=== PATIENT | female | born 1935 | race Caucasian/White ===

== ENCOUNTER 2018-03-22 17:20 | Inpatient (IN) | payer MEDICARE, MEDICAID ==
--- NOTE | 2018-03-22 18:02 | ED PDOC ---
Syncope/Near Syncope/Dizziness Time Seen by Provider: 03/22/18 17:30 Chief Complaint (Nursing): Weakness/Neurological Deficit Chief Complaint (Provider): Weakness/Neurological Deficit History Per: Patient History/Exam Limitations: clinical condition Additional Complaint(s): 84 y/o female who lives by herself was found by her neighbors on the ground in her apartment prompting ED visit. It is unclear how long patient was on the ground. Patient was found to be incontinent of urine. Patient denies falling or weakness but reports she remembers being unable to get up. She offers no other medical complaints. PMD: Jennyfer Past Medical History Reviewed: Historical Data, Nursing Documentation, Vital Signs Vital Signs: Last Vital Signs Temp 98.5 F 03/22/18 17:24 Pulse 94 H 03/22/18 17:24 Resp 20 03/22/18 17:24 BP 134/66 03/22/18 17:24 Pulse Ox 99 03/22/18 17:24 - Medical History PMH: Anxiety, Arthritis, HTN, Hypercholesterolemia, Hypothyroidism Denies: Chronic Kidney Disease - Family History Family History: States: Unknown Family Hx - Social History Current smoker - smoking cessation education provided: No Alcohol: None Drugs: Denies - Home Medications Home Medications: Ambulatory Orders Medication Instructions Recorded Alprazolam [Xanax] 0.5 mg PO DAILY 03/22/18 RX: Meclizine [Meclizine*] 25 mg PO BID PRN 03/22/18 RX: traMADol [Ultram] 50 mg PO BID PRN 03/22/18 - Allergies Allergies/Adverse Reactions: Allergies Allergy/AdvReac Type Severity Reaction Status Date / Time No Known Allergies Allergy Verified 03/18/15 19:39 Review of Systems ROS Statement: Except As Marked, All Systems Reviewed And Found Negative (as per HPI otherwise negative) Genitourinary Female: Positive for: Incontinence Physical Exam - Reviewed Nursing Documentation Reviewed: Yes Vital Signs Reviewed: Yes - Physical Exam Appears: Positive for: No Acute Distress Head Exam: Positive for: ATRAUMATIC, NORMOCEPHALIC Skin: Positive for: Warm, Dry Eye Exam: Positive for: EOMI, PERRL ENT: Positive for: Other (dry mucous membranes) Neck: Positive for: Painless ROM, Supple Cardiovascular/Chest: Positive for: Regular Rate, Rhythm Respiratory: Positive for: Normal Breath Sounds. Negative for: Wheezing, Respiratory Distress Gastrointestinal/Abdominal: Positive for: Soft. Negative for: Tenderness Extremity: Positive for: Pedal Edema (trace bilateral lower leg edema), Other (4/5 strength bilaterally in legs) Lymphatic: Negative for: Adenopathy Neurologic/Psych: Positive for: Alert, Oriented (x2; at times somewhat pleasantly confused) - Laboratory Results Result Diagrams: 03/24/18 11:10 03/24/18 11:10 - ECG O2 Sat by Pulse Oximetry: 99 (RA) Pulse Ox Interpretation: Normal Medical Decision Making Medical Decision Making: Reviewed patient's previous chart from 2015 patient does have history of dementia Time: Initial Impression: bilateral leg weakness with possible fall. Differential included but not limited to dehydration, electrolyte abnormality, head injury, sepsis, syncope Initial Plan: * Type and Screen * CT CSpine * CT Head * EKG * BNP * CMP * Creatinine * Lactic Acid * Magnesium * Phosphorous * TSH * Troponin * CBC w/ diff * PTT * Prothrombin time * CXR * Blood culture * Urine culture * UA Time: 18:54 CT Head COMPARISON: None provided. FINDINGS: BRAIN Chronic periventricular and subcortical microvascular disease is seen. VENTRICLES: There is generalized parenchymal atrophy noted as demonstrated by symmetrical dilatation of ventricles and sulci. ORBITS: The orbits are unremarkable. SINUSES AND MASTOIDS: The paranasal sinuses and mastoid air cells are clear. BONES: No fracture. MISCELLANEOUS: No acute intracranial pathology. IMPRESSION: 1. There is generalized parenchymal atrophy noted as demonstrated by symmetrical dilatation of ventricles and sulci. 2. Chronic periventricular and subcortical microvascular disease is seen. 3. No acute intracranial pathology. Time: 19:17 CT Cervical Spine COMMENTS: There is no fracture or spondylolisthesis visualized. The paraspinal soft tissues are unremarkable. There are no lytic or blastic lesions. Straightening of cervical lordosis is seen, suggesting muscular spasm. There is evidence of multilevel disk disease, demonstrated by large anterior bridging osteophytosis and endplate sclerosis. IMPRESSION: 1. No fracture or spondylolisthesis. 2. Straightening of cervical lordosis is seen, suggesting muscular spasm. 3. Multilevel spondylosis. Time: 19:30 Labs demonstrate elevated CPK and elevated BUN levels, consistent with early rhabdomyolysis. Small bolus fluid ordered, IV fluids given with caution sec ondary to elevated pro BNP. No acute findings on x-ray. Time: 20:15 Discussed findings with DOROTA Flores, who reports patient is normally self- sufficient, she just has mild dementia. Patient is able to ambulate without difficulty and occasionally uses cane. patient is to be admitted under his ser vice for further management. 2200 Pt became confused while in ER. Redirectable, but pt may be sundowning or dementia may be excerbated by current medical condition. Needs 1:1 for safety. Medicated for agitation. Scribe Attestation: Documented by Rock Majano acting as a scribe for Yasmin Tabares MD. Provider Scribe Attestation: All medical record entries made by the Scribe were at my direction and personally dictated by me. I have reviewed the chart and agree that the record accurately reflects my personal performance of the history, physical exam, medical decision making, and the department course for this patient. I have also personally directed, reviewed, and agree with the discharge instructions and disposition. Disposition - Clinical Impression Clinical Impression: Muscle weakness, Rhabdomyolysis, Acute renal insufficiency - Disposition Disposition Time: 20:15 Condition: FAIR - Pt Status Changed To: Hospital Disposition Of: Inpatient - Admit Certification Admit to Inpatient:: After my assessment, the patient will require ho spitalization for at least two midnights. This is because of the severity of symptoms shown, intensity of services needed, and/or the medical risk in this patient being treated as an outpatient. - POA Present On Arrival: Falls Or Trauma
[2018-03-22 19:14] LABS: BASO # 0.1 K/uL (0.0-0.2); BASO % 0.6 % (0.0-2.0); EOS # 0.1 K/uL (0.0-0.7); EOS % 0.7 % (0.0-4.0); LYMPH # 0.6 K/uL (1.0-4.3); LYMPH % 4.6 % (20.0-40.0); MEAN CELL VOLUME 92.6 fl (81.0-99.0); MEAN CORPUSCULAR HEMOGLOBIN 30.8 pg (27.0-31.0); MEAN CORPUSCULAR HGB CONC 33.2 g/dL (33.0-37.0); MEAN PLATELET VOLUME 9.1 fl (7.2-11.7); MONO # 0.7 K/uL (0.0-0.8); MONO % 5.2 % (0.0-10.0); NEUT # 12.5 K/uL (1.8-7.0); NEUT % 88.9 % (50.0-75.0); NRBC % 0.2 % (0.0-0.0); PLATELET COUNT 252 K/uL (130-400); RBC 4.89 Mil/uL (3.80-5.20); WHITE BLOOD COUNT 14.1 K/uL (4.8-10.8)
[2018-03-22 19:18] LABS: PROTHROMBIN TIME 11.9 Seconds (9.8-13.1)
[2018-03-22 19:20] LABS: ALB/GLOB RATIO 1.1 (1.0-2.1); ALBUMIN 4.2 g/dL (3.5-5.0); ALT/SGPT 73 U/L (9-52); AST/SGOT 156 U/L (14-36); BLOOD UREA NITROGEN 42 mg/dl (7-17); CALCIUM 8.9 mg/dL (8.4-10.2); GFR NON-AFRICAN AMERICAN > 60; PARTIAL THROMBOPLASTIN TIME 29.3 Seconds (25.6-37.1)
[2018-03-22] MEDS ORDERED: Sodium Chloride 0.9% 1,000 ML IV STA (19:35)
[2018-03-22 19:37] LABS: B-TYPE NATRIURETIC PEPTIDE 1570 pg/ml (0-900)
[2018-03-22 19:41] LABS: LYMPHOCYTE 3 % (20-50); MONOCYTE 4 % (0-10); NEUTROPHIL 93 % (42-75); PLATELET ESTIMATE NORMAL (NORMAL); TOTAL CELLS COUNTED 100
[2018-03-22 19:42] LABS: ANISOCYTOSIS SLIGHT; OVALOCYTES SLIGHT; POIKILOCYTOSIS SLIGHT; TEARDROP CELLS SLIGHT
[2018-03-22] MEDS ORDERED: Sodium Chloride 0.9% 500 ML IV STA (19:45)
[2018-03-22 22:04] LABS: URINE BILIRUBIN NEGATIVE (NEGATIVE); URINE CLARITY CLOUDY (Clear); URINE COLOR YELLOW (YELLOW); URINE GLUCOSE (UA) NEG (Normal); URINE LEUKOCYTE ESTERASE NEG Leu/uL (Negative); URINE PROTEIN >=500 mg/dL (NEGATIVE); URINE UROBILINOGEN 0.2-1.0 mg/dL (0.2-1.0)
[2018-03-22 22:06] LABS: URINE BLOOD NEGATIVE (NEGATIVE)
[2018-03-23] MEDS: Sodium Chloride 0.9% 1,000 ML IV SCH ×3 (01:17→15:37)
[2018-03-23 05:14] LABS: HEMOGLOBIN 14.1 g/dL (12.0-16.0); MEAN CORPUSCULAR HEMOGLOBIN 30.8 pg (27.0-31.0); MEAN CORPUSCULAR HGB CONC 33.5 g/dL (33.0-37.0); RBC 4.58 Mil/uL (3.80-5.20); WHITE BLOOD COUNT 11.5 K/uL (4.8-10.8)
[2018-03-23 05:54] LABS: ALB/GLOB RATIO 1.1 (1.0-2.1); ALBUMIN 3.6 g/dL (3.5-5.0); ALT/SGPT 67 U/L (9-52); AST/SGOT 138 U/L (14-36); BLOOD UREA NITROGEN 41 mg/dl (7-17); CALCIUM 8.5 mg/dL (8.4-10.2); GFR NON-AFRICAN AMERICAN > 60
--- NOTE | 2018-03-23 10:03 | CARD ---
APPROVED REPORT Date of service: 03/22/2018 EKG Measurement Heart [id number] <Conclusion> Normal sinus rhythm T wave abnormality, consider anterior ischemia Abnormal ECG
--- NOTE | 2018-03-23 10:17 | RAD ---
Date of service: 03/22/2018 HISTORY: Status post fall COMPARISON: No prior. FINDINGS: LUNGS: The interstitial markings a creased and coarsened; rule out sequela of reactive/inflammatory airway disease or viral illness. Possibility of an underlying chronic interstitial disease process not excluded. PLEURA: No significant pleural effusion identified, no pneumothorax apparent. CARDIOVASCULAR: No aortic atherosclerotic calcification present. Normal cardiac size. No pulmonary vascular congestion. OSSEOUS STRUCTURES: No significant abnormalities. VISUALIZED UPPER ABDOMEN: Normal. OTHER FINDINGS: None. IMPRESSION: The interstitial markings a creased and coarsened; rule out sequela of reactive/inflammatory airway disease or viral illness. Possibility of an underlying chronic interstitial disease process not excluded.
--- NOTE | 2018-03-23 10:59 | CT ---
Date of service: 03/22/2018 PROCEDURE: CT HEAD WITHOUT CONTRAST. HISTORY: fall on plavix, leg weakness COMPARISON: None available. TECHNIQUE: Axial computed tomography images were obtained through the head/brain without intravenous contrast. Radiation dose: Total exam DLP = 1117.47 mGy-cm. This CT exam was performed using one or more of the following dose reduction techniques: Automated exposure control, adjustment of the mA and/or kV according to patient size, and/or use of iterative reconstruction technique. FINDINGS: HEMORRHAGE: No acute parenchymal, subarachnoid or extra-axial hemorrhage. BRAIN: Mild moderate diffuse/confluent chronic periventricular white matter ischemic changes seen extending peripherally into the deep and subcortical white matter both cerebral hemispheres. There may also be some extension of these changes into the white matter tracts of both basal nuclei.. Note that the possibility of a small hyperacute infarct cannot be completely excluded. Moderate generalized volume loss. VENTRICLES: Unremarkable. No hydrocephalus. CALVARIUM: No acute calvarial fractures. PARANASAL SINUSES: Unremarkable as visualized. No significant inflammatory changes. MASTOID AIR CELLS: Unremarkable as visualized. No inflammatory changes. OTHER FINDINGS: Changes of bilateral cataract surgery present.. IMPRESSION: Mild moderate diffuse/confluent chronic periventricular white matter ischemic changes seen extending peripherally into the deep and subcortical white matter both cerebral hemispheres. There may also be some extension of these changes into the white matter tracts of both basal nuclei.. Note that the possibility of a small hyperacute infarct cannot be completely excluded. Moderate generalized volume loss .
--- NOTE | 2018-03-23 11:37 | CT ---
Date of service: 03/22/2018 PROCEDURE: CT Cervical Spine without contrast HISTORY: Status post fall with leg weakness COMPARISON: None available. TECHNIQUE: Axial computed tomography images were obtained of the cervical spine without the use of intravenous contrast. Coronal and sagittal reformatted images were created and reviewed. Radiation dose: Total exam DLP = 399.81 mGy-cm. This CT exam was performed using one or more of the following dose reduction techniques: Automated exposure control, adjustment of the mA and/or kV according to patient size, and/or use of iterative reconstruction technique. FINDINGS: VERTEBRAE: No acute compression fractures no retropulsed fragments. Vertebral bodies exhibit normal stature. Vertebral bodies and facets normally aligned. Apparent partial fusion changes posterior margins of the C2 and C3 vertebral body segments. In addition, there are also intradiscal calcifications seen along the right lateral disc margin. DISCS/SPINAL CANAL/NEURAL FORAMINA: Mild multilevel degenerative spondylosis. The C2-C3 level in addition to the aforementioned partial posterior fusion change intradiscal calcification concomitant the facets are slightly hypertrophic.. The overall central bony canal appears adequate. Left exit foramen is adequate. Right exit foramen is marginal to minimally narrowed. At the C3-C4 level, there is adequate disc height. Small central and bilateral disc bulge minimally indents the ventral surface of the thecal sac though does not cause any significant canal compromise nor cord compression. Mild degenerative squaring of the uncovertebral joints left more so on the left side. The facets also hypertrophic. Left exit foramen is stenotic. Right exit foramen is marginal to minimally narrowed. The At the C4-C5 level, there is adequate disc height. Small central and bilateral disc bulge ridge complex minimally indents the ventral surface of the thecal sac and appears to reach the ventral surface of the cord. Central canal appears marginal to adequate. Minimal degenerative squaring of the uncovertebral joints. Facets also [id number] hypertrophic right greater than left. Right exit foramen is marginal to slightly narrowed. Left exit foramen is marginal to adequate. At the C5 C6 level, there is adequate disc height. Small central disc bulge ridge complex also indents the ventral surface of the thecal sac and probably minimally indents the ventral surface of cord. Central canal appears adequate. The facets are hypertrophic. The uncovertebral joints also slightly overgrown. Exit foramina appear narrowed bilaterally. The at the C6-C7 level, small central osteophytic ridge minimally indents the ventral surface of the thecal sac. Central canal and exit foramina appear adequate. PARASPINAL SOFT TISSUES: Paraspinal soft tissues are unremarkable. OTHER FINDINGS: Lung apices are clear though note made of an azygos fissure. Minimal left apical pleural thickening IMPRESSION: No acute fractures. Minor multilevel degenerative spondylosis as described... Partial early fusion changes C2-C3 segments likely degenerative in origin.
--- NOTE | 2018-03-23 16:59 | CP.PCM.HP ---
History of Present Illness - History of Present Illness History of Present Illness: CC: AMS. 83 y/o F, Lives alone, with multiple chronic medical conditions, Mild cognitive impairment, HTN, Hypothyroidism, Dyslipidemia, Anxiety, Depression, brought to ER [facility] on 03/23/18 due to increased mental status on DOA, apparently, Pt fell at home and was found by neighbor on floor, unknown how long was on floor, episode associated to incontinent of stool and urine, EMS was call and Pt was brought to hospital with no improvement. Worsening symptoms: Unable to get up while at home, legs weakness. Also as per nurse, aggressive and combative at times placed on 1:1 for safety. Aggravated factor: Poor historian. Denied: Fever, chills, n/v/d, abdominal pain, urinary symptoms, CP, SOB, cough, sick contact. Head CT: Diffused chronic jovan-ventricular white matter ischemic changes, there may also be some extension into the white tracts of both basal nuclei. Small infarct cannot be complete excluded. CXR: Possibility of underlining interstitial disease. Cervical spine CT: No acute Fx. Multilevel degenerative spondylosis. Present on Admission - Present on Admission Any Indicators Present on Admission: No Review of Systems - Review of Systems Systems not reviewed;Unavailable: Acuity of Condition, Altered Mental Status Past Patient History - Past Medical History & Family History Past Medical History?: Yes - Past Social History Smoking Status: Never Smoked Alcohol: None Drugs: Denies Home Situation {Lives}: Alone - CARDIAC Hx Cardiac Disorders: Yes Hx Hypercholesterolemia: Yes Hx Hypertension: Yes - PULMONARY Hx Respiratory Disorders: No - NEUROLOGICAL Hx Neurological Disorder: Yes Hx Dementia: Yes Hx Vertigo: Yes - HEENT Hx HEENT Problems: No - RENAL Hx Chronic Kidney Disease: No - ENDOCRINE/METABOLIC Hx Endocrine Disorders: Yes Hx Hypothyroidism: Yes - HEMATOLOGICAL/ONCOLOGICAL Hx Blood Disorders: No - INTEGUMENTARY Hx Dermatological Problems: No - MUSCULOSKELETAL/RHEUMATOLOGICAL Hx Musculoskeletal Disorders: Yes Hx Arthritis: Yes Hx Falls: Yes - GASTROINTESTINAL Hx Gastrointestinal Disorders: No - GENITOURINARY/GYNECOLOGICAL Hx Genitourinary Disorders: No - PSYCHIATRIC Hx Psychophysiologic Disorder: Yes Hx Anxiety: Yes - SURGICAL HISTORY Hx Surgeries: No - ANESTHESIA Hx Anesthesia: No Hx Anesthesia Reactions: No Hx Malignant Hyperthermia: No Meds Allergies/Adverse Reactions: Allergies Allergy/AdvReac Type Severity Reaction Status Date / Time No Known Allergies Allergy Verified 03/18/15 19:39 Physical Exam - Constitutional Appears: No Acute Distress - Eye Exam Eye Exam: PERRL - ENT Exam ENT Exam: Normal Exam - Neck Exam Neck exam: Positive for: Normal Inspection - Respiratory Exam Respiratory Exam: Clear to Auscultation Bilateral - Cardiovascular Exam Cardiovascular Exam: REGULAR RHYTHM - GI/Abdominal Exam GI & Abdominal Exam: Normal Bowel Sounds, Soft - Back Exam Back exam: NORMAL INSPECTION - Neurological Exam Additional comments: awake, calm, oriented x one, no focal motor/sensory deficit - Psychiatric Exam Psychiatric exam: Anxious - Skin Skin Exam: Warm Results - Vital Signs Recent Vital Signs: Last Vital Signs Temp 97.6 F 03/23/18 16:42 Pulse 84 03/23/18 16:42 Resp 18 03/23/18 16:42 BP 123/72 03/23/18 16:42 Pulse Ox 95 03/23/18 16:42 - Labs Result Diagrams: 03/24/18 11:10 03/24/18 11:10 Labs: Laboratory Results - last 24 hr 03/22/18 03/22/18 03/22/18 19:00 19:00 19:00 WBC 14.1 H RBC 4.89 Hgb 15.0 Hct 45.3 MCV 92.6 MCH 30.8 MCHC 33.2 RDW 14.0 Plt Count 252 MPV 9.1 Neut % (Auto) 88.9 H Lymph % (Auto) 4.6 L Sharp % (Auto) 5.2 Eos % (Auto) 0.7 Baso % (Auto) 0.6 Neut # (Auto) 12.5 H Lymph # (Auto) 0.6 L Sharp # (Auto) 0.7 Eos # (Auto) 0.1 Baso # (Auto) 0.1 Neutrophils % (Manual) 93 H Lymphocytes % (Manual) 3 L Monocytes % (Manual) 4 Platelet Estimate Normal Poikilocytosis (manual Slight Anisocytosis (manual) Slight Tear Drop Cells Slight Ovalocytes Slight PT INR APTT Sodium 141 Potassium 3.6 Chloride 101 Carbon Dioxide 26 Anion Gap 18 BUN 42 H Creatinine 0.8 Est GFR ( Amer) > 60 Est GFR (Non-Af Amer) > 60 POC Glucose (mg/dL) Random Glucose 138 H Lactic Acid 1.2 Calcium 8.9 Phosphorus 3.2 Magnesium 2.3 Total Bilirubin 1.2 AST 156 H ALT 73 H Alkaline Phosphatase 97 Total Creatine Kinase 2676 H Troponin I 0.0330 NT-Pro-B Natriuret Pep 1570 H Total Protein 7.9 Albumin 4.2 Globulin 3.7 Albumin/Globulin Ratio 1.1 Vitamin B12 Thyroxine (T4) TSH 3rd Generation 2.11 Urine Color Urine Clarity Urine pH Ur Specific [place] Urine Protein Urine Glucose (UA) Urine Ketones Urine Blood Urine Nitrate Urine Bilirubin Urine Urobilinogen Ur Leukocyte Esterase Blood Type Antibody Screen BBK History Checked 03/22/18 03/22/18 03/22/18 19:00 19:08 19:16 WBC RBC Hgb Hct MCV MCH MCHC RDW Plt Count MPV Neut % (Auto) Lymph % (Auto) Sharp % (Auto) Eos % (Auto) Baso % (Auto) Neut # (Auto) Lymph # (Auto) Sharp # (Auto) Eos # (Auto) Baso # (Auto) Neutrophils % (Manual) Lymphocytes % (Manual) Monocytes % (Manual) Platelet Estimate Poikilocytosis (manual Anisocytosis (manual) Tear Drop Cells Ovalocytes PT 11.9 INR 1.0 APTT 29.3 Sodium Potassium Chloride Carbon Dioxide Anion Gap BUN Creatinine Est GFR ( Amer) Est GFR (Non-Af Amer) POC Glucose (mg/dL) 117 H Random Glucose Lactic Acid Calcium Phosphorus Magnesium Total Bilirubin AST ALT Alkaline Phosphatase Total Creatine Kinase Troponin I NT-Pro-B Natriuret Pep Total Protein Albumin Globulin Albumin/Globulin Ratio Vitamin B12 Thyroxine (T4) TSH 3rd Generation Urine Color Urine Clarity Urine pH Ur Specific [place] Urine Protein Urine Glucose (UA) Urine Ketones Urine Blood Urine Nitrate Urine Bilirubin Urine Urobilinogen Ur Leukocyte Esterase Blood Type O NEGATIVE Antibody Screen Negative BBK History Checked No verified bt 03/22/18 03/23/18 03/23/18 21:48 04:35 04:35 WBC 11.5 H RBC 4.58 Hgb 14.1 Hct 42.2 MCV 92.0 MCH 30.8 MCHC 33.5 RDW 14.0 Plt Count 240 MPV Neut % (Auto) Lymph % (Auto) Sharp % (Auto) Eos % (Auto) Baso % (Auto) Neut # (Auto) Lymph # (Auto) Sharp # (Auto) Eos # (Auto) Baso # (Auto) Neutrophils % (Manual) Lymphocytes % (Manual) Monocytes % (Manual) Platelet Estimate Poikilocytosis (manual Anisocytosis (manual) Tear Drop Cells Ovalocytes PT INR APTT Sodium 142 Potassium 3.5 L Chloride 105 Carbon Dioxide 25 Anion Gap 16 BUN 41 H Creatinine 0.8 Est GFR ( Amer) > 60 Est GFR (Non-Af Amer) > 60 POC Glucose (mg/dL) Random Glucose 137 H Lactic Acid Calcium 8.5 Phosphorus Magnesium Total Bilirubin 1.1 AST 138 H ALT 67 H Alkaline Phosphatase 84 Total Creatine Kinase Troponin I NT-Pro-B Natriuret Pep Total Protein 7.0 Albumin 3.6 Globulin 3.4 Albumin/Globulin Ratio 1.1 Vitamin B12 381 Thyroxine (T4) 7.53 TSH 3rd Generation 3.58 Urine Color Yellow Urine Clarity Cloudy Urine pH 6.0 Ur Specific [place] 1.033 H Urine Protein >=500 Urine Glucose (UA) Neg Urine Ketones 20 Urine Blood Negative Urine Nitrate Negative Urine Bilirubin Negative Urine Urobilinogen 0.2-1.0 Ur Leukocyte Esterase Neg Blood Type Antibody Screen BBK History Checked Assessment & Plan (1) Rhabdomyolysis Status: Acute Priority: High (2) Status post fall Status: Acute Priority: High (3) Change in mental status Status: Chronic Priority: High (4) Dementia Status: Chronic Priority: Medium (5) HTN (hypertension) Status: Chronic Priority: Medium - Assessment and Plan (Free Text) Plan: F/U Blood& urine C-S, Brain MRI, Renal U-S, Carotid U-S, continue Fluid IV, Haloperidol and rest of Tx. Psychiatry and Urology consult, PT ekaterina. - Date & Time Date: 03/23/18 Time: 13:10
--- NOTE | 2018-03-23 17:39 | US ---
Date of service: 03/23/2018 PROCEDURE: Ultrasound of the Kidneys HISTORY: elevated COMPARISON: None available. TECHNIQUE: Sonogram of the kidneys. FINDINGS: RIGHT KIDNEY: Measures: 12.6 x 4.9 x 4.9 cm. Normal in size, contour and echogenicity. No stone or solid mass lesion. There appears to be mild hydronephrosis LEFT KIDNEY: Measures: 11.9 x 6.2 x 5.3 cm. Normal in size, contour and echogenicity. No stone or solid mass lesion. Questionable minor hydronephrosis. OTHER FINDINGS: Prevoid bladder volume calculated at approximately 1045 cc. Patient was unable to void. IMPRESSION: There appears to be minor right and questionable mid minor left-sided hydronephrosis.. Large urinary bladder volume with patient unable to void as described.
--- NOTE | 2018-03-24 10:05 | CP.PCM.CON ---
History of Present Illness - History of Present Illness History of Present Illness: Psychiatry consult note CC: AMS HPI: 83 yo Michael female, found by her neighbors on the ground in her apartment, presents w/ altered mental status, rhabdomyolysis, renal insufficiency. Patient currently disoriented; only oriented to self and birthdate. She does not know where she is, the date, or why she is in the hospital. She denies acute depression/anxiety/AH/VH/SI/HI. She does not believe she has memory deficits. As per records, patient has a history of dementia w/ treatment w/ Aricept, but patient is not able to confirm if she is taking this medication. Patient unable to provide any other relevant history. PMHx: Arthritis, HTN, HLD, Hypothyroidism PPHx: H/o Dementia ALL: NKDA SHx: Lives alone, denies having children; no known drug/etoh/cig use Impression: 83 yo female presents acutely delirious, likely also with worsening chronic neurocognitive impairment. She is not currently behaviorally disturbed. -Recommend to restart Aricept 5 mg PO HS -Can consider discontinuing 1:1 as she does not have acute behavioral disturbances; patient would benefit from being monitored for fall risk -Avoid benzodiazepines as they are likely to worsen confusion -If patient develops behavioral disturbances, can start treatment with Depakote 125 mg PO BID Past Patient History - Past Medical History & Family History Past Medical History?: Yes - Past Social History Smoking Status: Never Smoked - CARDIAC Hx Cardiac Disorders: Yes Hx Hypercholesterolemia: Yes Hx Hypertension: Yes - PULMONARY Hx Respiratory Disorders: No - NEUROLOGICAL Hx Neurological Disorder: Yes Hx Dementia: Yes - HEENT Hx HEENT Problems: No - RENAL Hx Chronic Kidney Disease: No - ENDOCRINE/METABOLIC Hx Endocrine Disorders: Yes Hx Hypothyroidism: Yes - HEMATOLOGICAL/ONCOLOGICAL Hx Blood Disorders: No - INTEGUMENTARY Hx Dermatological Problems: No - MUSCULOSKELETAL/RHEUMATOLOGICAL Hx Musculoskeletal Disorders: Yes Hx Arthritis: Yes Hx Falls: Yes - GASTROINTESTINAL Hx Gastrointestinal Disorders: No - GENITOURINARY/GYNECOLOGICAL Hx Genitourinary Disorders: No - PSYCHIATRIC Hx Psychophysiologic Disorder: Yes Hx Anxiety: Yes - SURGICAL HISTORY Hx Surgeries: No - ANESTHESIA Hx Anesthesia: No Hx Anesthesia Reactions: No Hx Malignant Hyperthermia: No Meds Allergies/Adverse Reactions: Allergies Allergy/AdvReac Type Severity Reaction Status Date / Time No Known Allergies Allergy Verified 03/18/15 19:39 - Medications Medications: Current Medications Haloperidol Lactate (Haldol) 0.5 mg IM Q6 PRN PRN Reason: Agitation Last Admin: 03/23/18 21:04 Dose: 0.5 mg Results - Vital Signs Recent Vital Signs: Last Vital Signs Temp 99.2 F 03/24/18 08:50 Pulse 80 03/24/18 08:50 Resp 20 03/24/18 08:50 BP 166/83 H 03/24/18 08:50 Pulse Ox 96 03/24/18 08:50 - Labs Result Diagrams: 03/24/18 11:10 03/23/18 04:35 Labs: Laboratory Results - last 24 hr 03/23/18 06:23 RPR Nonreactive
[2018-03-24 11:17] LABS: HEMOGLOBIN 12.5 g/dL (12.0-16.0); MEAN CELL VOLUME 95.2 fl (81.0-99.0); MEAN CORPUSCULAR HEMOGLOBIN 30.9 pg (27.0-31.0); MEAN CORPUSCULAR HGB CONC 32.5 g/dL (33.0-37.0); RBC 4.03 Mil/uL (3.80-5.20); RED CELL DISTRIBUTION WIDTH 14.3 % (11.5-14.5); WHITE BLOOD COUNT 9.1 K/uL (4.8-10.8)
[2018-03-24] MEDS ORDERED: Sodium Chloride 0.9% 1,000 ML IV SCH (11:45)
[2018-03-24 11:55] LABS: ALBUMIN 3.1 g/dL (3.5-5.0); ALT/SGPT 60 U/L (9-52); AST/SGOT 70 U/L (14-36); BLOOD UREA NITROGEN 27 mg/dl (7-17); CALCIUM 7.7 mg/dL (8.4-10.2); GFR NON-AFRICAN AMERICAN > 60
--- NOTE | 2018-03-24 13:59 | US ---
Date of service: 03/24/2018 PROCEDURE: Duplex ultrasound of the carotid and vertebral arteries. HISTORY: ams COMPARISON: None available. TECHNIQUE: Grayscale and duplex Doppler evaluation of the cervical carotid and vertebral arteries were performed. The common carotid, carotid bifurcations and cervical ICA and proximal ECA were evaluated. The vertebral arteries were evaluated for gross patency and direction. FINDINGS: RIGHT CAROTID ARTERIES: Common Carotid Artery: Maximal flow velocity of 76.2 cm/s. Carotid Bifurcation: Intimal thickening is present Internal Carotid Artery:Heterogeneous plaque formation. Maximal flow velocity of 96.3 cm/s. External Carotid Artery (proximal branches): Maximal flow velocity of 57.8 cm/s. ICA/CCA Ratio: 1.2 LEFT CAROTID ARTERIES: Common Carotid Artery: Maximal flow velocity of 105.9 cm/s. Carotid Bifurcation: Intimal thickening is present Internal Carotid Artery:Heterogeneous plaque formation. Maximal flow velocity of 60.2 cm/s. External Carotid Artery (proximal branches): Maximal flow velocity of 127.0 cm/s. ICA/CCA Ratio: 0.5 VERTEBRAL ARTERIES: Right Vertebral Artery: Patent. Antegrade flow. Left Vertebral Artery: Patent. Antegrade flow. OTHER FINDINGS: Atherosclerotic calcification present. IMPRESSION: Right ICA degree of stenosis: Less than 50% Left ICA degree of stenosis: Less than 50% Reference Internal Carotid Artery (ICA) Peak Systolic Velocity (PSV) for above: 1. Less than 50% stenosis less than 125 cm/s peak systolic velocity 2. 50-69% stenosis 125-230cm/s peak systolic velocity 3. Greater than 70% but less than near occlusion greater than 230 cm/s peak systolic velocity
[2018-03-24] MEDS ORDERED: Potassium Chloride 20 mEq ER Tab PO ONE ×2 (14:14→20:30)
[2018-03-24] MEDS: Sodium Chloride 0.9% 1,000 ML IV SCH (14:15)
--- NOTE | 2018-03-24 17:08 | MRI ---
Date of service: 03/24/2018 PROCEDURE: MRI BRAIN WITHOUT CONTRAST HISTORY: ams COMPARISON: Unenhanced head CT 03/22/2018. TECHNIQUE: Multiplanar, multisequence MR images of the brain were obtained without intravenous contrast enhancement. FINDINGS: HEMORRHAGE: None DWI: No evidence of an acute or early subacute infarction. BRAIN PARENCHYMA: Diffuse cerebral atrophy chronic microangiopathy are better defined as compared to prior CT of the head noted above. No interval mass effect. Posterior fossa contents are unremarkable including the brainstem. No suspicious extra-axial collection identified. VENTRICLES: Unremarkable. No hydrocephalus. CRANIUM: Unremarkable. ORBITS: Grossly unremarkable. PARANASAL SINUSES/MASTOIDS: Clear VASCULAR SYSTEM: Skull base flow voids intact. OTHER FINDINGS: None. IMPRESSION: No definite acute or subacute brain infarction identified. Age related neuro degenerative changes are reiterated.
[2018-03-24 18:05] LABS: FOLATE 10.9 ng/mL
--- NOTE | 2018-03-24 19:58 | CP.PCM.PN ---
Subjective - Date & Time of Evaluation Date of Evaluation: 03/24/18 Time of Evaluation: 19:00 - Subjective Subjective: agitated, confused, pulled IV out Objective - Vital Signs/Intake and Output Vital Signs (last 24 hours): Temp Pulse Resp BP Pulse Ox 98.1 F 94 H 20 171/77 H 95 03/24/18 15:53 03/24/18 15:53 03/24/18 15:53 03/24/18 15:53 03/24/18 15:53 - Medications Medications: Current Medications Amlodipine Besylate (Norvasc) 2.5 mg PO DAILY [facility] Cyanocobalamin (Vitamin B12 1000 Mcg Tab) 1,000 mcg PO DAILY [facility] Last Admin: 03/24/18 16:29 Dose: 1,000 mcg Haloperidol Lactate (Haldol) 0.5 mg IM Q6 PRN PRN Reason: Agitation Last Admin: 03/24/18 16:26 Dose: 0.5 mg Sodium Chloride (Sodium Chloride 0.9%) 1,000 mls @ 100 mls/hr IV .Q10H [facility] Stop: 03/25/18 11:31 Last Admin: 03/24/18 14:15 Dose: 100 mls/hr Levothyroxine Sodium (Synthroid) 75 mcg PO DAILY@0630 [facility] - Labs Labs: 03/24/18 11:10 03/24/18 11:10 PT 11.9 Seconds (9.8-13.1) 03/22/18 19:00 INR 1.0 03/22/18 19:00 APTT 29.3 Seconds (25.6-37.1) 03/22/18 19:00 - Constitutional Appears: No Acute Distress - Head Exam Head Exam: NORMAL INSPECTION - Eye Exam Eye Exam: PERRL - ENT Exam ENT Exam: Normal Exam - Neck Exam Neck Exam: Normal Inspection - Respiratory Exam Respiratory Exam: Rhonchi (scattered) - Cardiovascular Exam Cardiovascular Exam: REGULAR RHYTHM - GI/Abdominal Exam GI & Abdominal Exam: Soft, Normal Bowel Sounds - Extremities Exam Extremities Exam: Normal Inspection - Back Exam Back Exam: NORMAL INSPECTION - Neurological Exam Neurological Exam: Awake Additional comments: confused, agitated earlier, no focal motor/sensory deficit - Psychiatric Exam Psychiatric exam: Agitated - Skin Skin Exam: Warm Assessment and Plan (1) Rhabdomyolysis Status: Acute (2) Status post fall Status: Acute (3) Change in mental status Status: Chronic (4) Dementia Status: Chronic (5) HTN (hypertension) Status: Chronic (6) Urinary retention Status: Acute - Assessment and Plan (Free Text) Plan: MRI Brain no Acute or Subacute Infarct, Carotid US no significant stenosis, Renal US mild hydronephrosis, increase Haldol to one mg im q 6hs, urinary retention , insert Casillas Cath, U/A , Urine C-S, f/u up Urology consult
[2018-03-25 05:52] LABS: B-TYPE NATRIURETIC PEPTIDE 1630 pg/ml (0-900)
[2018-03-25 05:54] LABS: LDL CHOLESTEROL 136 mg/dL (0-129)
[2018-03-25 05:57] LABS: BASO # 0.1 K/uL (0.0-0.2); BASO % 0.9 % (0.0-2.0); EOS # 0.3 K/uL (0.0-0.7); HEMOGLOBIN 12.7 g/dL (12.0-16.0); LYMPH # 1.1 K/uL (1.0-4.3); LYMPH % 13.8 % (20.0-40.0); MEAN CELL VOLUME 93.1 fl (81.0-99.0); MEAN CORPUSCULAR HEMOGLOBIN 30.5 pg (27.0-31.0); MEAN CORPUSCULAR HGB CONC 32.8 g/dL (33.0-37.0); MEAN PLATELET VOLUME 8.6 fl (7.2-11.7); MONO # 0.6 K/uL (0.0-0.8); MONO % 7.2 % (0.0-10.0); NEUT % 74.1 % (50.0-75.0); NRBC % 0.1 % (0.0-0.0); RBC 4.15 Mil/uL (3.80-5.20); RED CELL DISTRIBUTION WIDTH 14.2 % (11.5-14.5); WHITE BLOOD COUNT 8.1 K/uL (4.8-10.8)
[2018-03-25 06:03] LABS: ALBUMIN 3.1 g/dL (3.5-5.0); ALT/SGPT 59 U/L (9-52); AST/SGOT 55 U/L (14-36); BLOOD UREA NITROGEN 18 mg/dl (7-17); GFR NON-AFRICAN AMERICAN > 60; HDL CHOLESTEROL 44 MG/DL (30-70)
[2018-03-25] MEDS: Levothyroxine 75 MCG TAB PO SCH (06:08)
[2018-03-25] MEDS: Sodium Chloride 0.9% 1,000 ML IV SCH ×2 (10:00→23:48)
--- NOTE | 2018-03-25 13:57 | CP.PCM.PN ---
Subjective - Date & Time of Evaluation Date of Evaluation: 03/25/18 Time of Evaluation: 11:30 - Subjective Subjective: F/u AMS alert, calm, answer questions Objective - Vital Signs/Intake and Output Vital Signs (last 24 hours): Temp Pulse Resp BP Pulse Ox 99.2 F 85 20 132/74 95 03/25/18 12:00 03/25/18 12:00 03/25/18 12:00 03/25/18 12:00 03/25/18 12:00 - Medications Medications: Current Medications Amlodipine Besylate (Norvasc) 2.5 mg PO DAILY [facility] Last Admin: 03/25/18 09:59 Dose: 2.5 mg Cyanocobalamin (Vitamin B12 1000 Mcg Tab) 1,000 mcg PO DAILY [facility] Last Admin: 03/25/18 12:26 Dose: 1,000 mcg Divalproex Sodium (Depakote Sprinkles) 125 mg PO BID [facility] Donepezil HCl (Aricept) 5 mg PO HS [facility] Levothyroxine Sodium (Synthroid) 75 mcg PO DAILY@0630 [facility] Last Admin: 03/25/18 06:08 Dose: 75 mcg - Labs Labs: 03/25/18 04:45 03/25/18 04:45 PT 11.9 Seconds (9.8-13.1) 03/22/18 19:00 INR 1.0 03/22/18 19:00 APTT 29.3 Seconds (25.6-37.1) 03/22/18 19:00 - Constitutional Appears: No Acute Distress - Head Exam Head Exam: NORMAL INSPECTION - Eye Exam Eye Exam: PERRL - ENT Exam ENT Exam: Normal Exam - Neck Exam Neck Exam: Normal Inspection - Respiratory Exam Respiratory Exam: Rhonchi (few at bases) - Cardiovascular Exam Cardiovascular Exam: REGULAR RHYTHM - GI/Abdominal Exam GI & Abdominal Exam: Soft, Normal Bowel Sounds - Extremities Exam Extremities Exam: Normal Inspection - Back Exam Back Exam: NORMAL INSPECTION - Neurological Exam Neurological Exam: Awake Additional comments: alert , calm, answer questions, oriented for 2 and half, no focal motor/sensory deficit. - Skin Skin Exam: Warm Assessment and Plan (1) Rhabdomyolysis Status: Resolved (2) Status post fall Status: Acute (3) Change in mental status Status: Acute (4) Dementia Status: Chronic (5) HTN (hypertension) Status: Chronic - Assessment and Plan (Free Text) Plan: mental status improved, on Aricept, Depakote, PT ANTON
[2018-03-25] MEDS: Divalproex 125 mg Sprinkle Capsule PO SCH ×2 (14:38→18:03)
[2018-03-25] MEDS ORDERED: Divalproex 125 mg Sprinkle Capsule PO SCH (17:00)
[2018-03-26] MEDS: Levothyroxine 75 MCG TAB PO SCH (06:54)
[2018-03-26] MEDS: Divalproex 125 mg Sprinkle Capsule PO SCH ×2 (09:08→16:57)
--- NOTE | 2018-03-26 12:42 | CP.PCM.PN ---
Subjective - Date & Time of Evaluation Date of Evaluation: 03/26/18 Time of Evaluation: 11:40 - Subjective Subjective: F/U AMS Calm, able to talk, confused at times Objective - Vital Signs/Intake and Output Vital Signs (last 24 hours): Temp Pulse Resp BP Pulse Ox 97.8 F 83 20 131/71 94 L 03/26/18 12:30 03/26/18 12:30 03/26/18 12:30 03/26/18 12:30 03/26/18 12:30 - Medications Medications: Current Medications Amlodipine Besylate (Norvasc) 2.5 mg PO DAILY [facility] Last Admin: 03/26/18 09:08 Dose: 2.5 mg Cyanocobalamin (Vitamin B12 1000 Mcg Tab) 1,000 mcg PO DAILY [facility] Last Admin: 03/26/18 09:09 Dose: 1,000 mcg Dimethicone (Proshield Plus Skin Protectant) 1 applic TOP Q8 [facility] Divalproex Sodium (Depakote Sprinkles) 125 mg PO BID [facility] Last Admin: 03/26/18 09:08 Dose: 125 mg Donepezil HCl (Aricept) 5 mg PO HS [facility] Last Admin: 03/25/18 21:16 Dose: 5 mg Enalapril Maleate (Vasotec) 2.5 mg PO DAILY [facility] Enoxaparin Sodium (Lovenox) 40 mg SC DAILY [facility]; Protocol Ciprofloxacin (Cipro 400mg/200ml Dsw) 400 mg in 200 mls @ 200 mls/hr IVPB Q12 [facility]; Protocol Levothyroxine Sodium (Synthroid) 75 mcg PO DAILY@0630 [facility] Last Admin: 03/26/18 06:54 Dose: 75 mcg - Labs Labs: 03/25/18 04:45 03/25/18 04:45 PT 11.9 Seconds (9.8-13.1) 03/22/18 19:00 INR 1.0 03/22/18 19:00 APTT 29.3 Seconds (25.6-37.1) 03/22/18 19:00 - Constitutional Appears: No Acute Distress - Head Exam Head Exam: NORMAL INSPECTION - Eye Exam Eye Exam: PERRL - ENT Exam ENT Exam: Normal Exam - Neck Exam Neck Exam: Normal Inspection - Respiratory Exam Respiratory Exam: Rhonchi (scattered) - Cardiovascular Exam Cardiovascular Exam: REGULAR RHYTHM - GI/Abdominal Exam GI & Abdominal Exam: Soft, Normal Bowel Sounds - Exam Additional comments: Casillas Cath - Extremities Exam Extremities Exam: Normal Inspection - Back Exam Additional comments: DTI R inner gluteal - Neurological Exam Neurological Exam: Awake Additional comments: Calm, confused,follows commands, no focal motor/sensory deicit. - Psychiatric Exam Psychiatric exam: Anxious - Skin Skin Exam: Warm Assessment and Plan (1) Rhabdomyolysis Assessment & Plan: improved Status: Resolved (2) Status post fall Status: Acute (3) Change in mental status Assessment & Plan: 2nd to Rhabdomyolysis, UTI and Dementia Status: Acute (4) Dementia Assessment & Plan: Depakote , Aricept Status: Chronic (5) HTN (hypertension) Status: Chronic (6) Urinary retention Assessment & Plan: Casillas Cath Status: Acute (7) UTI (urinary tract infection) Assessment & Plan: E Fecalis, E Coli Status: Acute (8) Hypothyroidism Status: Chronic (9) Deep tissue injury Assessment & Plan: R gluteal, Tx Proshield Status: Acute - Assessment and Plan (Free Text) Plan: continue Cipro, Depakote, Aricept and rest of treatment, ANTON
[2018-03-26] MEDS: Ciprofloxacin 400mg/200ml D5W 400 MG/200 ML BAG IVPB SCH ×2 (13:10→21:58)
[2018-03-26] MEDS: Enoxaparin 40 mg Syringe SC SCH (13:10)
[2018-03-26] MEDS: Proshield Plus GEL TOP SCH (16:58)
[2018-03-27] MEDS: Proshield Plus GEL TOP SCH ×3 (01:00→16:20)
[2018-03-27] MEDS: Levothyroxine 75 MCG TAB PO SCH (06:31)
[2018-03-27] MEDS: Ciprofloxacin 400mg/200ml D5W 400 MG/200 ML BAG IVPB SCH ×2 (09:48→22:08)
[2018-03-27] MEDS: Divalproex 125 mg Sprinkle Capsule PO SCH ×2 (09:49→16:18)
[2018-03-27] MEDS: Enoxaparin 40 mg Syringe SC SCH ×2 (09:50→11:19)
[2018-03-27 09:54] LABS: B-TYPE NATRIURETIC PEPTIDE 835 pg/ml (0-900)
[2018-03-27 09:55] LABS: ALT/SGPT 38 U/L (9-52); AST/SGOT 37 U/L (14-36); BLOOD UREA NITROGEN 17 mg/dl (7-17); CALCIUM 8.1 mg/dL (8.4-10.2); GFR NON-AFRICAN AMERICAN > 60
--- NOTE | 2018-03-27 12:22 | CT ---
Date of service: 03/27/2018 PROCEDURE: CT Chest without contrast HISTORY: increased insterstitial markings COMPARISON: None available. TECHNIQUE: Contiguous axial images were obtained through the chest without intravenous contrast enhancement. Sagittal and coronal reconstructions were performed. Radiation dose: Total exam DLP = 502.71 mGy-cm. This CT exam was performed using one or more of the following dose reduction techniques: Automated exposure control, adjustment of the mA and/or kV according to patient size, and/or use of iterative reconstruction technique. FINDINGS: LUNGS: Prominent lung markings noted at the mid and lower portion of the lungs. There is linear shaped opacity at the right lung upper lobe may represent scar tissue or less likely atelectasis. Small bibasilar atelectasis are also noted more prominent on the left. MEDIASTINUM: Unremarkable thoracic aorta. No aneurysm. Normal sized heart. Main pulmonary artery is mildly enlarged. No lymphadenopathy. No aortic atherosclerotic calcification. PLEURA: There is small left pleural effusion noted. BONES: Mild diffuse osteopenia noted. There is mild compression deformity at the superior endplate of L1 UPPER ABDOMEN: No evidence of acute pathology OTHER FINDINGS: None. IMPRESSION: Mild pulmonary vascular congestion and prominent lung markings noted more prominent in the mid and lower lungs.. Soft tissue nodule at the medial aspect of the right lung middle lobe measures 1.5 x 0.8 centimeter. Three months follow-up reassessment is suggested. Linear opacities in the lungs likely represent scar tissue or atelectasis. Small left pleural effusion. Mild compression deformity at the superior endplate of L1.
--- NOTE | 2018-03-27 13:45 | CP.PCM.CON ---
History of Present Illness - History of Present Illness History of Present Illness: Psychiatry consult note; follow-up called to evaluate capacity to make medical decisions CC: Inability to care for self HPI: 83 yo Michael female, found by her neighbors on the ground in her apartment, presented w/ altered mental status, rhabdomyolysis, renal insufficiency. Patient continues to disoriented. She does not know where she is. She was able to read the date off the board. When asked why she is in the hospital, she sta ynes that she does not know, but that her mind is not working. Patient continues to be unable to provide any other relevant history. She can not understand her current treatment or treatment choices. She can not manipulate new information. PMHx: Arthritis, HTN, HLD, Hypothyroidism PPHx: H/o Dementia ALL: NKDA SHx: Lives alone, denies having children; no known drug/etoh/cig use Impression: 83 yo female w/ dementia w/ behavioral disturbances. Patient does not have capacity to make medical decisions at this time. -Continue Aricept -Continue Depakote; can titrate dose if patient has behavioral disturbances; check VPA level in 5 days -Avoid benzodiazepines as they are likely to worsen confusion Past Patient History - Past Medical History & Family History Past Medical History?: Yes - Past Social History Smoking Status: Never Smoked Alcohol: None Drugs: Denies Home Situation {Lives}: Alone - CARDIAC Hx Cardiac Disorders: Yes Hx Hypercholesterolemia: Yes Hx Hypertension: Yes - PULMONARY Hx Respiratory Disorders: No - NEUROLOGICAL Hx Neurological Disorder: Yes Hx Dementia: Yes Hx Vertigo: Yes - HEENT Hx HEENT Problems: No - RENAL Hx Chronic Kidney Disease: No - ENDOCRINE/METABOLIC Hx Endocrine Disorders: Yes Hx Hypothyroidism: Yes - HEMATOLOGICAL/ONCOLOGICAL Hx Blood Disorders: No - INTEGUMENTARY Hx Dermatological Problems: No - MUSCULOSKELETAL/RHEUMATOLOGICAL Hx Musculoskeletal Disorders: Yes Hx Arthritis: Yes Hx Falls: Yes - GASTROINTESTINAL Hx Gastrointestinal Disorders: No - GENITOURINARY/GYNECOLOGICAL Hx Genitourinary Disorders: No - PSYCHIATRIC Hx Psychophysiologic Disorder: Yes Hx Anxiety: Yes - SURGICAL HISTORY Hx Surgeries: No - ANESTHESIA Hx Anesthesia: No Hx Anesthesia Reactions: No Hx Malignant Hyperthermia: No Meds Allergies/Adverse Reactions: Allergies Allergy/AdvReac Type Severity Reaction Status Date / Time No Known Allergies Allergy Verified 03/18/15 19:39 - Medications Medications: Current Medications Amlodipine Besylate (Norvasc) 2.5 mg PO DAILY [facility] Last Admin: 03/27/18 09:51 Dose: 2.5 mg Cyanocobalamin (Vitamin B12 1000 Mcg Tab) 1,000 mcg PO DAILY [facility] Last Admin: 03/27/18 09:52 Dose: 1,000 mcg Dimethicone (Proshield Plus Skin Protectant) 1 applic TOP Q8 [facility] Last Admin: 03/27/18 01:00 Dose: 1 applic Divalproex Sodium (Depakote Sprinkles) 125 mg PO BID [facility] Last Admin: 03/27/18 09:49 Dose: 125 mg Donepezil HCl (Aricept) 5 mg PO HS [facility] Last Admin: 03/26/18 21:58 Dose: 5 mg Enalapril Maleate (Vasotec) 2.5 mg PO DAILY [facility] Last Admin: 03/27/18 09:51 Dose: 2.5 mg Enoxaparin Sodium (Lovenox) 40 mg SC DAILY [facility]; Protocol Last Admin: 03/27/18 11:19 Dose: Not Given Ciprofloxacin (Cipro 400mg/200ml Dsw) 400 mg in 200 mls @ 200 mls/hr IVPB Q12 [facility]; Protocol Last Admin: 03/27/18 09:48 Dose: 200 mls/hr Levothyroxine Sodium (Synthroid) 75 mcg PO DAILY@0630 [facility] Last Admin: 03/27/18 06:31 Dose: 75 mcg Results - Vital Signs Recent Vital Signs: Last Vital Signs Temp 98.6 F 03/27/18 12:18 Pulse 79 03/27/18 12:18 Resp 20 03/27/18 12:18 BP 147/78 03/27/18 12:18 Pulse Ox 93 L 03/27/18 12:18 - Labs Result Diagrams: 03/25/18 04:45 03/27/18 09:29 Labs: Laboratory Results - last 24 hr 03/27/18 09:29 Sodium 137 Potassium 3.5 L Chloride 105 Carbon Dioxide 29 Anion Gap 7 L BUN 17 Creatinine 0.6 L Est GFR ( Amer) > 60 Est GFR (Non-Af Amer) > 60 Random Glucose 128 H Calcium 8.1 L Phosphorus 3.9 Magnesium 1.8 Total Bilirubin 0.8 AST 37 H D ALT 38 Alkaline Phosphatase 73 Total Creatine Kinase 133 NT-Pro-B Natriuret Pep 835 Total Protein 6.1 L Albumin 3.0 L Globulin 3.1 Albumin/Globulin Ratio 1.0
--- NOTE | 2018-03-27 14:26 | CARD ---
APPROVED REPORT Date of service: 03/27/2018 EXAM: Two-dimensional and M-mode echocardiogram with Doppler and color Doppler. Other Information Quality : GoodRhythm : NSR INDICATION Elevated Pro BNP 2D DIMENSIONS IVSd0.88 (0.7-1.1cm)LVDd4.60 (3.9-5.9cm) LVOT Diameter1.89 (1.8-2.4cm)PWd0.92 (0.7-1.1cm) IVSs1.61 (0.8-1.2cm)LVDs2.98 (2.5-4.0cm) FS (%) 35.2 %PWs1.15 (0.8-1.2cm) M-Mode DIMENSIONS Left Atrium (MM)3.53 (2.5-4.0cm)IVSd0.79 (0.7-1.1cm) Aortic Root2.91 (2.2-3.7cm)LVDd5.00 (4.0-5.6cm) Aortic Cusp Exc.1.79 (1.5-2.0cm)PWd0.97 (0.7-1.1cm) IVSs1.65 cmFS (%) 46 % LVDs2.71 (2.0-3.8cm)PWs1.53 cm Aortic Valve AoV Peak Kgppkakg117.8cm/sAoV VTI27.4cmAO Peak GR.11mmHg LVOT Peak Txefzjoa73.8cm/sLVOT VTI19.35cmAO Mean GR.7mmHg ZANDRA (VMAX)0.46pl4HOK (VTI)1.04cm2 Mitral Valve MV E Muaiunho32.3cm/sMV DECEL [id number] A Sqfdmwmw75.6cm/s MV JQW53oaL/A ratio0.8MVA (PHT)2.38cm2 TDI Lateral E' Peak V9.70cm/sMedial E' Peak V7.09cm/sE/Lateral E'7.8 E/Medial E'10.6 Tricuspid Valve TR Peak Wafauefk343cv/sRAP [id number] Peak Gr.31mmHg [id number] LEFT VENTRICLE The left ventricle is normal size. There is normal left ventricular wall thickness. The left ventricular systolic function is normal. The estimated ejection fraction is 55-60% No regional wall motion abnormalities noted.. Transmitral Doppler flow pattern is Grade I-abnormal relaxation pattern. No left ventricle thrombus noted on this study. There is no ventricular septal defect visualized. There is no left ventricular aneurysm. There is no mass noted in the left ventricle. RIGHT VENTRICLE The right ventricle is normal size. There is normal right ventricular wall thickness. The right ventricular systolic function is normal. ATRIA The left atrium size is normal. The right atrium size is normal. The interatrial septum is intact with no evidence for an atrial septal defect. AORTIC VALVE The aortic valve is normal in structure. No aortic regurgitation is present. There is no aortic valvular stenosis. There is no aortic valvular vegetation. MITRAL VALVE The mitral valve is normal in structure. There is no evidence of mitral valve prolapse. There is no mitral valve stenosis. There is mild to moderate mitral valve regurgitation noted. TRICUSPID VALVE The tricuspid valve is normal in structure. There is mild tricuspid valve regurgitation noted. RVSP is calculated at 39 mm Hg. There is no tricuspid valve prolapse or vegetation. There is no tricuspid valve stenosis. PULMONIC VALVE The pulmonary valve is normal in structure. There is no pulmonic valvular regurgitation. There is no pulmonic valvular stenosis. GREAT VESSELS The aortic root is normal in size. The ascending aorta is normal in size. The pulmonary artery is normal. The IVC is normal in size and collapses >50% with inspiration. PERICARDIAL EFFUSION There is no pericardial effusion. There is no pleural effusion. <Conclusion> The estimated ejection fraction is 55-60% Transmitral Doppler flow pattern is Grade I-abnormal relaxation pattern. The left atrium size is normal. There is mild to moderate mitral valve regurgitation noted. There is mild tricuspid valve regurgitation noted. RVSP is calculated at 39 mm Hg. The IVC is normal in size and collapses >50% with inspiration.
--- NOTE | 2018-03-27 19:30 | CP.PCM.PN ---
Subjective - Date & Time of Evaluation Date of Evaluation: 03/27/18 Time of Evaluation: 09:30 - Subjective Subjective: F/U AMS no AD, confused Objective - Vital Signs/Intake and Output Vital Signs (last 24 hours): Temp Pulse Resp BP Pulse Ox 98.7 F 87 18 118/55 L 96 03/27/18 15:47 03/27/18 15:47 03/27/18 15:47 03/27/18 15:47 03/27/18 15:47 Intake and Output: 03/27/18 03/28/18 18:59 06:59 Intake Total 680 Output Total 750 Balance -70 - Medications Medications: Current Medications Amlodipine Besylate (Norvasc) 2.5 mg PO DAILY [facility] Last Admin: 03/27/18 09:51 Dose: 2.5 mg Cyanocobalamin (Vitamin B12 1000 Mcg Tab) 1,000 mcg PO DAILY [facility] Last Admin: 03/27/18 09:52 Dose: 1,000 mcg Dimethicone (Proshield Plus Skin Protectant) 1 applic TOP Q8 [facility] Last Admin: 03/27/18 16:20 Dose: 1 applic Divalproex Sodium (Depakote Sprinkles) 125 mg PO BID [facility] Last Admin: 03/27/18 16:18 Dose: 125 mg Donepezil HCl (Aricept) 5 mg PO HS [facility] Last Admin: 03/26/18 21:58 Dose: 5 mg Enalapril Maleate (Vasotec) 2.5 mg PO DAILY [facility] Last Admin: 03/27/18 09:51 Dose: 2.5 mg Enoxaparin Sodium (Lovenox) 40 mg SC DAILY [facility]; Protocol Last Admin: 03/27/18 11:19 Dose: Not Given Ciprofloxacin (Cipro 400mg/200ml Dsw) 400 mg in 200 mls @ 200 mls/hr IVPB Q12 [facility]; Protocol Last Admin: 03/27/18 09:48 Dose: 200 mls/hr Levothyroxine Sodium (Synthroid) 75 mcg PO DAILY@0630 [facility] Last Admin: 03/27/18 06:31 Dose: 75 mcg - Labs Labs: 03/25/18 04:45 03/27/18 09:29 PT 11.9 Seconds (9.8-13.1) 03/22/18 19:00 INR 1.0 03/22/18 19:00 APTT 29.3 Seconds (25.6-37.1) 03/22/18 19:00 - Constitutional Appears: No Acute Distress - Head Exam Head Exam: NORMAL INSPECTION - Eye Exam Eye Exam: PERRL - ENT Exam ENT Exam: Normal Exam - Neck Exam Neck Exam: Normal Inspection - Respiratory Exam Respiratory Exam: Decreased Breath Sounds (at bases) - Cardiovascular Exam Cardiovascular Exam: REGULAR RHYTHM - GI/Abdominal Exam GI & Abdominal Exam: Soft, Normal Bowel Sounds - Exam Additional comments: Casillas Cath - Extremities Exam Extremities Exam: Normal Inspection - Back Exam Back Exam: NORMAL INSPECTION - Neurological Exam Neurological Exam: Awake Additional comments: Confused, no focal motor/sensory deficit. - Psychiatric Exam Additional comments: confused, agitated at times - Skin Skin Exam: Warm Assessment and Plan (1) Rhabdomyolysis Status: Resolved (2) Status post fall Status: Acute (3) Change in mental status Status: Acute (4) Dementia Assessment & Plan: with behavioral disturbance Status: Chronic (5) HTN (hypertension) Status: Chronic (6) Urinary retention Status: Acute (7) UTI (urinary tract infection) Assessment & Plan: Enterococus , E Coli Tx Cipro IV Status: Acute (8) Hypothyroidism Status: Chronic (9) Deep tissue injury Status: Acute (10) CHF (congestive heart failure) Assessment & Plan: acute diastolic, LVEF 55-60& Status: Resolved (11) Pulmonary nodule Status: Chronic - Assessment and Plan (Free Text) Plan: Psychiatric consult appreciated, Patient does not have capacity to take medical decitions, CT Chest pulmonary congestion, pulmonary nodule, Echo LVEF 55-60 %, Lasix, continue Cipro, Aricept, Depakote
[2018-03-28] MEDS: Proshield Plus GEL TOP SCH ×3 (01:49→17:08)
--- NOTE | 2018-03-28 02:12 | CP.PCM.PCO ---
Assessment/Plan - Assessment and Plan (Free Text) Assessment: Pt admitted after a fall. MD called for tachycardia to 140s Pt seen and evaluated by bedside. Tele monitor sig for sinus tachycardia ranging from 120-140'a, pt asymptomatic. Denies chest pain, palpitations, or shortness of breath. -Stat EKG ordered -Lopressor 5mg IVP x dose stat
[2018-03-28] MEDS ORDERED: Metoprolol 1 mg/ml Inj IVP STA (02:21)
[2018-03-28] MEDS: Levothyroxine 75 MCG TAB PO SCH (05:36)
[2018-03-28] MEDS ORDERED: Metoprolol 1 mg/ml Inj IVP ONE (06:31)
[2018-03-28] MEDS: Ciprofloxacin 400mg/200ml D5W 400 MG/200 ML BAG IVPB SCH ×2 (09:46→21:01)
[2018-03-28] MEDS: Enoxaparin 40 mg Syringe SC SCH (09:47)
[2018-03-28] MEDS: Divalproex 125 mg Sprinkle Capsule PO SCH ×2 (09:48→17:09)
--- NOTE | 2018-03-28 11:55 | CP.PCM.CON ---
History of Present Illness - History of Present Illness History of Present Illness: PT is an 83 year old female admitted to [facility] and referred to the senior writer for evaluation. On the DRS, pt scored an overall score of 90>. Pt scored in tjhe deficient range on all tasks. Pt's Attention, Construction skills, memory skills, initiation skills and conceptualization skills all fell in the Deficient Range. Pt was not oriented to year, not month, not day, not date. She spoke of living alone, was unable to provide her medical history. Overall 90> Attention 30 Deficient Memory 10 Deficient Construction 3 Deficient Initation 21 Deficient Conceptualization 18 Deficient Significant current cognitive deficits evident on evaluation. Thank you for this referral, Dr. Richmond Past Patient History - Past Medical History & Family History Past Medical History?: Yes - Past Social History Smoking Status: Never Smoked Alcohol: None Drugs: Denies Home Situation {Lives}: Alone - CARDIAC Hx Cardiac Disorders: Yes Hx Hypercholesterolemia: Yes Hx Hypertension: Yes - PULMONARY Hx Respiratory Disorders: No - NEUROLOGICAL Hx Neurological Disorder: Yes Hx Dementia: Yes Hx Vertigo: Yes - HEENT Hx HEENT Problems: No - RENAL Hx Chronic Kidney Disease: No - ENDOCRINE/METABOLIC Hx Endocrine Disorders: Yes Hx Hypothyroidism: Yes - HEMATOLOGICAL/ONCOLOGICAL Hx Blood Disorders: No - INTEGUMENTARY Hx Dermatological Problems: No - MUSCULOSKELETAL/RHEUMATOLOGICAL Hx Musculoskeletal Disorders: Yes Hx Arthritis: Yes Hx Falls: Yes - GASTROINTESTINAL Hx Gastrointestinal Disorders: No - GENITOURINARY/GYNECOLOGICAL Hx Genitourinary Disorders: No - PSYCHIATRIC Hx Psychophysiologic Disorder: Yes Hx Anxiety: Yes - SURGICAL HISTORY Hx Surgeries: No - ANESTHESIA Hx Anesthesia: No Hx Anesthesia Reactions: No Hx Malignant Hyperthermia: No Meds Allergies/Adverse Reactions: Allergies Allergy/AdvReac Type Severity Reaction Status Date / Time No Known Allergies Allergy Verified 03/18/15 19:39 - Medications Medications: Current Medications Amlodipine Besylate (Norvasc) 2.5 mg PO DAILY [facility] Last Admin: 03/28/18 09:47 Dose: 2.5 mg Cyanocobalamin (Vitamin B12 1000 Mcg Tab) 1,000 mcg PO DAILY [facility] Last Admin: 03/28/18 09:47 Dose: 1,000 mcg Dimethicone (Proshield Plus Skin Protectant) 1 applic TOP Q8 [facility] Last Admin: 03/28/18 09:47 Dose: 1 applic Divalproex Sodium (Depakote Sprinkles) 125 mg PO BID [facility] Last Admin: 03/28/18 09:48 Dose: 125 mg Donepezil HCl (Aricept) 5 mg PO HS [facility] Last Admin: 03/27/18 22:07 Dose: 5 mg Enalapril Maleate (Vasotec) 2.5 mg PO DAILY [facility] Last Admin: 03/28/18 09:48 Dose: 2.5 mg Enoxaparin Sodium (Lovenox) 40 mg SC DAILY [facility]; Protocol Last Admin: 03/28/18 09:47 Dose: 40 mg Ciprofloxacin (Cipro 400mg/200ml Dsw) 400 mg in 200 mls @ 200 mls/hr IVPB Q12 [facility]; Protocol Last Admin: 03/28/18 09:46 Dose: 200 mls/hr Levothyroxine Sodium (Synthroid) 75 mcg PO DAILY@0630 [facility] Last Admin: 03/28/18 05:36 Dose: 75 mcg Metoprolol Tartrate (Lopressor) 25 mg PO BID [facility] Results - Vital Signs Recent Vital Signs: Last Vital Signs Temp 98.7 F 03/28/18 07:41 Pulse 97 H 03/28/18 09:47 Resp 20 03/28/18 07:41 BP 131/77 03/28/18 09:47 Pulse Ox 93 L 03/28/18 07:41 - Labs Result Diagrams: 03/25/18 04:45 03/27/18 09:29
--- NOTE | 2018-03-28 14:25 | RAD ---
Date of service: 03/28/2018 HISTORY: CHF. COMPARISON: 03/22/2018. FINDINGS: LUNGS: No active pulmonary disease. PLEURA: No significant pleural effusion identified, no pneumothorax apparent. CARDIOVASCULAR: No atherosclerotic calcification present Normal. OSSEOUS STRUCTURES: No significant abnormalities. VISUALIZED UPPER ABDOMEN: Normal. OTHER FINDINGS: None. IMPRESSION: No active disease. No significant interval change compared to the prior examination(s).
--- NOTE | 2018-03-28 16:01 | CP.PCM.PN ---
Subjective - Date & Time of Evaluation Date of Evaluation: 03/28/18 Time of Evaluation: 12:10 - Subjective Subjective: F/U AMS awake, confused, calm Objective - Vital Signs/Intake and Output Vital Signs (last 24 hours): Temp Pulse Resp BP Pulse Ox 98 F 100 H 20 125/84 93 L 03/28/18 11:51 03/28/18 11:51 03/28/18 11:51 03/28/18 11:51 03/28/18 11:51 - Medications Medications: Current Medications Amlodipine Besylate (Norvasc) 2.5 mg PO DAILY [facility] Last Admin: 03/28/18 09:47 Dose: 2.5 mg Cyanocobalamin (Vitamin B12 1000 Mcg Tab) 1,000 mcg PO DAILY [facility] Last Admin: 03/28/18 09:47 Dose: 1,000 mcg Dimethicone (Proshield Plus Skin Protectant) 1 applic TOP Q8 [facility] Last Admin: 03/28/18 09:47 Dose: 1 applic Divalproex Sodium (Depakote Sprinkles) 125 mg PO BID [facility] Last Admin: 03/28/18 09:48 Dose: 125 mg Donepezil HCl (Aricept) 5 mg PO HS [facility] Last Admin: 03/27/18 22:07 Dose: 5 mg Enalapril Maleate (Vasotec) 2.5 mg PO DAILY [facility] Last Admin: 03/28/18 09:48 Dose: 2.5 mg Enoxaparin Sodium (Lovenox) 40 mg SC DAILY [facility]; Protocol Last Admin: 03/28/18 09:47 Dose: 40 mg Ciprofloxacin (Cipro 400mg/200ml Dsw) 400 mg in 200 mls @ 200 mls/hr IVPB Q12 [facility]; Protocol Last Admin: 03/28/18 09:46 Dose: 200 mls/hr Levothyroxine Sodium (Synthroid) 75 mcg PO DAILY@0630 [facility] Last Admin: 03/28/18 05:36 Dose: 75 mcg Metoprolol Tartrate (Lopressor) 25 mg PO BID [facility] - Labs Labs: 03/25/18 04:45 03/27/18 09:29 PT 11.9 Seconds (9.8-13.1) 03/22/18 19:00 INR 1.0 03/22/18 19:00 APTT 29.3 Seconds (25.6-37.1) 03/22/18 19:00 - Constitutional Appears: No Acute Distress - Head Exam Head Exam: NORMAL INSPECTION - Eye Exam Eye Exam: PERRL - ENT Exam ENT Exam: Normal Exam - Neck Exam Neck Exam: Normal Inspection - Respiratory Exam Respiratory Exam: Decreased Breath Sounds (at bases) - Cardiovascular Exam Cardiovascular Exam: REGULAR RHYTHM - GI/Abdominal Exam GI & Abdominal Exam: Soft, Normal Bowel Sounds - Extremities Exam Extremities Exam: Normal Inspection - Back Exam Back Exam: NORMAL INSPECTION - Neurological Exam Neurological Exam: Alert Additional comments: Confused, no focal motor/sensory deficit, gait not tested - Skin Skin Exam: Warm Assessment and Plan (1) Rhabdomyolysis Status: Resolved (2) Status post fall Status: Acute (3) Change in mental status Status: Acute (4) Dementia Status: Chronic (5) HTN (hypertension) Status: Chronic (6) Urinary retention Status: Acute (7) UTI (urinary tract infection) Status: Acute (8) Hypothyroidism Status: Chronic (9) Deep tissue injury Status: Acute (10) CHF (congestive heart failure) Assessment & Plan: pro BNP normal, CXR , CXR no active disease Status: Resolved (11) Pulmonary nodule Status: Chronic (12) New onset atrial fibrillation Assessment & Plan: responded to Labetalol IV, Patient On RSR Status: Resolved - Assessment and Plan (Free Text) Plan: on Avasys, continue Depakote , Cipro, and rest of Tx, f/u Cardiology, for ANTON
--- NOTE | 2018-03-28 19:43 | CARD ---
APPROVED REPORT Date of service: 03/28/2018 EKG Measurement Heart [id number] <Conclusion> Atrial fibrillation with rapid ventricular response Nonspecific ST and T wave abnormality Abnormal ECG
[2018-03-29] MEDS: Proshield Plus GEL TOP SCH ×3 (00:43→16:13)
[2018-03-29] MEDS: Levothyroxine 75 MCG TAB PO SCH ×2 (06:17→06:19)
[2018-03-29 07:44] LABS: BLOOD UREA NITROGEN 28 mg/dl (7-17); CALCIUM 8.4 mg/dL (8.4-10.2); GFR NON-AFRICAN AMERICAN > 60
[2018-03-29 08:12] LABS: HEMOGLOBIN 13.6 g/dL (12.0-16.0); MEAN CELL VOLUME 93.2 fl (81.0-99.0); MEAN CORPUSCULAR HEMOGLOBIN 30.6 pg (27.0-31.0); MEAN CORPUSCULAR HGB CONC 32.8 g/dL (33.0-37.0); RBC 4.44 Mil/uL (3.80-5.20); RED CELL DISTRIBUTION WIDTH 13.7 % (11.5-14.5); WHITE BLOOD COUNT 8.3 K/uL (4.8-10.8)
[2018-03-29] MEDS: Ciprofloxacin 400mg/200ml D5W 400 MG/200 ML BAG IVPB SCH (08:30)
[2018-03-29] MEDS ORDERED: Magnesium Sulfate 2 gm/50 ml 2 GM/50 ML BAG IVPB ONE (08:30)
[2018-03-29] MEDS: Divalproex 125 mg Sprinkle Capsule PO SCH ×2 (08:31→16:12)
[2018-03-29] MEDS: Enoxaparin 40 mg Syringe SC SCH (08:33)
--- NOTE | 2018-03-29 12:36 | CP.PCM.PN ---
Subjective - Date & Time of Evaluation Date of Evaluation: 03/29/18 Time of Evaluation: 11:40 - Subjective Subjective: F/U AMS No A/D, calm, confused, dysphagia with medications and food reported by nurses Objective - Vital Signs/Intake and Output Vital Signs (last 24 hours): Temp Pulse Resp BP Pulse Ox 98.7 F 76 20 125/68 95 03/29/18 08:03 03/29/18 08:33 03/29/18 08:03 03/29/18 08:33 03/29/18 08:03 - Medications Medications: Current Medications Amlodipine Besylate (Norvasc) 2.5 mg PO DAILY [facility] Last Admin: 03/29/18 08:33 Dose: 2.5 mg Cyanocobalamin (Vitamin B12 1000 Mcg Tab) 1,000 mcg PO DAILY [facility] Last Admin: 03/29/18 08:34 Dose: 1,000 mcg Dimethicone (Proshield Plus Skin Protectant) 1 applic TOP Q8 [facility] Last Admin: 03/29/18 08:33 Dose: 1 applic Divalproex Sodium (Depakote Sprinkles) 125 mg PO BID [facility] Last Admin: 03/29/18 08:31 Dose: 125 mg Donepezil HCl (Aricept) 5 mg PO HS [facility] Last Admin: 03/28/18 21:01 Dose: 5 mg Enalapril Maleate (Vasotec) 2.5 mg PO DAILY [facility] Last Admin: 03/29/18 08:34 Dose: 2.5 mg Levothyroxine Sodium (Synthroid) 75 mcg PO DAILY@0630 [facility] Last Admin: 03/29/18 06:19 Dose: Not Given Metoprolol Tartrate (Lopressor) 25 mg PO BID [facility] Last Admin: 03/29/18 08:32 Dose: 25 mg - Labs Labs: 03/29/18 06:00 03/29/18 06:00 PT 11.9 Seconds (9.8-13.1) 03/22/18 19:00 INR 1.0 03/22/18 19:00 APTT 29.3 Seconds (25.6-37.1) 03/22/18 19:00 - Constitutional Appears: No Acute Distress - Head Exam Head Exam: NORMAL INSPECTION - Eye Exam Eye Exam: PERRL - ENT Exam ENT Exam: Normal Exam - Neck Exam Neck Exam: Normal Inspection - Respiratory Exam Respiratory Exam: Rhonchi (scattered) - Cardiovascular Exam Cardiovascular Exam: REGULAR RHYTHM - GI/Abdominal Exam GI & Abdominal Exam: Soft, Normal Bowel Sounds - Extremities Exam Extremities Exam: Normal Inspection - Back Exam Back Exam: NORMAL INSPECTION - Neurological Exam Neurological Exam: Awake Additional comments: Confused, no focal motor/sensory deficit. - Skin Skin Exam: Warm Assessment and Plan (1) Rhabdomyolysis Status: Resolved (2) Status post fall Status: Acute (3) Change in mental status Status: Acute (4) Dementia Status: Chronic (5) HTN (hypertension) Status: Chronic (6) Urinary retention Status: Acute (7) UTI (urinary tract infection) Status: Acute (8) Hypothyroidism Status: Chronic (9) Deep tissue injury Status: Acute (10) CHF (congestive heart failure) Status: Resolved (11) Pulmonary nodule Status: Chronic (12) New onset atrial fibrillation Status: Resolved - Assessment and Plan (Free Text) Plan: Previously had strip with multiple PVC's , had Mg Sulfate, no PVC's in the strip there after, dysphagia , NPO meds-meals , Catapress Path and Depakote IV, thicken fluids , swallowing eval Saturday
[2018-03-30] MEDS: Proshield Plus GEL TOP SCH ×3 (01:00→17:24)
[2018-03-30] MEDS: Levothyroxine 75 MCG TAB PO SCH (06:35)
[2018-03-30] MEDS: Divalproex 125 mg Sprinkle Capsule PO SCH ×2 (09:28→17:23)
--- NOTE | 2018-03-30 14:51 | CP.PCM.PN ---
Subjective - Date & Time of Evaluation Date of Evaluation: 03/30/18 Time of Evaluation: 13:50 - Subjective Subjective: F/U AMS awake, confused, calm now Objective - Vital Signs/Intake and Output Vital Signs (last 24 hours): Temp Pulse Resp BP Pulse Ox 98.1 F 70 20 105/64 96 03/30/18 12:27 03/30/18 12:27 03/30/18 12:27 03/30/18 12:27 03/30/18 12:27 Intake and Output: 03/30/18 03/30/18 06:59 18:59 Output Total 250 Balance -250 - Medications Medications: Current Medications Amlodipine Besylate (Norvasc) 2.5 mg PO DAILY [facility] Last Admin: 03/30/18 09:31 Dose: 2.5 mg Cyanocobalamin (Vitamin B12 1000 Mcg Tab) 1,000 mcg PO DAILY [facility] Last Admin: 03/30/18 09:29 Dose: 1,000 mcg Dimethicone (Proshield Plus Skin Protectant) 1 applic TOP Q8 [facility] Last Admin: 03/30/18 09:29 Dose: 1 applic Divalproex Sodium (Depakote Sprinkles) 125 mg PO BID [facility] Last Admin: 03/30/18 09:28 Dose: 125 mg Donepezil HCl (Aricept) 5 mg PO HS [facility] Last Admin: 03/29/18 22:16 Dose: 5 mg Enalapril Maleate (Vasotec) 2.5 mg PO DAILY [facility] Last Admin: 03/30/18 09:31 Dose: 2.5 mg Levothyroxine Sodium (Synthroid) 75 mcg PO DAILY@0630 [facility] Last Admin: 03/30/18 06:35 Dose: 75 mcg Metoprolol Tartrate (Lopressor) 25 mg PO BID [facility] Last Admin: 03/30/18 09:31 Dose: 25 mg - Labs Labs: 03/29/18 06:00 03/29/18 06:00 PT 11.9 Seconds (9.8-13.1) 03/22/18 19:00 INR 1.0 03/22/18 19:00 APTT 29.3 Seconds (25.6-37.1) 03/22/18 19:00 - Constitutional Appears: No Acute Distress - Head Exam Head Exam: NORMAL INSPECTION - Eye Exam Eye Exam: PERRL - ENT Exam ENT Exam: Normal Exam - Neck Exam Neck Exam: Normal Inspection - Respiratory Exam Respiratory Exam: Rhonchi (scattered) - Cardiovascular Exam Cardiovascular Exam: REGULAR RHYTHM - GI/Abdominal Exam GI & Abdominal Exam: Soft, Normal Bowel Sounds - Extremities Exam Extremities Exam: Normal Inspection - Back Exam Back Exam: NORMAL INSPECTION - Neurological Exam Neurological Exam: Awake Additional comments: Confused, agitated earlier, no focal motor/sensory deficit. - Psychiatric Exam Additional comments: Calm - Skin Skin Exam: Warm Assessment and Plan (1) Rhabdomyolysis Status: Resolved (2) Status post fall Status: Acute (3) Change in mental status Status: Acute (4) Dementia Status: Chronic (5) HTN (hypertension) Status: Chronic (6) Urinary retention Status: Acute (7) UTI (urinary tract infection) Status: Acute (8) Hypothyroidism Status: Chronic (9) Deep tissue injury Status: Acute (10) CHF (congestive heart failure) Status: Resolved (11) Pulmonary nodule Status: Chronic (12) New onset atrial fibrillation Status: Resolved - Assessment and Plan (Free Text) Plan: continue Depakote, Lopressor and rest of treatmen
[2018-03-31] MEDS: Proshield Plus GEL TOP SCH ×3 (00:12→16:23)
[2018-03-31 05:30] LABS: HEMOGLOBIN 13.2 g/dL (12.0-16.0); MEAN CELL VOLUME 93.2 fl (81.0-99.0); MEAN CORPUSCULAR HEMOGLOBIN 30.8 pg (27.0-31.0); MEAN CORPUSCULAR HGB CONC 33.1 g/dL (33.0-37.0); RBC 4.28 Mil/uL (3.80-5.20); RED CELL DISTRIBUTION WIDTH 14.2 % (11.5-14.5); WHITE BLOOD COUNT 7.9 K/uL (4.8-10.8)
[2018-03-31] MEDS: Levothyroxine 75 MCG TAB PO SCH (05:55)
[2018-03-31 06:02] LABS: ALB/GLOB RATIO 0.9 (1.0-2.1); ALT/SGPT 47 U/L (9-52); AST/SGOT 40 U/L (14-36); BLOOD UREA NITROGEN 30 mg/dl (7-17); CALCIUM 8.3 mg/dL (8.4-10.2); GFR NON-AFRICAN AMERICAN > 60
[2018-03-31] MEDS: Divalproex 125 mg Sprinkle Capsule PO SCH ×2 (09:11→16:23)
--- NOTE | 2018-03-31 10:22 | CP.PCM.CON ---
History of Present Illness - History of Present Illness History of Present Illness: Consultation for evaluation of atrial fibrillation HPI: Kylee is an 83 year old female with PMH of dementia, HTN, Hypothyroidism, HLD, anxiety, and depression who presented to [facility] ED after she was found by her neighbors on the ground for an unknown period of time. She was subsequently admitted for management of worsening AMS and rhabdo. Syncopal work-up was completed including Echo, carotid duplex, and EKG. EKG performed while in hospital found patient was in AFib with RVR. Echo showed EF 55-60%, mild pulmonary HTN and AR. Carotid doppler showed < 50% stenosis of ICA b/l. Brain MRI did not show any areas of infarction. Cardiology consultation is requested for new onset AFib with RVR. On examination today, patient is undergoing neuropsych evaluation and is currently in AFib with RVR. ? fall vs syncope Review of Systems - Review of Systems Systems not reviewed;Unavailable: Acuity of Condition - Constitutional Constitutional: As Per HPI - EENT Eyes: As Per HPI Ears: As Per HPI - Breasts Breasts: As Per HPI - Cardiovascular Cardiovascular: As Per HPI - Respiratory Respiratory: As Per HPI - Gastrointestinal Gastrointestinal: As Per HPI - Genitourinary Genitourinary: As Per HPI - Reproductive: Female Reproductive:Female: As Per HPI - Menstruation Menstruation: As Per HPI - Musculoskeletal Musculoskeletal: As Per HPI - Integumentary Integumentary: As Per HPI - Neurological Neurological: As Per HPI - Psychiatric Psychiatric: As Per HPI - Endocrine Endocrine: As Per HPI - Hematologic/Lymphatic Hematologic: As Per HPI Past Patient History - Past Medical History & Family History Past Medical History?: Yes - Past Social History Smoking Status: Never Smoked Alcohol: None Drugs: Denies Home Situation {Lives}: Alone - CARDIAC Hx Cardiac Disorders: Yes Hx Hypercholesterolemia: Yes Hx Hypertension: Yes - PULMONARY Hx Respiratory Disorders: No - NEUROLOGICAL Hx Neurological Disorder: Yes Hx Dementia: Yes Hx Vertigo: Yes - HEENT Hx HEENT Problems: No - RENAL Hx Chronic Kidney Disease: No - ENDOCRINE/METABOLIC Hx Endocrine Disorders: Yes Hx Hypothyroidism: Yes - HEMATOLOGICAL/ONCOLOGICAL Hx Blood Disorders: No - INTEGUMENTARY Hx Dermatological Problems: No - MUSCULOSKELETAL/RHEUMATOLOGICAL Hx Musculoskeletal Disorders: Yes Hx Arthritis: Yes Hx Falls: Yes - GASTROINTESTINAL Hx Gastrointestinal Disorders: No - GENITOURINARY/GYNECOLOGICAL Hx Genitourinary Disorders: No - PSYCHIATRIC Hx Psychophysiologic Disorder: Yes Hx Anxiety: Yes - SURGICAL HISTORY Hx Surgeries: No - ANESTHESIA Hx Anesthesia: No Hx Anesthesia Reactions: No Hx Malignant Hyperthermia: No Meds Allergies/Adverse Reactions: Allergies Allergy/AdvReac Type Severity Reaction Status Date / Time No Known Allergies Allergy Verified 03/18/15 19:39 - Medications Medications: Current Medications Amlodipine Besylate (Norvasc) 2.5 mg PO DAILY [facility] Last Admin: 03/31/18 09:11 Dose: 2.5 mg Cyanocobalamin (Vitamin B12 1000 Mcg Tab) 1,000 mcg PO DAILY [facility] Last Admin: 03/31/18 09:11 Dose: 1,000 mcg Dimethicone (Proshield Plus Skin Protectant) 1 applic TOP Q8 [facility] Last Admin: 03/31/18 09:11 Dose: 1 applic Divalproex Sodium (Depakote Sprinkles) 125 mg PO BID [facility] Last Admin: 03/31/18 09:11 Dose: 125 mg Donepezil HCl (Aricept) 5 mg PO HS [facility] Last Admin: 03/30/18 21:09 Dose: 5 mg Enalapril Maleate (Vasotec) 2.5 mg PO DAILY [facility] Last Admin: 03/31/18 09:11 Dose: 2.5 mg Levothyroxine Sodium (Synthroid) 75 mcg PO DAILY@0630 [facility] Last Admin: 03/31/18 05:55 Dose: Not Given Metoprolol Tartrate (Lopressor) 25 mg PO BID [facility] Last Admin: 03/31/18 09:11 Dose: 25 mg Physical Exam - Constitutional Appears: Well - Head Exam Head Exam: ATRAUMATIC, NORMAL INSPECTION, NORMOCEPHALIC - Eye Exam Eye Exam: EOMI, Normal appearance, PERRL Pupil Exam: NORMAL ACCOMODATION, PERRL - ENT Exam ENT Exam: Mucous Membranes Moist, Normal Exam - Neck Exam Neck exam: Positive for: Normal Inspection - Respiratory Exam Respiratory Exam: Clear to Auscultation Bilateral, NORMAL BREATHING PATTERN - Cardiovascular Exam Cardiovascular Exam: Irregular Rhythm, Systolic Murmur - GI/Abdominal Exam GI & Abdominal Exam: Normal Bowel Sounds, Soft. absent: Tenderness - Extremities Exam Extremities exam: Positive for: normal inspection - Back Exam Back exam: NORMAL INSPECTION - Neurological Exam Neurological exam: Alert, CN II-XII Intact, Normal Gait, Oriented x3, Reflexes Normal - Psychiatric Exam Psychiatric exam: Normal Affect, Normal Mood - Skin Skin Exam: Dry, Intact, Normal Color, Warm Results - Vital Signs Recent Vital Signs: Last Vital Signs Temp 97.9 F 03/31/18 08:34 Pulse 77 03/31/18 09:11 Resp 20 03/31/18 08:34 BP 126/75 03/31/18 09:11 Pulse Ox 94 L 03/31/18 08:34 - Labs Result Diagrams: 03/31/18 04:25 03/31/18 04:25 Labs: Laboratory Results - last 24 hr 03/31/18 03/31/18 04:25 04:25 WBC 7.9 RBC 4.28 Hgb 13.2 Hct 39.9 MCV 93.2 MCH 30.8 MCHC 33.1 RDW 14.2 Plt Count 177 Sodium 140 Potassium 3.9 Chloride 102 Carbon Dioxide 29 Anion Gap 13 BUN 30 H Creatinine 0.7 Est GFR ( Amer) > 60 Est GFR (Non-Af Amer) > 60 Random Glucose 105 Calcium 8.3 L Total Bilirubin 0.8 AST 40 H ALT 47 Alkaline Phosphatase 99 Total Protein 6.5 Albumin 3.0 L Globulin 3.5 Albumin/Globulin Ratio 0.9 L Vitamin B12 571 Assessment & Plan (1) New onset atrial fibrillation Assessment and Plan: CHADs-VASC Score of 3 cont rate control with BB add OAC Status: Resolved (2) CHF (congestive heart failure) Assessment and Plan: Acute on chronic diastolic CHF cont bb, acei Status: Resolved (3) HTN (hypertension) Status: Chronic Priority: Medium (4) Syncope Assessment and Plan: etiology ? mechanical fall vs. syncope will need stress testing Status: Acute (5) Change in mental status Status: Acute Priority: High (6) Rhabdomyolysis Status: Resolved Priority: High (7) Mixed dyslipidemia Status: Acute
--- NOTE | 2018-03-31 10:35 | CP.PCM.PN ---
Subjective - Date & Time of Evaluation Date of Evaluation: 03/31/18 Time of Evaluation: 10:33 - Subjective Subjective: stable Objective - Vital Signs/Intake and Output Vital Signs (last 24 hours): Temp Pulse Resp BP Pulse Ox 97.9 F 77 20 126/75 94 L 03/31/18 08:34 03/31/18 09:11 03/31/18 08:34 03/31/18 09:11 03/31/18 08:34 - Medications Medications: Current Medications Amlodipine Besylate (Norvasc) 2.5 mg PO DAILY [facility] Last Admin: 03/31/18 09:11 Dose: 2.5 mg Cyanocobalamin (Vitamin B12 1000 Mcg Tab) 1,000 mcg PO DAILY [facility] Last Admin: 03/31/18 09:11 Dose: 1,000 mcg Dimethicone (Proshield Plus Skin Protectant) 1 applic TOP Q8 [facility] Last Admin: 03/31/18 09:11 Dose: 1 applic Divalproex Sodium (Depakote Sprinkles) 125 mg PO BID [facility] Last Admin: 03/31/18 09:11 Dose: 125 mg Donepezil HCl (Aricept) 5 mg PO HS [facility] Last Admin: 03/30/18 21:09 Dose: 5 mg Enalapril Maleate (Vasotec) 2.5 mg PO DAILY [facility] Last Admin: 03/31/18 09:11 Dose: 2.5 mg Levothyroxine Sodium (Synthroid) 75 mcg PO DAILY@0630 [facility] Last Admin: 03/31/18 05:55 Dose: Not Given Metoprolol Tartrate (Lopressor) 25 mg PO BID [facility] Last Admin: 03/31/18 09:11 Dose: 25 mg - Labs Labs: 03/31/18 04:25 03/31/18 04:25 PT 11.9 Seconds (9.8-13.1) 03/22/18 19:00 INR 1.0 03/22/18 19:00 APTT 29.3 Seconds (25.6-37.1) 03/22/18 19:00 - Constitutional Appears: Well - Head Exam Head Exam: ATRAUMATIC, NORMAL INSPECTION, NORMOCEPHALIC - Eye Exam Eye Exam: EOMI, Normal appearance, PERRL Pupil Exam: NORMAL ACCOMODATION, PERRL - ENT Exam ENT Exam: Mucous Membranes Moist, Normal Exam - Neck Exam Neck Exam: Full ROM, Normal Inspection. absent: Lymphadenopathy - Respiratory Exam Respiratory Exam: Clear to Ausculation Bilateral, NORMAL BREATHING PATTERN - Cardiovascular Exam Cardiovascular Exam: REGULAR RHYTHM, +S1, +S2. absent: Murmur - GI/Abdominal Exam GI & Abdominal Exam: Soft, Normal Bowel Sounds. absent: Tenderness - Extremities Exam Extremities Exam: Full ROM, Normal Capillary Refill, Normal Inspection. absent: Joint Swelling, Pedal Edema - Back Exam Back Exam: NORMAL INSPECTION - Neurological Exam Neurological Exam: Alert, Awake, CN II-XII Intact, Normal Gait, Oriented x3 - Psychiatric Exam Psychiatric exam: Normal Affect, Normal Mood - Skin Skin Exam: Dry, Intact, Normal Color, Warm Assessment and Plan (1) New onset atrial fibrillation Assessment & Plan: CHADS-Vasc 3 cont bb add OAC stress test in am npo p mn Status: Resolved (2) CHF (congestive heart failure) Assessment & Plan: diastolic BNP improving ASCVD risk is 32.8% ( high ) - will need inpt stress testing Status: Resolved (3) HTN (hypertension) Assessment & Plan: cont norvasc, acei and bb Status: Chronic (4) Syncope Status: Acute (5) Change in mental status Status: Acute (6) Rhabdomyolysis Status: Resolved (7) Mixed dyslipidemia Status: Acute
--- NOTE | 2018-03-31 13:07 | CP.PCM.PN ---
Subjective - Date & Time of Evaluation Date of Evaluation: 03/31/18 Time of Evaluation: 10:20 - Subjective Subjective: F/U AMS confused, calm now, on AVASYS Objective - Vital Signs/Intake and Output Vital Signs (last 24 hours): Temp Pulse Resp BP Pulse Ox 98.9 F 71 20 99/64 L 100 03/31/18 13:03 03/31/18 13:03 03/31/18 13:03 03/31/18 13:03 03/31/18 13:03 - Medications Medications: Current Medications Amlodipine Besylate (Norvasc) 2.5 mg PO DAILY [facility] Last Admin: 03/31/18 09:11 Dose: 2.5 mg Cyanocobalamin (Vitamin B12 1000 Mcg Tab) 1,000 mcg PO DAILY [facility] Last Admin: 03/31/18 09:11 Dose: 1,000 mcg Dimethicone (Proshield Plus Skin Protectant) 1 applic TOP Q8 [facility] Last Admin: 03/31/18 09:11 Dose: 1 applic Divalproex Sodium (Depakote Sprinkles) 125 mg PO BID [facility] Last Admin: 03/31/18 09:11 Dose: 125 mg Donepezil HCl (Aricept) 5 mg PO HS [facility] Last Admin: 03/30/18 21:09 Dose: 5 mg Enalapril Maleate (Vasotec) 2.5 mg PO DAILY [facility] Last Admin: 03/31/18 09:11 Dose: 2.5 mg Levothyroxine Sodium (Synthroid) 75 mcg PO DAILY@0630 [facility] Last Admin: 03/31/18 05:55 Dose: Not Given Metoprolol Tartrate (Lopressor) 25 mg PO BID [facility] Last Admin: 03/31/18 09:11 Dose: 25 mg - Labs Labs: 03/31/18 04:25 03/31/18 04:25 PT 11.9 Seconds (9.8-13.1) 03/22/18 19:00 INR 1.0 03/22/18 19:00 APTT 29.3 Seconds (25.6-37.1) 03/22/18 19:00 - Constitutional Appears: No Acute Distress - Head Exam Head Exam: NORMAL INSPECTION - Eye Exam Eye Exam: PERRL - ENT Exam ENT Exam: Normal Exam - Neck Exam Neck Exam: Normal Inspection - Respiratory Exam Respiratory Exam: Rhonchi (scattered) - Cardiovascular Exam Cardiovascular Exam: REGULAR RHYTHM - GI/Abdominal Exam GI & Abdominal Exam: Soft, Normal Bowel Sounds - Extremities Exam Extremities Exam: Normal Inspection - Back Exam Additional comments: Sacral pressure ulcer - Neurological Exam Neurological Exam: Awake Additional comments: Confused, no focal motor/sensory deficit. - Skin Skin Exam: Warm Assessment and Plan (1) Rhabdomyolysis Status: Resolved (2) Status post fall Status: Acute (3) Change in mental status Status: Acute (4) Dementia Status: Chronic (5) HTN (hypertension) Status: Chronic (6) Urinary retention Status: Acute (7) UTI (urinary tract infection) Status: Acute (8) Hypothyroidism Status: Chronic (9) Deep tissue injury Status: Acute (10) CHF (congestive heart failure) Status: Resolved (11) Pulmonary nodule Status: Chronic (12) New onset atrial fibrillation Status: Resolved - Assessment and Plan (Free Text) Plan: continue Cipro, Depakote, Lovenox,atempt of trial with Eliquis, continue rest of treatment, Patient unable to sign consent due to her mental status, f/u with Social Service
[2018-03-31] MEDS: Enoxaparin 80 mg Syringe SC SCH (21:21)
[2018-04-01] MEDS: Proshield Plus GEL TOP SCH ×3 (01:45→17:14)
[2018-04-01] MEDS: Levothyroxine 75 MCG TAB PO SCH (06:24)
[2018-04-01] MEDS: Enoxaparin 80 mg Syringe SC SCH (09:23)
[2018-04-01] MEDS: Divalproex 125 mg Sprinkle Capsule PO SCH ×2 (09:24→17:13)
[2018-04-01] MEDS: Enoxaparin 100 mg Syringe SC SCH ×2 (09:27→21:44)
[2018-04-01] MEDS ORDERED: Ciprofloxacin 400mg/200ml D5W 400 MG/200 ML BAG IVPB SCH (09:45)
[2018-04-01] MEDS: Ciprofloxacin 400mg/200ml D5W 400 MG/200 ML BAG IVPB SCH (17:02)
--- NOTE | 2018-04-01 18:33 | CP.PCM.PN ---
Subjective - Date & Time of Evaluation Date of Evaluation: 04/01/18 Time of Evaluation: 09:30 - Subjective Subjective: F/U AMS confused, calm now, incontinent of stool reported by nurses, on Avasys Objective - Vital Signs/Intake and Output Vital Signs (last 24 hours): Temp Pulse Resp BP Pulse Ox 98.6 F 78 18 119/59 L 97 04/01/18 16:22 04/01/18 17:16 04/01/18 16:22 04/01/18 17:16 04/01/18 16:22 Intake and Output: 04/01/18 04/01/18 06:59 18:59 Output Total 300 Balance -300 - Medications Medications: Current Medications Amlodipine Besylate (Norvasc) 2.5 mg PO DAILY [facility] Last Admin: 04/01/18 09:24 Dose: 2.5 mg Cyanocobalamin (Vitamin B12 1000 Mcg Tab) 1,000 mcg PO DAILY [facility] Last Admin: 04/01/18 09:25 Dose: 1,000 mcg Dimethicone (Proshield Plus Skin Protectant) 1 applic TOP Q8 [facility] Last Admin: 04/01/18 17:14 Dose: Not Given Divalproex Sodium (Depakote Sprinkles) 125 mg PO BID [facility] Last Admin: 04/01/18 17:13 Dose: 125 mg Donepezil HCl (Aricept) 5 mg PO HS [facility] Last Admin: 03/31/18 22:09 Dose: 5 mg Enalapril Maleate (Vasotec) 2.5 mg PO DAILY [facility] Last Admin: 04/01/18 09:24 Dose: 2.5 mg Enoxaparin Sodium (Lovenox) 90 mg SC Q12 [facility]; Protocol Last Admin: 04/01/18 09:27 Dose: 90 mg Ciprofloxacin (Cipro 400mg/200ml Dsw) 400 mg in 200 mls @ 200 mls/hr IVPB Q12@0500,1700 [facility]; Protocol Last Admin: 04/01/18 17:02 Dose: 200 mls/hr Levothyroxine Sodium (Synthroid) 75 mcg PO DAILY@0630 [facility] Last Admin: 04/01/18 06:24 Dose: 75 mcg Metoprolol Tartrate (Lopressor) 25 mg PO BID [facility] Last Admin: 04/01/18 17:16 Dose: 25 mg - Labs Labs: 03/31/18 04:25 03/31/18 04:25 PT 11.9 Seconds (9.8-13.1) 03/22/18 19:00 INR 1.0 03/22/18 19:00 APTT 29.3 Seconds (25.6-37.1) 03/22/18 19:00 - Constitutional Appears: No Acute Distress - Head Exam Head Exam: NORMAL INSPECTION - Eye Exam Eye Exam: PERRL - ENT Exam ENT Exam: Normal Exam - Neck Exam Neck Exam: Normal Inspection - Respiratory Exam Respiratory Exam: Rhonchi (scattered) - Cardiovascular Exam Cardiovascular Exam: REGULAR RHYTHM - GI/Abdominal Exam GI & Abdominal Exam: Soft, Normal Bowel Sounds - Exam Additional comments: Casillas Cath - Extremities Exam Extremities Exam: Normal Inspection - Back Exam Additional comments: Pressure ulcer sacral area - Neurological Exam Neurological Exam: Awake Additional comments: Confused, no focal motor/sensory deficit, generalized weakness - Skin Skin Exam: Warm Assessment and Plan (1) Rhabdomyolysis Status: Resolved (2) Status post fall Status: Acute (3) Change in mental status Status: Acute (4) Dementia Status: Chronic (5) HTN (hypertension) Status: Chronic (6) Urinary retention Status: Acute (7) UTI (urinary tract infection) Status: Acute (8) Hypothyroidism Status: Chronic (9) Deep tissue injury Status: Acute (10) CHF (congestive heart failure) Status: Resolved (11) Pulmonary nodule Status: Chronic (12) New onset atrial fibrillation Status: Resolved (13) Sacral pressure ulcer Status: Acute - Assessment and Plan (Free Text) Plan: continue Cipro, Depakote and rest of treatment, Patient with Dementia, no Family , unable to sign consent for ANTON , most likely Patient will need Senior Care placement
[2018-04-02] MEDS: Proshield Plus GEL TOP SCH ×2 (00:08→16:24)
[2018-04-02] MEDS: Ciprofloxacin 400mg/200ml D5W 400 MG/200 ML BAG IVPB SCH ×2 (04:30→16:22)
[2018-04-02] MEDS: Levothyroxine 75 MCG TAB PO SCH (05:53)
--- NOTE | 2018-04-02 08:01 | CP.PCM.CON ---
History of Present Illness - History of Present Illness History of Present Illness: urology pt seen for eval of uti/ urine retention. on admission she had a culture showing a sig e coli uti and urine rtention. at this time after iv antibiotics the urine is clear. i would advise to remove meza and give a voiding trial. abdomen at this time is soft and non tender Past Patient History - Past Medical History & Family History Past Medical History?: Yes - Past Social History Smoking Status: Never Smoked Alcohol: None Drugs: Denies Home Situation {Lives}: Alone - CARDIAC Hx Cardiac Disorders: Yes Hx Hypercholesterolemia: Yes Hx Hypertension: Yes - PULMONARY Hx Respiratory Disorders: No - NEUROLOGICAL Hx Neurological Disorder: Yes Hx Dementia: Yes Hx Vertigo: Yes - HEENT Hx HEENT Problems: No - RENAL Hx Chronic Kidney Disease: No - ENDOCRINE/METABOLIC Hx Endocrine Disorders: Yes Hx Hypothyroidism: Yes - HEMATOLOGICAL/ONCOLOGICAL Hx Blood Disorders: No - INTEGUMENTARY Hx Dermatological Problems: No - MUSCULOSKELETAL/RHEUMATOLOGICAL Hx Musculoskeletal Disorders: Yes Hx Arthritis: Yes Hx Falls: Yes - GASTROINTESTINAL Hx Gastrointestinal Disorders: No - GENITOURINARY/GYNECOLOGICAL Hx Genitourinary Disorders: No - PSYCHIATRIC Hx Psychophysiologic Disorder: Yes Hx Anxiety: Yes - SURGICAL HISTORY Hx Surgeries: No - ANESTHESIA Hx Anesthesia: No Hx Anesthesia Reactions: No Hx Malignant Hyperthermia: No Meds Allergies/Adverse Reactions: Allergies Allergy/AdvReac Type Severity Reaction Status Date / Time No Known Allergies Allergy Verified 03/18/15 19:39 - Medications Medications: Current Medications Amlodipine Besylate (Norvasc) 2.5 mg PO DAILY [facility] Last Admin: 04/01/18 09:24 Dose: 2.5 mg Cyanocobalamin (Vitamin B12 1000 Mcg Tab) 1,000 mcg PO DAILY [facility] Last Admin: 04/01/18 09:25 Dose: 1,000 mcg Dimethicone (Proshield Plus Skin Protectant) 1 applic TOP Q8 [facility] Last Admin: 04/02/18 00:08 Dose: 1 applic Divalproex Sodium (Depakote Sprinkles) 125 mg PO BID [facility] Last Admin: 04/01/18 17:13 Dose: 125 mg Donepezil HCl (Aricept) 5 mg PO HS [facility] Last Admin: 04/01/18 21:43 Dose: 5 mg Enalapril Maleate (Vasotec) 2.5 mg PO DAILY [facility] Last Admin: 04/01/18 09:24 Dose: 2.5 mg Enoxaparin Sodium (Lovenox) 90 mg SC Q12 [facility]; Protocol Last Admin: 04/01/18 21:44 Dose: Not Given Ciprofloxacin (Cipro 400mg/200ml Dsw) 400 mg in 200 mls @ 200 mls/hr IVPB Q12@0500,1700 [facility]; Protocol Last Admin: 04/02/18 04:30 Dose: 200 mls/hr Levothyroxine Sodium (Synthroid) 75 mcg PO DAILY@0630 [facility] Last Admin: 04/02/18 05:53 Dose: Not Given Metoprolol Tartrate (Lopressor) 25 mg PO BID [facility] Last Admin: 04/01/18 17:16 Dose: 25 mg Results - Vital Signs Recent Vital Signs: Last Vital Signs Temp 98.3 F 04/02/18 04:48 Pulse 81 04/02/18 04:48 Resp 20 04/02/18 04:48 BP 158/70 H 04/02/18 04:48 Pulse Ox 98 04/02/18 04:48 - Labs Result Diagrams: 03/31/18 04:25 03/31/18 04:25
[2018-04-02] MEDS: Enoxaparin 100 mg Syringe SC SCH (08:55)
[2018-04-02] MEDS: Divalproex 125 mg Sprinkle Capsule PO SCH ×2 (08:55→16:23)
--- NOTE | 2018-04-02 11:02 | CP.PCM.PN ---
Subjective - Date & Time of Evaluation Date of Evaluation: 04/02/18 Time of Evaluation: 12:16 - Subjective Subjective: still confused awating POA Objective - Vital Signs/Intake and Output Vital Signs (last 24 hours): Temp Pulse Resp BP Pulse Ox 98 F 81 20 160/79 H 95 04/02/18 08:15 04/02/18 09:00 04/02/18 08:15 04/02/18 08:56 04/02/18 08:15 Intake and Output: 04/02/18 04/02/18 06:59 18:59 Output Total 320 Balance -320 - Medications Medications: Current Medications Amlodipine Besylate (Norvasc) 2.5 mg PO DAILY [facility] Last Admin: 04/02/18 08:56 Dose: 2.5 mg Cyanocobalamin (Vitamin B12 1000 Mcg Tab) 1,000 mcg PO DAILY [facility] Last Admin: 04/02/18 08:55 Dose: 1,000 mcg Dimethicone (Proshield Plus Skin Protectant) 1 applic TOP Q8 [facility] Last Admin: 04/02/18 00:08 Dose: 1 applic Divalproex Sodium (Depakote Sprinkles) 125 mg PO BID [facility] Last Admin: 04/02/18 08:55 Dose: 125 mg Donepezil HCl (Aricept) 5 mg PO HS [facility] Last Admin: 04/01/18 21:43 Dose: 5 mg Enalapril Maleate (Vasotec) 2.5 mg PO DAILY [facility] Last Admin: 04/02/18 08:55 Dose: 2.5 mg Enoxaparin Sodium (Lovenox) 90 mg SC Q12 [facility]; Protocol Last Admin: 04/02/18 08:55 Dose: 90 mg Ciprofloxacin (Cipro 400mg/200ml Dsw) 400 mg in 200 mls @ 200 mls/hr IVPB Q12@0500,1700 [facility]; Protocol Last Admin: 04/02/18 04:30 Dose: 200 mls/hr Levothyroxine Sodium (Synthroid) 75 mcg PO DAILY@0630 [facility] Last Admin: 04/02/18 05:53 Dose: Not Given Metoprolol Tartrate (Lopressor) 25 mg PO BID [facility] Last Admin: 04/02/18 08:56 Dose: 25 mg - Labs Labs: 03/31/18 04:25 12/03/18 04:25 PT 11.9 Seconds (9.8-13.1) 03/22/18 19:00 INR 1.0 03/22/18 19:00 APTT 29.3 Seconds (25.6-37.1) 03/22/18 19:00 - Constitutional Appears: Well - Head Exam Head Exam: ATRAUMATIC, NORMAL INSPECTION, NORMOCEPHALIC - Eye Exam Eye Exam: EOMI, Normal appearance, PERRL Pupil Exam: NORMAL ACCOMODATION, PERRL - ENT Exam ENT Exam: Mucous Membranes Moist, Normal Exam - Neck Exam Neck Exam: Full ROM, Normal Inspection. absent: Lymphadenopathy - Respiratory Exam Respiratory Exam: Clear to Ausculation Bilateral, NORMAL BREATHING PATTERN - Cardiovascular Exam Cardiovascular Exam: REGULAR RHYTHM, +S1, +S2. absent: Murmur - GI/Abdominal Exam GI & Abdominal Exam: Soft, Normal Bowel Sounds. absent: Tenderness - Extremities Exam Extremities Exam: Full ROM, Normal Capillary Refill, Normal Inspection. absent: Joint Swelling, Pedal Edema - Back Exam Back Exam: NORMAL INSPECTION - Neurological Exam Neurological Exam: Alert, Awake, CN II-XII Intact, Normal Gait, Oriented x3 - Psychiatric Exam Psychiatric exam: Normal Affect, Normal Mood - Skin Skin Exam: Dry, Intact, Normal Color, Warm Assessment and Plan (1) New onset atrial fibrillation Assessment & Plan: hr stable in NSR on BB add OAC Status: Resolved (2) CHF (congestive heart failure) Status: Resolved (3) HTN (hypertension) Status: Chronic (4) Syncope Status: Acute (5) Change in mental status Status: Acute (6) Rhabdomyolysis Status: Resolved (7) Mixed dyslipidemia Status: Acute
--- NOTE | 2018-04-02 13:21 | CP.PCM.PN ---
Subjective - Date & Time of Evaluation Date of Evaluation: 04/02/18 Time of Evaluation: 11:40 - Subjective Subjective: F/U Dementia. awake, confuse, incontinent of stools, Casillas Cath Objective - Vital Signs/Intake and Output Vital Signs (last 24 hours): Temp Pulse Resp BP Pulse Ox 98.2 F 73 20 110/72 94 L 04/02/18 12:26 04/02/18 12:26 04/02/18 12:26 04/02/18 12:26 04/02/18 12:26 Intake and Output: 04/02/18 04/02/18 06:59 18:59 Output Total 320 Balance -320 - Medications Medications: Current Medications Cyanocobalamin (Vitamin B12 1000 Mcg Tab) 1,000 mcg PO DAILY [facility] Last Admin: 04/02/18 08:55 Dose: 1,000 mcg Dimethicone (Proshield Plus Skin Protectant) 1 applic TOP Q8 [facility] Last Admin: 04/02/18 00:08 Dose: 1 applic Divalproex Sodium (Depakote Sprinkles) 125 mg PO BID [facility] Last Admin: 04/02/18 08:55 Dose: 125 mg Donepezil HCl (Aricept) 5 mg PO HS [facility] Last Admin: 04/01/18 21:43 Dose: 5 mg Enalapril Maleate (Vasotec) 2.5 mg PO DAILY [facility] Last Admin: 04/02/18 08:55 Dose: 2.5 mg Enoxaparin Sodium (Lovenox) 90 mg SC Q12 [facility]; Protocol Last Admin: 04/02/18 08:55 Dose: 90 mg Ciprofloxacin (Cipro 400mg/200ml Dsw) 400 mg in 200 mls @ 200 mls/hr IVPB Q12@0 500,1700 [facility]; Protocol Last Admin: 04/02/18 04:30 Dose: 200 mls/hr Levothyroxine Sodium (Synthroid) 75 mcg PO DAILY@0630 [facility] Last Admin: 04/02/18 05:53 Dose: Not Given Metoprolol Tartrate (Lopressor) 50 mg PO Q12 [facility] - Labs Labs: 03/31/18 04:25 03/31/18 04:25 PT 11.9 Seconds (9.8-13.1) 03/22/18 19:00 INR 1.0 03/22/18 19:00 APTT 29.3 Seconds (25.6-37.1) 03/22/18 19:00 - Constitutional Appears: No Acute Distress - Head Exam Head Exam: NORMAL INSPECTION - Eye Exam Eye Exam: PERRL - ENT Exam ENT Exam: Normal Exam - Neck Exam Neck Exam: Normal Inspection - Respiratory Exam Respiratory Exam: Rhonchi (scattered) - Cardiovascular Exam Cardiovascular Exam: REGULAR RHYTHM - GI/Abdominal Exam GI & Abdominal Exam: Soft, Normal Bowel Sounds - Exam Additional comments: Casillas cath - Extremities Exam Extremities Exam: Normal Inspection - Back Exam Additional comments: Pressure ulcer sacral area - Neurological Exam Neurological Exam: Awake Additional comments: Confused, no focal motor/sensory deficit, generalized weakness - Skin Skin Exam: Warm Assessment and Plan (1) Rhabdomyolysis Status: Resolved (2) Status post fall Status: Acute (3) Change in mental status Status: Acute (4) Dementia Status: Chronic (5) HTN (hypertension) Status: Chronic (6) Urinary retention Status: Acute (7) UTI (urinary tract infection) Status: Acute (8) Hypothyroidism Status: Chronic (9) Deep tissue injury Status: Acute (10) CHF (congestive heart failure) Status: Resolved (11) Pulmonary nodule Status: Chronic (12) New onset atrial fibrillation Status: Resolved (13) Sacral pressure ulcer Status: Acute - Assessment and Plan (Free Text) Plan: continue Cipro, Depakote and rest of treatment, BRIGIDO Casillas, Patient is demented, unable to sign consent, Social Service working on Pt's legal status
[2018-04-03] MEDS: Proshield Plus GEL TOP SCH ×4 (00:37→17:54)
[2018-04-03] MEDS: Ciprofloxacin 400mg/200ml D5W 400 MG/200 ML BAG IVPB SCH ×2 (05:20→17:14)
[2018-04-03] MEDS: Levothyroxine 75 MCG TAB PO SCH (05:55)
[2018-04-03] MEDS: Divalproex 125 mg Sprinkle Capsule PO SCH ×2 (09:46→17:14)
[2018-04-03 10:49] LABS: BLOOD UREA NITROGEN 19 mg/dl (7-17); CALCIUM 8.3 mg/dL (8.4-10.2); GFR NON-AFRICAN AMERICAN > 60
--- NOTE | 2018-04-03 12:20 | CP.PCM.PN ---
Subjective - Date & Time of Evaluation Date of Evaluation: 04/03/18 Time of Evaluation: 12:19 - Subjective Subjective: stable HR NSR on xarelto Objective - Vital Signs/Intake and Output Vital Signs (last 24 hours): Temp Pulse Resp BP Pulse Ox 97.1 F L 69 20 143/65 98 04/03/18 08:45 04/03/18 09:45 04/03/18 08:45 04/03/18 09:45 04/03/18 08:45 Intake and Output: 04/03/18 04/03/18 06:59 18:59 Output Total 500 Balance -500 - Medications Medications: Current Medications Cyanocobalamin (Vitamin B12 1000 Mcg Tab) 1,000 mcg PO DAILY [facility] Last Admin: 04/03/18 09:46 Dose: 1,000 mcg Dimethicone (Proshield Plus Skin Protectant) 1 applic TOP Q8 [facility] Last Admin: 04/03/18 09:47 Dose: Not Given Divalproex Sodium (Depakote Sprinkles) 125 mg PO BID [facility] Last Admin: 04/03/18 09:46 Dose: 125 mg Donepezil HCl (Aricept) 5 mg PO HS [facility] Last Admin: 04/02/18 21:25 Dose: 5 mg Enalapril Maleate (Vasotec) 2.5 mg PO DAILY [facility] Last Admin: 04/03/18 09:46 Dose: 2.5 mg Ciprofloxacin (Cipro 400mg/200ml Dsw) 400 mg in 200 mls @ 200 mls/hr IVPB Q12@0500,1700 [facility]; Protocol Last Admin: 04/03/18 05:20 Dose: 200 mls/hr Levothyroxine Sodium (Synthroid) 75 mcg PO DAILY@0630 [facility] Last Admin: 04/03/18 05:55 Dose: Not Given Metoprolol Tartrate (Lopressor) 50 mg PO Q12 [facility] Last Admin: 04/03/18 09:45 Dose: 50 mg Rivaroxaban (Xarelto) 20 mg PO QD5 [facility]; Protocol Last Admin: 04/02/18 16:24 Dose: 20 mg - Labs Labs: 03/31/18 04:25 04/03/18 10:27 PT 11.9 Seconds (9.8-13.1) 03/22/18 19:00 INR 1.0 03/22/18 19:00 APTT 29.3 Seconds (25.6-37.1) 03/22/18 19:00 - Constitutional Appears: Well - Head Exam Head Exam: ATRAUMATIC, NORMAL INSPECTION, NORMOCEPHALIC - Eye Exam Eye Exam: EOMI, Normal appearance, PERRL Pupil Exam: NORMAL ACCOMODATION, PERRL - ENT Exam ENT Exam: Mucous Membranes Moist, Normal Exam - Neck Exam Neck Exam: Full ROM, Normal Inspection. absent: Lymphadenopathy - Respiratory Exam Respiratory Exam: Clear to Ausculation Bilateral, NORMAL BREATHING PATTERN - Cardiovascular Exam Cardiovascular Exam: REGULAR RHYTHM, +S1, +S2. absent: Murmur - GI/Abdominal Exam GI & Abdominal Exam: Soft, Normal Bowel Sounds. absent: Tenderness - Extremities Exam Extremities Exam: Full ROM, Normal Capillary Refill, Normal Inspection. absent: Joint Swelling, Pedal Edema - Back Exam Back Exam: NORMAL INSPECTION - Neurological Exam Neurological Exam: Alert, Awake, CN II-XII Intact, Normal Gait, Oriented x3 - Psychiatric Exam Psychiatric exam: Normal Affect, Normal Mood - Skin Skin Exam: Dry, Intact, Normal Color, Warm Assessment and Plan (1) New onset atrial fibrillation Assessment & Plan: HR in NSR on BB and xarelto change to 15mg po daily after 5 days Status: Resolved (2) CHF (congestive heart failure) Status: Resolved (3) HTN (hypertension) Status: Chronic (4) Syncope Status: Acute (5) Change in mental status Status: Acute (6) Rhabdomyolysis Status: Resolved (7) Mixed dyslipidemia Status: Acute
--- NOTE | 2018-04-03 15:38 | CP.PCM.PN ---
Subjective - Date & Time of Evaluation Date of Evaluation: 04/03/18 Time of Evaluation: 10:20 - Subjective Subjective: F/U AMS awake, confused, at times agitated, Casillas Cath re-inserted Objective - Vital Signs/Intake and Output Vital Signs (last 24 hours): Temp Pulse Resp BP Pulse Ox 98.0 F 82 20 123/78 95 04/03/18 12:45 04/03/18 12:45 04/03/18 12:45 04/03/18 12:45 04/03/18 12:45 Intake and Output: 04/03/18 04/03/18 06:59 18:59 Output Total 500 Balance -500 - Medications Medications: Current Medications Cyanocobalamin (Vitamin B12 1000 Mcg Tab) 1,000 mcg PO DAILY [facility] Last Admin: 04/03/18 09:46 Dose: 1,000 mcg Dimethicone (Proshield Plus Skin Protectant) 1 applic TOP Q8 [facility] Last Admin: 04/03/18 09:47 Dose: Not Given Divalproex Sodium (Depakote Sprinkles) 125 mg PO BID [facility] Last Admin: 04/03/18 09:46 Dose: 125 mg Donepezil HCl (Aricept) 5 mg PO HS [facility] Last Admin: 04/02/18 21:25 Dose: 5 mg Enalapril Maleate (Vasotec) 2.5 mg PO DAILY [facility] Last Admin: 04/03/18 09:46 Dose: 2.5 mg Ciprofloxacin (Cipro 400mg/200ml Dsw) 400 mg in 200 mls @ 200 mls/hr IVPB Q12@0500,1700 [facility]; Protocol Last Admin: 04/03/18 05:20 Dose: 200 mls/hr Levothyroxine Sodium (Synthroid) 75 mcg PO DAILY@0630 [facility] Last Admin: 04/03/18 05:55 Dose: Not Given Metoprolol Tartrate (Lopressor) 50 mg PO Q12 [facility] Last Admin: 04/03/18 09:45 Dose: 50 mg Rivaroxaban (Xarelto) 20 mg PO QD5 [facility]; Protocol Last Admin: 04/02/18 16:24 Dose: 20 mg - Labs Labs: 03/31/18 04:25 04/03/18 10:27 PT 11.9 Seconds (9.8-13.1) 03/22/18 19:00 INR 1.0 03/22/18 19:00 APTT 29.3 Seconds (25.6-37.1) 03/22/18 19:00 - Constitutional Appears: No Acute Distress - Head Exam Head Exam: NORMAL INSPECTION - Eye Exam Eye Exam: PERRL - ENT Exam ENT Exam: Normal Exam - Neck Exam Neck Exam: Normal Inspection - Respiratory Exam Respiratory Exam: Rhonchi (scattered) - Cardiovascular Exam Cardiovascular Exam: REGULAR RHYTHM - GI/Abdominal Exam GI & Abdominal Exam: Soft, Normal Bowel Sounds - Exam Additional comments: Casillas Cath - Extremities Exam Extremities Exam: Normal Inspection - Back Exam Additional comments: Sacral pressure ulcer - Neurological Exam Neurological Exam: Awake Additional comments: Confused, no focal motor/sensory deficit. Generalized weakness. - Skin Skin Exam: Warm Assessment and Plan (1) Rhabdomyolysis Status: Resolved (2) Status post fall Status: Acute (3) Change in mental status Status: Acute (4) Dementia Status: Chronic (5) HTN (hypertension) Status: Chronic (6) Urinary retention Status: Acute (7) UTI (urinary tract infection) Status: Acute (8) Hypothyroidism Status: Chronic (9) Deep tissue injury Status: Acute (10) CHF (congestive heart failure) Status: Resolved (11) Pulmonary nodule Status: Chronic (12) New onset atrial fibrillation Status: Resolved (13) Sacral pressure ulcer Status: Acute - Assessment and Plan (Free Text) Plan: Casillas Cath re-inserted, continue Cipro, Xarelto, Depakote, Haldol and rest of treatment, f/u Urology
[2018-04-04] MEDS: Proshield Plus GEL TOP SCH ×3 (01:00→18:02)
[2018-04-04] MEDS: Ciprofloxacin 400mg/200ml D5W 400 MG/200 ML BAG IVPB SCH ×2 (05:30→18:03)
[2018-04-04] MEDS: Levothyroxine 75 MCG TAB PO SCH (06:12)
[2018-04-04] MEDS: Divalproex 125 mg Sprinkle Capsule PO SCH ×2 (09:48→18:01)
--- NOTE | 2018-04-04 11:30 | CP.PCM.PN ---
Subjective - Date & Time of Evaluation Date of Evaluation: 04/04/18 Time of Evaluation: 11:30 - Subjective Subjective: status quo Objective - Vital Signs/Intake and Output Vital Signs (last 24 hours): Temp Pulse Resp BP Pulse Ox 98.6 F 70 18 106/64 96 04/04/18 08:00 04/04/18 09:49 04/04/18 08:00 04/04/18 09:49 04/04/18 08:00 - Medications Medications: Current Medications Cyanocobalamin (Vitamin B12 1000 Mcg Tab) 1,000 mcg PO DAILY [facility] Last Admin: 04/04/18 09:49 Dose: 1,000 mcg Dimethicone (Proshield Plus Skin Protectant) 1 applic TOP Q8 [facility] Last Admin: 04/04/18 09:54 Dose: Not Given Divalproex Sodium (Depakote Sprinkles) 125 mg PO BID [facility] Last Admin: 04/04/18 09:48 Dose: 125 mg Donepezil HCl (Aricept) 5 mg PO HS [facility] Last Admin: 04/03/18 21:15 Dose: 5 mg Enalapril Maleate (Vasotec) 2.5 mg PO DAILY [facility] Last Admin: 04/04/18 09:49 Dose: 2.5 mg Haloperidol Lactate (Haldol) 0.5 mg IVP Q6 PRN PRN Reason: Agitation Last Admin: 04/03/18 20:48 Dose: 0.5 mg Ciprofloxacin (Cipro 400mg/200ml Dsw) 400 mg in 200 mls @ 200 mls/hr IVPB Q12@0500,1700 [facility]; Protocol Last Admin: 04/04/18 05:30 Dose: 200 mls/hr Levothyroxine Sodium (Synthroid) 75 mcg PO DAILY@0630 [facility] Last Admin: 04/04/18 06:12 Dose: 75 mcg Metoprolol Tartrate (Lopressor) 50 mg PO Q12 [facility] Last Admin: 04/04/18 09:49 Dose: Not Given Rivaroxaban (Xarelto) 20 mg PO QD5 [facility]; Protocol Last Admin: 04/03/18 17:13 Dose: 20 mg - Labs Labs: 03/31/18 04:25 04/03/18 10:27 PT 11.9 Seconds (9.8-13.1) 03/22/18 19:00 INR 1.0 03/22/18 19:00 APTT 29.3 Seconds (25.6-37.1) 03/22/18 19:00 - Constitutional Appears: Well - Head Exam Head Exam: ATRAUMATIC, NORMAL INSPECTION, NORMOCEPHALIC - Eye Exam Eye Exam: EOMI, Normal appearance, PERRL Pupil Exam: NORMAL ACCOMODATION, PERRL - ENT Exam ENT Exam: Mucous Membranes Moist, Normal Exam - Neck Exam Neck Exam: Full ROM, Normal Inspection. absent: Lymphadenopathy - Respiratory Exam Respiratory Exam: Clear to Ausculation Bilateral, NORMAL BREATHING PATTERN - Cardiovascular Exam Cardiovascular Exam: Irregular Rhythm, +S1, +S2, Murmur - GI/Abdominal Exam GI & Abdominal Exam: Soft, Normal Bowel Sounds. absent: Tenderness - Extremities Exam Extremities Exam: Full ROM, Normal Capillary Refill, Normal Inspection. absent: Joint Swelling, Pedal Edema - Back Exam Back Exam: NORMAL INSPECTION - Neurological Exam Neurological Exam: Alert, Awake, CN II-XII Intact, Normal Gait, Oriented x3 - Psychiatric Exam Psychiatric exam: Normal Affect, Normal Mood - Skin Skin Exam: Dry, Intact, Normal Color, Warm Assessment and Plan (1) New onset atrial fibrillation Status: Resolved (2) CHF (congestive heart failure) Status: Resolved (3) HTN (hypertension) Status: Chronic (4) Syncope Status: Acute (5) Change in mental status Status: Acute (6) Rhabdomyolysis Status: Resolved (7) Mixed dyslipidemia Status: Acute
--- NOTE | 2018-04-04 15:52 | CP.PCM.PN ---
Subjective - Date & Time of Evaluation Date of Evaluation: 04/04/18 Time of Evaluation: 12:30 - Subjective Subjective: F/U AMS awake, no AD, confused, calm, on 1:1,Patient walks to bathroom with steady gait Objective - Vital Signs/Intake and Output Vital Signs (last 24 hours): Temp Pulse Resp BP Pulse Ox 99.5 F 79 18 109/67 96 04/04/18 12:07 04/04/18 12:07 04/04/18 12:07 04/04/18 12:07 04/04/18 12:07 - Medications Medications: Current Medications Cyanocobalamin (Vitamin B12 1000 Mcg Tab) 1,000 mcg PO DAILY [facility] Last Admin: 04/04/18 09:49 Dose: 1,000 mcg Dimethicone (Proshield Plus Skin Protectant) 1 applic TOP Q8 [facility] Last Admin: 04/04/18 09:54 Dose: Not Given Divalproex Sodium (Depakote Sprinkles) 125 mg PO BID [facility] Last Admin: 04/04/18 09:48 Dose: 125 mg Donepezil HCl (Aricept) 5 mg PO HS [facility] Last Admin: 04/03/18 21:15 Dose: 5 mg Enalapril Maleate (Vasotec) 2.5 mg PO DAILY [facility] Last Admin: 04/04/18 09:49 Dose: 2.5 mg Haloperidol Lactate (Haldol) 0.5 mg IVP Q6 PRN PRN Reason: Agitation Last Admin: 04/03/18 20:48 Dose: 0.5 mg Ciprofloxacin (Cipro 400mg/200ml Dsw) 400 mg in 200 mls @ 200 mls/hr IVPB Q12@0500,1700 [facility]; Protocol Last Admin: 04/04/18 05:30 Dose: 200 mls/hr Levothyroxine Sodium (Synthroid) 75 mcg PO DAILY@0630 [facility] Last Admin: 04/04/18 06:12 Dose: 75 mcg Metoprolol Tartrate (Lopressor) 50 mg PO Q12 [facility] Last Admin: 04/04/18 09:49 Dose: Not Given Nystatin (Nystop Topical Powder) 1 applic TOP TID [facility] Rivaroxaban (Xarelto) 20 mg PO QD5 [facility]; Protocol Last Admin: 04/03/18 17:13 Dose: 20 mg - Labs Labs: 03/31/18 04:25 04/03/18 10:27 PT 11.9 Seconds (9.8-13.1) 03/22/18 19:00 INR 1.0 03/22/18 19:00 APTT 29.3 Seconds (25.6-37.1) 03/22/18 19:00 - Constitutional Appears: Chronically Ill - Head Exam Head Exam: NORMAL INSPECTION - Eye Exam Eye Exam: PERRL - ENT Exam ENT Exam: Normal Exam - Neck Exam Neck Exam: Normal Inspection - Respiratory Exam Respiratory Exam: Clear to Ausculation Bilateral - Cardiovascular Exam Cardiovascular Exam: REGULAR RHYTHM - GI/Abdominal Exam GI & Abdominal Exam: Soft, Normal Bowel Sounds - Exam Additional comments: [place] - Extremities Exam Extremities Exam: Normal Inspection - Back Exam Additional comments: L-S pressure ulcer - Neurological Exam Additional comments: awake , calm, no AD, N/C, confused , on 1:1, Patient walks to bathroom with steady gait, no motor deficit - Psychiatric Exam Additional comments: calm - Skin Skin Exam: Rash (inguinal) Assessment and Plan (1) Rhabdomyolysis Status: Resolved (2) Status post fall Status: Acute (3) Change in mental status Status: Acute (4) Dementia Status: Chronic (5) HTN (hypertension) Status: Chronic (6) Urinary retention Status: Resolved (7) UTI (urinary tract infection) Status: Resolved (8) Hypothyroidism Status: Chronic (9) Deep tissue injury Status: Acute (10) CHF (congestive heart failure) Status: Resolved (11) Pulmonary nodule Status: Chronic (12) New onset atrial fibrillation Status: Resolved (13) Sacral pressure ulcer Status: Acute - Assessment and Plan (Free Text) Plan: Cipro, Xarelto, Depakote, Haldol, Proshield and rest of treatment, Folet Cath was DC,Patient is Demented, unable to sign consent for [facility] or Half[facility] placement
[2018-04-05] MEDS: Ciprofloxacin 400mg/200ml D5W 400 MG/200 ML BAG IVPB SCH ×2 (05:16→16:21)
[2018-04-05] MEDS: Levothyroxine 75 MCG TAB PO SCH ×2 (05:19→05:35)
[2018-04-05] MEDS: Divalproex 125 mg Sprinkle Capsule PO SCH ×2 (08:09→16:20)
--- NOTE | 2018-04-05 14:40 | CP.PCM.PN ---
Subjective - Date & Time of Evaluation Date of Evaluation: 04/05/18 Time of Evaluation: 14:30 - Subjective Subjective: F/U AMS confused, agitated, on 1:1 Objective - Vital Signs/Intake and Output Vital Signs (last 24 hours): Temp Pulse Resp BP Pulse Ox 98.4 F 102 H 20 100/64 94 L 04/05/18 12:38 04/05/18 12:38 04/05/18 12:38 04/05/18 12:38 04/05/18 12:38 - Medications Medications: Current Medications Cyanocobalamin (Vitamin B12 1000 Mcg Tab) 1,000 mcg PO DAILY [facility] Last Admin: 04/05/18 08:09 Dose: 1,000 mcg Divalproex Sodium (Depakote Sprinkles) 125 mg PO BID [facility] Last Admin: 04/05/18 08:09 Dose: 125 mg Donepezil HCl (Aricept) 5 mg PO HS [facility] Last Admin: 04/04/18 22:13 Dose: 5 mg Enalapril Maleate (Vasotec) 2.5 mg PO DAILY [facility] Last Admin: 04/05/18 08:09 Dose: 2.5 mg Haloperidol Lactate (Haldol) 0.5 mg IVP Q6 PRN PRN Reason: Agitation Last Admin: 04/05/18 01:50 Dose: 0.5 mg Ciprofloxacin (Cipro 400mg/200ml Dsw) 400 mg in 200 mls @ 200 mls/hr IVPB Q12@0500,1700 [facility]; Protocol Last Admin: 04/05/18 05:16 Dose: 200 mls/hr Levothyroxine Sodium (Synthroid) 75 mcg PO DAILY@0630 [facility] Last Admin: 04/05/18 05:35 Dose: 75 mcg Metoprolol Tartrate (Lopressor) 50 mg PO Q12 [facility] Last Admin: 04/05/18 08:12 Dose: 50 mg Nystatin (Nystop Topical Powder) 1 applic TOP TID [facility] Last Admin: 04/05/18 13:50 Dose: 1 applic Rivaroxaban (Xarelto) 20 mg PO QD5 [facility]; Protocol Last Admin: 04/04/18 18:03 Dose: 20 mg - Labs Labs: 03/31/18 04:25 04/03/18 10:27 PT 11.9 Seconds (9.8-13.1) 03/22/18 19:00 INR 1.0 03/22/18 19:00 APTT 29.3 Seconds (25.6-37.1) 03/22/18 19:00 - Constitutional Appears: Chronically Ill - Head Exam Head Exam: NORMAL INSPECTION - Eye Exam Eye Exam: PERRL - ENT Exam ENT Exam: Normal Exam - Neck Exam Neck Exam: Normal Inspection - Respiratory Exam Respiratory Exam: Clear to Ausculation Bilateral - Cardiovascular Exam Cardiovascular Exam: REGULAR RHYTHM - GI/Abdominal Exam GI & Abdominal Exam: Soft, Normal Bowel Sounds - Extremities Exam Extremities Exam: Normal Inspection - Back Exam Additional comments: L-S pressure ulcer - Neurological Exam Neurological Exam: Awake Additional comments: Confused, agitated, walks with steady gait, no motor deficit. - Psychiatric Exam Additional comments: Calm - Skin Skin Exam: Warm Assessment and Plan (1) Rhabdomyolysis Status: Resolved (2) Status post fall Status: Acute (3) Change in mental status Status: Acute (4) Dementia Status: Chronic (5) HTN (hypertension) Status: Chronic (6) Urinary retention Status: Acute (7) UTI (urinary tract infection) Status: Acute (8) Hypothyroidism Status: Chronic (9) Deep tissue injury Status: Acute (10) CHF (congestive heart failure) Status: Resolved (11) Pulmonary nodule Status: Chronic (12) New onset atrial fibrillation Status: Resolved (13) Sacral pressure ulcer Status: Acute - Assessment and Plan (Free Text) Plan: continue Cipro, Depakote, Haldol, Xarelto and rest of treatment, Patient is Demented unable to sign consent for Retirement placement if mental status does not improve
[2018-04-06] MEDS: Ciprofloxacin 400mg/200ml D5W 400 MG/200 ML BAG IVPB SCH ×2 (05:33→16:31)
[2018-04-06] MEDS: Levothyroxine 75 MCG TAB PO SCH (06:21)
[2018-04-06] MEDS: Divalproex 125 mg Sprinkle Capsule PO SCH ×2 (08:10→16:30)
--- NOTE | 2018-04-06 15:15 | CP.PCM.PN ---
Subjective - Date & Time of Evaluation Date of Evaluation: 04/06/18 Time of Evaluation: 13:50 - Subjective Subjective: F/U AMS. Pt awake, no pain, confused, disoriented, on 1:1 for safety. Objective - Vital Signs/Intake and Output Vital Signs (last 24 hours): Temp Pulse Resp BP Pulse Ox 99.3 F 71 20 97/57 L 96 04/06/18 12:16 04/06/18 12:16 04/06/18 12:16 04/06/18 12:16 04/06/18 12:16 Intake and Output: 04/06/18 04/06/18 06:59 18:59 Intake Total 400 Balance 400 - Medications Medications: Current Medications Cyanocobalamin (Vitamin B12 1000 Mcg Tab) 1,000 mcg PO DAILY [facility] Last Admin: 04/06/18 08:11 Dose: 1,000 mcg Divalproex Sodium (Depakote Sprinkles) 125 mg PO BID [facility] Last Admin: 04/06/18 08:10 Dose: 125 mg Donepezil HCl (Aricept) 5 mg PO HS [facility] Last Admin: 04/05/18 21:24 Dose: 5 mg Enalapril Maleate (Vasotec) 2.5 mg PO DAILY [facility] Last Admin: 04/06/18 08:11 Dose: 2.5 mg Haloperidol Lactate (Haldol) 0.5 mg IVP Q6 PRN PRN Reason: Agitation Last Admin: 04/05/18 01:50 Dose: 0.5 mg Ciprofloxacin (Cipro 400mg/200ml Dsw) 400 mg in 200 mls @ 200 mls/hr IVPB Q12@0500,1700 [facility]; Protocol Last Admin: 04/06/18 05:33 Dose: 200 mls/hr Levothyroxine Sodium (Synthroid) 75 mcg PO DAILY@0630 [facility] Last Admin: 04/06/18 06:21 Dose: 75 mcg Metoprolol Tartrate (Lopressor) 50 mg PO Q12 [facility] Last Admin: 04/06/18 08:15 Dose: 50 mg Nystatin (Nystop Topical Powder) 1 applic TOP TID [facility] Last Admin: 04/06/18 12:23 Dose: 1 applic Rivaroxaban (Xarelto) 20 mg PO QD5 [facility]; Protocol Last Admin: 04/05/18 16:20 Dose: 20 mg - Labs Labs: 03/31/18 04:25 04/03/18 10:27 PT 11.9 Seconds (9.8-13.1) 03/22/18 19:00 INR 1.0 03/22/18 19:00 APTT 29.3 Seconds (25.6-37.1) 03/22/18 19:00 - Constitutional Appears: Chronically Ill - Head Exam Head Exam: NORMAL INSPECTION - Eye Exam Eye Exam: PERRL - ENT Exam ENT Exam: Normal Exam - Neck Exam Neck Exam: Normal Inspection - Respiratory Exam Respiratory Exam: Clear to Ausculation Bilateral - Cardiovascular Exam Cardiovascular Exam: REGULAR RHYTHM - GI/Abdominal Exam GI & Abdominal Exam: Soft, Normal Bowel Sounds - Extremities Exam Extremities Exam: Normal Inspection - Back Exam Additional comments: Pressure ulcer L-S - Neurological Exam Neurological Exam: Awake Additional comments: Confused, steady gait, no duke deficit - Psychiatric Exam Additional comments: calm. - Skin Skin Exam: Warm Assessment and Plan (1) Rhabdomyolysis Status: Resolved (2) Status post fall Status: Acute (3) Change in mental status Status: Acute (4) Dementia Status: Chronic (5) HTN (hypertension) Status: Chronic (6) Urinary retention Status: Acute (7) UTI (urinary tract infection) Status: Acute (8) Hypothyroidism Status: Chronic (9) Deep tissue injury Status: Acute (10) CHF (congestive heart failure) Status: Resolved (11) Pulmonary nodule Status: Chronic (12) New onset atrial fibrillation Status: Resolved (13) Sacral pressure ulcer Status: Acute - Assessment and Plan (Free Text) Plan: Continu Xarelto, Cipro, Dekapote and rest of Tx. Pt unable to sign consent for [facility] or halfway.
[2018-04-07] MEDS: Ciprofloxacin 400mg/200ml D5W 400 MG/200 ML BAG IVPB SCH (05:25)
[2018-04-07] MEDS: Levothyroxine 75 MCG TAB PO SCH (06:58)
[2018-04-07] MEDS: Divalproex 125 mg Sprinkle Capsule PO SCH ×2 (09:38→18:08)
--- NOTE | 2018-04-07 13:52 | CP.PCM.CON ---
History of Present Illness - History of Present Illness History of Present Illness: Psychiatry consult note; follow-up called to evaluate capacity to make medical decisions CC: Inability to care for self HPI: 83 yo Michael female, found by her neighbors on the ground in her apartment, presented w/ altered mental status, rhabdomyolysis, renal insufficiency. Patient continues to be disoriented. She does not know where she is or the date. When asked why she is in the hospital, she stated that she does not know. Patient continues to be unable to provide any other relevant history. She can not understand her current treatment or treatment choices. She can not manipulate new information. PMHx: Arthritis, HTN, HLD, Hypothyroidism PPHx: H/o Dementia ALL: NKDA SHx: Lives alone, denies having children; no known drug/etoh/cig use Impression: 83 yo female w/ dementia w/ behavioral disturbances. Patient does not have capacity to make medical decisions at this time. -Continue Aricept -Continue Depakote; can titrate dose if patient has behavioral disturbances -Avoid benzodiazepines as they are likely to worsen confusion Past Patient History - Past Medical History & Family History Past Medical History?: Yes - Past Social History Smoking Status: Never Smoked Alcohol: None Drugs: Denies Home Situation {Lives}: Alone - CARDIAC Hx Cardiac Disorders: Yes Hx Hypercholesterolemia: Yes Hx Hypertension: Yes - PULMONARY Hx Respiratory Disorders: No - NEUROLOGICAL Hx Neurological Disorder: Yes Hx Dementia: Yes Hx Vertigo: Yes - HEENT Hx HEENT Problems: No - RENAL Hx Chronic Kidney Disease: No - ENDOCRINE/METABOLIC Hx Endocrine Disorders: Yes Hx Hypothyroidism: Yes - HEMATOLOGICAL/ONCOLOGICAL Hx Blood Disorders: No - INTEGUMENTARY Hx Dermatological Problems: No - MUSCULOSKELETAL/RHEUMATOLOGICAL Hx Musculoskeletal Disorders: Yes Hx Arthritis: Yes Hx Falls: Yes - GASTROINTESTINAL Hx Gastrointestinal Disorders: No - GENITOURINARY/GYNECOLOGICAL Hx Genitourinary Disorders: No - PSYCHIATRIC Hx Psychophysiologic Disorder: Yes Hx Anxiety: Yes - SURGICAL HISTORY Hx Surgeries: No - ANESTHESIA Hx Anesthesia: No Hx Anesthesia Reactions: No Hx Malignant Hyperthermia: No Meds Allergies/Adverse Reactions: Allergies Allergy/AdvReac Type Severity Reaction Status Date / Time No Known Allergies Allergy Verified 03/18/15 19:39 - Medications Medications: Current Medications Cyanocobalamin (Vitamin B12 1000 Mcg Tab) 1,000 mcg PO DAILY [facility] Last Admin: 04/07/18 09:38 Dose: 1,000 mcg Divalproex Sodium (Depakote Sprinkles) 125 mg PO BID [facility] Last Admin: 04/07/18 09:38 Dose: 125 mg Donepezil HCl (Aricept) 5 mg PO HS [facility] Last Admin: 04/06/18 21:18 Dose: 5 mg Enalapril Maleate (Vasotec) 2.5 mg PO DAILY [facility] Last Admin: 04/07/18 09:38 Dose: 2.5 mg Haloperidol Lactate (Haldol) 0.5 mg IVP Q6 PRN PRN Reason: Agitation Last Admin: 04/05/18 01:50 Dose: 0.5 mg Ceftriaxone Sodium 1 gm/ (Sodium Chloride) 100 mls @ 100 mls/hr IVPB DAILY [facility]; Protocol Levothyroxine Sodium (Synthroid) 75 mcg PO DAILY@0630 [facility] Last Admin: 04/07/18 06:58 Dose: 75 mcg Metoprolol Tartrate (Lopressor) 50 mg PO Q12 [facility] Last Admin: 04/07/18 09:50 Dose: 50 mg Nystatin (Nystop Topical Powder) 1 applic TOP TID [facility] Last Admin: 04/07/18 13:15 Dose: 1 applic Rivaroxaban (Xarelto) 20 mg PO QD5 [facility]; Protocol Last Admin: 04/06/18 16:30 Dose: 20 mg Results - Vital Signs Recent Vital Signs: Last Vital Signs Temp 99.0 F 04/07/18 12:43 Pulse 79 04/07/18 12:43 Resp 20 04/07/18 12:43 BP 119/70 04/07/18 12:43 Pulse Ox 96 04/07/18 12:43 - Labs Result Diagrams: 03/31/18 04:25 04/03/18 10:27
--- NOTE | 2018-04-07 14:11 | CP.PCM.PN ---
Subjective - Date & Time of Evaluation Date of Evaluation: 04/07/18 Time of Evaluation: 14:10 - Subjective Subjective: status quo Objective - Vital Signs/Intake and Output Vital Signs (last 24 hours): Temp Pulse Resp BP Pulse Ox 99.0 F 79 20 119/70 96 04/07/18 12:43 04/07/18 12:43 04/07/18 12:43 04/07/18 12:43 04/07/18 12:43 - Medications Medications: Current Medications Cyanocobalamin (Vitamin B12 1000 Mcg Tab) 1,000 mcg PO DAILY [facility] Last Admin: 04/07/18 09:38 Dose: 1,000 mcg Divalproex Sodium (Depakote Sprinkles) 125 mg PO BID [facility] Last Admin: 04/07/18 09:38 Dose: 125 mg Donepezil HCl (Aricept) 5 mg PO HS [facility] Last Admin: 04/06/18 21:18 Dose: 5 mg Enalapril Maleate (Vasotec) 2.5 mg PO DAILY [facility] Last Admin: 04/07/18 09:38 Dose: 2.5 mg Haloperidol Lactate (Haldol) 0.5 mg IVP Q6 PRN PRN Reason: Agitation Last Admin: 04/05/18 01:50 Dose: 0.5 mg Ceftriaxone Sodium 1 gm/ (Sodium Chloride) 100 mls @ 100 mls/hr IVPB DAILY [facility]; Protocol Levothyroxine Sodium (Synthroid) 75 mcg PO DAILY@0630 [facility] Last Admin: 04/07/18 06:58 Dose: 75 mcg Metoprolol Tartrate (Lopressor) 50 mg PO Q12 [facility] Last Admin: 04/07/18 09:50 Dose: 50 mg Nystatin (Nystop Topical Powder) 1 applic TOP TID [facility] Last Admin: 04/07/18 13:15 Dose: 1 applic Rivaroxaban (Xarelto) 20 mg PO QD5 [facility]; Protocol Last Admin: 04/06/18 16:30 Dose: 20 mg - Labs Labs: 03/31/18 04:25 04/03/18 10:27 PT 11.9 Seconds (9.8-13.1) 03/22/18 19:00 INR 1.0 03/22/18 19:00 APTT 29.3 Seconds (25.6-37.1) 03/22/18 19:00 - Constitutional Appears: Well - Head Exam Head Exam: ATRAUMATIC, NORMAL INSPECTION, NORMOCEPHALIC - Eye Exam Eye Exam: EOMI, Normal appearance, PERRL Pupil Exam: NORMAL ACCOMODATION, PERRL - ENT Exam ENT Exam: Mucous Membranes Moist, Normal Exam - Neck Exam Neck Exam: Full ROM, Normal Inspection. absent: Lymphadenopathy - Respiratory Exam Respiratory Exam: Clear to Ausculation Bilateral, NORMAL BREATHING PATTERN - Cardiovascular Exam Cardiovascular Exam: REGULAR RHYTHM, +S1, +S2. absent: Murmur - GI/Abdominal Exam GI & Abdominal Exam: Soft, Normal Bowel Sounds. absent: Tenderness - Extremities Exam Extremities Exam: Full ROM, Normal Capillary Refill, Normal Inspection. absent: Joint Swelling, Pedal Edema - Back Exam Back Exam: NORMAL INSPECTION - Neurological Exam Neurological Exam: Alert, Awake, CN II-XII Intact, Normal Gait, Oriented x3 - Psychiatric Exam Psychiatric exam: Normal Affect, Normal Mood - Skin Skin Exam: Dry, Intact, Normal Color, Warm Assessment and Plan (1) New onset atrial fibrillation Assessment & Plan: cont BB and ACEi cont xarelto Status: Resolved (2) CHF (congestive heart failure) Status: Resolved (3) HTN (hypertension) Status: Chronic (4) Syncope Status: Acute (5) Change in mental status Status: Acute (6) Rhabdomyolysis Status: Resolved (7) Mixed dyslipidemia Status: Acute
--- NOTE | 2018-04-07 16:38 | CP.PCM.PN ---
Subjective - Date & Time of Evaluation Date of Evaluation: 04/07/18 Time of Evaluation: 12:10 - Subjective Subjective: F/U AMS Awake, confused, calm now, on 1:1. Objective - Vital Signs/Intake and Output Vital Signs (last 24 hours): Temp Pulse Resp BP Pulse Ox 99 F 68 16 105/68 96 04/07/18 15:49 04/07/18 15:49 04/07/18 15:49 04/07/18 15:49 04/07/18 15:49 - Medications Medications: Current Medications Cyanocobalamin (Vitamin B12 1000 Mcg Tab) 1,000 mcg PO DAILY [facility] Last Admin: 04/07/18 09:38 Dose: 1,000 mcg Divalproex Sodium (Depakote Sprinkles) 125 mg PO BID [facility] Last Admin: 04/07/18 09:38 Dose: 125 mg Donepezil HCl (Aricept) 5 mg PO HS [facility] Last Admin: 04/06/18 21:18 Dose: 5 mg Enalapril Maleate (Vasotec) 2.5 mg PO DAILY [facility] Last Admin: 04/07/18 09:38 Dose: 2.5 mg Haloperidol Lactate (Haldol) 0.5 mg IVP Q6 PRN PRN Reason: Agitation Last Admin: 04/05/18 01:50 Dose: 0.5 mg Ceftriaxone Sodium 1 gm/ (Sodium Chloride) 100 mls @ 100 mls/hr IVPB DAILY [facility]; Protocol Levothyroxine Sodium (Synthroid) 75 mcg PO DAILY@0630 [facility] Last Admin: 04/07/18 06:58 Dose: 75 mcg Metoprolol Tartrate (Lopressor) 50 mg PO Q12 [facility] Last Admin: 04/07/18 09:50 Dose: 50 mg Nystatin (Nystop Topical Powder) 1 applic TOP TID [facility] Last Admin: 04/07/18 13:15 Dose: 1 applic Rivaroxaban (Xarelto) 20 mg PO QD5 [facility]; Protocol Last Admin: 04/06/18 16:30 Dose: 20 mg - Labs Labs: 03/31/18 04:25 04/03/18 10:27 PT 11.9 Seconds (9.8-13.1) 03/22/18 19:00 INR 1.0 03/22/18 19:00 APTT 29.3 Seconds (25.6-37.1) 03/22/18 19:00 - Constitutional Appears: Chronically Ill - Head Exam Head Exam: NORMAL INSPECTION - Eye Exam Eye Exam: PERRL - ENT Exam ENT Exam: Normal Exam - Neck Exam Neck Exam: Normal Inspection - Respiratory Exam Respiratory Exam: Clear to Ausculation Bilateral - Cardiovascular Exam Cardiovascular Exam: REGULAR RHYTHM - Extremities Exam Extremities Exam: Normal Inspection - Back Exam Additional comments: Pressure ulcer L-S. - Neurological Exam Neurological Exam: Awake Additional comments: Confused, steady gait,no motor deficit - Psychiatric Exam Additional comments: calm - Skin Skin Exam: Warm Assessment and Plan (1) Rhabdomyolysis Status: Resolved (2) Status post fall Status: Acute (3) UTI (urinary tract infection) Status: Acute (4) Change in mental status Status: Acute (5) HTN (hypertension) Status: Chronic (6) Dementia Status: Chronic (7) Urinary retention Status: Acute (8) Hypothyroidism Status: Chronic (9) Deep tissue injury Status: Acute (10) CHF (congestive heart failure) Status: Resolved (11) Pulmonary nodule Status: Chronic (12) New onset atrial fibrillation Status: Resolved (13) Sacral pressure ulcer Status: Acute - Assessment and Plan (Free Text) Plan: DC Cipro, add Rocephin and rest of Tx.
[2018-04-08] MEDS: Levothyroxine 75 MCG TAB PO SCH (06:28)
[2018-04-08] MEDS: Divalproex 125 mg Sprinkle Capsule PO SCH ×2 (08:21→16:27)
--- NOTE | 2018-04-08 14:09 | CP.PCM.PN ---
Subjective - Date & Time of Evaluation Date of Evaluation: 04/08/18 Time of Evaluation: 11:45 - Subjective Subjective: F/U AMS. awake , confused, calm , on 1:1 Objective - Vital Signs/Intake and Output Vital Signs (last 24 hours): Temp Pulse Resp BP Pulse Ox 98.1 F 68 20 104/77 95 04/08/18 13:25 04/08/18 13:25 04/08/18 13:25 04/08/18 13:25 04/08/18 13:25 - Medications Medications: Current Medications Cyanocobalamin (Vitamin B12 1000 Mcg Tab) 1,000 mcg PO DAILY [facility] Last Admin: 04/08/18 08:23 Dose: 1,000 mcg Divalproex Sodium (Depakote Sprinkles) 125 mg PO BID [facility] Last Admin: 04/08/18 08:21 Dose: 125 mg Donepezil HCl (Aricept) 5 mg PO HS [facility] Last Admin: 04/07/18 21:40 Dose: 5 mg Enalapril Maleate (Vasotec) 2.5 mg PO DAILY [facility] Last Admin: 04/08/18 08:23 Dose: 2.5 mg Haloperidol Lactate (Haldol) 0.5 mg IVP Q6 PRN PRN Reason: Agitation Last Admin: 04/05/18 01:50 Dose: 0.5 mg Ceftriaxone Sodium 1 gm/ (Sodium Chloride) 100 mls @ 100 mls/hr IVPB DAILY [facility]; Protocol Last Admin: 04/08/18 08:37 Dose: 100 mls/hr Levothyroxine Sodium (Synthroid) 75 mcg PO DAILY@0630 [facility] Last Admin: 04/08/18 06:28 Dose: 75 mcg Metoprolol Tartrate (Lopressor) 50 mg PO Q12 [facility] Last Admin: 04/08/18 08:22 Dose: 50 mg Nystatin (Nystop Topical Powder) 1 applic TOP TID [facility] Last Admin: 04/08/18 13:07 Dose: 1 applic Rivaroxaban (Xarelto) 20 mg PO QD5 [facility]; Protocol Last Admin: 04/07/18 18:08 Dose: 20 mg - Labs Labs: 03/31/18 04:25 04/03/18 10:27 PT 11.9 Seconds (9.8-13.1) 03/22/18 19:00 INR 1.0 03/22/18 19:00 APTT 29.3 Seconds (25.6-37.1) 03/22/18 19:00 - Constitutional Appears: No Acute Distress - Head Exam Head Exam: NORMAL INSPECTION - Eye Exam Eye Exam: PERRL - ENT Exam ENT Exam: Normal Exam - Neck Exam Neck Exam: Normal Inspection - Respiratory Exam Respiratory Exam: Clear to Ausculation Bilateral - Cardiovascular Exam Cardiovascular Exam: REGULAR RHYTHM - GI/Abdominal Exam GI & Abdominal Exam: Soft, Normal Bowel Sounds - Extremities Exam Extremities Exam: Normal Inspection - Back Exam Additional comments: L-S pressure ulcer - Neurological Exam Neurological Exam: Awake Additional comments: Confused, no motor deficit. - Psychiatric Exam Additional comments: Calm - Skin Skin Exam: Warm Assessment and Plan (1) Rhabdomyolysis Status: Resolved (2) Status post fall Status: Acute (3) UTI (urinary tract infection) Status: Acute (4) Change in mental status Status: Acute (5) HTN (hypertension) Status: Chronic (6) Dementia Status: Chronic (7) Urinary retention Status: Acute (8) Hypothyroidism Status: Chronic (9) Deep tissue injury Status: Acute (10) CHF (congestive heart failure) Status: Resolved (11) Pulmonary nodule Status: Chronic (12) New onset atrial fibrillation Status: Resolved (13) Sacral pressure ulcer Status: Acute - Assessment and Plan (Free Text) Plan: continue Depakote, Aricept, Xarelto and rest of treatment, Patient will need Legal Guardian, unable to sign consent for Care Home placement. Patient is confused and disoriented and is not able to make medical decisions at this time.
--- NOTE | 2018-04-08 15:34 | CP.PCM.PN ---
Subjective - Date & Time of Evaluation Date of Evaluation: 04/08/18 Time of Evaluation: 15:25 - Subjective Subjective: pt sitting in chair more awake and responsive today Objective - Vital Signs/Intake and Output Vital Signs (last 24 hours): Temp Pulse Resp BP Pulse Ox 98.1 F 68 20 104/77 95 04/08/18 13:25 04/08/18 13:25 04/08/18 13:25 04/08/18 13:25 04/08/18 13:25 - Medications Medications: Current Medications Cyanocobalamin (Vitamin B12 1000 Mcg Tab) 1,000 mcg PO DAILY [facility] Last Admin: 04/08/18 08:23 Dose: 1,000 mcg Divalproex Sodium (Depakote Sprinkles) 125 mg PO BID [facility] Last Admin: 04/08/18 08:21 Dose: 125 mg Donepezil HCl (Aricept) 5 mg PO HS [facility] Last Admin: 04/07/18 21:40 Dose: 5 mg Enalapril Maleate (Vasotec) 2.5 mg PO DAILY [facility] Last Admin: 04/08/18 08:23 Dose: 2.5 mg Haloperidol Lactate (Haldol) 0.5 mg IVP Q6 PRN PRN Reason: Agitation Last Admin: 04/05/18 01:50 Dose: 0.5 mg Ceftriaxone Sodium 1 gm/ (Sodium Chloride) 100 mls @ 100 mls/hr IVPB DAILY [facility]; Protocol Last Admin: 04/08/18 08:37 Dose: 100 mls/hr Levothyroxine Sodium (Synthroid) 75 mcg PO DAILY@0630 [facility] Last Admin: 04/08/18 06:28 Dose: 75 mcg Metoprolol Tartrate (Lopressor) 50 mg PO Q12 [facility] Last Admin: 04/08/18 08:22 Dose: 50 mg Nystatin (Nystop Topical Powder) 1 applic TOP TID [facility] Last Admin: 04/08/18 13:07 Dose: 1 applic Rivaroxaban (Xarelto) 20 mg PO QD5 [facility]; Protocol Last Admin: 04/07/18 18:08 Dose: 20 mg - Labs Labs: 03/31/18 04:25 04/03/18 10:27 PT 11.9 Seconds (9.8-13.1) 03/22/18 19:00 INR 1.0 03/22/18 19:00 APTT 29.3 Seconds (25.6-37.1) 03/22/18 19:00 - Constitutional Appears: Well - Head Exam Head Exam: ATRAUMATIC, NORMAL INSPECTION, NORMOCEPHALIC - Eye Exam Eye Exam: EOMI, Normal appearance, PERRL Pupil Exam: NORMAL ACCOMODATION, PERRL - ENT Exam ENT Exam: Mucous Membranes Moist, Normal Exam - Neck Exam Neck Exam: Full ROM, Normal Inspection. absent: Lymphadenopathy - Respiratory Exam Respiratory Exam: Clear to Ausculation Bilateral, NORMAL BREATHING PATTERN - Cardiovascular Exam Cardiovascular Exam: REGULAR RHYTHM, +S1, +S2. absent: Murmur - GI/Abdominal Exam GI & Abdominal Exam: Soft, Normal Bowel Sounds. absent: Tenderness - Extremities Exam Extremities Exam: Full ROM, Normal Capillary Refill, Normal Inspection. absent: Joint Swelling, Pedal Edema - Back Exam Back Exam: NORMAL INSPECTION - Neurological Exam Neurological Exam: Alert, Awake, CN II-XII Intact, Normal Gait, Oriented x3 - Psychiatric Exam Psychiatric exam: Normal Affect, Normal Mood - Skin Skin Exam: Dry, Intact, Normal Color, Warm Assessment and Plan (1) New onset atrial fibrillation Status: Resolved (2) CHF (congestive heart failure) Status: Resolved (3) HTN (hypertension) Status: Chronic (4) Syncope Status: Acute (5) Change in mental status Status: Acute (6) Rhabdomyolysis Status: Resolved (7) Mixed dyslipidemia Status: Acute
[2018-04-09] MEDS: Levothyroxine 75 MCG TAB PO SCH (06:16)
[2018-04-09] MEDS: Divalproex 125 mg Sprinkle Capsule PO SCH ×2 (08:41→17:08)
--- NOTE | 2018-04-09 16:17 | CP.PCM.PN ---
Subjective - Date & Time of Evaluation Date of Evaluation: 04/09/18 Time of Evaluation: 11:50 - Subjective Subjective: F/U AMS. calm, confused , no AD , on 1:1 Objective - Vital Signs/Intake and Output Vital Signs (last 24 hours): Temp Pulse Resp BP Pulse Ox 98.6 F 68 16 100/68 97 04/09/18 16:02 04/09/18 16:02 04/09/18 16:02 04/09/18 16:02 04/09/18 16:02 - Medications Medications: Current Medications Acetaminophen (Tylenol 325mg Tab) 650 mg PO Q6 PRN PRN Reason: Pain, Mild (1-3) Last Admin: 04/09/18 09:42 Dose: 650 mg Cyanocobalamin (Vitamin B12 1000 Mcg Tab) 1,000 mcg PO DAILY [facility] Last Admin: 04/09/18 08:42 Dose: 1,000 mcg Divalproex Sodium (Depakote Sprinkles) 125 mg PO BID [facility] Last Admin: 04/09/18 08:41 Dose: 125 mg Donepezil HCl (Aricept) 5 mg PO HS [facility] Last Admin: 04/08/18 21:18 Dose: 5 mg Enalapril Maleate (Vasotec) 2.5 mg PO DAILY [facility] Last Admin: 04/09/18 08:42 Dose: 2.5 mg Haloperidol Lactate (Haldol) 0.5 mg IVP Q6 PRN PRN Reason: Agitation Last Admin: 04/05/18 01:50 Dose: 0.5 mg Ceftriaxone Sodium 1 gm/ (Sodium Chloride) 100 mls @ 100 mls/hr IVPB DAILY [facility]; Protocol Last Admin: 04/09/18 08:42 Dose: 100 mls/hr Levothyroxine Sodium (Synthroid) 75 mcg PO DAILY@0630 [facility] Last Admin: 04/09/18 06:16 Dose: 75 mcg Metoprolol Tartrate (Lopressor) 50 mg PO Q12 [facility] Last Admin: 04/09/18 08:41 Dose: 50 mg Nystatin (Nystop Topical Powder) 1 applic TOP TID [facility] Last Admin: 04/09/18 08:42 Dose: 1 applic Rivaroxaban (Xarelto) 20 mg PO QD5 [facility]; Protocol Last Admin: 04/08/18 16:27 Dose: 20 mg - Labs Labs: 03/31/18 04:25 04/03/18 10:27 PT 11.9 Seconds (9.8-13.1) 03/22/18 19:00 INR 1.0 03/22/18 19:00 APTT 29.3 Seconds (25.6-37.1) 03/22/18 19:00 - Constitutional Appears: No Acute Distress - Head Exam Head Exam: NORMAL INSPECTION - Eye Exam Eye Exam: PERRL - ENT Exam ENT Exam: Normal Exam - Neck Exam Neck Exam: Normal Inspection - Respiratory Exam Respiratory Exam: Clear to Ausculation Bilateral - Cardiovascular Exam Cardiovascular Exam: REGULAR RHYTHM - GI/Abdominal Exam GI & Abdominal Exam: Soft, Normal Bowel Sounds - Extremities Exam Extremities Exam: Normal Inspection - Back Exam Additional comments: Pressure ulcer L-S - Neurological Exam Neurological Exam: Awake Additional comments: Awake, confused, steady gait, no motor deficit. - Psychiatric Exam Additional comments: Calm - Skin Skin Exam: Warm Assessment and Plan (1) Rhabdomyolysis Status: Resolved (2) Status post fall Status: Acute (3) UTI (urinary tract infection) Status: Acute (4) Change in mental status Status: Acute (5) HTN (hypertension) Status: Chronic (6) Dementia Status: Chronic (7) Urinary retention Status: Acute (8) Hypothyroidism Status: Chronic (9) Deep tissue injury Status: Acute (10) CHF (congestive heart failure) Status: Resolved (11) Pulmonary nodule Status: Chronic (12) New onset atrial fibrillation Status: Resolved (13) Sacral pressure ulcer Status: Acute - Assessment and Plan (Free Text) Plan: continue Depakote, Aricept, Rocephin and rest of treatment, Patient is demented, unable to live by herself ,Patient has no next of kind, Patient will require legal Guardianship for Long-Term placement.
[2018-04-10] MEDS: Levothyroxine 75 MCG TAB PO SCH (05:59)
[2018-04-10] MEDS: Divalproex 125 mg Sprinkle Capsule PO SCH ×2 (08:48→16:02)
--- NOTE | 2018-04-10 14:09 | CP.PCM.PN ---
Subjective - Date & Time of Evaluation Date of Evaluation: 04/10/18 Time of Evaluation: 11:30 - Subjective Subjective: F/U AMS. awake, confused , calm, no AD , on 1:1 Objective - Vital Signs/Intake and Output Vital Signs (last 24 hours): Temp Pulse Resp BP Pulse Ox 97.2 F L 74 18 120/71 97 04/10/18 08:23 04/10/18 08:23 04/10/18 08:23 04/10/18 08:23 04/10/18 08:23 - Medications Medications: Current Medications Acetaminophen (Tylenol 325mg Tab) 650 mg PO Q6 PRN PRN Reason: Pain, Mild (1-3) Last Admin: 04/09/18 09:42 Dose: 650 mg Cyanocobalamin (Vitamin B12 1000 Mcg Tab) 1,000 mcg PO DAILY [facility] Last Admin: 04/10/18 08:48 Dose: 1,000 mcg Divalproex Sodium (Depakote Sprinkles) 125 mg PO BID [facility] Last Admin: 04/10/18 08:48 Dose: 125 mg Donepezil HCl (Aricept) 5 mg PO HS [facility] Last Admin: 04/09/18 21:01 Dose: 5 mg Enalapril Maleate (Vasotec) 2.5 mg PO DAILY [facility] Last Admin: 04/10/18 08:48 Dose: 2.5 mg Haloperidol Lactate (Haldol) 0.5 mg IVP Q6 PRN PRN Reason: Agitation Last Admin: 04/05/18 01:50 Dose: 0.5 mg Ceftriaxone Sodium 1 gm/ (Sodium Chloride) 100 mls @ 100 mls/hr IVPB DAILY [facility]; Protocol Last Admin: 04/10/18 08:50 Dose: 100 mls/hr Levothyroxine Sodium (Synthroid) 75 mcg PO DAILY@0630 [facility] Last Admin: 04/10/18 05:59 Dose: 75 mcg Metoprolol Tartrate (Lopressor) 50 mg PO Q12 [facility] Last Admin: 04/10/18 08:49 Dose: 50 mg Nystatin (Nystop Topical Powder) 1 applic TOP TID [facility] Last Admin: 04/10/18 08:49 Dose: 1 applic Rivaroxaban (Xarelto) 20 mg PO QD5 [facility]; Protocol Last Admin: 04/09/18 17:08 Dose: 20 mg - Labs Labs: 03/31/18 04:25 04/03/18 10:27 PT 11.9 Seconds (9.8-13.1) 03/22/18 19:00 INR 1.0 03/22/18 19:00 APTT 29.3 Seconds (25.6-37.1) 03/22/18 19:00 - Constitutional Appears: No Acute Distress - Head Exam Head Exam: NORMAL INSPECTION - Eye Exam Eye Exam: PERRL - ENT Exam ENT Exam: Normal Exam - Neck Exam Neck Exam: Normal Inspection - Respiratory Exam Respiratory Exam: Clear to Ausculation Bilateral - Cardiovascular Exam Cardiovascular Exam: REGULAR RHYTHM - GI/Abdominal Exam GI & Abdominal Exam: Soft, Normal Bowel Sounds - Extremities Exam Extremities Exam: Normal Inspection - Back Exam Additional comments: Pressure ulcer buttocks - Neurological Exam Neurological Exam: Awake Additional comments: Forgetful, confused, no motor deficit. - Psychiatric Exam Additional comments: Calm - Skin Skin Exam: Warm Assessment and Plan (1) Rhabdomyolysis Status: Resolved (2) Status post fall Status: Acute (3) UTI (urinary tract infection) Status: Acute (4) Change in mental status Status: Acute (5) HTN (hypertension) Status: Chronic (6) Dementia Status: Chronic (7) Urinary retention Status: Acute (8) Hypothyroidism Status: Chronic (9) Deep tissue injury Status: Acute (10) CHF (congestive heart failure) Status: Resolved (11) Pulmonary nodule Status: Chronic (12) New onset atrial fibrillation Status: Resolved (13) Sacral pressure ulcer Status: Acute - Assessment and Plan (Free Text) Plan: continue Aricept, Depakote, Xarelto, 1:1 and rest of treatment, Legal Guardianship for Prison placement
[2018-04-11] MEDS: Levothyroxine 75 MCG TAB PO SCH (06:19)
--- NOTE | 2018-04-11 06:58 | CP.PCM.PN ---
Subjective - Date & Time of Evaluation Date of Evaluation: 04/09/18 Time of Evaluation: 09:00 - Subjective Subjective: intermittent confusion Objective - Vital Signs/Intake and Output Vital Signs (last 24 hours): Temp Pulse Resp BP Pulse Ox 98.1 F 63 19 126/78 96 04/11/18 05:11 04/11/18 05:11 04/11/18 05:11 04/11/18 05:11 04/11/18 05:11 - Medications Medications: Current Medications Acetaminophen (Tylenol 325mg Tab) 650 mg PO Q6 PRN PRN Reason: Pain, Mild (1-3) Last Admin: 04/09/18 09:42 Dose: 650 mg Cyanocobalamin (Vitamin B12 1000 Mcg Tab) 1,000 mcg PO DAILY [facility] Last Admin: 04/10/18 08:48 Dose: 1,000 mcg Divalproex Sodium (Depakote Sprinkles) 125 mg PO BID [facility] Last Admin: 04/10/18 16:02 Dose: 125 mg Donepezil HCl (Aricept) 5 mg PO HS [facility] Last Admin: 04/10/18 21:44 Dose: 5 mg Enalapril Maleate (Vasotec) 2.5 mg PO DAILY [facility] Last Admin: 04/10/18 08:48 Dose: 2.5 mg Haloperidol Lactate (Haldol) 0.5 mg IVP Q6 PRN PRN Reason: Agitation Last Admin: 04/05/18 01:50 Dose: 0.5 mg Ceftriaxone Sodium 1 gm/ (Sodium Chloride) 100 mls @ 100 mls/hr IVPB DAILY [facility]; Protocol Last Admin: 04/10/18 08:50 Dose: 100 mls/hr Levothyroxine Sodium (Synthroid) 75 mcg PO DAILY@0630 [facility] Last Admin: 04/11/18 06:19 Dose: Not Given Metoprolol Tartrate (Lopressor) 50 mg PO Q12 [facility] Last Admin: 04/10/18 21:44 Dose: 50 mg Nystatin (Nystop Topical Powder) 1 applic TOP TID [facility] Last Admin: 04/10/18 16:02 Dose: 1 applic Rivaroxaban (Xarelto) 20 mg PO QD5 [facility]; Protocol Last Admin: 04/10/18 16:02 Dose: 20 mg - Labs Labs: 03/31/18 04:25 04/03/18 10:27 PT 11.9 Seconds (9.8-13.1) 03/22/18 19:00 INR 1.0 03/22/18 19:00 APTT 29.3 Seconds (25.6-37.1) 03/22/18 19:00 - Constitutional Appears: Well, Confused - Head Exam Head Exam: ATRAUMATIC, NORMAL INSPECTION, NORMOCEPHALIC - Eye Exam Eye Exam: EOMI, Normal appearance, PERRL Pupil Exam: NORMAL ACCOMODATION, PERRL - ENT Exam ENT Exam: Mucous Membranes Moist, Normal Exam - Neck Exam Neck Exam: Full ROM, Normal Inspection. absent: Lymphadenopathy - Respiratory Exam Respiratory Exam: Clear to Ausculation Bilateral, NORMAL BREATHING PATTERN - Cardiovascular Exam Cardiovascular Exam: REGULAR RHYTHM, +S1, +S2. absent: Murmur - GI/Abdominal Exam GI & Abdominal Exam: Soft, Normal Bowel Sounds. absent: Tenderness - Extremities Exam Extremities Exam: Full ROM, Normal Capillary Refill, Normal Inspection. absent: Joint Swelling, Pedal Edema - Back Exam Back Exam: NORMAL INSPECTION - Neurological Exam Neurological Exam: Alert, Awake, CN II-XII Intact, Normal Gait, Oriented x3 - Psychiatric Exam Psychiatric exam: Normal Affect, Normal Mood - Skin Skin Exam: Dry, Intact, Normal Color, Warm Assessment and Plan (1) New onset atrial fibrillation Assessment & Plan: in NSR on BB and OAC Status: Resolved (2) CHF (congestive heart failure) Assessment & Plan: diastolic etiology ? ischemic Status: Resolved (3) HTN (hypertension) Status: Chronic (4) Syncope Status: Acute (5) Change in mental status Status: Acute (6) Rhabdomyolysis Status: Resolved (7) Mixed dyslipidemia Status: Acute
[2018-04-11] MEDS: Divalproex 125 mg Sprinkle Capsule PO SCH ×2 (08:33→16:21)
--- NOTE | 2018-04-11 14:14 | CP.PCM.PN ---
Subjective - Date & Time of Evaluation Date of Evaluation: 04/11/18 Time of Evaluation: 12:40 - Subjective Subjective: F/U AMS no AD,confused, ambulatory, on 1:1 Objective - Vital Signs/Intake and Output Vital Signs (last 24 hours): Temp Pulse Resp BP Pulse Ox 97.8 F 67 18 167/82 H 96 04/11/18 09:00 04/11/18 09:00 04/11/18 09:00 04/11/18 09:00 04/11/18 05:11 - Medications Medications: Current Medications Acetaminophen (Tylenol 325mg Tab) 650 mg PO Q6 PRN PRN Reason: Pain, Mild (1-3) Last Admin: 04/11/18 09:14 Dose: 650 mg Cyanocobalamin (Vitamin B12 1000 Mcg Tab) 1,000 mcg PO DAILY [facility] Last Admin: 04/11/18 08:35 Dose: 1,000 mcg Divalproex Sodium (Depakote Sprinkles) 125 mg PO BID [facility] Last Admin: 04/11/18 08:33 Dose: 125 mg Donepezil HCl (Aricept) 5 mg PO HS [facility] Last Admin: 04/10/18 21:44 Dose: 5 mg Enalapril Maleate (Vasotec) 2.5 mg PO DAILY [facility] Last Admin: 04/11/18 08:35 Dose: 2.5 mg Haloperidol Lactate (Haldol) 0.5 mg IVP Q6 PRN PRN Reason: Agitation Last Admin: 04/05/18 01:50 Dose: 0.5 mg Ceftriaxone Sodium 1 gm/ (Sodium Chloride) 100 mls @ 100 mls/hr IVPB DAILY [facility]; Protocol Last Admin: 04/11/18 08:34 Dose: 100 mls/hr Levothyroxine Sodium (Synthroid) 75 mcg PO DAILY@0630 [facility] Last Admin: 04/11/18 06:19 Dose: Not Given Metoprolol Tartrate (Lopressor) 50 mg PO Q12 [facility] Last Admin: 04/11/18 08:34 Dose: 50 mg Nystatin (Nystop Topical Powder) 1 applic TOP TID [facility] Last Admin: 04/11/18 08:34 Dose: 1 applic Rivaroxaban (Xarelto) 20 mg PO QD5 [facility]; Protocol Last Admin: 04/10/18 16:02 Dose: 20 mg - Labs Labs: 03/31/18 04:25 04/03/18 10:27 PT 11.9 Seconds (9.8-13.1) 03/22/18 19:00 INR 1.0 03/22/18 19:00 APTT 29.3 Seconds (25.6-37.1) 03/22/18 19:00 - Constitutional Appears: No Acute Distress - Head Exam Head Exam: NORMAL INSPECTION - Eye Exam Eye Exam: PERRL - ENT Exam ENT Exam: Normal Exam - Neck Exam Neck Exam: Normal Inspection - Respiratory Exam Respiratory Exam: Clear to Ausculation Bilateral - Cardiovascular Exam Cardiovascular Exam: REGULAR RHYTHM - GI/Abdominal Exam GI & Abdominal Exam: Soft, Normal Bowel Sounds - Extremities Exam Extremities Exam: Normal Inspection - Back Exam Additional comments: Pressure ulcer buttocks - Neurological Exam Neurological Exam: Awake Additional comments: Confused, ambulatory, no motor deficit. - Psychiatric Exam Additional comments: Calm - Skin Skin Exam: Warm Assessment and Plan (1) Rhabdomyolysis Status: Resolved (2) Status post fall Status: Acute (3) UTI (urinary tract infection) Status: Acute (4) Change in mental status Status: Acute (5) HTN (hypertension) Status: Chronic (6) Dementia Status: Chronic (7) Urinary retention Status: Acute (8) Hypothyroidism Status: Chronic (9) Deep tissue injury Status: Acute (10) CHF (congestive heart failure) Status: Resolved (11) Pulmonary nodule Status: Chronic (12) New onset atrial fibrillation Status: Resolved (13) Sacral pressure ulcer Status: Acute - Assessment and Plan (Free Text) Plan: continue Aricept, Depakote, Xarelto, Rocephin , and rest of treatment, for Legal guardianship
--- NOTE | 2018-04-11 15:03 | CP.PCM.PN ---
Subjective - Date & Time of Evaluation Date of Evaluation: 04/11/18 Time of Evaluation: 15:02 - Subjective Subjective: MS stable Objective - Vital Signs/Intake and Output Vital Signs (last 24 hours): Temp Pulse Resp BP Pulse Ox 97.8 F 67 18 167/82 H 96 04/11/18 09:00 04/11/18 09:00 04/11/18 09:00 04/11/18 09:00 04/11/18 05:11 - Medications Medications: Current Medications Acetaminophen (Tylenol 325mg Tab) 650 mg PO Q6 PRN PRN Reason: Pain, Mild (1-3) Last Admin: 04/11/18 09:14 Dose: 650 mg Cyanocobalamin (Vitamin B12 1000 Mcg Tab) 1,000 mcg PO DAILY [facility] Last Admin: 04/11/18 08:35 Dose: 1,000 mcg Divalproex Sodium (Depakote Sprinkles) 125 mg PO BID [facility] Last Admin: 04/11/18 08:33 Dose: 125 mg Donepezil HCl (Aricept) 5 mg PO HS [facility] Last Admin: 04/10/18 21:44 Dose: 5 mg Enalapril Maleate (Vasotec) 2.5 mg PO DAILY [facility] Last Admin: 04/11/18 08:35 Dose: 2.5 mg Haloperidol Lactate (Haldol) 0.5 mg IVP Q6 PRN PRN Reason: Agitation Last Admin: 04/05/18 01:50 Dose: 0.5 mg Ceftriaxone Sodium 1 gm/ (Sodium Chloride) 100 mls @ 100 mls/hr IVPB DAILY [facility]; Protocol Last Admin: 04/11/18 08:34 Dose: 100 mls/hr Levothyroxine Sodium (Synthroid) 75 mcg PO DAILY@0630 [facility] Last Admin: 04/11/18 06:19 Dose: Not Given Metoprolol Tartrate (Lopressor) 50 mg PO Q12 [facility] Last Admin: 04/11/18 08:34 Dose: 50 mg Nystatin (Nystop Topical Powder) 1 applic TOP TID [facility] Last Admin: 04/11/18 08:34 Dose: 1 applic Rivaroxaban (Xarelto) 20 mg PO QD5 [facility]; Protocol Last Admin: 04/10/18 16:02 Dose: 20 mg - Labs Labs: 03/31/18 04:25 04/03/18 10:27 PT 11.9 Seconds (9.8-13.1) 03/22/18 19:00 INR 1.0 03/22/18 19:00 APTT 29.3 Seconds (25.6-37.1) 03/22/18 19:00 - Constitutional Appears: Well - Head Exam Head Exam: ATRAUMATIC, NORMAL INSPECTION, NORMOCEPHALIC - Eye Exam Eye Exam: EOMI, Normal appearance, PERRL Pupil Exam: NORMAL ACCOMODATION, PERRL - ENT Exam ENT Exam: Mucous Membranes Moist, Normal Exam - Neck Exam Neck Exam: Full ROM, Normal Inspection. absent: Lymphadenopathy - Respiratory Exam Respiratory Exam: Clear to Ausculation Bilateral, NORMAL BREATHING PATTERN - Cardiovascular Exam Cardiovascular Exam: REGULAR RHYTHM, +S1, +S2. absent: Murmur - GI/Abdominal Exam GI & Abdominal Exam: Soft, Normal Bowel Sounds. absent: Tenderness - Extremities Exam Extremities Exam: Full ROM, Normal Capillary Refill, Normal Inspection. absent: Joint Swelling, Pedal Edema - Back Exam Back Exam: NORMAL INSPECTION - Neurological Exam Neurological Exam: Alert, Awake, CN II-XII Intact, Normal Gait, Oriented x3 - Psychiatric Exam Psychiatric exam: Normal Affect, Normal Mood - Skin Skin Exam: Dry, Intact, Normal Color, Warm Assessment and Plan (1) New onset atrial fibrillation Status: Resolved (2) CHF (congestive heart failure) Status: Resolved (3) HTN (hypertension) Status: Chronic (4) Syncope Status: Acute (5) Change in mental status Status: Acute (6) Rhabdomyolysis Status: Resolved (7) Mixed dyslipidemia Status: Acute
[2018-04-12 07:14] LABS: BASO % 0.9 % (0.0-2.0); EOS # 0.2 K/uL (0.0-0.7); EOS % 3.7 % (0.0-4.0); LYMPH # 1.4 K/uL (1.0-4.3); LYMPH % 23.7 % (20.0-40.0); MEAN CELL VOLUME 92.2 fl (81.0-99.0); MEAN CORPUSCULAR HEMOGLOBIN 30.7 pg (27.0-31.0); MEAN CORPUSCULAR HGB CONC 33.3 g/dL (33.0-37.0); MEAN PLATELET VOLUME 8.9 fl (7.2-11.7); MONO # 0.5 K/uL (0.0-0.8); NEUT # 3.6 K/uL (1.8-7.0); NEUT % 62.7 % (50.0-75.0); RBC 3.92 Mil/uL (3.80-5.20); RED CELL DISTRIBUTION WIDTH 13.9 % (11.5-14.5); WHITE BLOOD COUNT 5.8 K/uL (4.8-10.8)
[2018-04-12 07:38] LABS: ALB/GLOB RATIO 0.9 (1.0-2.1); ALT/SGPT 28 U/L (9-52); AST/SGOT 29 U/L (14-36); BLOOD UREA NITROGEN 11 mg/dl (7-17); CALCIUM 8.3 mg/dL (8.4-10.2); GFR NON-AFRICAN AMERICAN > 60
[2018-04-12] MEDS: Divalproex 125 mg Sprinkle Capsule PO SCH ×2 (09:59→17:35)
[2018-04-12] MEDS: Levothyroxine 75 MCG TAB PO SCH (10:02)
--- NOTE | 2018-04-12 14:55 | CP.PCM.PN ---
Subjective - Date & Time of Evaluation Date of Evaluation: 04/12/18 Time of Evaluation: 12:30 - Subjective Subjective: F/U AMS. Awake, confused, calm. Objective - Vital Signs/Intake and Output Vital Signs (last 24 hours): Temp Pulse Resp BP Pulse Ox 98 F 62 16 112/69 96 04/12/18 13:00 04/12/18 13:00 04/12/18 13:00 04/12/18 13:00 04/12/18 13:00 - Medications Medications: Current Medications Acetaminophen (Tylenol 325mg Tab) 650 mg PO Q6 PRN PRN Reason: Pain, Mild (1-3) Last Admin: 04/11/18 09:14 Dose: 650 mg Cyanocobalamin (Vitamin B12 1000 Mcg Tab) 1,000 mcg PO DAILY [facility] Last Admin: 04/12/18 10:03 Dose: 1,000 mcg Divalproex Sodium (Depakote Sprinkles) 125 mg PO BID [facility] Last Admin: 04/12/18 09:59 Dose: 125 mg Donepezil HCl (Aricept) 5 mg PO HS [facility] Last Admin: 04/11/18 21:48 Dose: 5 mg Enalapril Maleate (Vasotec) 2.5 mg PO DAILY [facility] Last Admin: 04/12/18 10:02 Dose: 2.5 mg Haloperidol Lactate (Haldol) 0.5 mg IVP Q6 PRN PRN Reason: Agitation Last Admin: 04/12/18 01:57 Dose: 0.5 mg Ceftriaxone Sodium 1 gm/ (Sodium Chloride) 100 mls @ 100 mls/hr IVPB DAILY [facility]; Protocol Last Admin: 04/12/18 10:04 Dose: 100 mls/hr Levothyroxine Sodium (Synthroid) 75 mcg PO DAILY@0630 [facility] Last Admin: 04/12/18 10:02 Dose: 75 mcg Metoprolol Tartrate (Lopressor) 50 mg PO Q12 [facility] Last Admin: 04/12/18 10:03 Dose: 50 mg Nystatin (Nystop Topical Powder) 1 applic TOP TID [facility] Last Admin: 04/12/18 13:53 Dose: 1 applic Rivaroxaban (Xarelto) 20 mg PO QD5 [facility]; Protocol Last Admin: 04/11/18 16:22 Dose: 20 mg - Labs Labs: 04/12/18 05:30 04/12/18 05:30 PT 11.9 Seconds (9.8-13.1) 03/22/18 19:00 INR 1.0 03/22/18 19:00 APTT 29.3 Seconds (25.6-37.1) 03/22/18 19:00 - Constitutional Appears: No Acute Distress - Head Exam Head Exam: NORMAL INSPECTION - Eye Exam Eye Exam: PERRL - ENT Exam ENT Exam: Normal Exam - Neck Exam Neck Exam: Normal Inspection - Respiratory Exam Respiratory Exam: Clear to Ausculation Bilateral - Cardiovascular Exam Cardiovascular Exam: REGULAR RHYTHM - GI/Abdominal Exam GI & Abdominal Exam: Soft, Normal Bowel Sounds - Extremities Exam Extremities Exam: Normal Inspection - Back Exam Additional comments: Pressure ulcer buttocks. - Neurological Exam Neurological Exam: Awake Additional comments: Confused, ambulatory, no motor deficit. - Psychiatric Exam Additional comments: Calm - Skin Skin Exam: Warm Assessment and Plan (1) Rhabdomyolysis Status: Resolved (2) Status post fall Status: Acute (3) UTI (urinary tract infection) Status: Resolved (4) Change in mental status Status: Acute (5) HTN (hypertension) Status: Chronic (6) Dementia Status: Chronic (7) Urinary retention Status: Resolved (8) Hypothyroidism Status: Chronic (9) Deep tissue injury Status: Acute (10) CHF (congestive heart failure) Status: Resolved (11) Pulmonary nodule Status: Chronic (12) New onset atrial fibrillation Status: Resolved (13) Sacral pressure ulcer Status: Acute - Assessment and Plan (Free Text) Plan: continue Aricept, Depakote, Xarelto, Rocephin , and rest of treatment, for Legal guardianship
[2018-04-13] MEDS: Levothyroxine 75 MCG TAB PO SCH (06:13)
[2018-04-13] MEDS: Divalproex 125 mg Sprinkle Capsule PO SCH ×2 (10:34→17:06)
--- NOTE | 2018-04-13 14:12 | CP.PCM.PN ---
Subjective - Date & Time of Evaluation Date of Evaluation: 04/13/18 Time of Evaluation: 11:50 - Subjective Subjective: F/U AMS Pt awake, calm, confused. Objective - Vital Signs/Intake and Output Vital Signs (last 24 hours): Temp Pulse Resp BP Pulse Ox 98.1 F 65 20 153/82 H 98 04/13/18 09:05 04/13/18 09:05 04/13/18 09:05 04/13/18 09:05 04/13/18 09:05 - Medications Medications: Current Medications Acetaminophen (Tylenol 325mg Tab) 650 mg PO Q6 PRN PRN Reason: Pain, Mild (1-3) Last Admin: 04/11/18 09:14 Dose: 650 mg Cyanocobalamin (Vitamin B12 1000 Mcg Tab) 1,000 mcg PO DAILY [facility] Last Admin: 04/13/18 10:34 Dose: 1,000 mcg Divalproex Sodium (Depakote Sprinkles) 125 mg PO BID [facility] Last Admin: 04/13/18 10:34 Dose: 125 mg Donepezil HCl (Aricept) 5 mg PO HS [facility] Last Admin: 04/12/18 21:16 Dose: 5 mg Enalapril Maleate (Vasotec) 2.5 mg PO DAILY [facility] Last Admin: 04/13/18 10:32 Dose: 2.5 mg Haloperidol Lactate (Haldol) 0.5 mg IVP Q6 PRN PRN Reason: Agitation Last Admin: 04/12/18 01:57 Dose: 0.5 mg Ceftriaxone Sodium 1 gm/ (Sodium Chloride) 100 mls @ 100 mls/hr IVPB DAILY [facility]; Protocol Levothyroxine Sodium (Synthroid) 75 mcg PO DAILY@0630 [facility] Last Admin: 04/13/18 06:13 Dose: 75 mcg Metoprolol Tartrate (Lopressor) 50 mg PO Q12 [facility] Last Admin: 04/13/18 10:34 Dose: 50 mg Nystatin (Nystop Topical Powder) 1 applic TOP TID [facility] Last Admin: 04/13/18 10:33 Dose: 1 applic Rivaroxaban (Xarelto) 20 mg PO QD5 [facility]; Protocol Last Admin: 04/12/18 17:36 Dose: 20 mg - Labs Labs: 04/12/18 05:30 04/12/18 05:30 PT 11.9 Seconds (9.8-13.1) 03/22/18 19:00 INR 1.0 03/22/18 19:00 APTT 29.3 Seconds (25.6-37.1) 03/22/18 19:00 - Constitutional Appears: No Acute Distress - Head Exam Head Exam: NORMAL INSPECTION - Eye Exam Eye Exam: PERRL - ENT Exam ENT Exam: Normal Exam - Neck Exam Neck Exam: Normal Inspection - Respiratory Exam Respiratory Exam: Clear to Ausculation Bilateral - Cardiovascular Exam Cardiovascular Exam: REGULAR RHYTHM - GI/Abdominal Exam GI & Abdominal Exam: Soft, Normal Bowel Sounds - Extremities Exam Extremities Exam: Normal Inspection - Back Exam Additional comments: Pressure ulcer buttocks - Neurological Exam Neurological Exam: Awake Additional comments: Confused, ambulatory, no motor deficit - Psychiatric Exam Additional comments: Calm - Skin Skin Exam: Warm Assessment and Plan (1) Rhabdomyolysis Status: Resolved (2) Status post fall Status: Acute (3) UTI (urinary tract infection) Status: Resolved (4) Change in mental status Status: Acute (5) HTN (hypertension) Status: Chronic (6) Dementia Status: Chronic (7) Urinary retention Status: Resolved (8) Hypothyroidism Status: Chronic (9) Deep tissue injury Status: Acute (10) CHF (congestive heart failure) Status: Resolved (11) Pulmonary nodule Status: Chronic (12) New onset atrial fibrillation Status: Resolved (13) Sacral pressure ulcer Status: Acute - Assessment and Plan (Free Text) Plan: Continue Rocephin and rest of Tx.
[2018-04-13] MEDS: Proshield Plus GEL TOP SCH (17:11)
[2018-04-13] MEDS: Cadexomer Iodine 0.9% 40 APPLIC/40 G TUBE TOP SCH (17:15)
[2018-04-14] MEDS: Proshield Plus GEL TOP SCH ×3 (02:16→16:33)
[2018-04-14] MEDS: Levothyroxine 75 MCG TAB PO SCH (06:01)
[2018-04-14] MEDS: Divalproex 125 mg Sprinkle Capsule PO SCH ×2 (08:57→16:34)
[2018-04-14] MEDS: Cadexomer Iodine 0.9% 40 APPLIC/40 G TUBE TOP SCH (08:57)
--- NOTE | 2018-04-14 09:21 | CP.PCM.PN ---
Subjective - Date & Time of Evaluation Date of Evaluation: 04/14/18 Time of Evaluation: 09:20 - Subjective Subjective: stable Objective - Vital Signs/Intake and Output Vital Signs (last 24 hours): Temp Pulse Resp BP Pulse Ox 97.8 F 69 20 122/62 93 L 04/14/18 08:24 04/14/18 09:09 04/14/18 08:24 04/14/18 09:09 04/14/18 08:24 - Medications Medications: Current Medications Acetaminophen (Tylenol 325mg Tab) 650 mg PO Q6 PRN PRN Reason: Pain, Mild (1-3) Last Admin: 04/13/18 23:35 Dose: 650 mg Cadexomer Iodine (Iodosorb) 1 applic TOP DAILY [facility] Last Admin: 04/14/18 08:57 Dose: 1 applic Cyanocobalamin (Vitamin B12 1000 Mcg Tab) 1,000 mcg PO DAILY [facility] Last Admin: 04/14/18 08:56 Dose: 1,000 mcg Dimethicone (Proshield Plus Skin Protectant) 1 applic TOP Q8 [facility] Last Admin: 04/14/18 08:58 Dose: 1 applic Divalproex Sodium (Depakote Sprinkles) 125 mg PO BID [facility] Last Admin: 04/14/18 08:57 Dose: 125 mg Donepezil HCl (Aricept) 5 mg PO HS [facility] Last Admin: 04/13/18 21:17 Dose: 5 mg Enalapril Maleate (Vasotec) 2.5 mg PO DAILY [facility] Last Admin: 04/14/18 08:56 Dose: 2.5 mg Haloperidol Lactate (Haldol) 0.5 mg IVP Q6 PRN PRN Reason: Agitation Last Admin: 04/12/18 01:57 Dose: 0.5 mg Ceftriaxone Sodium 1 gm/ (Sodium Chloride) 100 mls @ 100 mls/hr IVPB DAILY [facility]; Protocol Levothyroxine Sodium (Synthroid) 75 mcg PO DAILY@0630 [facility] Last Admin: 04/14/18 06:01 Dose: 75 mcg Metoprolol Tartrate (Lopressor) 50 mg PO Q12 [facility] Last Admin: 04/14/18 09:09 Dose: 50 mg Nystatin (Nystop Topical Powder) 1 applic TOP TID [facility] Last Admin: 04/14/18 08:58 Dose: 1 applic Rivaroxaban (Xarelto) 20 mg PO QD5 [facility]; Protocol Last Admin: 04/13/18 17:07 Dose: 20 mg - Labs Labs: 04/12/18 05:30 04/12/18 05:30 PT 11.9 Seconds (9.8-13.1) 03/22/18 19:00 INR 1.0 03/22/18 19:00 APTT 29.3 Seconds (25.6-37.1) 03/22/18 19:00 - Constitutional Appears: Well - Head Exam Head Exam: ATRAUMATIC, NORMAL INSPECTION, NORMOCEPHALIC - Eye Exam Eye Exam: EOMI, Normal appearance, PERRL Pupil Exam: NORMAL ACCOMODATION, PERRL - ENT Exam ENT Exam: Mucous Membranes Moist, Normal Exam - Neck Exam Neck Exam: Full ROM, Normal Inspection. absent: Lymphadenopathy - Respiratory Exam Respiratory Exam: Clear to Ausculation Bilateral, NORMAL BREATHING PATTERN - Cardiovascular Exam Cardiovascular Exam: REGULAR RHYTHM, +S1, +S2. absent: Murmur - GI/Abdominal Exam GI & Abdominal Exam: Soft, Normal Bowel Sounds. absent: Tenderness - Extremities Exam Extremities Exam: Full ROM, Normal Capillary Refill, Normal Inspection. absent: Joint Swelling, Pedal Edema - Back Exam Back Exam: NORMAL INSPECTION - Neurological Exam Neurological Exam: Alert, Awake, CN II-XII Intact, Normal Gait, Oriented x3 - Psychiatric Exam Psychiatric exam: Normal Affect, Normal Mood - Skin Skin Exam: Dry, Intact, Normal Color, Warm Assessment and Plan (1) New onset atrial fibrillation Status: Resolved (2) CHF (congestive heart failure) Status: Resolved (3) HTN (hypertension) Status: Chronic (4) Syncope Status: Acute (5) Change in mental status Status: Acute (6) Rhabdomyolysis Status: Resolved (7) Mixed dyslipidemia Status: Acute
--- NOTE | 2018-04-14 16:39 | CP.PCM.PN ---
Subjective - Date & Time of Evaluation Date of Evaluation: 04/14/18 Time of Evaluation: 13:00 - Subjective Subjective: F/U AMS. Pt awake, oriented to person, forgetful. Objective - Vital Signs/Intake and Output Vital Signs (last 24 hours): Temp Pulse Resp BP Pulse Ox 98.3 F 69 20 101/66 95 04/14/18 16:27 04/14/18 16:27 04/14/18 16:27 04/14/18 16:27 04/14/18 16:27 - Medications Medications: Current Medications Acetaminophen (Tylenol 325mg Tab) 650 mg PO Q6 PRN PRN Reason: Pain, Mild (1-3) Last Admin: 04/13/18 23:35 Dose: 650 mg Cadexomer Iodine (Iodosorb) 1 applic TOP DAILY [facility] Last Admin: 04/14/18 08:57 Dose: 1 applic Cyanocobalamin (Vitamin B12 1000 Mcg Tab) 1,000 mcg PO DAILY [facility] Last Admin: 04/14/18 08:56 Dose: 1,000 mcg Dimethicone (Proshield Plus Skin Protectant) 1 applic TOP Q8 [facility] Last Admin: 04/14/18 16:33 Dose: 1 applic Divalproex Sodium (Depakote Sprinkles) 125 mg PO BID [facility] Last Admin: 04/14/18 16:34 Dose: 125 mg Donepezil HCl (Aricept) 5 mg PO HS [facility] Last Admin: 04/13/18 21:17 Dose: 5 mg Enalapril Maleate (Vasotec) 2.5 mg PO DAILY [facility] Last Admin: 04/14/18 08:56 Dose: 2.5 mg Haloperidol Lactate (Haldol) 0.5 mg IVP Q6 PRN PRN Reason: Agitation Last Admin: 04/12/18 01:57 Dose: 0.5 mg Ceftriaxone Sodium 1 gm/ (Sodium Chloride) 100 mls @ 100 mls/hr IVPB DAILY [facility]; Protocol Last Admin: 04/14/18 12:18 Dose: 100 mls/hr Levothyroxine Sodium (Synthroid) 75 mcg PO DAILY@0630 [facility] Last Admin: 04/14/18 06:01 Dose: 75 mcg Metoprolol Tartrate (Lopressor) 50 mg PO Q12 [facility] Last Admin: 04/14/18 09:09 Dose: 50 mg Nystatin (Nystop Topical Powder) 1 applic TOP TID [facility] Last Admin: 04/14/18 16:33 Dose: 1 applic Rivaroxaban (Xarelto) 20 mg PO QD5 [facility]; Protocol Last Admin: 04/14/18 16:34 Dose: 20 mg - Labs Labs: 04/12/18 05:30 04/12/18 05:30 PT 11.9 Seconds (9.8-13.1) 03/22/18 19:00 INR 1.0 03/22/18 19:00 APTT 29.3 Seconds (25.6-37.1) 03/22/18 19:00 - Constitutional Appears: No Acute Distress - Head Exam Head Exam: NORMAL INSPECTION - Eye Exam Eye Exam: PERRL - ENT Exam ENT Exam: Normal Exam - Neck Exam Neck Exam: Normal Inspection - Respiratory Exam Respiratory Exam: Clear to Ausculation Bilateral - Cardiovascular Exam Cardiovascular Exam: REGULAR RHYTHM - GI/Abdominal Exam GI & Abdominal Exam: Soft, Normal Bowel Sounds - Extremities Exam Extremities Exam: Normal Inspection - Back Exam Additional comments: Pressure ulcer on buttocks - Neurological Exam Neurological Exam: Awake Additional comments: Confused, forgetful, no motor deficit. - Psychiatric Exam Additional comments: Calm - Skin Skin Exam: Warm Assessment and Plan (1) Rhabdomyolysis Status: Resolved (2) Status post fall Status: Acute (3) UTI (urinary tract infection) Status: Acute (4) Change in mental status Status: Acute (5) HTN (hypertension) Status: Chronic (6) Dementia Status: Chronic (7) Urinary retention Status: Acute (8) Hypothyroidism Status: Chronic (9) Deep tissue injury Status: Acute (10) CHF (congestive heart failure) Status: Resolved (11) Pulmonary nodule Status: Chronic (12) New onset atrial fibrillation Status: Resolved (13) Sacral pressure ulcer Status: Acute - Assessment and Plan (Free Text) Plan: Continue Ceftriaxone and rest of Tx.
[2018-04-15] MEDS: Proshield Plus GEL TOP SCH ×3 (00:12→16:15)
[2018-04-15] MEDS: Levothyroxine 75 MCG TAB PO SCH (06:04)
[2018-04-15] MEDS: Divalproex 125 mg Sprinkle Capsule PO SCH ×2 (08:43→16:15)
[2018-04-15] MEDS: Cadexomer Iodine 0.9% 40 APPLIC/40 G TUBE TOP SCH (08:44)
--- NOTE | 2018-04-15 14:46 | CP.PCM.PN ---
Subjective - Date & Time of Evaluation Date of Evaluation: 04/15/18 Time of Evaluation: 10:00 - Subjective Subjective: F/U AMS. Pt awake, confused, no A/D. Objective - Vital Signs/Intake and Output Vital Signs (last 24 hours): Temp Pulse Resp BP Pulse Ox 98 F 67 20 143/81 94 L 04/15/18 09:00 04/15/18 09:00 04/15/18 09:00 04/15/18 09:00 04/15/18 09:00 - Medications Medications: Current Medications Acetaminophen (Tylenol 325mg Tab) 650 mg PO Q6 PRN PRN Reason: Pain, Mild (1-3) Last Admin: 04/13/18 23:35 Dose: 650 mg Cadexomer Iodine (Iodosorb) 1 applic TOP DAILY [facility] Last Admin: 04/15/18 08:44 Dose: 1 applic Cyanocobalamin (Vitamin B12 1000 Mcg Tab) 1,000 mcg PO DAILY [facility] Last Admin: 04/15/18 08:46 Dose: 1,000 mcg Dimethicone (Proshield Plus Skin Protectant) 1 applic TOP Q8 [facility] Last Admin: 04/15/18 09:00 Dose: 1 applic Divalproex Sodium (Depakote Sprinkles) 125 mg PO BID [facility] Last Admin: 04/15/18 08:43 Dose: 125 mg Donepezil HCl (Aricept) 5 mg PO HS [facility] Last Admin: 04/14/18 21:19 Dose: 5 mg Enalapril Maleate (Vasotec) 2.5 mg PO DAILY [facility] Last Admin: 04/15/18 08:46 Dose: 2.5 mg Haloperidol Lactate (Haldol) 0.5 mg IVP Q6 PRN PRN Reason: Agitation Last Admin: 04/12/18 01:57 Dose: 0.5 mg Ceftriaxone Sodium 1 gm/ (Sodium Chloride) 100 mls @ 100 mls/hr IVPB DAILY [facility]; Protocol Last Admin: 04/15/18 08:44 Dose: 100 mls/hr Levothyroxine Sodium (Synthroid) 75 mcg PO DAILY@0630 [facility] Last Admin: 04/15/18 06:04 Dose: 75 mcg Metoprolol Tartrate (Lopressor) 50 mg PO Q12 [facility] Last Admin: 04/15/18 08:46 Dose: 50 mg Nystatin (Nystop Topical Powder) 1 applic TOP TID [facility] Last Admin: 04/15/18 12:46 Dose: 1 applic Rivaroxaban (Xarelto) 20 mg PO QD5 [facility]; Protocol Last Admin: 04/14/18 16:34 Dose: 20 mg - Labs Labs: 04/12/18 05:30 04/12/18 05:30 PT 11.9 Seconds (9.8-13.1) 03/22/18 19:00 INR 1.0 03/22/18 19:00 APTT 29.3 Seconds (25.6-37.1) 03/22/18 19:00 - Constitutional Appears: No Acute Distress - Head Exam Head Exam: NORMAL INSPECTION - Eye Exam Eye Exam: PERRL - ENT Exam ENT Exam: Normal Exam - Neck Exam Neck Exam: Normal Inspection - Respiratory Exam Respiratory Exam: Clear to Ausculation Bilateral - Cardiovascular Exam Cardiovascular Exam: REGULAR RHYTHM - GI/Abdominal Exam GI & Abdominal Exam: Soft, Normal Bowel Sounds - Extremities Exam Extremities Exam: Normal Inspection - Back Exam Back Exam: NORMAL INSPECTION - Neurological Exam Neurological Exam: Awake Additional comments: Confused, oriented to self, no motor deficit. - Skin Skin Exam: Warm Assessment and Plan (1) Rhabdomyolysis Status: Resolved (2) Status post fall Status: Acute (3) UTI (urinary tract infection) Status: Acute (4) Change in mental status Status: Acute (5) HTN (hypertension) Status: Chronic (6) Dementia Status: Chronic (7) Urinary retention Status: Acute (8) Hypothyroidism Status: Chronic (9) Deep tissue injury Status: Acute (10) CHF (congestive heart failure) Status: Resolved (11) Pulmonary nodule Status: Chronic (12) New onset atrial fibrillation Status: Resolved (13) Sacral pressure ulcer Status: Acute - Assessment and Plan (Free Text) Plan: Continue ceftriaxone, Xarelto and rest of tx, Awaiting legal guardian for long term placement.
--- NOTE | 2018-04-15 17:27 | CP.PCM.CON ---
History of Present Illness - History of Present Illness History of Present Illness: consult requested for capacity to make decision 83 yo [place] female, found by her neighbors on the ground in her apartment, presented w/ altered mental status, rhabdomyolysis, renal insufficiency. Patient continues to be disoriented. unable to verbalize the reason for hospitalization, unable to verbalize nature of treatment or risks and benefits, unable to retain informatiom Past Patient History - Past Medical History & Family History Past Medical History?: Yes - Past Social History Smoking Status: Never Smoked Alcohol: None Drugs: Denies Home Situation {Lives}: Alone - CARDIAC Hx Cardiac Disorders: Yes Hx Hypercholesterolemia: Yes Hx Hypertension: Yes - PULMONARY Hx Respiratory Disorders: No - NEUROLOGICAL Hx Neurological Disorder: Yes Hx Dementia: Yes Hx Vertigo: Yes - HEENT Hx HEENT Problems: No - RENAL Hx Chronic Kidney Disease: No - ENDOCRINE/METABOLIC Hx Endocrine Disorders: Yes Hx Hypothyroidism: Yes - HEMATOLOGICAL/ONCOLOGICAL Hx Blood Disorders: No - INTEGUMENTARY Hx Dermatological Problems: No - MUSCULOSKELETAL/RHEUMATOLOGICAL Hx Musculoskeletal Disorders: Yes Hx Arthritis: Yes Hx Falls: Yes - GASTROINTESTINAL Hx Gastrointestinal Disorders: No - GENITOURINARY/GYNECOLOGICAL Hx Genitourinary Disorders: No - PSYCHIATRIC Hx Psychophysiologic Disorder: Yes Hx Anxiety: Yes - SURGICAL HISTORY Hx Surgeries: No - ANESTHESIA Hx Anesthesia: No Hx Anesthesia Reactions: No Hx Malignant Hyperthermia: No Meds Allergies/Adverse Reactions: Allergies Allergy/AdvReac Type Severity Reaction Status Date / Time No Known Allergies Allergy Verified 03/18/15 19:39 - Medications Medications: Current Medications Acetaminophen (Tylenol 325mg Tab) 650 mg PO Q6 PRN PRN Reason: Pain, Mild (1-3) Last Admin: 04/13/18 23:35 Dose: 650 mg Cadexomer Iodine (Iodosorb) 1 applic TOP DAILY [facility] Last Admin: 04/15/18 08:44 Dose: 1 applic Cyanocobalamin (Vitamin B12 1000 Mcg Tab) 1,000 mcg PO DAILY [facility] Last Admin: 04/15/18 08:46 Dose: 1,000 mcg Dimethicone (Proshield Plus Skin Protectant) 1 applic TOP Q8 [facility] Last Admin: 04/15/18 16:15 Dose: 1 applic Divalproex Sodium (Depakote Sprinkles) 125 mg PO BID [facility] Last Admin: 04/15/18 16:15 Dose: 125 mg Donepezil HCl (Aricept) 5 mg PO HS [facility] Last Admin: 04/14/18 21:19 Dose: 5 mg Enalapril Maleate (Vasotec) 2.5 mg PO DAILY [facility] Last Admin: 04/15/18 08:46 Dose: 2.5 mg Haloperidol Lactate (Haldol) 0.5 mg IVP Q6 PRN PRN Reason: Agitation Last Admin: 04/12/18 01:57 Dose: 0.5 mg Ceftriaxone Sodium 1 gm/ (Sodium Chloride) 100 mls @ 100 mls/hr IVPB DAILY [facility]; Protocol Last Admin: 04/15/18 08:44 Dose: 100 mls/hr Levothyroxine Sodium (Synthroid) 75 mcg PO DAILY@0630 [facility] Last Admin: 04/15/18 06:04 Dose: 75 mcg Metoprolol Tartrate (Lopressor) 50 mg PO Q12 [facility] Last Admin: 04/15/18 08:46 Dose: 50 mg Nystatin (Nystop Topical Powder) 1 applic TOP TID [facility] Last Admin: 04/15/18 16:15 Dose: 1 applic Rivaroxaban (Xarelto) 20 mg PO QD5 [facility]; Protocol Last Admin: 04/15/18 16:15 Dose: 20 mg Results - Vital Signs Recent Vital Signs: Last Vital Signs Temp 98.4 F 04/15/18 16:00 Pulse 87 04/15/18 16:00 Resp 20 04/15/18 16:00 BP 100/65 04/15/18 16:00 Pulse Ox 93 L 04/15/18 16:00 - Labs Result Diagrams: 04/12/18 05:30 04/12/18 05:30 Assessment & Plan - Assessment and Plan (Free Text) Assessment: major neurocognitive disorder Plan: pt at current mental status does not have capacity to make decision in reference to her medical treatment
[2018-04-16] MEDS: Proshield Plus GEL TOP SCH ×3 (01:48→17:14)
[2018-04-16] MEDS: Levothyroxine 75 MCG TAB PO SCH (07:12)
[2018-04-16] MEDS: Cadexomer Iodine 0.9% 40 APPLIC/40 G TUBE TOP SCH (08:26)
[2018-04-16] MEDS: Divalproex 125 mg Sprinkle Capsule PO SCH ×2 (08:27→17:10)
--- NOTE | 2018-04-16 14:16 | CP.PCM.PN ---
Subjective - Date & Time of Evaluation Date of Evaluation: 04/16/18 Time of Evaluation: 11:10 - Subjective Subjective: F/U AMS. Pt awake, confused, no A/D. Objective - Vital Signs/Intake and Output Vital Signs (last 24 hours): Temp Pulse Resp BP Pulse Ox 98.2 F 64 18 134/82 97 04/16/18 08:31 04/16/18 08:31 04/16/18 08:31 04/16/18 08:31 04/16/18 08:31 - Medications Medications: Current Medications Acetaminophen (Tylenol 325mg Tab) 650 mg PO Q6 PRN PRN Reason: Pain, Mild (1-3) Last Admin: 04/15/18 23:34 Dose: 650 mg Cadexomer Iodine (Iodosorb) 1 applic TOP DAILY [facility] Last Admin: 04/16/18 08:26 Dose: 1 applic Cyanocobalamin (Vitamin B12 1000 Mcg Tab) 1,000 mcg PO DAILY [facility] Last Admin: 04/16/18 08:27 Dose: 1,000 mcg Dimethicone (Proshield Plus Skin Protectant) 1 applic TOP Q8 [facility] Last Admin: 04/16/18 08:27 Dose: 1 applic Divalproex Sodium (Depakote Sprinkles) 125 mg PO BID [facility] Last Admin: 04/16/18 08:27 Dose: 125 mg Donepezil HCl (Aricept) 5 mg PO HS [facility] Last Admin: 04/15/18 21:34 Dose: 5 mg Enalapril Maleate (Vasotec) 2.5 mg PO DAILY [facility] Last Admin: 04/16/18 08:27 Dose: 2.5 mg Haloperidol Lactate (Haldol) 0.5 mg IVP Q6 PRN PRN Reason: Agitation Last Admin: 04/12/18 01:57 Dose: 0.5 mg Ceftriaxone Sodium 1 gm/ (Sodium Chloride) 100 mls @ 100 mls/hr IVPB DAILY [facility]; Protocol Last Admin: 04/16/18 08:26 Dose: 100 mls/hr Levothyroxine Sodium (Synthroid) 75 mcg PO DAILY@0630 [facility] Last Admin: 04/16/18 07:12 Dose: 75 mcg Metoprolol Tartrate (Lopressor) 50 mg PO Q12 [facility] Last Admin: 04/16/18 08:29 Dose: 50 mg Nystatin (Nystop Topical Powder) 1 applic TOP TID [facility] Last Admin: 04/16/18 13:34 Dose: 1 applic Rivaroxaban (Xarelto) 20 mg PO QD5 [facility]; Protocol Last Admin: 04/15/18 16:15 Dose: 20 mg - Labs Labs: 04/12/18 05:30 04/12/18 05:30 PT 11.9 Seconds (9.8-13.1) 03/22/18 19:00 INR 1.0 03/22/18 19:00 APTT 29.3 Seconds (25.6-37.1) 03/22/18 19:00 - Constitutional Appears: No Acute Distress - Head Exam Head Exam: NORMAL INSPECTION - Eye Exam Eye Exam: PERRL - ENT Exam ENT Exam: Normal Exam - Neck Exam Neck Exam: Normal Inspection - Respiratory Exam Respiratory Exam: Clear to Ausculation Bilateral - Cardiovascular Exam Cardiovascular Exam: REGULAR RHYTHM - GI/Abdominal Exam GI & Abdominal Exam: Soft, Normal Bowel Sounds - Extremities Exam Extremities Exam: Normal Inspection - Back Exam Additional comments: Pressure ulcer buttocks - Neurological Exam Neurological Exam: Awake Additional comments: Confused, no motor deficit - Psychiatric Exam Additional comments: Calm - Skin Skin Exam: Warm Assessment and Plan (1) Rhabdomyolysis Status: Resolved (2) Status post fall Status: Acute (3) UTI (urinary tract infection) Status: Acute (4) Change in mental status Status: Acute (5) HTN (hypertension) Status: Chronic (6) Dementia Status: Chronic (7) Urinary retention Status: Acute (8) Hypothyroidism Status: Chronic (9) Deep tissue injury Status: Acute (10) CHF (congestive heart failure) Status: Resolved (11) Pulmonary nodule Status: Chronic (12) New onset atrial fibrillation Status: Resolved (13) Sacral pressure ulcer Status: Acute - Assessment and Plan (Free Text) Plan: Continue ceftriaxone, Depakote, Xarelto and rest of tx.
[2018-04-17] MEDS: Proshield Plus GEL TOP SCH ×3 (01:00→16:26)
[2018-04-17] MEDS: Levothyroxine 75 MCG TAB PO SCH (06:57)
[2018-04-17] MEDS: Divalproex 125 mg Sprinkle Capsule PO SCH ×2 (08:43→16:25)
[2018-04-17] MEDS: Cadexomer Iodine 0.9% 40 APPLIC/40 G TUBE TOP SCH (09:30)
--- NOTE | 2018-04-17 16:49 | CP.PCM.PN ---
Subjective - Date & Time of Evaluation Date of Evaluation: 04/17/18 Time of Evaluation: 12:30 - Subjective Subjective: F/U AMS Pt awake, no A/D. Objective - Vital Signs/Intake and Output Vital Signs (last 24 hours): Temp Pulse Resp BP Pulse Ox 98.4 F 65 18 127/70 98 04/17/18 16:18 18 16:18 04/17/18 16:18 04/17/18 16:18 04/17/18 16:18 - Medications Medications: Current Medications Acetaminophen (Tylenol 325mg Tab) 650 mg PO Q6 PRN PRN Reason: Pain, Mild (1-3) Last Admin: 04/15/18 23:34 Dose: 650 mg Cadexomer Iodine (Iodosorb) 1 applic TOP DAILY [facility] Last Admin: 04/17/18 09:30 Dose: 1 applic Cyanocobalamin (Vitamin B12 1000 Mcg Tab) 1,000 mcg PO DAILY [facility] Last Admin: 04/17/18 08:48 Dose: 1,000 mcg Dimethicone (Proshield Plus Skin Protectant) 1 applic TOP Q8 [facility] Last Admin: 04/17/18 16:26 Dose: 1 applic Divalproex Sodium (Depakote Sprinkles) 125 mg PO BID [facility] Last Admin: 04/17/18 16:25 Dose: 125 mg Donepezil HCl (Aricept) 5 mg PO HS [facility] Last Admin: 04/16/18 21:12 Dose: 5 mg Enalapril Maleate (Vasotec) 2.5 mg PO DAILY [facility] Last Admin: 04/17/18 08:43 Dose: 2.5 mg Haloperidol Lactate (Haldol) 0.5 mg IVP Q6 PRN PRN Reason: Agitation Last Admin: 04/16/18 20:17 Dose: 0.5 mg Ceftriaxone Sodium 1 gm/ (Sodium Chloride) 100 mls @ 100 mls/hr IVPB DAILY [facility]; Protocol Last Admin: 04/17/18 08:46 Dose: 100 mls/hr Levothyroxine Sodium (Synthroid) 75 mcg PO DAILY@0630 [facility] Last Admin: 04/17/18 06:57 Dose: 75 mcg Metoprolol Tartrate (Lopressor) 50 mg PO Q12 [facility] Last Admin: 04/17/18 08:45 Dose: 50 mg Nystatin (Nystop Topical Powder) 1 applic TOP TID [facility] Last Admin: 04/17/18 16:25 Dose: 1 applic Rivaroxaban (Xarelto) 20 mg PO QD5 [facility]; Protocol Last Admin: 04/17/18 16:25 Dose: 20 mg - Labs Labs: 04/12/18 05:30 04/12/18 05:30 PT 11.9 Seconds (9.8-13.1) 03/22/18 19:00 INR 1.0 03/22/18 19:00 APTT 29.3 Seconds (25.6-37.1) 03/22/18 19:00 - Constitutional Appears: No Acute Distress - Head Exam Head Exam: NORMAL INSPECTION - Eye Exam Eye Exam: PERRL - ENT Exam ENT Exam: Normal Exam - Neck Exam Neck Exam: Normal Inspection - Respiratory Exam Respiratory Exam: Clear to Ausculation Bilateral - Cardiovascular Exam Cardiovascular Exam: REGULAR RHYTHM - GI/Abdominal Exam GI & Abdominal Exam: Soft, Normal Bowel Sounds - Extremities Exam Extremities Exam: Normal Inspection - Back Exam Additional comments: Ulcer buttocks - Neurological Exam Neurological Exam: Awake Additional comments: Obeys commands, confused, disoriented at times. - Skin Skin Exam: Warm Assessment and Plan (1) Rhabdomyolysis Status: Resolved (2) Status post fall Status: Acute (3) UTI (urinary tract infection) Status: Acute (4) Change in mental status Status: Acute (5) HTN (hypertension) Status: Chronic (6) Dementia Status: Chronic (7) Urinary retention Status: Acute (8) Hypothyroidism Status: Chronic (9) Deep tissue injury Status: Acute (10) CHF (congestive heart failure) Status: Resolved (11) Pulmonary nodule Status: Chronic (12) New onset atrial fibrillation Status: Resolved (13) Sacral pressure ulcer Status: Acute - Assessment and Plan (Free Text) Plan: Continue Ceftriaxone and rest of tx. Legal guardianship for NH placement
[2018-04-18] MEDS: Proshield Plus GEL TOP SCH ×3 (01:15→17:03)
[2018-04-18] MEDS: Levothyroxine 75 MCG TAB PO SCH (06:11)
[2018-04-18] MEDS: Divalproex 125 mg Sprinkle Capsule PO SCH ×2 (09:24→17:03)
--- NOTE | 2018-04-18 14:33 | CP.PCM.PN ---
Subjective - Date & Time of Evaluation Date of Evaluation: 04/18/18 Time of Evaluation: 12:00 - Subjective Subjective: F/U AMS. Confused, calm. Objective - Vital Signs/Intake and Output Vital Signs (last 24 hours): Temp Pulse Resp BP Pulse Ox 97.6 F 71 18 154/84 H 95 04/18/18 08:37 04/18/18 09:27 04/18/18 08:37 04/18/18 09:27 04/18/18 08:37 - Medications Medications: Current Medications Acetaminophen (Tylenol 325mg Tab) 650 mg PO Q6 PRN PRN Reason: Pain, Mild (1-3) Last Admin: 04/15/18 23:34 Dose: 650 mg Cyanocobalamin (Vitamin B12 1000 Mcg Tab) 1,000 mcg PO DAILY [facility] Last Admin: 04/18/18 09:25 Dose: 1,000 mcg Dimethicone (Proshield Plus Skin Protectant) 1 applic TOP Q8 [facility] Last Admin: 04/18/18 13:18 Dose: 1 applic Divalproex Sodium (Depakote Sprinkles) 125 mg PO BID [facility] Last Admin: 04/18/18 09:24 Dose: 125 mg Donepezil HCl (Aricept) 5 mg PO HS [facility] Last Admin: 04/17/18 21:20 Dose: 5 mg Enalapril Maleate (Vasotec) 2.5 mg PO DAILY [facility] Last Admin: 04/18/18 09:25 Dose: 2.5 mg Haloperidol Lactate (Haldol) 0.5 mg IVP Q6 PRN PRN Reason: Agitation Last Admin: 04/17/18 21:20 Dose: 0.5 mg Ceftriaxone Sodium 1 gm/ (Sodium Chloride) 100 mls @ 100 mls/hr IVPB DAILY [facility]; Protocol Last Admin: 04/18/18 09:28 Dose: 100 mls/hr Levothyroxine Sodium (Synthroid) 75 mcg PO DAILY@0630 [facility] Last Admin: 04/18/18 06:11 Dose: 75 mcg Metoprolol Tartrate (Lopressor) 50 mg PO Q12 [facility] Last Admin: 04/18/18 09:27 Dose: 50 mg Nystatin (Nystop Topical Powder) 1 applic TOP TID [facility] Last Admin: 04/18/18 13:17 Dose: 1 applic Rivaroxaban (Xarelto) 20 mg PO QD5 [facility]; Protocol Last Admin: 04/17/18 16:25 Dose: 20 mg - Labs Labs: 04/12/18 05:30 04/12/18 05:30 PT 11.9 Seconds (9.8-13.1) 03/22/18 19:00 INR 1.0 03/22/18 19:00 APTT 29.3 Seconds (25.6-37.1) 03/22/18 19:00 - Constitutional Appears: No Acute Distress - Head Exam Head Exam: NORMAL INSPECTION - Eye Exam Eye Exam: PERRL - ENT Exam ENT Exam: Normal Exam - Neck Exam Neck Exam: Normal Inspection - Respiratory Exam Respiratory Exam: Clear to Ausculation Bilateral - Cardiovascular Exam Cardiovascular Exam: REGULAR RHYTHM - GI/Abdominal Exam GI & Abdominal Exam: Soft, Normal Bowel Sounds - Extremities Exam Extremities Exam: Normal Inspection - Back Exam Additional comments: Pressure ulcer buttocks. - Neurological Exam Neurological Exam: Awake Additional comments: Confused, no motor deficit. - Psychiatric Exam Additional comments: Calm - Skin Skin Exam: Warm Assessment and Plan (1) Rhabdomyolysis Status: Resolved (2) Status post fall Status: Acute (3) UTI (urinary tract infection) Status: Acute (4) Change in mental status Status: Acute (5) HTN (hypertension) Status: Chronic (6) Dementia Status: Chronic (7) Urinary retention Status: Acute (8) Hypothyroidism Status: Chronic (9) Deep tissue injury Status: Acute (10) CHF (congestive heart failure) Status: Resolved (11) Pulmonary nodule Status: Chronic (12) New onset atrial fibrillation Status: Resolved (13) Sacral pressure ulcer Status: Acute - Assessment and Plan (Free Text) Plan: Continue Aricept, Haldol, Depakote and rest of tx, Legal guardianship in precess for [facility] placement.
--- NOTE | 2018-04-18 17:05 | CP.PCM.PN ---
Subjective - Date & Time of Evaluation Date of Evaluation: 04/18/18 Time of Evaluation: 17:05 - Subjective Subjective: stable Objective - Vital Signs/Intake and Output Vital Signs (last 24 hours): Temp Pulse Resp BP Pulse Ox 97.6 F 71 18 154/84 H 95 04/18/18 08:37 04/18/18 09:27 04/18/18 08:37 04/18/18 09:27 04/18/18 08:37 - Medications Medications: Current Medications Acetaminophen (Tylenol 325mg Tab) 650 mg PO Q6 PRN PRN Reason: Pain, Mild (1-3) Last Admin: 04/15/18 23:34 Dose: 650 mg Cyanocobalamin (Vitamin B12 1000 Mcg Tab) 1,000 mcg PO DAILY [facility] Last Admin: 04/18/18 09:25 Dose: 1,000 mcg Dimethicone (Proshield Plus Skin Protectant) 1 applic TOP Q8 [facility] Last Admin: 04/18/18 17:03 Dose: 1 applic Divalproex Sodium (Depakote Sprinkles) 125 mg PO BID [facility] Last Admin: 04/18/18 17:03 Dose: 125 mg Donepezil HCl (Aricept) 5 mg PO HS [facility] Last Admin: 04/17/18 21:20 Dose: 5 mg Enalapril Maleate (Vasotec) 2.5 mg PO DAILY [facility] Last Admin: 04/18/18 09:25 Dose: 2.5 mg Haloperidol Lactate (Haldol) 0.5 mg IVP Q6 PRN PRN Reason: Agitation Last Admin: 04/17/18 21:20 Dose: 0.5 mg Levothyroxine Sodium (Synthroid) 75 mcg PO DAILY@0630 [facility] Last Admin: 04/18/18 06:11 Dose: 75 mcg Metoprolol Tartrate (Lopressor) 50 mg PO Q12 [facility] Last Admin: 04/18/18 09:27 Dose: 50 mg Nystatin (Nystop Topical Powder) 1 applic TOP TID [facility] Last Admin: 04/18/18 17:03 Dose: 1 applic Rivaroxaban (Xarelto) 20 mg PO QD5 [facility]; Protocol Last Admin: 04/18/18 17:02 Dose: 20 mg - Labs Labs: 04/12/18 05:30 04/12/18 05:30 PT 11.9 Seconds (9.8-13.1) 03/22/18 19:00 INR 1.0 03/22/18 19:00 APTT 29.3 Seconds (25.6-37.1) 03/22/18 19:00 - Constitutional Appears: Well - Head Exam Head Exam: ATRAUMATIC, NORMAL INSPECTION, NORMOCEPHALIC - Eye Exam Eye Exam: EOMI, Normal appearance, PERRL Pupil Exam: NORMAL ACCOMODATION, PERRL - ENT Exam ENT Exam: Mucous Membranes Moist, Normal Exam - Neck Exam Neck Exam: Full ROM, Normal Inspection. absent: Lymphadenopathy - Respiratory Exam Respiratory Exam: Clear to Ausculation Bilateral, NORMAL BREATHING PATTERN - Cardiovascular Exam Cardiovascular Exam: REGULAR RHYTHM, +S1, +S2. absent: Murmur - GI/Abdominal Exam GI & Abdominal Exam: Soft, Normal Bowel Sounds. absent: Tenderness - Extremities Exam Extremities Exam: Full ROM, Normal Capillary Refill, Normal Inspection. absent: Joint Swelling, Pedal Edema - Back Exam Back Exam: NORMAL INSPECTION - Neurological Exam Neurological Exam: Alert, Awake, CN II-XII Intact, Normal Gait, Oriented x3 - Psychiatric Exam Psychiatric exam: Normal Affect, Normal Mood - Skin Skin Exam: Dry, Intact, Normal Color, Warm Assessment and Plan (1) New onset atrial fibrillation Status: Resolved (2) CHF (congestive heart failure) Status: Resolved (3) HTN (hypertension) Status: Chronic (4) Syncope Status: Acute (5) Change in mental status Status: Acute (6) Rhabdomyolysis Status: Resolved (7) Mixed dyslipidemia Status: Acute
[2018-04-19] MEDS: Proshield Plus GEL TOP SCH ×3 (01:25→16:38)
[2018-04-19] MEDS: Levothyroxine 75 MCG TAB PO SCH (05:30)
[2018-04-19] MEDS: Divalproex 125 mg Sprinkle Capsule PO SCH ×2 (08:14→16:38)
--- NOTE | 2018-04-19 20:11 | CP.PCM.PN ---
Subjective - Date & Time of Evaluation Date of Evaluation: 04/19/18 Time of Evaluation: 11:00 - Subjective Subjective: Patient seen and examined. Denied any complaint Objective - Vital Signs/Intake and Output Vital Signs (last 24 hours): Temp Pulse Resp BP Pulse Ox 97.7 F 62 20 119/72 100 04/19/18 17:00 04/19/18 17:00 04/19/18 17:00 04/19/18 17:00 04/19/18 17:00 - Medications Medications: Current Medications Acetaminophen (Tylenol 325mg Tab) 650 mg PO Q6 PRN PRN Reason: Pain, Mild (1-3) Last Admin: 04/15/18 23:34 Dose: 650 mg Cyanocobalamin (Vitamin B12 1000 Mcg Tab) 1,000 mcg PO DAILY [facility] Last Admin: 04/19/18 08:14 Dose: 1,000 mcg Dimethicone (Proshield Plus Skin Protectant) 1 applic TOP Q8 [facility] Last Admin: 04/19/18 16:38 Dose: 1 applic Divalproex Sodium (Depakote Sprinkles) 125 mg PO BID [facility] Last Admin: 04/19/18 16:38 Dose: 125 mg Donepezil HCl (Aricept) 5 mg PO HS [facility] Last Admin: 04/18/18 21:25 Dose: 5 mg Enalapril Maleate (Vasotec) 2.5 mg PO DAILY [facility] Last Admin: 04/19/18 08:14 Dose: 2.5 mg Haloperidol Lactate (Haldol) 0.5 mg IVP Q6 PRN PRN Reason: Agitation Last Admin: 04/19/18 02:28 Dose: 0.5 mg Levothyroxine Sodium (Synthroid) 75 mcg PO DAILY@0630 [facility] Last Admin: 04/19/18 05:30 Dose: 75 mcg Metoprolol Tartrate (Lopressor) 50 mg PO Q12 [facility] Last Admin: 04/19/18 08:13 Dose: 50 mg Nystatin (Nystop Topical Powder) 1 applic TOP TID [facility] Last Admin: 04/19/18 16:37 Dose: 1 applic Rivaroxaban (Xarelto) 20 mg PO QD5 [facility]; Protocol Last Admin: 04/19/18 16:38 Dose: 20 mg - Labs Labs: 04/12/18 05:30 04/12/18 05:30 PT 11.9 Seconds (9.8-13.1) 03/22/18 19:00 INR 1.0 03/22/18 19:00 APTT 29.3 Seconds (25.6-37.1) 03/22/18 19:00 - Constitutional Appears: No Acute Distress - Head Exam Head Exam: ATRAUMATIC - Eye Exam Eye Exam: absent: Scleral icterus - ENT Exam ENT Exam: Mucous Membranes Moist - Neck Exam Neck Exam: absent: Meningismus - Respiratory Exam Respiratory Exam: absent: Rales, Rhonchi, Wheezes, Respiratory Distress - Cardiovascular Exam Cardiovascular Exam: REGULAR RHYTHM, +S1, +S2 - GI/Abdominal Exam GI & Abdominal Exam: Soft. absent: Tenderness - Rectal Exam Rectal Exam: Deferred - Neurological Exam Neurological Exam: Alert, Oriented x3 - Psychiatric Exam Psychiatric exam: Normal Affect - Skin Skin Exam: Dry, Intact Assessment and Plan - Assessment and Plan (Free Text) Assessment: 83 yo female with multiple chronic medical conditions, mild cognitive impairment, HTN, Hypothyroidism, HLD, Anxiety and Depression was admitted on 03/23/18 because of altered mental status. Patient apparently found on the floor by neighbor. 1. Altered Mental Status patient continued to have on and off disorientation and do not have capacity to make a decision for herself awaiting for placement 2. Dementia continue Aricept 3. AFib rate controlled continue Metoprolol continue Xarelto 4. Hypothyroid continue Levothyroxine 5. HTN BP stable continue Metoprolol and Enalapril
[2018-04-20] MEDS: Proshield Plus GEL TOP SCH ×2 (01:39→09:28)
[2018-04-20] MEDS: Levothyroxine 75 MCG TAB PO SCH (06:43)
[2018-04-20] MEDS: Divalproex 125 mg Sprinkle Capsule PO SCH ×2 (09:27→16:48)
--- NOTE | 2018-04-20 17:00 | CP.PCM.PN ---
Subjective - Date & Time of Evaluation Date of Evaluation: 04/20/18 Time of Evaluation: 13:40 - Subjective Subjective: Patient seen and examined. No complaint Objective - Vital Signs/Intake and Output Vital Signs (last 24 hours): Temp Pulse Resp BP Pulse Ox 97.8 F 98 H 20 143/80 96 04/20/18 07:59 04/20/18 09:30 04/20/18 07:59 04/20/18 09:30 04/20/18 07:59 - Medications Medications: Current Medications Acetaminophen (Tylenol 325mg Tab) 650 mg PO Q6 PRN PRN Reason: Pain, Mild (1-3) Last Admin: 04/15/18 23:34 Dose: 650 mg Cyanocobalamin (Vitamin B12 1000 Mcg Tab) 1,000 mcg PO DAILY [facility] Last Admin: 04/20/18 09:29 Dose: 1,000 mcg Dimethicone (Proshield Plus Skin Protectant) 1 applic TOP Q8 [facility] Last Admin: 04/20/18 09:28 Dose: 1 applic Divalproex Sodium (Depakote Sprinkles) 125 mg PO BID [facility] Last Admin: 04/20/18 16:48 Dose: 125 mg Donepezil HCl (Aricept) 5 mg PO HS [facility] Last Admin: 04/19/18 21:44 Dose: 5 mg Enalapril Maleate (Vasotec) 2.5 mg PO DAILY [facility] Last Admin: 04/20/18 09:28 Dose: 2.5 mg Haloperidol Lactate (Haldol) 0.5 mg IVP Q6 PRN PRN Reason: Agitation Last Admin: 04/19/18 02:28 Dose: 0.5 mg Levothyroxine Sodium (Synthroid) 75 mcg PO DAILY@0630 [facility] Last Admin: 04/20/18 06:43 Dose: 75 mcg Metoprolol Tartrate (Lopressor) 50 mg PO Q12 [facility] Last Admin: 04/20/18 09:30 Dose: 50 mg Nystatin (Nystop Topical Powder) 1 applic TOP TID [facility] Last Admin: 04/20/18 09:28 Dose: 1 applic Rivaroxaban (Xarelto) 20 mg PO QD5 [facility]; Protocol Last Admin: 04/20/18 16:48 Dose: 20 mg - Labs Labs: 04/12/18 05:30 04/12/18 05:30 PT 11.9 Seconds (9.8-13.1) 03/22/18 19:00 INR 1.0 03/22/18 19:00 APTT 29.3 Seconds (25.6-37.1) 03/22/18 19:00 - Constitutional Appears: No Acute Distress - Head Exam Head Exam: ATRAUMATIC - Eye Exam Eye Exam: absent: Scleral icterus - ENT Exam ENT Exam: Mucous Membranes Moist - Neck Exam Neck Exam: absent: Meningismus - Respiratory Exam Respiratory Exam: absent: Rales, Rhonchi, Wheezes, Respiratory Distress - Cardiovascular Exam Cardiovascular Exam: REGULAR RHYTHM, +S1, +S2 - GI/Abdominal Exam GI & Abdominal Exam: Soft. absent: Tenderness - Rectal Exam Rectal Exam: Deferred - Neurological Exam Neurological Exam: Alert, Oriented x3 - Psychiatric Exam Psychiatric exam: Normal Affect - Skin Skin Exam: Dry, Intact Assessment and Plan - Assessment and Plan (Free Text) Assessment: 83 yo female with multiple chronic medical conditions, mild cognitive impairment, HTN, Hypothyroidism, HLD, Anxiety and Depression was admitted on 03/23/18 because of altered mental status. Patient apparently found on the floor by neighbor. 1. Altered Mental Status patient continued to have on and off disorientation and do not have capacity to make a decision for herself awaiting for placement 2. Dementia continue Aricept 3. AFib rate controlled continue Metoprolol continue Xarelto 4. Hypothyroid continue Levothyroxine 5. HTN BP stable continue Metoprolol and Enalapril
[2018-04-21] MEDS: Proshield Plus GEL TOP SCH ×3 (01:15→16:45)
[2018-04-21] MEDS: Levothyroxine 75 MCG TAB PO SCH (06:51)
[2018-04-21] MEDS: Divalproex 125 mg Sprinkle Capsule PO SCH ×2 (09:12→16:44)
--- NOTE | 2018-04-21 14:25 | CP.PCM.PN ---
Subjective - Date & Time of Evaluation Date of Evaluation: 04/21/18 Time of Evaluation: 11:00 - Subjective Subjective: Patient seen and examined. Denied any complaint. Objective - Vital Signs/Intake and Output Vital Signs (last 24 hours): Temp Pulse Resp BP Pulse Ox 98.0 F 66 19 153/74 H 99 04/21/18 08:15 04/21/18 08:15 04/21/18 08:15 04/21/18 08:15 04/21/18 08:15 - Medications Medications: Current Medications Acetaminophen (Tylenol 325mg Tab) 650 mg PO Q6 PRN PRN Reason: Pain, Mild (1-3) Last Admin: 04/15/18 23:34 Dose: 650 mg Cyanocobalamin (Vitamin B12 1000 Mcg Tab) 1,000 mcg PO DAILY [facility] Last Admin: 04/21/18 09:15 Dose: 1,000 mcg Dimethicone (Proshield Plus Skin Protectant) 1 applic TOP Q8 [facility] Last Admin: 04/21/18 09:15 Dose: 1 applic Divalproex Sodium (Depakote Sprinkles) 125 mg PO BID [facility] Last Admin: 04/21/18 09:12 Dose: 125 mg Donepezil HCl (Aricept) 5 mg PO HS [facility] Last Admin: 04/20/18 22:06 Dose: 5 mg Enalapril Maleate (Vasotec) 2.5 mg PO DAILY [facility] Last Admin: 04/21/18 09:15 Dose: 2.5 mg Haloperidol Lactate (Haldol) 0.5 mg IVP Q6 PRN PRN Reason: Agitation Last Admin: 04/19/18 02:28 Dose: 0.5 mg Levothyroxine Sodium (Synthroid) 75 mcg PO DAILY@0630 [facility] Last Admin: 04/21/18 06:51 Dose: 75 mcg Metoprolol Tartrate (Lopressor) 50 mg PO Q12 [facility] Last Admin: 04/21/18 09:20 Dose: 50 mg Nystatin (Nystop Topical Powder) 1 applic TOP TID [facility] Last Admin: 04/21/18 12:08 Dose: 1 applic Rivaroxaban (Xarelto) 20 mg PO QD5 [facility]; Protocol Last Admin: 04/20/18 16:48 Dose: 20 mg - Labs Labs: 04/12/18 05:30 12/15/18 05:30 PT 11.9 Seconds (9.8-13.1) 03/22/18 19:00 INR 1.0 03/22/18 19:00 APTT 29.3 Seconds (25.6-37.1) 03/22/18 19:00 - Constitutional Appears: No Acute Distress - Head Exam Head Exam: ATRAUMATIC - Eye Exam Eye Exam: absent: Scleral icterus - ENT Exam ENT Exam: Mucous Membranes Moist - Neck Exam Neck Exam: absent: Meningismus - Respiratory Exam Respiratory Exam: absent: Rales, Rhonchi, Wheezes, Respiratory Distress - Cardiovascular Exam Cardiovascular Exam: REGULAR RHYTHM, +S1, +S2 - GI/Abdominal Exam GI & Abdominal Exam: Soft. absent: Tenderness - Rectal Exam Rectal Exam: Deferred - Extremities Exam Extremities Exam: Full ROM - Neurological Exam Neurological Exam: Alert - Psychiatric Exam Psychiatric exam: Flat Affect - Skin Skin Exam: Dry, Intact Assessment and Plan - Assessment and Plan (Free Text) Assessment: 82 yo female long term resident with history of Dementia and HTN was admitted on 03/29/18 after a fall sustaining head injury with right jovan-orbital contussion-hematoma. Patient has severe dementia and was unable to follow commands. Patient also unable to feed. PEG tube insertion pending until POA is found. 1. Fall on one to one observation 2. Dementia anorexic; for PEG tube insertion once consent is obtained Ativan 1mg PO BID continue Zyprexa and Depakote 3. HTN BP controlled continue Clonidine and Losartan
[2018-04-22] MEDS: Proshield Plus GEL TOP SCH ×3 (01:51→16:27)
[2018-04-22] MEDS: Levothyroxine 75 MCG TAB PO SCH (05:52)
[2018-04-22] MEDS: Divalproex 125 mg Sprinkle Capsule PO SCH ×2 (08:24→16:28)
--- NOTE | 2018-04-22 10:34 | CP.PCM.PN ---
Subjective - Date & Time of Evaluation Date of Evaluation: 04/22/18 Time of Evaluation: 09:45 - Subjective Subjective: Patient seen and examined. Denied any complaint Objective - Vital Signs/Intake and Output Vital Signs (last 24 hours): Temp Pulse Resp BP Pulse Ox 97.8 F 68 20 143/75 96 04/22/18 08:06 04/22/18 08:06 04/22/18 08:06 04/22/18 08:06 04/22/18 08:06 - Medications Medications: Current Medications Acetaminophen (Tylenol 325mg Tab) 650 mg PO Q6 PRN PRN Reason: Pain, Mild (1-3) Last Admin: 04/15/18 23:34 Dose: 650 mg Cyanocobalamin (Vitamin B12 1000 Mcg Tab) 1,000 mcg PO DAILY [facility] Last Admin: 04/22/18 08:25 Dose: 1,000 mcg Dimethicone (Proshield Plus Skin Protectant) 1 applic TOP Q8 [facility] Last Admin: 04/22/18 08:24 Dose: 1 applic Divalproex Sodium (Depakote Sprinkles) 125 mg PO BID [facility] Last Admin: 04/22/18 08:24 Dose: 125 mg Donepezil HCl (Aricept) 5 mg PO HS [facility] Last Admin: 04/21/18 21:28 Dose: 5 mg Enalapril Maleate (Vasotec) 2.5 mg PO DAILY [facility] Last Admin: 04/22/18 08:25 Dose: 2.5 mg Haloperidol Lactate (Haldol) 0.5 mg IVP Q6 PRN PRN Reason: Agitation Last Admin: 04/19/18 02:28 Dose: 0.5 mg Levothyroxine Sodium (Synthroid) 75 mcg PO DAILY@0630 [facility] Last Admin: 04/22/18 05:52 Dose: 75 mcg Metoprolol Tartrate (Lopressor) 50 mg PO Q12 [facility] Last Admin: 04/22/18 08:24 Dose: 50 mg Nystatin (Nystop Topical Powder) 1 applic TOP TID [facility] Last Admin: 04/22/18 08:23 Dose: 1 applic Rivaroxaban (Xarelto) 20 mg PO QD5 [facility]; Protocol Last Admin: 04/21/18 16:44 Dose: 20 mg - Labs Labs: 04/12/18 05:30 04/12/18 05:30 PT 11.9 Seconds (9.8-13.1) 03/22/18 19:00 INR 1.0 03/22/18 19:00 APTT 29.3 Seconds (25.6-37.1) 03/22/18 19:00 - Constitutional Appears: No Acute Distress - Head Exam Head Exam: ATRAUMATIC - Eye Exam Eye Exam: absent: Scleral icterus - ENT Exam ENT Exam: Mucous Membranes Moist - Neck Exam Neck Exam: absent: Meningismus - Respiratory Exam Respiratory Exam: absent: Rales, Rhonchi, Wheezes, Respiratory Distress - Cardiovascular Exam Cardiovascular Exam: REGULAR RHYTHM, +S1, +S2 - GI/Abdominal Exam GI & Abdominal Exam: Soft. absent: Tenderness - Rectal Exam Rectal Exam: Deferred - Neurological Exam Neurological Exam: Alert - Psychiatric Exam Psychiatric exam: Flat Affect - Skin Skin Exam: Dry, Intact Assessment and Plan - Assessment and Plan (Free Text) Assessment: 83 yo female with multiple chronic medical conditions, cognitive impairment, HTN, Hypothyroidism, HLD, Anxiety and Depression was admitted on 03/23/18 because of altered mental status. Patient apparently found on the floor by neighbor. 1. Altered Mental Status patient continued to have on and off disorientation and do not have capacity to make a decision for herself awaiting for placement 2. Dementia continue Aricept 3. AFib rate controlled continue Metoprolol continue Xarelto 4. Hypothyroid continue Levothyroxine 5. HTN BP controlled continue Metoprolol and Enalapril
[2018-04-23] MEDS: Proshield Plus GEL TOP SCH ×3 (01:29→17:07)
[2018-04-23] MEDS: Levothyroxine 75 MCG TAB PO SCH (05:59)
[2018-04-23] MEDS: Divalproex 125 mg Sprinkle Capsule PO SCH ×2 (08:25→17:06)
--- NOTE | 2018-04-23 10:07 | CP.PCM.PN ---
<Ian Smith - Last Filed: 04/23/18 10:07> Subjective - Date & Time of Evaluation Date of Evaluation: 04/23/18 Time of Evaluation: 09:35 - Subjective Subjective: Seen at bedside, sitting in chair during rounds. No acute distress. No acute events overnight. Afebrile. Denies acute changes in urination or stools. Denies pain. Objective - Vital Signs/Intake and Output Vital Signs (last 24 hours): Temp Pulse Resp BP Pulse Ox 98.3 F 71 20 154/72 H 97 04/23/18 08:06 04/23/18 09:29 04/23/18 08:06 04/23/18 09:29 04/23/18 08:06 - Medications Medications: Current Medications Acetaminophen (Tylenol 325mg Tab) 650 mg PO Q6 PRN PRN Reason: Pain, Mild (1-3) Last Admin: 04/15/18 23:34 Dose: 650 mg Cyanocobalamin (Vitamin B12 1000 Mcg Tab) 1,000 mcg PO DAILY [facility] Last Admin: 04/23/18 08:31 Dose: 1,000 mcg Dimethicone (Proshield Plus Skin Protectant) 1 applic TOP Q8 [facility] Last Admin: 04/23/18 08:30 Dose: 1 applic Divalproex Sodium (Depakote Sprinkles) 125 mg PO BID [facility] Last Admin: 04/23/18 08:25 Dose: 125 mg Donepezil HCl (Aricept) 5 mg PO HS [facility] Last Admin: 04/22/18 20:59 Dose: 5 mg Enalapril Maleate (Vasotec) 2.5 mg PO DAILY [facility] Last Admin: 04/23/18 08:31 Dose: 2.5 mg Haloperidol Lactate (Haldol) 0.5 mg IVP Q6 PRN PRN Reason: Agitation Last Admin: 04/19/18 02:28 Dose: 0.5 mg Levothyroxine Sodium (Synthroid) 75 mcg PO DAILY@0630 [facility] Last Admin: 04/23/18 05:59 Dose: 75 mcg Metoprolol Tartrate (Lopressor) 50 mg PO Q12 [facility] Last Admin: 04/23/18 09:29 Dose: 50 mg Nystatin (Nystop Topical Powder) 1 applic TOP TID [facility] Last Admin: 04/23/18 08:30 Dose: 1 applic Rivaroxaban (Xarelto) 20 mg PO QD5 [facility]; Protocol Last Admin: 04/22/18 16:27 Dose: 20 mg - Labs Labs: 04/12/18 05:30 04/12/18 05:30 PT 11.9 Seconds (9.8-13.1) 03/22/18 19:00 INR 1.0 03/22/18 19:00 APTT 29.3 Seconds (25.6-37.1) 03/22/18 19:00 - Constitutional Appears: Non-toxic - Eye Exam Eye Exam: EOMI, PERRL - ENT Exam ENT Exam: Mucous Membranes Moist - Respiratory Exam Respiratory Exam: Clear to Ausculation Bilateral, NORMAL BREATHING PATTERN - Cardiovascular Exam Cardiovascular Exam: Irregular Rhythm, +S1, +S2. absent: Gallop - GI/Abdominal Exam GI & Abdominal Exam: Soft. absent: Tenderness - Extremities Exam Extremities Exam: absent: Calf Tenderness, Pedal Edema - Neurological Exam Neurological Exam: Alert, Awake. absent: Motor Sensory Deficit, Oriented x3 - Psychiatric Exam Psychiatric exam: Normal Affect, Normal Mood - Skin Skin Exam: Normal Color, Warm Assessment and Plan - Assessment and Plan (Free Text) Assessment: 83 yo female with multiple chronic medical conditions, cognitive impairment, HTN, Hypothyroidism, HLD, Anxiety and Depression was admitted on 03/23/18 nai use of altered mental status. Patient apparently found on the floor by neighbor. Altered Mental Status Stable, possible due to Dementia Not significantly confused today As per records patient continued to have on and off disorientation and do not have capacity to make a decision for herself awaiting for long term placement Dementia continue Aricept AFib rate controlled continue Metoprolol continue Xarelto Hypothyroid continue Levothyroxine HTN BP stable continue Metoprolol and Enalapril DVT prophylaxis Patient on Xarelto <Joycelyn Stewart - Last Filed: 04/23/18 10:15> Objective - Vital Signs/Intake and Output Vital Signs (last 24 hours): Temp Pulse Resp BP Pulse Ox 98.3 F 71 20 154/72 H 97 04/23/18 08:06 04/23/18 09:29 04/23/18 08:06 04/23/18 09:29 04/23/18 08:06 - Medications Medications: Current Medications Acetaminophen (Tylenol 325mg Tab) 650 mg PO Q6 PRN PRN Reason: Pain, Mild (1-3) Last Admin: 04/15/18 23:34 Dose: 650 mg Cyanocobalamin (Vitamin B12 1000 Mcg Tab) 1,000 mcg PO DAILY [facility] Last Admin: 04/23/18 08:31 Dose: 1,000 mcg Dimethicone (Proshield Plus Skin Protectant) 1 applic TOP Q8 [facility] Last Admin: 04/23/18 08:30 Dose: 1 applic Divalproex Sodium (Depakote Sprinkles) 125 mg PO BID [facility] Last Admin: 04/23/18 08:25 Dose: 125 mg Donepezil HCl (Aricept) 5 mg PO HS [facility] Last Admin: 04/22/18 20:59 Dose: 5 mg Enalapril Maleate (Vasotec) 2.5 mg PO DAILY [facility] Last Admin: 04/23/18 08:31 Dose: 2.5 mg Haloperidol Lactate (Haldol) 0.5 mg IVP Q6 PRN PRN Reason: Agitation Last Admin: 04/19/18 02:28 Dose: 0.5 mg Levothyroxine Sodium (Synthroid) 75 mcg PO DAILY@0630 [facility] Last Admin: 04/23/18 05:59 Dose: 75 mcg Metoprolol Tartrate (Lopressor) 50 mg PO Q12 [facility] Last Admin: 04/23/18 09:29 Dose: 50 mg Nystatin (Nystop Topical Powder) 1 applic TOP TID [facility] Last Admin: 04/23/18 08:30 Dose: 1 applic Rivaroxaban (Xarelto) 20 mg PO QD5 [facility]; Protocol Last Admin: 04/22/18 16:27 Dose: 20 mg - Labs Labs: 04/12/18 05:30 04/12/18 05:30 PT 11.9 Seconds (9.8-13.1) 03/22/18 19:00 INR 1.0 03/22/18 19:00 APTT 29.3 Seconds (25.6-37.1) 03/22/18 19:00 Attending/Attestation - Attestation I have personally seen and examined this patient.: Yes I have fully participated in the care of the patient.: Yes I have reviewed all pertinent clinical information, including history, physical exam and plan: Yes Notes (Text): 04/23/18 10:15 agree with findings and plan as above.
[2018-04-24] MEDS: Proshield Plus GEL TOP SCH ×3 (01:55→17:04)
[2018-04-24] MEDS: Levothyroxine 75 MCG TAB PO SCH (06:42)
[2018-04-24] MEDS: Divalproex 125 mg Sprinkle Capsule PO SCH ×2 (08:35→16:55)
--- NOTE | 2018-04-24 08:49 | CP.PCM.PN ---
<Ian Smith - Last Filed: 04/24/18 09:35> Subjective - Date & Time of Evaluation Date of Evaluation: 04/24/18 Time of Evaluation: 08:30 - Subjective Subjective: Seen at bedside lying in bed, no acute events overnight. Denies pain. Denies any acute changes in urination or stools. Afebrile Objective - Vital Signs/Intake and Output Vital Signs (last 24 hours): Temp Pulse Resp BP Pulse Ox 98.3 F 58 L 20 158/79 H 98 04/24/18 08:32 04/24/18 08:32 04/24/18 08:32 04/24/18 08:38 04/24/18 08:32 - Medications Medications: Current Medications Acetaminophen (Tylenol 325mg Tab) 650 mg PO Q6 PRN PRN Reason: Pain, Mild (1-3) Last Admin: 04/15/18 23:34 Dose: 650 mg Cyanocobalamin (Vitamin B12 1000 Mcg Tab) 1,000 mcg PO DAILY [facility] Last Admin: 04/24/18 08:36 Dose: 1,000 mcg Dimethicone (Proshield Plus Skin Protectant) 1 applic TOP Q8 [facility] Last Admin: 04/24/18 08:36 Dose: 1 applic Divalproex Sodium (Depakote Sprinkles) 125 mg PO BID [facility] Last Admin: 04/24/18 08:35 Dose: 125 mg Donepezil HCl (Aricept) 5 mg PO HS [facility] Last Admin: 04/23/18 20:59 Dose: 5 mg Enalapril Maleate (Vasotec) 2.5 mg PO DAILY [facility] Last Admin: 04/24/18 08:36 Dose: 2.5 mg Haloperidol Lactate (Haldol) 0.5 mg IVP Q6 PRN PRN Reason: Agitation Last Admin: 04/19/18 02:28 Dose: 0.5 mg Levothyroxine Sodium (Synthroid) 75 mcg PO DAILY@0630 [facility] Last Admin: 04/24/18 06:42 Dose: 75 mcg Metoprolol Tartrate (Lopressor) 50 mg PO Q12 [facility] Last Admin: 04/24/18 08:38 Dose: 50 mg Nystatin (Nystop Topical Powder) 1 applic TOP TID [facility] Last Admin: 04/24/18 08:35 Dose: 1 applic Rivaroxaban (Xarelto) 20 mg PO QD5 [facility]; Protocol Last Admin: 04/23/18 17:07 Dose: 20 mg - Labs Labs: 04/12/18 05:30 04/12/18 05:30 PT 11.9 Seconds (9.8-13.1) 03/22/18 19:00 INR 1.0 03/22/18 19:00 APTT 29.3 Seconds (25.6-37.1) 03/22/18 19:00 - Constitutional Appears: Non-toxic, Chronically Ill - Eye Exam Eye Exam: PERRL - ENT Exam ENT Exam: Mucous Membranes Moist - Respiratory Exam Respiratory Exam: Clear to Ausculation Bilateral, NORMAL BREATHING PATTERN - Cardiovascular Exam Cardiovascular Exam: +S1, +S2. absent: Gallop - GI/Abdominal Exam GI & Abdominal Exam: Soft, Normal Bowel Sounds. absent: Tenderness - Neurological Exam Neurological Exam: Alert, Awake. absent: Oriented x3 - Psychiatric Exam Psychiatric exam: Normal Affect, Normal Mood - Skin Skin Exam: Warm Assessment and Plan - Assessment and Plan (Free Text) Assessment: 83 yo female with multiple chronic medical conditions, cognitive impairment, HTN, Hypothyroidism, HLD, Anxiety and Depression was admitted on 03/23/18 because of altered mental status. Patient apparently found on the floor by neighbor. Altered Mental Status Stable, possible due to Dementia Not significantly confused today As per records patient continued to have on and off disorientation and do not have capacity to make a decision for herself awaiting for skilled nursing placement Dementia continue Aricept AFib rate controlled continue Metoprolol continue Xarelto Hypothyroid continue Levothyroxine HTN BP stable continue Metoprolol and Enalapril DVT prophylaxis Patient on Xarelto <Joycelyn Stewart - Last Filed: 04/26/18 00:34> Objective - Vital Signs/Intake and Output Vital Signs (last 24 hours): Temp Pulse Resp BP Pulse Ox 98.8 F 65 18 123/79 97 04/25/18 16:18 04/25/18 21:00 04/25/18 16:18 04/25/18 21:00 04/25/18 16:18 - Medications Medications: Current Medications Acetaminophen (Tylenol 325mg Tab) 650 mg PO Q6 PRN PRN Reason: Pain, Mild (1-3) Last Admin: 04/15/18 23:34 Dose: 650 mg Cyanocobalamin (Vitamin B12 1000 Mcg Tab) 1,000 mcg PO DAILY [facility] Last Admin: 04/25/18 08:45 Dose: 1,000 mcg Dimethicone (Proshield Plus Skin Protectant) 1 applic TOP Q8 [facility] Last Admin: 04/25/18 16:55 Dose: 1 applic Divalproex Sodium (Depakote Sprinkles) 125 mg PO BID [facility] Last Admin: 04/25/18 16:55 Dose: 125 mg Donepezil HCl (Aricept) 5 mg PO HS [facility] Last Admin: 04/25/18 21:00 Dose: 5 mg Enalapril Maleate (Vasotec) 2.5 mg PO DAILY [facility] Last Admin: 04/25/18 08:45 Dose: 2.5 mg Haloperidol Lactate (Haldol) 0.5 mg IVP Q6 PRN PRN Reason: Agitation Last Admin: 04/19/18 02:28 Dose: 0.5 mg Levothyroxine Sodium (Synthroid) 75 mcg PO DAILY@0630 [facility] Last Admin: 04/25/18 05:53 Dose: 75 mcg Metoprolol Tartrate (Lopressor) 50 mg PO Q12 [facility] Last Admin: 04/25/18 21:00 Dose: 50 mg Nystatin (Nystop Topical Powder) 1 applic TOP TID [facility] Last Admin: 04/25/18 16:55 Dose: 1 applic Rivaroxaban (Xarelto) 20 mg PO QD5 [facility]; Protocol Last Admin: 04/25/18 16:56 Dose: 20 mg - Labs Labs: 04/12/18 05:30 04/12/18 05:30 PT 11.9 Seconds (9.8-13.1) 03/22/18 19:00 INR 1.0 03/22/18 19:00 APTT 29.3 Seconds (25.6-37.1) 03/22/18 19:00 Attending/Attestation - Attestation I have personally seen and examined this patient.: Yes I have fully participated in the care of the patient.: Yes I have reviewed all pertinent clinical information, including history, physical exam and plan: Yes Notes (Text): 04/26/18 00:34 agree with findings and plan as above
[2018-04-25] MEDS: Proshield Plus GEL TOP SCH ×3 (01:30→16:55)
[2018-04-25] MEDS: Levothyroxine 75 MCG TAB PO SCH (05:53)
[2018-04-25] MEDS: Divalproex 125 mg Sprinkle Capsule PO SCH ×2 (08:44→16:55)
--- NOTE | 2018-04-25 14:54 | CP.PCM.PN ---
<Ian Smith - Last Filed: 04/25/18 14:55> Subjective - Date & Time of Evaluation Date of Evaluation: 04/25/18 Time of Evaluation: 10:40 - Subjective Subjective: Seen at bedside no acute distress. No acute events overnight. Afebrile. Tolerating PO. Denies pain, vomiting, nausea or acute changes in urination or stools Objective - Vital Signs/Intake and Output Vital Signs (last 24 hours): Temp Pulse Resp BP Pulse Ox 97.4 F L 64 18 165/74 H 99 04/25/18 08:45 04/25/18 08:45 04/25/18 08:45 04/25/18 08:45 04/25/18 08:45 - Medications Medications: Current Medications Acetaminophen (Tylenol 325mg Tab) 650 mg PO Q6 PRN PRN Reason: Pain, Mild (1-3) Last Admin: 04/15/18 23:34 Dose: 650 mg Cyanocobalamin (Vitamin B12 1000 Mcg Tab) 1,000 mcg PO DAILY [facility] Last Admin: 04/25/18 08:45 Dose: 1,000 mcg Dimethicone (Proshield Plus Skin Protectant) 1 applic TOP Q8 [facility] Last Admin: 04/25/18 08:44 Dose: 1 applic Divalproex Sodium (Depakote Sprinkles) 125 mg PO BID [facility] Last Admin: 04/25/18 08:44 Dose: 125 mg Donepezil HCl (Aricept) 5 mg PO HS [facility] Last Admin: 04/24/18 21:21 Dose: 5 mg Enalapril Maleate (Vasotec) 2.5 mg PO DAILY [facility] Last Admin: 04/25/18 08:45 Dose: 2.5 mg Haloperidol Lactate (Haldol) 0.5 mg IVP Q6 PRN PRN Reason: Agitation Last Admin: 04/19/18 02:28 Dose: 0.5 mg Levothyroxine Sodium (Synthroid) 75 mcg PO DAILY@0630 [facility] Last Admin: 04/25/18 05:53 Dose: 75 mcg Metoprolol Tartrate (Lopressor) 50 mg PO Q12 [facility] Last Admin: 04/25/18 08:45 Dose: 50 mg Nystatin (Nystop Topical Powder) 1 applic TOP TID [facility] Last Admin: 04/25/18 12:42 Dose: 1 applic Rivaroxaban (Xarelto) 20 mg PO QD5 [facility]; Protocol Last Admin: 04/24/18 17:04 Dose: 20 mg - Labs Labs: 04/12/18 05:30 04/12/18 05:30 PT 11.9 Seconds (9.8-13.1) 03/22/18 19:00 INR 1.0 03/22/18 19:00 APTT 29.3 Seconds (25.6-37.1) 03/22/18 19:00 - Constitutional Appears: Non-toxic, Confused, Chronically Ill - Eye Exam Eye Exam: PERRL - ENT Exam ENT Exam: Mucous Membranes Moist - Respiratory Exam Respiratory Exam: Clear to Ausculation Bilateral, NORMAL BREATHING PATTERN - Cardiovascular Exam Cardiovascular Exam: +S1, +S2. absent: Gallop - GI/Abdominal Exam GI & Abdominal Exam: Soft, Normal Bowel Sounds. absent: Tenderness - Neurological Exam Neurological Exam: Alert, Awake, Oriented x3 - Skin Skin Exam: Normal Color, Warm Assessment and Plan - Assessment and Plan (Free Text) Assessment: 83 yo female with multiple chronic medical conditions, cognitive impairment, HTN, Hypothyroidism, HLD, Anxiety and Depression was admitted on 03/23/18 because of altered mental status. Patient apparently found on the floor by neighbor. Altered Mental Status Stable, possible due to Dementia As per records patient continued to have on and off disorientation and do not have capacity to make a decision for herself awaiting for care home placement Dementia Severe confusion at times continue Aricept AFib rate controlled continue Metoprolol continue Xarelto Hypothyroid continue Levothyroxine HTN BP stable continue Metoprolol and Enalapril DVT prophylaxis Patient on Xarelto <Gilberto Howard - Last Filed: 04/25/18 16:42> Objective - Vital Signs/Intake and Output Vital Signs (last 24 hours): Temp Pulse Resp BP Pulse Ox 98.8 F 56 L 18 148/83 97 04/25/18 16:18 04/25/18 16:18 04/25/18 16:18 04/25/18 16:18 04/25/18 16:18 - Medications Medications: Current Medications Acetaminophen (Tylenol 325mg Tab) 650 mg PO Q6 PRN PRN Reason: Pain, Mild (1-3) Last Admin: 04/15/18 23:34 Dose: 650 mg Cyanocobalamin (Vitamin B12 1000 Mcg Tab) 1,000 mcg PO DAILY [facility] Last Admin: 04/25/18 08:45 Dose: 1,000 mcg Dimethicone (Proshield Plus Skin Protectant) 1 applic TOP Q8 [facility] Last Admin: 04/25/18 08:44 Dose: 1 applic Divalproex Sodium (Depakote Sprinkles) 125 mg PO BID [facility] Last Admin: 04/25/18 08:44 Dose: 125 mg Donepezil HCl (Aricept) 5 mg PO HS [facility] Last Admin: 04/24/18 21:21 Dose: 5 mg Enalapril Maleate (Vasotec) 2.5 mg PO DAILY [facility] Last Admin: 04/25/18 08:45 Dose: 2.5 mg Haloperidol Lactate (Haldol) 0.5 mg IVP Q6 PRN PRN Reason: Agitation Last Admin: 04/19/18 02:28 Dose: 0.5 mg Levothyroxine Sodium (Synthroid) 75 mcg PO DAILY@0630 [facility] Last Admin: 04/25/18 05:53 Dose: 75 mcg Metoprolol Tartrate (Lopressor) 50 mg PO Q12 [facility] Last Admin: 04/25/18 08:45 Dose: 50 mg Nystatin (Nystop Topical Powder) 1 applic TOP TID [facility] Last Admin: 04/25/18 12:42 Dose: 1 applic Rivaroxaban (Xarelto) 20 mg PO QD5 [facility]; Protocol Last Admin: 04/24/18 17:04 Dose: 20 mg - Labs Labs: 04/12/18 05:30 04/12/18 05:30 PT 11.9 Seconds (9.8-13.1) 03/22/18 19:00 INR 1.0 03/22/18 19:00 APTT 29.3 Seconds (25.6-37.1) 03/22/18 19:00 Attending/Attestation - Attestation I have personally seen and examined this patient.: Yes I have fully participated in the care of the patient.: Yes I have reviewed all pertinent clinical information, including history, physical exam and plan: Yes Notes (Text): 04/25/18 16:42 Patient seen and examined with resident. Case discussed and agreed with assessment.
[2018-04-26] MEDS: Proshield Plus GEL TOP SCH ×3 (01:14→16:56)
[2018-04-26] MEDS: Levothyroxine 75 MCG TAB PO SCH (06:48)
[2018-04-26] MEDS: Divalproex 125 mg Sprinkle Capsule PO SCH ×2 (10:07→16:55)
--- NOTE | 2018-04-26 16:19 | CP.PCM.PN ---
Subjective - Date & Time of Evaluation Date of Evaluation: 04/26/18 Time of Evaluation: 11:45 - Subjective Subjective: Patient seen and examined. No complaint Objective - Vital Signs/Intake and Output Vital Signs (last 24 hours): Temp Pulse Resp BP Pulse Ox 98.1 F 78 20 152/72 H 95 04/26/18 08:28 04/26/18 10:11 04/26/18 08:28 04/26/18 10:11 04/26/18 08:28 - Medications Medications: Current Medications Acetaminophen (Tylenol 325mg Tab) 650 mg PO Q6 PRN PRN Reason: Pain, Mild (1-3) Last Admin: 04/15/18 23:34 Dose: 650 mg Cyanocobalamin (Vitamin B12 1000 Mcg Tab) 1,000 mcg PO DAILY [facility] Last Admin: 04/26/18 10:07 Dose: 1,000 mcg Dimethicone (Proshield Plus Skin Protectant) 1 applic TOP Q8 [facility] Last Admin: 04/26/18 10:07 Dose: 1 applic Divalproex Sodium (Depakote Sprinkles) 125 mg PO BID [facility] Last Admin: 04/26/18 10:07 Dose: 125 mg Donepezil HCl (Aricept) 5 mg PO HS [facility] Last Admin: 04/25/18 21:00 Dose: 5 mg Enalapril Maleate (Vasotec) 2.5 mg PO DAILY [facility] Last Admin: 04/26/18 10:09 Dose: 2.5 mg Haloperidol Lactate (Haldol) 0.5 mg IVP Q6 PRN PRN Reason: Agitation Last Admin: 04/19/18 02:28 Dose: 0.5 mg Levothyroxine Sodium (Synthroid) 75 mcg PO DAILY@0630 [facility] Last Admin: 04/26/18 06:48 Dose: 75 mcg Metoprolol Tartrate (Lopressor) 50 mg PO Q12 [facility] Last Admin: 04/26/18 10:11 Dose: 50 mg Nystatin (Nystop Topical Powder) 1 applic TOP TID [facility] Last Admin: 04/26/18 10:07 Dose: 1 applic Rivaroxaban (Xarelto) 20 mg PO QD5 [facility]; Protocol Last Admin: 04/25/18 16:56 Dose: 20 mg - Labs Labs: 04/12/18 05:30 04/12/18 05:30 PT 11.9 Seconds (9.8-13.1) 03/22/18 19:00 INR 1.0 03/22/18 19:00 APTT 29.3 Seconds (25.6-37.1) 03/22/18 19:00 - Constitutional Appears: No Acute Distress - Head Exam Head Exam: ATRAUMATIC - Eye Exam Eye Exam: absent: Scleral icterus - ENT Exam ENT Exam: Mucous Membranes Moist - Neck Exam Neck Exam: absent: Meningismus - Respiratory Exam Respiratory Exam: absent: Rales, Rhonchi, Wheezes, Respiratory Distress - Cardiovascular Exam Cardiovascular Exam: REGULAR RHYTHM, +S1, +S2 - GI/Abdominal Exam GI & Abdominal Exam: Soft. absent: Tenderness - Rectal Exam Rectal Exam: Deferred - Neurological Exam Neurological Exam: Alert, Oriented x3 - Psychiatric Exam Psychiatric exam: Normal Affect - Skin Skin Exam: Dry, Intact Assessment and Plan - Assessment and Plan (Free Text) Assessment: 83 yo female with multiple chronic medical conditions, cognitive impairment, HTN, Hypothyroidism, HLD, Anxiety and Depression was admitted on 03/23/18 because of altered mental status. Patient apparently found on the floor by neighbor. 1. Altered Mental Status patient continued to have on and off disorientation and do not have capacity to make a decision for herself awaiting for placement 2. Dementia on Aricept 3. AFib rate controlled continue Metoprolol and Xarelto 4. Hypothyroid continue Levothyroxine 5. HTN BP stable continue Metoprolol and Enalapril
[2018-04-27] MEDS: Proshield Plus GEL TOP SCH ×3 (01:19→16:20)
[2018-04-27] MEDS: Levothyroxine 75 MCG TAB PO SCH (06:13)
[2018-04-27] MEDS: Divalproex 125 mg Sprinkle Capsule PO SCH ×2 (08:57→16:19)
--- NOTE | 2018-04-27 18:58 | CP.PCM.PN ---
Subjective - Date & Time of Evaluation Date of Evaluation: 04/27/18 Time of Evaluation: 10:20 - Subjective Subjective: Patient seen and examined. Denied any complaint. Objective - Vital Signs/Intake and Output Vital Signs (last 24 hours): Temp Pulse Resp BP Pulse Ox 98.0 F 88 20 125/67 98 04/27/18 16:27 04/27/18 16:27 04/27/18 16:27 04/27/18 16:27 04/27/18 16:27 - Medications Medications: Current Medications Acetaminophen (Tylenol 325mg Tab) 650 mg PO Q6 PRN PRN Reason: Pain, Mild (1-3) Last Admin: 04/15/18 23:34 Dose: 650 mg Cyanocobalamin (Vitamin B12 1000 Mcg Tab) 1,000 mcg PO DAILY [facility] Last Admin: 04/27/18 09:00 Dose: 1,000 mcg Dimethicone (Proshield Plus Skin Protectant) 1 applic TOP Q8 [facility] Last Admin: 04/27/18 16:20 Dose: 1 applic Divalproex Sodium (Depakote Sprinkles) 125 mg PO BID [facility] Last Admin: 04/27/18 16:19 Dose: 125 mg Donepezil HCl (Aricept) 5 mg PO HS [facility] Last Admin: 04/26/18 21:00 Dose: 5 mg Enalapril Maleate (Vasotec) 2.5 mg PO DAILY [facility] Last Admin: 04/27/18 09:00 Dose: 2.5 mg Haloperidol Lactate (Haldol) 0.5 mg IVP Q6 PRN PRN Reason: Agitation Last Admin: 04/19/18 02:28 Dose: 0.5 mg Levothyroxine Sodium (Synthroid) 75 mcg PO DAILY@0630 [facility] Last Admin: 04/27/18 06:13 Dose: 75 mcg Metoprolol Tartrate (Lopressor) 50 mg PO Q12 [facility] Last Admin: 04/27/18 08:57 Dose: 50 mg Nystatin (Nystop Topical Powder) 1 applic TOP TID [facility] Last Admin: 04/27/18 16:19 Dose: 1 applic Rivaroxaban (Xarelto) 20 mg PO QD5 [facility]; Protocol Last Admin: 04/27/18 16:20 Dose: 20 mg - Labs Labs: 04/12/18 05:30 04/12/18 05:30 PT 11.9 Seconds (9.8-13.1) 03/22/18 19:00 INR 1.0 03/22/18 19:00 APTT 29.3 Seconds (25.6-37.1) 03/22/18 19:00 - Constitutional Appears: No Acute Distress - Head Exam Head Exam: ATRAUMATIC - Eye Exam Eye Exam: absent: Scleral icterus - ENT Exam ENT Exam: Mucous Membranes Moist - Neck Exam Neck Exam: absent: Meningismus - Respiratory Exam Respiratory Exam: absent: Rales, Rhonchi, Wheezes, Respiratory Distress - Cardiovascular Exam Cardiovascular Exam: REGULAR RHYTHM, +S1, +S2 - GI/Abdominal Exam GI & Abdominal Exam: Soft. absent: Tenderness - Rectal Exam Rectal Exam: Deferred - Neurological Exam Neurological Exam: Alert - Psychiatric Exam Psychiatric exam: Normal Affect - Skin Skin Exam: Dry, Intact Assessment and Plan - Assessment and Plan (Free Text) Assessment: 83 yo female with multiple chronic medical conditions, cognitive impairment, HTN, Hypothyroidism, HLD, Anxiety and Depression was admitted on 03/23/18 because of altered mental status. Patient apparently found on the floor by neighbor. 1. Altered Mental Status patient continued to have on and off disorientation and do not have capacity to make a decision for herself awaiting for placement 2. Dementia continue Aricept 3. AFib rate controlled continue Metoprolol continue Xarelto 4. Hypothyroid continue Levothyroxine 5. HTN BP controlled continue Metoprolol and Enalapril
[2018-04-28] MEDS: Proshield Plus GEL TOP SCH ×3 (01:28→16:30)
[2018-04-28] MEDS: Levothyroxine 75 MCG TAB PO SCH (06:06)
[2018-04-28] MEDS: Divalproex 125 mg Sprinkle Capsule PO SCH ×2 (08:36→16:30)
--- NOTE | 2018-04-28 14:31 | CP.PCM.PN ---
<Ian Smith - Last Filed: 04/28/18 14:31> Subjective - Date & Time of Evaluation Date of Evaluation: 04/28/18 Time of Evaluation: 08:55 - Subjective Subjective: Seen at bedside not acute distress. NO events overnight, Afebrile. NO acute changes in urination or stools. Denies CP, SOB, vomiting or nausea Objective - Vital Signs/Intake and Output Vital Signs (last 24 hours): Temp Pulse Resp BP Pulse Ox 97.8 F 62 18 152/75 H 96 04/28/18 08:20 04/28/18 08:20 04/28/18 08:20 04/28/18 08:20 04/28/18 08:20 - Medications Medications: Current Medications Acetaminophen (Tylenol 325mg Tab) 650 mg PO Q6 PRN PRN Reason: Pain, Mild (1-3) Last Admin: 04/15/18 23:34 Dose: 650 mg Cyanocobalamin (Vitamin B12 1000 Mcg Tab) 1,000 mcg PO DAILY [facility] Last Admin: 04/28/18 08:37 Dose: 1,000 mcg Dimethicone (Proshield Plus Skin Protectant) 1 applic TOP Q8 [facility] Last Admin: 04/28/18 08:35 Dose: 1 applic Divalproex Sodium (Depakote Sprinkles) 125 mg PO BID [facility] Last Admin: 04/28/18 08:36 Dose: 125 mg Donepezil HCl (Aricept) 5 mg PO HS [facility] Last Admin: 04/27/18 21:56 Dose: 5 mg Enalapril Maleate (Vasotec) 2.5 mg PO DAILY [facility] Last Admin: 04/28/18 08:37 Dose: 2.5 mg Haloperidol Lactate (Haldol) 0.5 mg IVP Q6 PRN PRN Reason: Agitation Last Admin: 04/27/18 19:30 Dose: 0.5 mg Levothyroxine Sodium (Synthroid) 75 mcg PO DAILY@0630 [facility] Last Admin: 04/28/18 06:06 Dose: 75 mcg Metoprolol Tartrate (Lopressor) 50 mg PO Q12 [facility] Last Admin: 04/28/18 08:38 Dose: 50 mg Nystatin (Nystop Topical Powder) 1 applic TOP TID [facility] Last Admin: 04/28/18 12:13 Dose: 1 applic Rivaroxaban (Xarelto) 20 mg PO QD5 [facility]; Protocol Last Admin: 04/27/18 16:20 Dose: 20 mg - Labs Labs: 04/12/18 05:30 04/12/18 05:30 PT 11.9 Seconds (9.8-13.1) 03/22/18 19:00 INR 1.0 03/22/18 19:00 APTT 29.3 Seconds (25.6-37.1) 03/22/18 19:00 - Constitutional Appears: Confused - Cardiovascular Exam Cardiovascular Exam: REGULAR RHYTHM, +S1, +S2 - GI/Abdominal Exam GI & Abdominal Exam: Soft, Normal Bowel Sounds - Extremities Exam Extremities Exam: absent: Calf Tenderness - Neurological Exam Neurological Exam: Alert, Awake. absent: Oriented x3 - Skin Skin Exam: Normal Color, Warm Assessment and Plan - Assessment and Plan (Free Text) Assessment: 83 yo female with multiple chronic medical conditions, cognitive impairment, HTN, Hypothyroidism, HLD, Anxiety and Depression was admitted on 03/23/18 because of altered mental status. Patient apparently found on the floor by neighbor. Altered Mental Status Stable, possible due to Dementia As per records patient continued to have on and off disorientation and do not have capacity to make a decision for herself awaiting for [facility] placement Dementia Severe confusion at times continue Aricept AFib rate controlled continue Metoprolol continue Xarelto Hypothyroid continue Levothyroxine HTN BP stable continue Metoprolol and Enalapril DVT prophylaxis Patient on Xarelto <Joycelyn Stewart - Last Filed: 04/28/18 16:23> Objective - Vital Signs/Intake and Output Vital Signs (last 24 hours): Temp Pulse Resp BP Pulse Ox 98.6 F 63 18 138/75 97 04/28/18 16:04 04/28/18 16:04 04/28/18 16:04 04/28/18 16:04 04/28/18 16:04 - Medications Medications: Current Medications Acetaminophen (Tylenol 325mg Tab) 650 mg PO Q6 PRN PRN Reason: Pain, Mild (1-3) Last Admin: 04/15/18 23:34 Dose: 650 mg Cyanocobalamin (Vitamin B12 1000 Mcg Tab) 1,000 mcg PO DAILY [facility] Last Admin: 04/28/18 08:37 Dose: 1,000 mcg Dimethicone (Proshield Plus Skin Protectant) 1 applic TOP Q8 [facility] Last Admin: 04/28/18 08:35 Dose: 1 applic Divalproex Sodium (Depakote Sprinkles) 125 mg PO BID [facility] Last Admin: 04/28/18 08:36 Dose: 125 mg Donepezil HCl (Aricept) 5 mg PO HS [facility] Last Admin: 04/27/18 21:56 Dose: 5 mg Enalapril Maleate (Vasotec) 2.5 mg PO DAILY [facility] Last Admin: 04/28/18 08:37 Dose: 2.5 mg Haloperidol Lactate (Haldol) 0.5 mg IVP Q6 PRN PRN Reason: Agitation Last Admin: 04/27/18 19:30 Dose: 0.5 mg Levothyroxine Sodium (Synthroid) 75 mcg PO DAILY@0630 [facility] Last Admin: 04/28/18 06:06 Dose: 75 mcg Metoprolol Tartrate (Lopressor) 50 mg PO Q12 [facility] Last Admin: 04/28/18 08:38 Dose: 50 mg Nystatin (Nystop Topical Powder) 1 applic TOP TID [facility] Last Admin: 04/28/18 12:13 Dose: 1 applic Rivaroxaban (Xarelto) 20 mg PO QD5 [facility]; Protocol Last Admin: 04/27/18 16:20 Dose: 20 mg - Labs Labs: 04/12/18 05:30 04/12/18 05:30 PT 11.9 Seconds (9.8-13.1) 03/22/18 19:00 INR 1.0 03/22/18 19:00 APTT 29.3 Seconds (25.6-37.1) 03/22/18 19:00 Attending/Attestation - Attestation I have personally seen and examined this patient.: Yes I have fully participated in the care of the patient.: Yes I have reviewed all pertinent clinical information, including history, physical exam and plan: Yes Notes (Text): 04/28/18 16:23 agree with findings and plan as above.
[2018-04-29] MEDS: Proshield Plus GEL TOP SCH ×3 (01:01→16:41)
[2018-04-29] MEDS: Levothyroxine 75 MCG TAB PO SCH (05:30)
[2018-04-29] MEDS: Divalproex 125 mg Sprinkle Capsule PO SCH ×2 (08:48→16:41)
--- NOTE | 2018-04-29 12:44 | CP.PCM.PN ---
Subjective - Date & Time of Evaluation Date of Evaluation: 04/29/18 Time of Evaluation: 08:30 - Subjective Subjective: Patient seen and examined at bedside. Sitting eating breakfast, in no acute distress. Denies chest pain, SOB, weakness or dizziness. Not oriented to place or time. Objective - Vital Signs/Intake and Output Vital Signs (last 24 hours): Temp Pulse Resp BP Pulse Ox 98.2 F 62 19 127/62 96 04/29/18 08:47 04/29/18 08:48 04/29/18 08:47 04/29/18 08:48 04/29/18 08:47 - Medications Medications: Current Medications Acetaminophen (Tylenol 325mg Tab) 650 mg PO Q6 PRN PRN Reason: Pain, Mild (1-3) Last Admin: 04/15/18 23:34 Dose: 650 mg Cyanocobalamin (Vitamin B12 1000 Mcg Tab) 1,000 mcg PO DAILY [facility] Last Admin: 04/29/18 08:49 Dose: 1,000 mcg Dimethicone (Proshield Plus Skin Protectant) 1 applic TOP Q8 [facility] Last Admin: 04/29/18 08:49 Dose: 1 applic Divalproex Sodium (Depakote Sprinkles) 125 mg PO BID [facility] Last Admin: 04/29/18 08:48 Dose: 125 mg Donepezil HCl (Aricept) 5 mg PO HS [facility] Last Admin: 04/28/18 21:15 Dose: 5 mg Enalapril Maleate (Vasotec) 2.5 mg PO DAILY [facility] Last Admin: 04/29/18 08:49 Dose: 2.5 mg Haloperidol Lactate (Haldol) 0.5 mg IVP Q6 PRN PRN Reason: Agitation Last Admin: 04/29/18 04:54 Dose: 0.5 mg Levothyroxine Sodium (Synthroid) 75 mcg PO DAILY@0630 [facility] Last Admin: 04/29/18 05:30 Dose: 75 mcg Metoprolol Tartrate (Lopressor) 50 mg PO Q12 [facility] Last Admin: 04/29/18 08:48 Dose: 50 mg Nystatin (Nystop Topical Powder) 1 applic TOP TID [facility] Last Admin: 04/29/18 12:26 Dose: 1 applic Rivaroxaban (Xarelto) 20 mg PO QD5 [facility]; Protocol Last Admin: 12/31/18 16:31 Dose: 20 mg - Labs Labs: 04/12/18 05:30 04/12/18 05:30 PT 11.9 Seconds (9.8-13.1) 03/22/18 19:00 INR 1.0 03/22/18 19:00 APTT 29.3 Seconds (25.6-37.1) 03/22/18 19:00 - Constitutional Appears: No Acute Distress - Head Exam Head Exam: ATRAUMATIC, NORMOCEPHALIC - Eye Exam Eye Exam: EOMI - ENT Exam ENT Exam: Mucous Membranes Moist - Neck Exam Neck Exam: Full ROM. absent: Lymphadenopathy - Respiratory Exam Respiratory Exam: NORMAL BREATHING PATTERN. absent: Rhonchi, Wheezes - Cardiovascular Exam Cardiovascular Exam: +S1, +S2. absent: Gallop - GI/Abdominal Exam GI & Abdominal Exam: Soft, Normal Bowel Sounds (obese). absent: Tenderness - Extremities Exam Extremities Exam: Full ROM. absent: Calf Tenderness, Pedal Edema - Neurological Exam Neurological Exam: Alert, Awake. absent: Oriented x3 - Psychiatric Exam Psychiatric exam: Normal Affect, Normal Mood - Skin Skin Exam: Dry, Intact Assessment and Plan - Assessment and Plan (Free Text) Assessment: 83 yr old F admitted on 03/23/18 d/t altered mental status with PMHx including cognitive impairment, HTN, Hypothyroidism, HLD, Anxiety and Depression was P atient continues to have intermittent episodes of disorientation and confusion, does not have decision making capacity. 1. Altered Mental Status -Stable, possibly due to Dementia -As per records patient continued to have on and off disorientation and do not have capacity to make a decision for herself -awaiting for [facility] placement 2. Dementia -Chronic, Severe -continue Aricept 5mg PO QHS 3. Afib -chronic, rate controlled -continue Metoprolol tartrate 50mg PO Q12 -continue Xarelto 20mg PO QD5 -monitor HR 4. Hypothyroid -chronic, controlled -continue Levothyroxine 75 mcg PO QD 5. HTN -chronic, stable -continue Metoprolol tartrate 50mg PO Q12 and Enalapril 2.5 mg PO QD 6. DVT prophylaxis -Patient is on Xarelto
[2018-04-30] MEDS: Proshield Plus GEL TOP SCH ×3 (01:29→17:33)
[2018-04-30] MEDS: Levothyroxine 75 MCG TAB PO SCH (05:45)
[2018-04-30] MEDS: Divalproex 125 mg Sprinkle Capsule PO SCH ×2 (08:34→17:32)
--- NOTE | 2018-04-30 17:06 | CP.PCM.PN ---
Subjective - Date & Time of Evaluation Date of Evaluation: 04/30/18 Time of Evaluation: 12:00 - Subjective Subjective: Patient was seen bedside . Awake , alert cooperative . Denies any pain or discomfort . Hemodynamically stable, afebrile. No acute issues overnight Objective - Vital Signs/Intake and Output Vital Signs (last 24 hours): Temp Pulse Resp BP Pulse Ox 97.8 F 56 L 18 112/66 97 04/30/18 16:43 04/30/18 16:43 04/30/18 16:43 04/30/18 16:43 04/30/18 16:43 - Medications Medications: Current Medications Acetaminophen (Tylenol 325mg Tab) 650 mg PO Q6 PRN PRN Reason: Pain, Mild (1-3) Last Admin: 04/15/18 23:34 Dose: 650 mg Cyanocobalamin (Vitamin B12 1000 Mcg Tab) 1,000 mcg PO DAILY [facility] Last Admin: 04/30/18 08:35 Dose: 1,000 mcg Dimethicone (Proshield Plus Skin Protectant) 1 applic TOP Q8 [facility] Last Admin: 04/30/18 08:35 Dose: 1 applic Divalproex Sodium (Depakote Sprinkles) 125 mg PO BID [facility] Last Admin: 04/30/18 08:34 Dose: 125 mg Donepezil HCl (Aricept) 5 mg PO HS [facility] Last Admin: 04/29/18 21:19 Dose: 5 mg Enalapril Maleate (Vasotec) 2.5 mg PO DAILY [facility] Last Admin: 04/30/18 08:35 Dose: 2.5 mg Haloperidol Lactate (Haldol) 0.5 mg IVP Q6 PRN PRN Reason: Agitation Last Admin: 04/29/18 04:54 Dose: 0.5 mg Levothyroxine Sodium (Synthroid) 75 mcg PO DAILY@0630 [facility] Last Admin: 04/30/18 05:45 Dose: 75 mcg Metoprolol Tartrate (Lopressor) 50 mg PO Q12 [facility] Last Admin: 04/30/18 08:34 Dose: 50 mg Nystatin (Nystop Topical Powder) 1 applic TOP TID [facility] Last Admin: 04/30/18 15:18 Dose: 1 applic Rivaroxaban (Xarelto) 20 mg PO QD5 [facility]; Protocol Last Admin: 04/29/18 16:41 Dose: 20 mg - Labs Labs: 12/15/18 05:30 04/12/18 05:30 PT 11.9 Seconds (9.8-13.1) 03/22/18 19:00 INR 1.0 03/22/18 19:00 APTT 29.3 Seconds (25.6-37.1) 03/22/18 19:00 - Constitutional Appears: Non-toxic, No Acute Distress - Head Exam Head Exam: ATRAUMATIC, NORMAL INSPECTION, NORMOCEPHALIC - Eye Exam Eye Exam: EOMI, PERRL Pupil Exam: NORMAL ACCOMODATION - ENT Exam ENT Exam: Mucous Membranes Moist, Normal Exam - Neck Exam Neck Exam: Normal Inspection - Respiratory Exam Respiratory Exam: Clear to Ausculation Bilateral. absent: Rhonchi, Wheezes, NORMAL BREATHING PATTERN - Cardiovascular Exam Cardiovascular Exam: REGULAR RHYTHM, +S1, +S2. absent: JVD - GI/Abdominal Exam GI & Abdominal Exam: Soft, Normal Bowel Sounds. absent: Distended, Guarding, Tenderness, Rebound - Rectal Exam Rectal Exam: Deferred - Extremities Exam Extremities Exam: Full ROM, Normal Capillary Refill, Normal Inspection. absent: Pedal Edema - Back Exam Back Exam: NORMAL INSPECTION - Neurological Exam Neurological Exam: Alert, Awake - Skin Skin Exam: Dry, Warm Assessment and Plan - Assessment and Plan (Free Text) Assessment: 83 y/o female with PMH dementia, HTN , afib was admitted with AMS and confusion.At present patient is awake , alert , calm , cooperative , denies any pain . Waiting for NH placement since patient has no capacity to make decisions Continue same management 1.Dementia -- Continue Depakote ( mood stabilizer ) and Aricept for dementia. w aiting for NH placement 2.Afib - rate controlled.On Metoprolol for rate control and Xeralto for stromke prevention 3.HTN - controlled on Enalapril and metoprolol 4.Hypothyroidism - on synthroid 5.Vitamin B12 deficiency - on vitamin B12
[2018-05-01] MEDS: Levothyroxine 75 MCG TAB PO SCH (05:49)
[2018-05-01] MEDS: Divalproex 125 mg Sprinkle Capsule PO SCH ×2 (08:32→16:13)
[2018-05-01] MEDS: Proshield Plus GEL TOP SCH ×3 (08:38→16:14)
--- NOTE | 2018-05-01 13:30 | CP.PCM.PN ---
Subjective - Date & Time of Evaluation Date of Evaluation: 05/01/18 Time of Evaluation: 11:00 - Subjective Subjective: F/U AMS no AD, N/C , cooperative, confused Objective - Vital Signs/Intake and Output Vital Signs (last 24 hours): Temp Pulse Resp BP Pulse Ox 98.1 F 57 L 18 148/80 94 L 05/01/18 09:00 05/01/18 09:00 05/01/18 09:00 05/01/18 09:00 05/01/18 09:00 - Medications Medications: Current Medications Acetaminophen (Tylenol 325mg Tab) 650 mg PO Q6 PRN PRN Reason: Pain, Mild (1-3) Last Admin: 04/15/18 23:34 Dose: 650 mg Cyanocobalamin (Vitamin B12 1000 Mcg Tab) 1,000 mcg PO DAILY [facility] Last Admin: 05/01/18 08:38 Dose: 1,000 mcg Dimethicone (Proshield Plus Skin Protectant) 1 applic TOP Q8 [facility] Last Admin: 05/01/18 10:11 Dose: 1 applic Divalproex Sodium (Depakote Sprinkles) 125 mg PO BID [facility] Last Admin: 05/01/18 08:32 Dose: 125 mg Donepezil HCl (Aricept) 5 mg PO HS [facility] Last Admin: 04/29/18 21:19 Dose: 5 mg Enalapril Maleate (Vasotec) 2.5 mg PO DAILY [facility] Last Admin: 05/01/18 10:12 Dose: 2.5 mg Haloperidol Lactate (Haldol) 0.5 mg IVP Q6 PRN PRN Reason: Agitation Last Admin: 04/29/18 04:54 Dose: 0.5 mg Levothyroxine Sodium (Synthroid) 75 mcg PO DAILY@0630 [facility] Last Admin: 05/01/18 05:49 Dose: 75 mcg Metoprolol Tartrate (Lopressor) 50 mg PO Q12 [facility] Last Admin: 05/01/18 10:11 Dose: 50 mg Nystatin (Nystop Topical Powder) 1 applic TOP TID [facility] Last Admin: 05/01/18 12:08 Dose: 1 applic Rivaroxaban (Xarelto) 20 mg PO QD5 [facility]; Protocol Last Admin: 04/30/18 17:32 Dose: 20 mg - Labs Labs: 04/12/18 05:30 04/12/18 05:30 PT 11.9 Seconds (9.8-13.1) 03/22/18 19:00 INR 1.0 03/22/18 19:00 APTT 29.3 Seconds (25.6-37.1) 03/22/18 19:00 - Constitutional Appears: No Acute Distress - Head Exam Head Exam: NORMAL INSPECTION - Eye Exam Eye Exam: PERRL - ENT Exam ENT Exam: Normal Exam - Neck Exam Neck Exam: Normal Inspection - Respiratory Exam Respiratory Exam: Clear to Ausculation Bilateral - Cardiovascular Exam Cardiovascular Exam: REGULAR RHYTHM - GI/Abdominal Exam GI & Abdominal Exam: Soft, Normal Bowel Sounds - Extremities Exam Extremities Exam: Normal Inspection - Back Exam Additional comments: left buttocks wounds both closed - Neurological Exam Neurological Exam: Awake Additional comments: Confused, no motor deficit. - Psychiatric Exam Additional comments: Calm, confused, no focal motor/sensory deficit - Skin Skin Exam: Warm Assessment and Plan (1) Rhabdomyolysis Status: Resolved (2) Status post fall Status: Acute (3) UTI (urinary tract infection) Status: Acute (4) Change in mental status Status: Acute (5) HTN (hypertension) Status: Chronic (6) Dementia Status: Chronic (7) Urinary retention Status: Acute (8) Hypothyroidism Status: Chronic (9) Deep tissue injury Status: Acute (10) CHF (congestive heart failure) Status: Resolved (11) Pulmonary nodule Status: Chronic (12) New onset atrial fibrillation Status: Resolved (13) Sacral pressure ulcer Status: Acute - Assessment and Plan (Free Text) Plan: continue current medication, Legal Guardian for Custodial placement
[2018-05-02] MEDS: Proshield Plus GEL TOP SCH ×3 (01:00→16:31)
[2018-05-02] MEDS: Levothyroxine 75 MCG TAB PO SCH (06:45)
[2018-05-02] MEDS: Divalproex 125 mg Sprinkle Capsule PO SCH ×2 (10:20→16:30)
--- NOTE | 2018-05-02 10:56 | CP.PCM.PN ---
Subjective - Date & Time of Evaluation Date of Evaluation: 05/02/18 Time of Evaluation: 10:40 - Subjective Subjective: confused, No AD, N/C Objective - Vital Signs/Intake and Output Vital Signs (last 24 hours): Temp Pulse Resp BP Pulse Ox 97.8 F 58 L 20 161/71 H 98 05/02/18 08:17 05/02/18 10:24 05/02/18 08:17 05/02/18 10:24 05/02/18 08:17 - Medications Medications: Current Medications Acetaminophen (Tylenol 325mg Tab) 650 mg PO Q6 PRN PRN Reason: Pain, Mild (1-3) Last Admin: 04/15/18 23:34 Dose: 650 mg Cyanocobalamin (Vitamin B12 1000 Mcg Tab) 1,000 mcg PO DAILY [facility] Last Admin: 05/02/18 10:23 Dose: 1,000 mcg Dimethicone (Proshield Plus Skin Protectant) 1 applic TOP Q8 [facility] Last Admin: 05/02/18 10:26 Dose: 1 applic Divalproex Sodium (Depakote Sprinkles) 125 mg PO BID [facility] Last Admin: 05/02/18 10:20 Dose: 125 mg Donepezil HCl (Aricept) 5 mg PO HS [facility] Last Admin: 05/01/18 21:11 Dose: 5 mg Enalapril Maleate (Vasotec) 2.5 mg PO DAILY [facility] Last Admin: 05/02/18 10:23 Dose: 2.5 mg Haloperidol Lactate (Haldol) 0.5 mg IVP Q6 PRN PRN Reason: Agitation Last Admin: 04/29/18 04:54 Dose: 0.5 mg Levothyroxine Sodium (Synthroid) 75 mcg PO DAILY@0630 [facility] Last Admin: 05/02/18 06:45 Dose: 75 mcg Metoprolol Tartrate (Lopressor) 50 mg PO Q12 [facility] Last Admin: 05/02/18 10:24 Dose: 50 mg Nystatin (Nystop Topical Powder) 1 applic TOP TID [facility] Last Admin: 05/02/18 10:26 Dose: 1 applic Rivaroxaban (Xarelto) 20 mg PO QD5 [facility]; Protocol Last Admin: 05/01/18 16:14 Dose: 20 mg - Labs Labs: 04/12/18 05:30 12/15/18 05:30 PT 11.9 Seconds (9.8-13.1) 03/22/18 19:00 INR 1.0 03/22/18 19:00 APTT 29.3 Seconds (25.6-37.1) 03/22/18 19:00 - Constitutional Appears: No Acute Distress - Head Exam Head Exam: NORMAL INSPECTION - Eye Exam Eye Exam: PERRL - ENT Exam ENT Exam: Normal Exam - Neck Exam Neck Exam: Normal Inspection - Respiratory Exam Respiratory Exam: Clear to Ausculation Bilateral - Cardiovascular Exam Cardiovascular Exam: REGULAR RHYTHM - GI/Abdominal Exam GI & Abdominal Exam: Soft, Normal Bowel Sounds - Back Exam Back Exam: NORMAL INSPECTION Additional comments: left buttocks wounds both closed - Neurological Exam Neurological Exam: Awake, CN II-XII Intact. absent: Motor Sensory Deficit Additional comments: calm, confused - Psychiatric Exam Additional comments: confused - Skin Skin Exam: Warm Assessment and Plan (1) Rhabdomyolysis Status: Resolved (2) Status post fall Status: Acute (3) UTI (urinary tract infection) Status: Acute (4) Change in mental status Status: Acute (5) HTN (hypertension) Status: Chronic (6) Dementia Status: Chronic (7) Urinary retention Status: Acute (8) Hypothyroidism Status: Chronic (9) Deep tissue injury Status: Acute (10) CHF (congestive heart failure) Status: Resolved (11) Pulmonary nodule Status: Chronic (12) New onset atrial fibrillation Status: Resolved (13) Sacral pressure ulcer Status: Acute - Assessment and Plan (Free Text) Plan: continue Aricept, Depakote,lopressor, Vasotec and rest of Tx, Legal Guardianship for Intermediate placement
[2018-05-03] MEDS: Proshield Plus GEL TOP SCH ×4 (01:06→17:42)
[2018-05-03] MEDS: Levothyroxine 75 MCG TAB PO SCH (06:07)
[2018-05-03 06:50] LABS: BASO # 0.1 K/uL (0.0-0.2); BASO % 0.9 % (0.0-2.0); EOS # 0.1 K/uL (0.0-0.7); HEMOGLOBIN 12.4 g/dL (12.0-16.0); LYMPH # 2.2 K/uL (1.0-4.3); LYMPH % 34.6 % (20.0-40.0); MEAN CELL VOLUME 93.1 fl (81.0-99.0); MEAN CORPUSCULAR HEMOGLOBIN 30.5 pg (27.0-31.0); MEAN CORPUSCULAR HGB CONC 32.7 g/dL (33.0-37.0); MEAN PLATELET VOLUME 10.3 fl (7.2-11.7); MONO # 0.7 K/uL (0.0-0.8); NEUT # 3.3 K/uL (1.8-7.0); NEUT % 51.5 % (50.0-75.0); NRBC % 0.2 % (0.0-0.0); RBC 4.07 Mil/uL (3.80-5.20); RED CELL DISTRIBUTION WIDTH 14.4 % (11.5-14.5); WHITE BLOOD COUNT 6.3 K/uL (4.8-10.8)
[2018-05-03 07:05] LABS: ALB/GLOB RATIO 1.1 (1.0-2.1); ALBUMIN 3.5 g/dL (3.5-5.0); ALT/SGPT 27 U/L (9-52); AST/SGOT 26 U/L (14-36); BLOOD UREA NITROGEN 29 mg/dl (7-17); GFR NON-AFRICAN AMERICAN > 60
[2018-05-03] MEDS: Divalproex 125 mg Sprinkle Capsule PO SCH ×2 (10:47→17:40)
--- NOTE | 2018-05-03 14:52 | CP.PCM.PN ---
Subjective - Date & Time of Evaluation Date of Evaluation: 05/03/18 Time of Evaluation: 11:30 - Subjective Subjective: awake, no AD, confused Objective - Vital Signs/Intake and Output Vital Signs (last 24 hours): Temp Pulse Resp BP Pulse Ox 97.8 F 64 20 154/68 H 97 05/03/18 09:00 05/03/18 10:51 05/03/18 09:00 05/03/18 10:51 05/03/18 09:00 - Medications Medications: Current Medications Acetaminophen (Tylenol 325mg Tab) 650 mg PO Q6 PRN PRN Reason: Pain, Mild (1-3) Last Admin: 04/15/18 23:34 Dose: 650 mg Cyanocobalamin (Vitamin B12 1000 Mcg Tab) 1,000 mcg PO DAILY [facility] Last Admin: 05/03/18 10:48 Dose: 1,000 mcg Dimethicone (Proshield Plus Skin Protectant) 1 applic TOP Q8 [facility] Last Admin: 05/03/18 10:49 Dose: 1 applic Divalproex Sodium (Depakote Sprinkles) 125 mg PO BID [facility] Last Admin: 05/03/18 10:47 Dose: 125 mg Donepezil HCl (Aricept) 5 mg PO HS [facility] Last Admin: 05/02/18 21:44 Dose: 5 mg Enalapril Maleate (Vasotec) 2.5 mg PO DAILY [facility] Last Admin: 05/03/18 10:48 Dose: 2.5 mg Haloperidol Lactate (Haldol) 0.5 mg IVP Q6 PRN PRN Reason: Agitation Last Admin: 04/29/18 04:54 Dose: 0.5 mg Levothyroxine Sodium (Synthroid) 75 mcg PO DAILY@0630 [facility] Last Admin: 05/03/18 06:07 Dose: 75 mcg Metoprolol Tartrate (Lopressor) 50 mg PO Q12 [facility] Last Admin: 05/03/18 10:51 Dose: 50 mg Rivaroxaban (Xarelto) 20 mg PO QD5 [facility]; Protocol Last Admin: 05/02/18 16:30 Dose: 20 mg - Labs Labs: 05/03/18 05:45 05/03/18 05:45 PT 11.9 Seconds (9.8-13.1) 03/22/18 19:00 INR 1.0 03/22/18 19:00 APTT 29.3 Seconds (25.6-37.1) 03/22/18 19:00 - Constitutional Appears: No Acute Distress - Head Exam Head Exam: NORMAL INSPECTION - Eye Exam Eye Exam: PERRL - ENT Exam ENT Exam: Normal Exam - Neck Exam Neck Exam: Normal Inspection - Respiratory Exam Respiratory Exam: NORMAL BREATHING PATTERN - Cardiovascular Exam Cardiovascular Exam: REGULAR RHYTHM - GI/Abdominal Exam GI & Abdominal Exam: Soft, Normal Bowel Sounds - Extremities Exam Extremities Exam: Normal Inspection - Back Exam Additional comments: Left buttock wounds both closed - Neurological Exam Neurological Exam: Alert, CN II-XII Intact Additional comments: confused, no focal motor/sensory deficit - Psychiatric Exam Psychiatric exam: Normal Mood - Skin Skin Exam: Warm Assessment and Plan (1) Rhabdomyolysis Status: Resolved (2) Status post fall Status: Acute (3) UTI (urinary tract infection) Status: Acute (4) Change in mental status Status: Acute (5) HTN (hypertension) Status: Chronic (6) Dementia Status: Chronic (7) Urinary retention Status: Acute (8) Hypothyroidism Status: Chronic (9) Deep tissue injury Status: Acute (10) CHF (congestive heart failure) Status: Resolved (11) Pulmonary nodule Status: Chronic (12) New onset atrial fibrillation Status: Resolved (13) Sacral pressure ulcer Status: Acute - Assessment and Plan (Free Text) Plan: continue current medications, Legal Guardianship for Group Home placement
[2018-05-04] MEDS: Proshield Plus GEL TOP SCH ×3 (01:00→16:10)
[2018-05-04] MEDS: Levothyroxine 75 MCG TAB PO SCH (06:35)
[2018-05-04] MEDS: Divalproex 125 mg Sprinkle Capsule PO SCH ×2 (09:22→16:09)
--- NOTE | 2018-05-04 15:43 | CP.PCM.PN ---
Subjective - Date & Time of Evaluation Date of Evaluation: 05/04/18 Time of Evaluation: 13:40 - Subjective Subjective: F/U AMS no AD, N/C, confused Objective - Vital Signs/Intake and Output Vital Signs (last 24 hours): Temp Pulse Resp BP Pulse Ox 97.0 F L 67 20 162/84 H 95 05/04/18 08:33 05/04/18 08:33 05/04/18 08:33 05/04/18 09:26 05/04/18 08:33 - Medications Medications: Current Medications Acetaminophen (Tylenol 325mg Tab) 650 mg PO Q6 PRN PRN Reason: Pain, Mild (1-3) Last Admin: 04/15/18 23:34 Dose: 650 mg Cyanocobalamin (Vitamin B12 1000 Mcg Tab) 1,000 mcg PO DAILY [facility] Last Admin: 05/04/18 09:24 Dose: 1,000 mcg Dimethicone (Proshield Plus Skin Protectant) 1 applic TOP Q8 [facility] Last Admin: 05/04/18 09:22 Dose: 1 applic Divalproex Sodium (Depakote Sprinkles) 125 mg PO BID [facility] Last Admin: 05/04/18 09:22 Dose: 125 mg Donepezil HCl (Aricept) 5 mg PO HS [facility] Last Admin: 05/03/18 21:42 Dose: 5 mg Enalapril Maleate (Vasotec) 2.5 mg PO DAILY [facility] Last Admin: 05/04/18 09:23 Dose: 2.5 mg Haloperidol Lactate (Haldol) 0.5 mg IVP Q6 PRN PRN Reason: Agitation Last Admin: 04/29/18 04:54 Dose: 0.5 mg Levothyroxine Sodium (Synthroid) 75 mcg PO DAILY@0630 [facility] Last Admin: 05/04/18 06:35 Dose: 75 mcg Metoprolol Tartrate (Lopressor) 50 mg PO Q12 [facility] Last Admin: 05/04/18 09:26 Dose: 50 mg Rivaroxaban (Xarelto) 20 mg PO QD5 [facility]; Protocol Last Admin: 05/03/18 17:41 Dose: 20 mg - Labs Labs: 05/03/18 05:45 05/03/18 05:45 PT 11.9 Seconds (9.8-13.1) 03/22/18 19:00 INR 1.0 03/22/18 19:00 APTT 29.3 Seconds (25.6-37.1) 03/22/18 19:00 - Constitutional Appears: No Acute Distress - Head Exam Head Exam: NORMAL INSPECTION - Eye Exam Eye Exam: PERRL - ENT Exam ENT Exam: Normal Exam - Neck Exam Neck Exam: Normal Inspection - Respiratory Exam Respiratory Exam: NORMAL BREATHING PATTERN - Cardiovascular Exam Cardiovascular Exam: REGULAR RHYTHM - GI/Abdominal Exam GI & Abdominal Exam: Soft, Normal Bowel Sounds - Extremities Exam Extremities Exam: Normal Inspection - Back Exam Additional comments: L buttock wounds, closed - Neurological Exam Neurological Exam: Alert, CN II-XII Intact Additional comments: Confused, no focal motor/sensory deficit. - Psychiatric Exam Psychiatric exam: Normal Mood - Skin Skin Exam: Warm Assessment and Plan (1) Rhabdomyolysis Status: Resolved (2) Status post fall Status: Acute (3) UTI (urinary tract infection) Status: Acute (4) Change in mental status Status: Acute (5) HTN (hypertension) Status: Chronic (6) Dementia Status: Chronic (7) Urinary retention Status: Acute (8) Hypothyroidism Status: Chronic (9) Deep tissue injury Status: Acute (10) CHF (congestive heart failure) Status: Resolved (11) Pulmonary nodule Status: Chronic (12) New onset atrial fibrillation Status: Resolved (13) Sacral pressure ulcer Status: Acute - Assessment and Plan (Free Text) Plan: continue current Tx, Legal Guardianship for Detention placement
[2018-05-05] MEDS: Proshield Plus GEL TOP SCH ×3 (01:00→16:10)
[2018-05-05] MEDS: Levothyroxine 75 MCG TAB PO SCH (05:55)
[2018-05-05] MEDS: Divalproex 125 mg Sprinkle Capsule PO SCH ×2 (08:55→16:10)
--- NOTE | 2018-05-05 16:03 | CP.PCM.PN ---
Subjective - Date & Time of Evaluation Date of Evaluation: 05/05/18 Time of Evaluation: 10:20 - Subjective Subjective: F/U AMS no AD, N/C Objective - Vital Signs/Intake and Output Vital Signs (last 24 hours): Temp Pulse Resp BP Pulse Ox 97.8 F 76 20 128/71 97 05/05/18 08:27 05/05/18 08:59 05/05/18 08:27 05/05/18 08:59 05/05/18 08:27 - Medications Medications: Current Medications Acetaminophen (Tylenol 325mg Tab) 650 mg PO Q6 PRN PRN Reason: Pain, Mild (1-3) Last Admin: 04/15/18 23:34 Dose: 650 mg Cyanocobalamin (Vitamin B12 1000 Mcg Tab) 1,000 mcg PO DAILY [facility] Last Admin: 05/05/18 08:56 Dose: 1,000 mcg Dimethicone (Proshield Plus Skin Protectant) 1 applic TOP Q8 [facility] Last Admin: 05/05/18 08:55 Dose: 1 applic Divalproex Sodium (Depakote Sprinkles) 125 mg PO BID [facility] Last Admin: 05/05/18 08:55 Dose: 125 mg Donepezil HCl (Aricept) 5 mg PO HS [facility] Last Admin: 05/04/18 21:47 Dose: 5 mg Enalapril Maleate (Vasotec) 2.5 mg PO DAILY [facility] Last Admin: 05/05/18 08:56 Dose: 2.5 mg Haloperidol Lactate (Haldol) 0.5 mg IVP Q6 PRN PRN Reason: Agitation Last Admin: 04/29/18 04:54 Dose: 0.5 mg Levothyroxine Sodium (Synthroid) 75 mcg PO DAILY@0630 [facility] Last Admin: 05/05/18 05:55 Dose: 75 mcg Metoprolol Tartrate (Lopressor) 50 mg PO Q12 [facility] Last Admin: 05/05/18 08:59 Dose: 50 mg Rivaroxaban (Xarelto) 20 mg PO QD5 [facility]; Protocol - Labs Labs: 05/03/18 05:45 05/03/18 05:45 PT 11.9 Seconds (9.8-13.1) 03/22/18 19:00 INR 1.0 03/22/18 19:00 APTT 29.3 Seconds (25.6-37.1) 03/22/18 19:00 - Constitutional Appears: No Acute Distress - Head Exam Head Exam: NORMAL INSPECTION - Eye Exam Eye Exam: PERRL - ENT Exam ENT Exam: Normal Exam - Neck Exam Neck Exam: Normal Inspection - Respiratory Exam Respiratory Exam: NORMAL BREATHING PATTERN - Cardiovascular Exam Cardiovascular Exam: REGULAR RHYTHM - GI/Abdominal Exam GI & Abdominal Exam: Soft, Normal Bowel Sounds - Extremities Exam Extremities Exam: Normal Inspection - Back Exam Additional comments: Left buttock wounds, closed - Neurological Exam Neurological Exam: Alert, CN II-XII Intact Additional comments: Confused, no focal motor/sensory deficit. - Psychiatric Exam Psychiatric exam: Normal Mood - Skin Skin Exam: Warm Assessment and Plan (1) Rhabdomyolysis Status: Resolved (2) Status post fall Status: Acute (3) UTI (urinary tract infection) Status: Acute (4) Change in mental status Status: Acute (5) HTN (hypertension) Status: Chronic (6) Dementia Status: Chronic (7) Urinary retention Status: Acute (8) Hypothyroidism Status: Chronic (9) Deep tissue injury Status: Acute (10) CHF (congestive heart failure) Status: Resolved (11) Pulmonary nodule Status: Chronic (12) New onset atrial fibrillation Status: Resolved (13) Sacral pressure ulcer Status: Acute - Assessment and Plan (Free Text) Plan: continue Aricept, Lopressor, Xarelto and rest of Tx, Legal Guardainship for [facility] placement, a Patient's female friend states She can live with Patient and take care of her 24/7, and avoid Senior Care placement, She will get in touch with Social Service.
[2018-05-06] MEDS: Proshield Plus GEL TOP SCH ×3 (01:51→16:41)
[2018-05-06] MEDS: Levothyroxine 75 MCG TAB PO SCH ×2 (05:36→06:01)
[2018-05-06] MEDS: Divalproex 125 mg Sprinkle Capsule PO SCH ×2 (08:46→16:41)
--- NOTE | 2018-05-06 14:36 | CP.PCM.PN ---
Subjective - Date & Time of Evaluation Date of Evaluation: 05/06/18 Time of Evaluation: 13:20 - Subjective Subjective: F/U AMS no AD, N/C, confused Objective - Vital Signs/Intake and Output Vital Signs (last 24 hours): Temp Pulse Resp BP Pulse Ox 97.8 F 70 20 111/84 96 05/06/18 08:33 05/06/18 08:47 05/06/18 08:33 05/06/18 08:47 05/06/18 08:33 - Medications Medications: Current Medications Acetaminophen (Tylenol 325mg Tab) 650 mg PO Q6 PRN PRN Reason: Pain, Mild (1-3) Last Admin: 04/15/18 23:34 Dose: 650 mg Cyanocobalamin (Vitamin B12 1000 Mcg Tab) 1,000 mcg PO DAILY [facility] Last Admin: 05/06/18 08:48 Dose: 1,000 mcg Dimethicone (Proshield Plus Skin Protectant) 1 applic TOP Q8 [facility] Last Admin: 05/06/18 08:49 Dose: 1 applic Divalproex Sodium (Depakote Sprinkles) 125 mg PO BID [facility] Last Admin: 05/06/18 08:46 Dose: 125 mg Donepezil HCl (Aricept) 5 mg PO HS [facility] Last Admin: 05/05/18 21:09 Dose: 5 mg Enalapril Maleate (Vasotec) 2.5 mg PO DAILY [facility] Last Admin: 05/06/18 08:48 Dose: 2.5 mg Haloperidol Lactate (Haldol) 0.5 mg IVP Q6 PRN PRN Reason: Agitation Last Admin: 04/29/18 04:54 Dose: 0.5 mg Levothyroxine Sodium (Synthroid) 75 mcg PO DAILY@0630 [facility] Last Admin: 05/06/18 06:01 Dose: 75 mcg Metoprolol Tartrate (Lopressor) 50 mg PO Q12 [facility] Last Admin: 05/06/18 08:47 Dose: 50 mg Rivaroxaban (Xarelto) 20 mg PO QD5 [facility]; Protocol Last Admin: 05/05/18 16:10 Dose: 20 mg - Labs Labs: 05/03/18 05:45 05/03/18 05:45 PT 11.9 Seconds (9.8-13.1) 03/22/18 19:00 INR 1.0 03/22/18 19:00 APTT 29.3 Seconds (25.6-37.1) 03/22/18 19:00 - Constitutional Appears: No Acute Distress - Head Exam Head Exam: NORMAL INSPECTION - Eye Exam Eye Exam: PERRL - ENT Exam ENT Exam: Normal Exam - Neck Exam Neck Exam: Normal Inspection - Respiratory Exam Respiratory Exam: NORMAL BREATHING PATTERN - Cardiovascular Exam Cardiovascular Exam: REGULAR RHYTHM - GI/Abdominal Exam GI & Abdominal Exam: Soft, Normal Bowel Sounds - Extremities Exam Extremities Exam: Normal Inspection - Back Exam Additional comments: L buttock with closed wounds. - Neurological Exam Neurological Exam: Alert, CN II-XII Intact Additional comments: Confused, no focal motor/sensory deficit. - Psychiatric Exam Psychiatric exam: Normal Mood - Skin Skin Exam: Warm Assessment and Plan (1) Rhabdomyolysis Status: Resolved (2) Status post fall Status: Acute (3) UTI (urinary tract infection) Status: Acute (4) Change in mental status Status: Acute (5) HTN (hypertension) Status: Chronic (6) Dementia Status: Chronic (7) Urinary retention Status: Acute (8) Hypothyroidism Status: Chronic (9) Deep tissue injury Status: Acute (10) CHF (congestive heart failure) Status: Resolved (11) Pulmonary nodule Status: Chronic (12) New onset atrial fibrillation Status: Resolved (13) Sacral pressure ulcer Status: Acute - Assessment and Plan (Free Text) Plan: continue current Tx, Legal Guardianship, Patient's friend offered to take care of her t home 19/11
[2018-05-07] MEDS: Proshield Plus GEL TOP SCH ×3 (01:30→16:37)
[2018-05-07] MEDS: Levothyroxine 75 MCG TAB PO SCH (05:36)
[2018-05-07] MEDS: Divalproex 125 mg Sprinkle Capsule PO SCH ×2 (09:59→16:37)
[2018-05-07 12:35] LABS: SQUAMOUS EPITHIAL 1 /hpf (0-5); URINE BILIRUBIN NEGATIVE (NEGATIVE); URINE BLOOD SMALL (NEGATIVE); URINE CLARITY SLIGHTY-CLOUDY (Clear); URINE COLOR YELLOW (YELLOW); URINE GLUCOSE (UA) NEG (NEGATIVE); URINE LEUKOCYTE ESTERASE NEG Leu/uL (Negative); URINE PROTEIN NEGATIVE (NEGATIVE); URINE UROBILINOGEN 0.2-1.0 mg/dL (0.2-1.0)
--- NOTE | 2018-05-07 16:14 | CP.PCM.PN ---
Subjective - Date & Time of Evaluation Date of Evaluation: 05/07/18 Time of Evaluation: 11:20 - Subjective Subjective: F/U AMS. No A/D, NC, confused Objective - Vital Signs/Intake and Output Vital Signs (last 24 hours): Temp Pulse Resp BP Pulse Ox 97.7 F 95 H 20 127/77 97 05/07/18 09:59 05/07/18 10:06 05/07/18 09:59 05/07/18 10:06 05/07/18 09:59 - Medications Medications: Current Medications Acetaminophen (Tylenol 325mg Tab) 650 mg PO Q6 PRN PRN Reason: Pain, Mild (1-3) Last Admin: 04/15/18 23:34 Dose: 650 mg Cyanocobalamin (Vitamin B12 1000 Mcg Tab) 1,000 mcg PO DAILY [facility] Last Admin: 05/07/18 10:02 Dose: 1,000 mcg Dimethicone (Proshield Plus Skin Protectant) 1 applic TOP Q8 [facility] Last Admin: 05/07/18 10:19 Dose: 1 applic Divalproex Sodium (Depakote Sprinkles) 125 mg PO BID [facility] Last Admin: 05/07/18 09:59 Dose: 125 mg Donepezil HCl (Aricept) 5 mg PO HS [facility] Last Admin: 05/06/18 21:39 Dose: 5 mg Enalapril Maleate (Vasotec) 2.5 mg PO DAILY [facility] Last Admin: 05/07/18 10:02 Dose: 2.5 mg Haloperidol Lactate (Haldol) 0.5 mg IVP Q6 PRN PRN Reason: Agitation Last Admin: 04/29/18 04:54 Dose: 0.5 mg Levothyroxine Sodium (Synthroid) 75 mcg PO DAILY@0630 [facility] Last Admin: 05/07/18 05:36 Dose: 75 mcg Metoprolol Tartrate (Lopressor) 50 mg PO Q12 [facility] Last Admin: 05/07/18 10:06 Dose: 50 mg Rivaroxaban (Xarelto) 20 mg PO QD5 [facility]; Protocol Last Admin: 05/06/18 16:41 Dose: 20 mg - Labs Labs: 05/03/18 05:45 05/03/18 05:45 PT 11.9 Seconds (9.8-13.1) 03/22/18 19:00 INR 1.0 03/22/18 19:00 APTT 29.3 Seconds (25.6-37.1) 03/22/18 19:00 - Constitutional Appears: No Acute Distress - Head Exam Head Exam: NORMAL INSPECTION - Eye Exam Eye Exam: PERRL - ENT Exam ENT Exam: Normal Exam - Neck Exam Neck Exam: Normal Inspection - Respiratory Exam Respiratory Exam: NORMAL BREATHING PATTERN - Cardiovascular Exam Cardiovascular Exam: REGULAR RHYTHM - GI/Abdominal Exam GI & Abdominal Exam: Soft, Normal Bowel Sounds - Extremities Exam Extremities Exam: Normal Inspection - Back Exam Additional comments: Left buttock wounds, both closed - Neurological Exam Neurological Exam: Alert, CN II-XII Intact Additional comments: Confused, no focal motor/sensory deficit - Psychiatric Exam Psychiatric exam: Normal Mood - Skin Skin Exam: Warm Assessment and Plan (1) Rhabdomyolysis Status: Resolved (2) Status post fall Status: Acute (3) UTI (urinary tract infection) Status: Resolved (4) Change in mental status Status: Acute (5) HTN (hypertension) Status: Chronic (6) Dementia Status: Chronic (7) Urinary retention Status: Resolved (8) Hypothyroidism Status: Chronic (9) Deep tissue injury Status: Acute (10) CHF (congestive heart failure) Status: Resolved (11) Pulmonary nodule Status: Chronic (12) New onset atrial fibrillation Status: Resolved (13) Sacral pressure ulcer Status: Acute - Assessment and Plan (Free Text) Plan: continue current Tx, Legal Guardianship
[2018-05-08] MEDS: Proshield Plus GEL TOP SCH ×3 (01:08→17:58)
[2018-05-08] MEDS: Levothyroxine 75 MCG TAB PO SCH (06:31)
[2018-05-08] MEDS: Divalproex 125 mg Sprinkle Capsule PO SCH ×2 (09:27→17:57)
--- NOTE | 2018-05-08 13:46 | CP.PCM.PN ---
Subjective - Date & Time of Evaluation Date of Evaluation: 05/08/18 Time of Evaluation: 12:00 - Subjective Subjective: F/U AMS no AD, N/C, confused Objective - Vital Signs/Intake and Output Vital Signs (last 24 hours): Temp Pulse Resp BP Pulse Ox 98.3 F 70 20 115/63 96 05/08/18 08:25 05/08/18 08:25 05/08/18 08:25 05/08/18 08:25 05/08/18 08:25 - Medications Medications: Current Medications Acetaminophen (Tylenol 325mg Tab) 650 mg PO Q6 PRN PRN Reason: Pain, Mild (1-3) Last Admin: 04/15/18 23:34 Dose: 650 mg Cyanocobalamin (Vitamin B12 1000 Mcg Tab) 1,000 mcg PO DAILY [facility] Last Admin: 05/08/18 09:28 Dose: 1,000 mcg Dimethicone (Proshield Plus Skin Protectant) 1 applic TOP Q8 [facility] Last Admin: 05/08/18 09:28 Dose: 1 applic Divalproex Sodium (Depakote Sprinkles) 125 mg PO BID [facility] Last Admin: 05/08/18 09:27 Dose: 125 mg Donepezil HCl (Aricept) 5 mg PO HS [facility] Last Admin: 05/07/18 22:13 Dose: 5 mg Enalapril Maleate (Vasotec) 2.5 mg PO DAILY [facility] Last Admin: 05/08/18 09:28 Dose: 2.5 mg Haloperidol Lactate (Haldol) 0.5 mg IM Q4 PRN PRN Reason: Agitation Last Admin: 05/08/18 09:27 Dose: 0.5 mg Levothyroxine Sodium (Synthroid) 75 mcg PO DAILY@0630 [facility] Last Admin: 05/08/18 06:31 Dose: 75 mcg Metoprolol Tartrate (Lopressor) 50 mg PO Q12 [facility] Last Admin: 05/08/18 09:27 Dose: 50 mg Rivaroxaban (Xarelto) 20 mg PO QD5 [facility]; Protocol Last Admin: 05/07/18 16:37 Dose: 20 mg - Labs Labs: 05/03/18 05:45 05/03/18 05:45 PT 11.9 Seconds (9.8-13.1) 03/22/18 19:00 INR 1.0 03/22/18 19:00 APTT 29.3 Seconds (25.6-37.1) 03/22/18 19:00 - Constitutional Appears: No Acute Distress - Head Exam Head Exam: NORMAL INSPECTION - Eye Exam Eye Exam: PERRL - ENT Exam ENT Exam: Normal Exam - Neck Exam Neck Exam: Normal Inspection - Respiratory Exam Respiratory Exam: NORMAL BREATHING PATTERN - Cardiovascular Exam Cardiovascular Exam: REGULAR RHYTHM - GI/Abdominal Exam GI & Abdominal Exam: Soft, Normal Bowel Sounds - Extremities Exam Extremities Exam: Normal Inspection - Back Exam Additional comments: Left buttock wounds, both closed - Neurological Exam Neurological Exam: Alert, CN II-XII Intact Additional comments: Confused, no focal motor/sensory deficit - Psychiatric Exam Psychiatric exam: Normal Mood - Skin Skin Exam: Warm Assessment and Plan (1) Rhabdomyolysis Status: Resolved (2) Status post fall Status: Acute (3) UTI (urinary tract infection) Status: Resolved (4) Change in mental status Status: Acute (5) HTN (hypertension) Status: Chronic (6) Dementia Status: Chronic (7) Urinary retention Status: Resolved (8) Hypothyroidism Status: Chronic (9) Deep tissue injury Status: Acute (10) CHF (congestive heart failure) Status: Resolved (11) Pulmonary nodule Status: Chronic (12) New onset atrial fibrillation Status: Resolved (13) Sacral pressure ulcer Status: Acute - Assessment and Plan (Free Text) Plan: continue Lopressor, Synthroid, Vasotec, Xarelto and rest of Tx, Legal Guardianship
[2018-05-09] MEDS: Proshield Plus GEL TOP SCH ×3 (01:44→16:37)
[2018-05-09] MEDS: Levothyroxine 75 MCG TAB PO SCH (09:33)
[2018-05-09] MEDS: Divalproex 125 mg Sprinkle Capsule PO SCH ×2 (09:33→16:37)
--- NOTE | 2018-05-09 13:21 | CP.PCM.PN ---
Subjective - Date & Time of Evaluation Date of Evaluation: 05/09/18 Time of Evaluation: 11:00 - Subjective Subjective: no AD , required Haldol yesterday, not today, reported to be calm Objective - Vital Signs/Intake and Output Vital Signs (last 24 hours): Temp Pulse Resp BP Pulse Ox 97.4 F L 67 20 166/79 H 98 05/09/18 08:28 05/09/18 08:28 05/09/18 08:28 05/09/18 08:28 05/09/18 08:28 - Medications Medications: Current Medications Acetaminophen (Tylenol 325mg Tab) 650 mg PO Q6 PRN PRN Reason: Pain, Mild (1-3) Last Admin: 04/15/18 23:34 Dose: 650 mg Cyanocobalamin (Vitamin B12 1000 Mcg Tab) 1,000 mcg PO DAILY [facility] Last Admin: 05/09/18 09:34 Dose: 1,000 mcg Dimethicone (Proshield Plus Skin Protectant) 1 applic TOP Q8 [facility] Last Admin: 05/09/18 09:34 Dose: 1 applic Divalproex Sodium (Depakote Sprinkles) 125 mg PO BID [facility] Last Admin: 05/09/18 09:33 Dose: 125 mg Donepezil HCl (Aricept) 5 mg PO HS [facility] Last Admin: 05/08/18 22:38 Dose: 5 mg Enalapril Maleate (Vasotec) 2.5 mg PO DAILY [facility] Last Admin: 05/09/18 09:34 Dose: 2.5 mg Haloperidol Lactate (Haldol) 0.5 mg IM Q4 PRN PRN Reason: Agitation Last Admin: 05/08/18 23:03 Dose: 0.5 mg Levothyroxine Sodium (Synthroid) 75 mcg PO DAILY@0630 [facility] Last Admin: 05/09/18 09:33 Dose: 75 mcg Metoprolol Tartrate (Lopressor) 50 mg PO Q12 [facility] Last Admin: 05/09/18 09:34 Dose: 50 mg Rivaroxaban (Xarelto) 20 mg PO QD5 [facility]; Protocol Last Admin: 05/08/18 17:58 Dose: Not Given - Labs Labs: 05/03/18 05:45 05/03/18 05:45 PT 11.9 Seconds (9.8-13.1) 03/22/18 19:00 INR 1.0 03/22/18 19:00 APTT 29.3 Seconds (25.6-37.1) 03/22/18 19:00 - Constitutional Appears: No Acute Distress - Head Exam Head Exam: NORMAL INSPECTION - Eye Exam Eye Exam: PERRL - ENT Exam ENT Exam: Normal Exam - Neck Exam Neck Exam: Normal Inspection - Respiratory Exam Respiratory Exam: NORMAL BREATHING PATTERN - Cardiovascular Exam Cardiovascular Exam: REGULAR RHYTHM - Back Exam Additional comments: Left buttock wound closed - Neurological Exam Neurological Exam: Alert, CN II-XII Intact Additional comments: confused, no motor/sensory deficit - Psychiatric Exam Psychiatric exam: Anxious Assessment and Plan (1) Rhabdomyolysis Status: Resolved (2) Status post fall Status: Acute (3) UTI (urinary tract infection) Status: Resolved (4) Change in mental status Status: Acute (5) HTN (hypertension) Status: Chronic (6) Dementia Status: Chronic (7) Urinary retention Status: Resolved (8) Hypothyroidism Status: Chronic (9) Deep tissue injury Status: Acute (10) CHF (congestive heart failure) Status: Resolved (11) Pulmonary nodule Status: Chronic (12) New onset atrial fibrillation Status: Resolved (13) Sacral pressure ulcer Status: Acute - Assessment and Plan (Free Text) Plan: continue Depakote, Haldol, Aricept and rest of treatment, for Legal Guardianship
[2018-05-10] MEDS: Proshield Plus GEL TOP SCH ×3 (01:00→16:03)
[2018-05-10] MEDS: Levothyroxine 75 MCG TAB PO SCH (06:00)
[2018-05-10] MEDS: Divalproex 125 mg Sprinkle Capsule PO SCH ×2 (08:23→16:02)
--- NOTE | 2018-05-10 16:39 | CP.PCM.PN ---
Subjective - Date & Time of Evaluation Date of Evaluation: 05/10/18 Time of Evaluation: 16:00 - Subjective Subjective: F/U AMS no AD, N/C Objective - Vital Signs/Intake and Output Vital Signs (last 24 hours): Temp Pulse Resp BP Pulse Ox 97.6 F 72 20 145/88 97 05/09/18 16:28 05/09/18 20:31 05/09/18 16:28 05/09/18 20:31 05/09/18 16:28 - Medications Medications: Current Medications Acetaminophen (Tylenol 325mg Tab) 650 mg PO Q6 PRN PRN Reason: Pain, Mild (1-3) Last Admin: 04/15/18 23:34 Dose: 650 mg Cyanocobalamin (Vitamin B12 1000 Mcg Tab) 1,000 mcg PO DAILY [facility] Last Admin: 05/10/18 08:23 Dose: 1,000 mcg Dimethicone (Proshield Plus Skin Protectant) 1 applic TOP Q8 [facility] Last Admin: 05/10/18 16:03 Dose: 1 applic Divalproex Sodium (Depakote Sprinkles) 125 mg PO BID [facility] Last Admin: 05/10/18 16:02 Dose: 125 mg Donepezil HCl (Aricept) 5 mg PO HS [facility] Last Admin: 05/09/18 21:13 Dose: 5 mg Enalapril Maleate (Vasotec) 2.5 mg PO DAILY [facility] Last Admin: 05/10/18 08:23 Dose: 2.5 mg Haloperidol Lactate (Haldol) 0.5 mg IM Q4 PRN PRN Reason: Agitation Last Admin: 05/08/18 23:03 Dose: 0.5 mg Levothyroxine Sodium (Synthroid) 75 mcg PO DAILY@0630 [facility] Last Admin: 05/10/18 06:00 Dose: 75 mcg Metoprolol Tartrate (Lopressor) 50 mg PO Q12 [facility] Last Admin: 05/10/18 08:23 Dose: 50 mg Rivaroxaban (Xarelto) 20 mg PO QD5 [facility]; Protocol Last Admin: 05/10/18 16:02 Dose: 20 mg - Labs Labs: 05/03/18 05:45 05/03/18 05:45 PT 11.9 Seconds (9.8-13.1) 03/22/18 19:00 INR 1.0 03/22/18 19:00 APTT 29.3 Seconds (25.6-37.1) 03/22/18 19:00 - Constitutional Appears: No Acute Distress - Head Exam Head Exam: NORMAL INSPECTION - Eye Exam Eye Exam: PERRL - ENT Exam ENT Exam: Normal Exam - Neck Exam Neck Exam: Normal Inspection - Respiratory Exam Respiratory Exam: NORMAL BREATHING PATTERN - Cardiovascular Exam Cardiovascular Exam: REGULAR RHYTHM - GI/Abdominal Exam GI & Abdominal Exam: Soft, Normal Bowel Sounds - Extremities Exam Extremities Exam: Normal Inspection - Back Exam Additional comments: Left buttock wounds, closed - Neurological Exam Neurological Exam: Alert, CN II-XII Intact Additional comments: Confused, no focal motor/sensory deficit. - Psychiatric Exam Psychiatric exam: Normal Mood - Skin Skin Exam: Warm Assessment and Plan (1) Rhabdomyolysis Status: Resolved (2) Status post fall Status: Acute (3) Change in mental status Status: Acute (4) Dementia Status: Chronic (5) HTN (hypertension) Status: Chronic (6) Urinary retention Status: Resolved - Assessment and Plan (Free Text) Plan: continue Depakote, Aricept, Lopressor, Vasotec and rest of treatment, Legal Guardianship for [facility] placement
[2018-05-11] MEDS: Proshield Plus GEL TOP SCH ×3 (01:00→16:44)
[2018-05-11] MEDS: Levothyroxine 75 MCG TAB PO SCH (06:21)
[2018-05-11] MEDS: Divalproex 125 mg Sprinkle Capsule PO SCH ×2 (09:10→16:44)
--- NOTE | 2018-05-11 17:04 | CP.PCM.PN ---
Subjective - Date & Time of Evaluation Date of Evaluation: 05/11/18 Time of Evaluation: 11:45 - Subjective Subjective: F/U AMS no AD, N/C, confused Objective - Vital Signs/Intake and Output Vital Signs (last 24 hours): Temp Pulse Resp BP Pulse Ox 98.6 F 89 20 169/88 H 98 05/11/18 08:58 05/11/18 09:11 05/11/18 08:58 05/11/18 09:11 05/11/18 08:58 - Medications Medications: Current Medications Acetaminophen (Tylenol 325mg Tab) 650 mg PO Q6 PRN PRN Reason: Pain, Mild (1-3) Last Admin: 04/15/18 23:34 Dose: 650 mg Cyanocobalamin (Vitamin B12 1000 Mcg Tab) 1,000 mcg PO DAILY [facility] Last Admin: 05/11/18 09:12 Dose: 1,000 mcg Dimethicone (Proshield Plus Skin Protectant) 1 applic TOP Q8 [facility] Last Admin: 05/11/18 16:44 Dose: 1 applic Divalproex Sodium (Depakote Sprinkles) 125 mg PO BID [facility] Last Admin: 05/11/18 16:44 Dose: 125 mg Donepezil HCl (Aricept) 5 mg PO HS [facility] Last Admin: 05/10/18 21:05 Dose: 5 mg Enalapril Maleate (Vasotec) 2.5 mg PO DAILY [facility] Last Admin: 05/11/18 09:12 Dose: 2.5 mg Haloperidol Lactate (Haldol) 0.5 mg IM Q4 PRN PRN Reason: Agitation Last Admin: 05/08/18 23:03 Dose: 0.5 mg Levothyroxine Sodium (Synthroid) 75 mcg PO DAILY@0630 [facility] Last Admin: 05/11/18 06:21 Dose: 75 mcg Metoprolol Tartrate (Lopressor) 50 mg PO Q12 [facility] Last Admin: 05/11/18 09:11 Dose: 50 mg Rivaroxaban (Xarelto) 20 mg PO QD5 [facility]; Protocol Last Admin: 05/11/18 16:44 Dose: 20 mg - Labs Labs: 05/03/18 05:45 05/03/18 05:45 PT 11.9 Seconds (9.8-13.1) 03/22/18 19:00 INR 1.0 03/22/18 19:00 APTT 29.3 Seconds (25.6-37.1) 03/22/18 19:00 - Constitutional Appears: No Acute Distress - Head Exam Head Exam: NORMAL INSPECTION - Eye Exam Eye Exam: PERRL - ENT Exam ENT Exam: Normal Exam - Neck Exam Neck Exam: Normal Inspection - Respiratory Exam Respiratory Exam: NORMAL BREATHING PATTERN - Cardiovascular Exam Cardiovascular Exam: REGULAR RHYTHM - GI/Abdominal Exam GI & Abdominal Exam: Soft, Normal Bowel Sounds - Extremities Exam Extremities Exam: Normal Inspection - Back Exam Additional comments: L buttock wounds, both closed - Neurological Exam Neurological Exam: Alert, CN II-XII Intact Additional comments: Confused, no focal motor/sensory deficit - Psychiatric Exam Psychiatric exam: Normal Mood - Skin Skin Exam: Warm Assessment and Plan (1) Rhabdomyolysis Status: Resolved (2) Status post fall Status: Acute (3) Change in mental status Status: Acute (4) Dementia Status: Chronic (5) HTN (hypertension) Status: Chronic (6) Urinary retention Status: Resolved - Assessment and Plan (Free Text) Plan: continue current treatment, Legal Guardianship for [facility] placement
[2018-05-12] MEDS: Proshield Plus GEL TOP SCH ×3 (01:13→16:43)
[2018-05-12] MEDS: Levothyroxine 75 MCG TAB PO SCH (06:41)
[2018-05-12] MEDS: Divalproex 125 mg Sprinkle Capsule PO SCH ×2 (09:03→16:43)
--- NOTE | 2018-05-12 16:59 | CP.PCM.PN ---
Subjective - Date & Time of Evaluation Date of Evaluation: 05/12/18 Time of Evaluation: 13:40 - Subjective Subjective: F/U AMS no AD, confused, N/C Objective - Vital Signs/Intake and Output Vital Signs (last 24 hours): Temp Pulse Resp BP Pulse Ox 97.3 F L 59 L 18 109/68 96 05/12/18 16:20 05/12/18 16:20 05/12/18 16:20 05/12/18 16:20 05/12/18 16:20 - Medications Medications: Current Medications Acetaminophen (Tylenol 325mg Tab) 650 mg PO Q6 PRN PRN Reason: Pain, Mild (1-3) Last Admin: 04/15/18 23:34 Dose: 650 mg Cyanocobalamin (Vitamin B12 1000 Mcg Tab) 1,000 mcg PO DAILY [facility] Last Admin: 05/12/18 09:05 Dose: 1,000 mcg Dimethicone (Proshield Plus Skin Protectant) 1 applic TOP Q8 [facility] Last Admin: 05/12/18 16:43 Dose: 1 applic Divalproex Sodium (Depakote Sprinkles) 125 mg PO BID [facility] Last Admin: 05/12/18 16:43 Dose: 125 mg Donepezil HCl (Aricept) 5 mg PO HS [facility] Last Admin: 05/11/18 21:06 Dose: 5 mg Enalapril Maleate (Vasotec) 2.5 mg PO DAILY [facility] Last Admin: 05/12/18 09:05 Dose: 2.5 mg Haloperidol Lactate (Haldol) 0.5 mg IM Q4 PRN PRN Reason: Agitation Last Admin: 05/08/18 23:03 Dose: 0.5 mg Levothyroxine Sodium (Synthroid) 75 mcg PO DAILY@0630 [facility] Last Admin: 05/12/18 06:41 Dose: Not Given Metoprolol Tartrate (Lopressor) 50 mg PO Q12 [facility] Last Admin: 05/12/18 09:04 Dose: 50 mg Rivaroxaban (Xarelto) 20 mg PO QD5 [facility]; Protocol Last Admin: 05/12/18 16:43 Dose: 20 mg - Labs Labs: 05/03/18 05:45 05/03/18 05:45 PT 11.9 Seconds (9.8-13.1) 03/22/18 19:00 INR 1.0 03/22/18 19:00 APTT 29.3 Seconds (25.6-37.1) 03/22/18 19:00 - Constitutional Appears: No Acute Distress - Head Exam Head Exam: NORMAL INSPECTION - Eye Exam Eye Exam: PERRL - ENT Exam ENT Exam: Normal Exam - Neck Exam Neck Exam: Normal Inspection - Respiratory Exam Respiratory Exam: NORMAL BREATHING PATTERN - Cardiovascular Exam Cardiovascular Exam: REGULAR RHYTHM - GI/Abdominal Exam GI & Abdominal Exam: Soft, Normal Bowel Sounds - Extremities Exam Extremities Exam: Normal Inspection - Back Exam Additional comments: Closed wounds L buttock - Neurological Exam Neurological Exam: Alert, CN II-XII Intact Additional comments: Confused, no focal motor/sensory deficit. - Psychiatric Exam Psychiatric exam: Normal Mood - Skin Skin Exam: Warm Assessment and Plan (1) Rhabdomyolysis Status: Resolved (2) Status post fall Status: Acute (3) Change in mental status Status: Acute (4) Dementia Status: Chronic (5) HTN (hypertension) Status: Chronic (6) Urinary retention Status: Resolved - Assessment and Plan (Free Text) Plan: continue current treatment, Legal Guardianship for Group Home placement
[2018-05-13] MEDS: Proshield Plus GEL TOP SCH ×3 (00:53→17:29)
[2018-05-13] MEDS: Levothyroxine 75 MCG TAB PO SCH (07:03)
[2018-05-13] MEDS: Divalproex 125 mg Sprinkle Capsule PO SCH ×2 (09:07→17:29)
--- NOTE | 2018-05-13 15:52 | CP.PCM.PN ---
Subjective - Date & Time of Evaluation Date of Evaluation: 05/13/18 Time of Evaluation: 10:15 - Subjective Subjective: F/U AMS No A/D, calm, confused. Objective - Vital Signs/Intake and Output Vital Signs (last 24 hours): Temp Pulse Resp BP Pulse Ox 98.2 F 76 20 143/83 97 05/13/18 08:24 05/13/18 09:08 05/13/18 08:24 05/13/18 09:08 05/13/18 08:24 - Medications Medications: Current Medications Acetaminophen (Tylenol 325mg Tab) 650 mg PO Q6 PRN PRN Reason: Pain, Mild (1-3) Last Admin: 04/15/18 23:34 Dose: 650 mg Cyanocobalamin (Vitamin B12 1000 Mcg Tab) 1,000 mcg PO DAILY [facility] Last Admin: 05/13/18 09:08 Dose: 1,000 mcg Dimethicone (Proshield Plus Skin Protectant) 1 applic TOP Q8 [facility] Last Admin: 05/13/18 09:07 Dose: 1 applic Divalproex Sodium (Depakote Sprinkles) 125 mg PO BID [facility] Last Admin: 05/13/18 09:07 Dose: 125 mg Donepezil HCl (Aricept) 5 mg PO HS [facility] Last Admin: 05/12/18 21:01 Dose: 5 mg Enalapril Maleate (Vasotec) 2.5 mg PO DAILY [facility] Last Admin: 05/13/18 09:09 Dose: 2.5 mg Haloperidol Lactate (Haldol) 0.5 mg IM Q4 PRN PRN Reason: Agitation Last Admin: 05/08/18 23:03 Dose: 0.5 mg Levothyroxine Sodium (Synthroid) 75 mcg PO DAILY@0630 [facility] Last Admin: 05/13/18 07:03 Dose: 75 mcg Metoprolol Tartrate (Lopressor) 50 mg PO Q12 [facility] Last Admin: 05/13/18 09:08 Dose: 50 mg Rivaroxaban (Xarelto) 20 mg PO QD5 [facility]; Protocol Last Admin: 05/12/18 16:43 Dose: 20 mg - Labs Labs: 05/03/18 05:45 05/03/18 05:45 PT 11.9 Seconds (9.8-13.1) 03/22/18 19:00 INR 1.0 03/22/18 19:00 APTT 29.3 Seconds (25.6-37.1) 03/22/18 19:00 - Constitutional Appears: No Acute Distress - Head Exam Head Exam: NORMAL INSPECTION - Eye Exam Eye Exam: PERRL - ENT Exam ENT Exam: Normal Exam - Neck Exam Neck Exam: Normal Inspection - Respiratory Exam Respiratory Exam: NORMAL BREATHING PATTERN - Cardiovascular Exam Cardiovascular Exam: REGULAR RHYTHM - GI/Abdominal Exam GI & Abdominal Exam: Soft, Normal Bowel Sounds - Extremities Exam Extremities Exam: Normal Inspection - Back Exam Additional comments: Closed wounds Left buttock - Neurological Exam Neurological Exam: Alert, CN II-XII Intact Additional comments: Confused, no focal motor/sensory deficit. - Psychiatric Exam Psychiatric exam: Normal Mood - Skin Skin Exam: Warm Assessment and Plan (1) Rhabdomyolysis Status: Resolved (2) Status post fall Status: Acute (3) Change in mental status Status: Acute (4) Dementia Status: Chronic (5) HTN (hypertension) Status: Chronic (6) Urinary retention Status: Resolved - Assessment and Plan (Free Text) Plan: Continue Aricept, Xarelto, Depakote and rest of Tx.
--- NOTE | 2018-05-13 16:37 | CP.PCM.CON ---
History of Present Illness - History of Present Illness History of Present Illness: follow up consult requested for capacity to make decision 83 yo Michael female, found by her neighbors on the ground in her apartment, presented w/ altered mental status, rhabdomyolysis, renal insufficiency. Patient on evaluation continues to be confused, oriented to person only unable to state the name of the place or current month or year unable to verbalize the reason for hospitalization, unable to verbalize nature of treatment she is recieving or risks and benefits, unable to retain information provided Past Patient History - Past Medical History & Family History Past Medical History?: Yes - Past Social History Smoking Status: Never Smoked Alcohol: None Drugs: Denies Home Situation {Lives}: Alone - CARDIAC Hx Cardiac Disorders: Yes Hx Hypercholesterolemia: Yes Hx Hypertension: Yes - PULMONARY Hx Respiratory Disorders: No - NEUROLOGICAL Hx Neurological Disorder: Yes Hx Dementia: Yes Hx Vertigo: Yes - HEENT Hx HEENT Problems: No - RENAL Hx Chronic Kidney Disease: No - ENDOCRINE/METABOLIC Hx Endocrine Disorders: Yes Hx Hypothyroidism: Yes - HEMATOLOGICAL/ONCOLOGICAL Hx Blood Disorders: No - INTEGUMENTARY Hx Dermatological Problems: No - MUSCULOSKELETAL/RHEUMATOLOGICAL Hx Musculoskeletal Disorders: Yes Hx Arthritis: Yes Hx Falls: Yes - GASTROINTESTINAL Hx Gastrointestinal Disorders: No - GENITOURINARY/GYNECOLOGICAL Hx Genitourinary Disorders: No - PSYCHIATRIC Hx Psychophysiologic Disorder: Yes Hx Anxiety: Yes - SURGICAL HISTORY Hx Surgeries: No - ANESTHESIA Hx Anesthesia: No Hx Anesthesia Reactions: No Hx Malignant Hyperthermia: No Meds Allergies/Adverse Reactions: Allergies Allergy/AdvReac Type Severity Reaction Status Date / Time No Known Allergies Allergy Verified 03/18/15 19:39 - Medications Medications: Current Medications Acetaminophen (Tylenol 325mg Tab) 650 mg PO Q6 PRN PRN Reason: Pain, Mild (1-3) Last Admin: 04/15/18 23:34 Dose: 650 mg Cyanocobalamin (Vitamin B12 1000 Mcg Tab) 1,000 mcg PO DAILY [facility] Last Admin: 05/13/18 09:08 Dose: 1,000 mcg Dimethicone (Proshield Plus Skin Protectant) 1 applic TOP Q8 [facility] Last Admin: 05/13/18 09:07 Dose: 1 applic Divalproex Sodium (Depakote Sprinkles) 125 mg PO BID [facility] Last Admin: 05/13/18 09:07 Dose: 125 mg Donepezil HCl (Aricept) 5 mg PO HS [facility] Last Admin: 05/12/18 21:01 Dose: 5 mg Enalapril Maleate (Vasotec) 2.5 mg PO DAILY [facility] Last Admin: 05/13/18 09:09 Dose: 2.5 mg Haloperidol Lactate (Haldol) 0.5 mg IM Q4 PRN PRN Reason: Agitation Last Admin: 05/08/18 23:03 Dose: 0.5 mg Levothyroxine Sodium (Synthroid) 75 mcg PO DAILY@0630 [facility] Last Admin: 05/13/18 07:03 Dose: 75 mcg Metoprolol Tartrate (Lopressor) 50 mg PO Q12 [facility] Last Admin: 05/13/18 09:08 Dose: 50 mg Rivaroxaban (Xarelto) 20 mg PO QD5 [facility]; Protocol Last Admin: 05/12/18 16:43 Dose: 20 mg Results - Vital Signs Recent Vital Signs: Last Vital Signs Temp 98.2 F 05/13/18 08:24 Pulse 76 05/13/18 09:08 Resp 20 05/13/18 08:24 BP 143/83 05/13/18 09:08 Pulse Ox 97 05/13/18 08:24 - Labs Result Diagrams: 05/03/18 05:45 05/03/18 05:45 Assessment & Plan - Assessment and Plan (Free Text) Assessment: major neurocognitive disorder Plan: patient at current mental status does not have the capacity to make decision in reference to her medical treatment
[2018-05-14] MEDS: Proshield Plus GEL TOP SCH ×3 (01:00→17:14)
[2018-05-14] MEDS: Levothyroxine 75 MCG TAB PO SCH (07:22)
[2018-05-14] MEDS: Divalproex 125 mg Sprinkle Capsule PO SCH ×2 (09:20→17:14)
--- NOTE | 2018-05-14 13:52 | CP.PCM.PN ---
Subjective - Date & Time of Evaluation Date of Evaluation: 05/14/18 Time of Evaluation: 13:00 - Subjective Subjective: F/U AMS Pt awake, no A/D, no c/o, confused. Objective - Vital Signs/Intake and Output Vital Signs (last 24 hours): Temp Pulse Resp BP Pulse Ox 97.3 F L 69 20 120/75 98 05/13/18 16:39 05/13/18 21:08 05/13/18 16:39 05/14/18 09:20 05/13/18 16:39 - Medications Medications: Current Medications Acetaminophen (Tylenol 325mg Tab) 650 mg PO Q6 PRN PRN Reason: Pain, Mild (1-3) Last Admin: 04/15/18 23:34 Dose: 650 mg Cyanocobalamin (Vitamin B12 1000 Mcg Tab) 1,000 mcg PO DAILY [facility] Last Admin: 05/14/18 09:20 Dose: 1,000 mcg Dimethicone (Proshield Plus Skin Protectant) 1 applic TOP Q8 [facility] Last Admin: 05/14/18 09:19 Dose: 1 applic Divalproex Sodium (Depakote Sprinkles) 125 mg PO BID [facility] Last Admin: 05/14/18 09:20 Dose: 125 mg Donepezil HCl (Aricept) 5 mg PO HS [facility] Last Admin: 05/13/18 21:08 Dose: 5 mg Enalapril Maleate (Vasotec) 2.5 mg PO DAILY [facility] Last Admin: 05/14/18 09:20 Dose: 2.5 mg Haloperidol Lactate (Haldol) 0.5 mg IM Q4 PRN PRN Reason: Agitation Last Admin: 05/08/18 23:03 Dose: 0.5 mg Levothyroxine Sodium (Synthroid) 75 mcg PO DAILY@0630 [facility] Last Admin: 05/14/18 07:22 Dose: 75 mcg Rivaroxaban (Xarelto) 20 mg PO QD5 [facility]; Protocol Last Admin: 05/13/18 17:29 Dose: 20 mg - Labs Labs: 05/03/18 05:45 05/03/18 05:45 PT 11.9 Seconds (9.8-13.1) 03/22/18 19:00 INR 1.0 03/22/18 19:00 APTT 29.3 Seconds (25.6-37.1) 03/22/18 19:00 - Constitutional Appears: No Acute Distress - Head Exam Head Exam: NORMAL INSPECTION - Eye Exam Eye Exam: PERRL - ENT Exam ENT Exam: Normal Exam - Neck Exam Neck Exam: Normal Inspection - Respiratory Exam Respiratory Exam: NORMAL BREATHING PATTERN - Cardiovascular Exam Cardiovascular Exam: REGULAR RHYTHM - GI/Abdominal Exam GI & Abdominal Exam: Soft, Normal Bowel Sounds - Extremities Exam Extremities Exam: Normal Inspection - Neurological Exam Neurological Exam: Alert, CN II-XII Intact Additional comments: Confused, no focal motor/sensory deficit - Psychiatric Exam Psychiatric exam: Normal Mood - Skin Skin Exam: Warm Assessment and Plan (1) Rhabdomyolysis Status: Resolved (2) Status post fall Status: Acute (3) Change in mental status Status: Acute (4) Dementia Status: Chronic (5) HTN (hypertension) Status: Chronic (6) Urinary retention Status: Resolved - Assessment and Plan (Free Text) Plan: Waiting for NH placement.
[2018-05-15] MEDS: Proshield Plus GEL TOP SCH ×3 (01:00→16:38)
[2018-05-15] MEDS: Levothyroxine 75 MCG TAB PO SCH (05:36)
[2018-05-15] MEDS: Divalproex 125 mg Sprinkle Capsule PO SCH ×2 (09:34→16:38)
--- NOTE | 2018-05-15 15:09 | CP.PCM.PN ---
Subjective - Date & Time of Evaluation Date of Evaluation: 05/15/18 Time of Evaluation: 11:40 - Subjective Subjective: F/U AMS No AD, NC, confused Objective - Vital Signs/Intake and Output Vital Signs (last 24 hours): Temp Pulse Resp BP Pulse Ox 97.3 F L 65 20 151/68 H 96 05/15/18 08:31 05/15/18 09:34 05/15/18 08:31 05/15/18 09:34 05/15/18 08:31 - Medications Medications: Current Medications Acetaminophen (Tylenol 325mg Tab) 650 mg PO Q6 PRN PRN Reason: Pain, Mild (1-3) Last Admin: 04/15/18 23:34 Dose: 650 mg Cyanocobalamin (Vitamin B12 1000 Mcg Tab) 1,000 mcg PO DAILY [facility] Last Admin: 05/15/18 09:35 Dose: 1,000 mcg Dimethicone (Proshield Plus Skin Protectant) 1 applic TOP Q8 [facility] Last Admin: 05/15/18 09:34 Dose: 1 applic Divalproex Sodium (Depakote Sprinkles) 125 mg PO BID [facility] Last Admin: 05/15/18 09:34 Dose: 125 mg Donepezil HCl (Aricept) 5 mg PO HS [facility] Last Admin: 05/14/18 21:05 Dose: 5 mg Enalapril Maleate (Vasotec) 2.5 mg PO DAILY [facility] Last Admin: 05/15/18 09:35 Dose: 2.5 mg Haloperidol Lactate (Haldol) 0.5 mg IM Q4 PRN PRN Reason: Agitation Last Admin: 05/08/18 23:03 Dose: 0.5 mg Levothyroxine Sodium (Synthroid) 75 mcg PO DAILY@0630 [facility] Last Admin: 05/15/18 05:36 Dose: 75 mcg Metoprolol Tartrate (Lopressor) 50 mg PO Q12 [facility] Last Admin: 05/15/18 09:34 Dose: 50 mg Rivaroxaban (Xarelto) 20 mg PO QD5 [facility]; Protocol Last Admin: 05/14/18 17:14 Dose: 20 mg - Labs Labs: 05/03/18 05:45 05/03/18 05:45 PT 11.9 Seconds (9.8-13.1) 03/22/18 19:00 INR 1.0 03/22/18 19:00 APTT 29.3 Seconds (25.6-37.1) 03/22/18 19:00 - Constitutional Appears: No Acute Distress - Head Exam Head Exam: NORMAL INSPECTION - Eye Exam Eye Exam: PERRL - ENT Exam ENT Exam: Normal Exam - Neck Exam Neck Exam: Normal Inspection - Respiratory Exam Respiratory Exam: NORMAL BREATHING PATTERN - Cardiovascular Exam Cardiovascular Exam: REGULAR RHYTHM - GI/Abdominal Exam GI & Abdominal Exam: Soft, Normal Bowel Sounds - Extremities Exam Extremities Exam: Normal Inspection - Back Exam Additional comments: Closed wounds L buttock - Neurological Exam Neurological Exam: Alert, CN II-XII Intact Additional comments: Confused, no focal motor/sensory deficit. - Psychiatric Exam Psychiatric exam: Normal Mood - Skin Skin Exam: Warm Assessment and Plan (1) Rhabdomyolysis Status: Resolved (2) Status post fall Status: Acute (3) Change in mental status Status: Acute (4) Dementia Status: Chronic (5) HTN (hypertension) Status: Chronic (6) Urinary retention Status: Resolved - Assessment and Plan (Free Text) Plan: continue current Tx, Legal Guardianship
[2018-05-16] MEDS: Proshield Plus GEL TOP SCH ×3 (01:00→17:04)
[2018-05-16] MEDS: Levothyroxine 75 MCG TAB PO SCH (06:15)
[2018-05-16] MEDS: Divalproex 125 mg Sprinkle Capsule PO SCH ×2 (09:50→17:04)
--- NOTE | 2018-05-16 12:30 | CP.PCM.PN ---
Subjective - Date & Time of Evaluation Date of Evaluation: 05/16/18 Time of Evaluation: 12:30 - Subjective Subjective: F/U AMS no AD, confused, calm Objective - Vital Signs/Intake and Output Vital Signs (last 24 hours): Temp Pulse Resp BP Pulse Ox 97.9 F 62 20 137/88 98 05/16/18 08:55 05/16/18 08:55 05/16/18 08:55 05/16/18 08:55 05/16/18 08:55 - Medications Medications: Current Medications Acetaminophen (Tylenol 325mg Tab) 650 mg PO Q6 PRN PRN Reason: Pain, Mild (1-3) Last Admin: 04/15/18 23:34 Dose: 650 mg Cyanocobalamin (Vitamin B12 1000 Mcg Tab) 1,000 mcg PO DAILY [facility] Last Admin: 05/16/18 09:50 Dose: 1,000 mcg Dimethicone (Proshield Plus Skin Protectant) 1 applic TOP Q8 [facility] Last Admin: 05/16/18 09:49 Dose: 1 applic Divalproex Sodium (Depakote Sprinkles) 125 mg PO BID [facility] Last Admin: 05/16/18 09:50 Dose: 125 mg Donepezil HCl (Aricept) 5 mg PO HS [facility] Last Admin: 05/15/18 21:06 Dose: 5 mg Enalapril Maleate (Vasotec) 2.5 mg PO DAILY [facility] Last Admin: 05/16/18 09:50 Dose: 2.5 mg Haloperidol Lactate (Haldol) 0.5 mg IM Q4 PRN PRN Reason: Agitation Last Admin: 05/16/18 10:10 Dose: 0.5 mg Levothyroxine Sodium (Synthroid) 75 mcg PO DAILY@0630 [facility] Last Admin: 05/16/18 06:15 Dose: 75 mcg Metoprolol Tartrate (Lopressor) 50 mg PO Q12 [facility] Last Admin: 05/16/18 09:54 Dose: 50 mg Rivaroxaban (Xarelto) 20 mg PO QD5 [facility]; Protocol Last Admin: 05/15/18 16:38 Dose: 20 mg - Labs Labs: 05/03/18 05:45 05/03/18 05:45 PT 11.9 Seconds (9.8-13.1) 03/22/18 19:00 INR 1.0 03/22/18 19:00 APTT 29.3 Seconds (25.6-37.1) 03/22/18 19:00 - Constitutional Appears: No Acute Distress - Head Exam Head Exam: NORMAL INSPECTION - Eye Exam Eye Exam: PERRL - ENT Exam ENT Exam: Normal Exam - Neck Exam Neck Exam: Normal Inspection - Respiratory Exam Respiratory Exam: NORMAL BREATHING PATTERN - Cardiovascular Exam Cardiovascular Exam: REGULAR RHYTHM - GI/Abdominal Exam GI & Abdominal Exam: Soft, Normal Bowel Sounds - Extremities Exam Extremities Exam: Normal Inspection - Neurological Exam Neurological Exam: Alert, CN II-XII Intact Additional comments: Confused, no focal motor/sensory deficit. - Psychiatric Exam Psychiatric exam: Normal Mood - Skin Skin Exam: Warm Assessment and Plan (1) Rhabdomyolysis Status: Resolved (2) Status post fall Status: Acute (3) Change in mental status Status: Acute (4) Dementia Status: Chronic (5) HTN (hypertension) Status: Chronic (6) Urinary retention Status: Resolved - Assessment and Plan (Free Text) Plan: continue current treatment, awaiting Legal Guardianship for Senior Living Placement
[2018-05-17] MEDS: Proshield Plus GEL TOP SCH ×3 (00:28→16:34)
[2018-05-17] MEDS: Levothyroxine 75 MCG TAB PO SCH (05:54)
[2018-05-17] MEDS: Divalproex 125 mg Sprinkle Capsule PO SCH ×2 (08:48→16:35)
--- NOTE | 2018-05-17 13:37 | CP.PCM.PN ---
Subjective - Date & Time of Evaluation Date of Evaluation: 05/17/18 Time of Evaluation: 12:50 - Subjective Subjective: F/U AMS no Ad, N/C , confused Objective - Vital Signs/Intake and Output Vital Signs (last 24 hours): Temp Pulse Resp BP Pulse Ox 97.4 F L 62 20 146/85 98 05/17/18 08:47 05/17/18 08:50 05/17/18 08:47 05/17/18 08:50 05/17/18 08:47 - Medications Medications: Current Medications Acetaminophen (Tylenol 325mg Tab) 650 mg PO Q6 PRN PRN Reason: Pain, Mild (1-3) Last Admin: 04/15/18 23:34 Dose: 650 mg Cyanocobalamin (Vitamin B12 1000 Mcg Tab) 1,000 mcg PO DAILY [facility] Last Admin: 05/17/18 08:48 Dose: 1,000 mcg Dimethicone (Proshield Plus Skin Protectant) 1 applic TOP Q8 [facility] Last Admin: 05/17/18 08:47 Dose: 1 applic Divalproex Sodium (Depakote Sprinkles) 125 mg PO BID [facility] Last Admin: 05/17/18 08:48 Dose: 125 mg Donepezil HCl (Aricept) 5 mg PO HS [facility] Last Admin: 05/16/18 21:10 Dose: 5 mg Enalapril Maleate (Vasotec) 2.5 mg PO DAILY [facility] Last Admin: 05/17/18 08:48 Dose: 2.5 mg Haloperidol Lactate (Haldol) 0.5 mg IM Q4 PRN PRN Reason: Agitation Last Admin: 05/16/18 10:10 Dose: 0.5 mg Levothyroxine Sodium (Synthroid) 75 mcg PO DAILY@0630 [facility] Last Admin: 05/17/18 05:54 Dose: 75 mcg Metoprolol Tartrate (Lopressor) 50 mg PO Q12 [facility] Last Admin: 05/17/18 08:50 Dose: 50 mg Rivaroxaban (Xarelto) 20 mg PO QD5 [facility]; Protocol Last Admin: 05/16/18 17:04 Dose: 20 mg - Labs Labs: 05/03/18 05:45 05/03/18 05:45 PT 11.9 Seconds (9.8-13.1) 03/22/18 19:00 INR 1.0 03/22/18 19:00 APTT 29.3 Seconds (25.6-37.1) 03/22/18 19:00 - Constitutional Appears: No Acute Distress - Head Exam Head Exam: NORMAL INSPECTION - Eye Exam Eye Exam: PERRL - ENT Exam ENT Exam: Normal Exam - Neck Exam Neck Exam: Normal Inspection - Respiratory Exam Respiratory Exam: NORMAL BREATHING PATTERN - Cardiovascular Exam Cardiovascular Exam: REGULAR RHYTHM - GI/Abdominal Exam GI & Abdominal Exam: Soft, Normal Bowel Sounds - Extremities Exam Extremities Exam: Normal Inspection - Neurological Exam Neurological Exam: Alert (oriented x 1), CN II-XII Intact Additional comments: Calm, confused, no focal motor/sensory deficit. - Psychiatric Exam Psychiatric exam: Normal Mood - Skin Skin Exam: Warm Assessment and Plan (1) Rhabdomyolysis Status: Resolved (2) Status post fall Status: Acute (3) Change in mental status Status: Acute (4) Dementia Status: Chronic (5) HTN (hypertension) Status: Chronic (6) Urinary retention Status: Resolved - Assessment and Plan (Free Text) Plan: continue current Tx, Legal Guardianship
[2018-05-18] MEDS: Proshield Plus GEL TOP SCH ×3 (01:57→17:08)
[2018-05-18] MEDS: Levothyroxine 75 MCG TAB PO SCH (06:35)
[2018-05-18] MEDS: Divalproex 125 mg Sprinkle Capsule PO SCH ×2 (08:49→17:08)
--- NOTE | 2018-05-18 14:25 | CP.PCM.PN ---
Subjective - Date & Time of Evaluation Date of Evaluation: 05/18/18 Time of Evaluation: 11:50 - Subjective Subjective: /U AMS no AD , N/C confused Objective - Vital Signs/Intake and Output Vital Signs (last 24 hours): Temp Pulse Resp BP Pulse Ox 97.4 F L 65 20 147/79 95 05/18/18 08:44 05/18/18 08:44 05/18/18 08:44 05/18/18 08:52 05/18/18 08:44 - Medications Medications: Current Medications Acetaminophen (Tylenol 325mg Tab) 650 mg PO Q6 PRN PRN Reason: Pain, Mild (1-3) Last Admin: 04/15/18 23:34 Dose: 650 mg Cyanocobalamin (Vitamin B12 1000 Mcg Tab) 1,000 mcg PO DAILY [facility] Last Admin: 05/18/18 08:49 Dose: 1,000 mcg Dimethicone (Proshield Plus Skin Protectant) 1 applic TOP Q8 [facility] Last Admin: 05/18/18 08:49 Dose: 1 applic Divalproex Sodium (Depakote Sprinkles) 125 mg PO BID [facility] Last Admin: 05/18/18 08:49 Dose: 125 mg Donepezil HCl (Aricept) 5 mg PO HS [facility] Last Admin: 05/17/18 21:26 Dose: 5 mg Enalapril Maleate (Vasotec) 2.5 mg PO DAILY [facility] Last Admin: 05/18/18 08:49 Dose: 2.5 mg Haloperidol Lactate (Haldol) 0.5 mg IM Q4 PRN PRN Reason: Agitation Last Admin: 05/16/18 10:10 Dose: 0.5 mg Levothyroxine Sodium (Synthroid) 75 mcg PO DAILY@0630 [facility] Last Admin: 05/18/18 06:35 Dose: 75 mcg Metoprolol Tartrate (Lopressor) 50 mg PO Q12 [facility] Last Admin: 05/18/18 08:52 Dose: 50 mg Rivaroxaban (Xarelto) 20 mg PO QD5 [facility]; Protocol Last Admin: 05/17/18 16:35 Dose: 20 mg - Labs Labs: 05/03/18 05:45 05/03/18 05:45 PT 11.9 Seconds (9.8-13.1) 03/22/18 19:00 INR 1.0 03/22/18 19:00 APTT 29.3 Seconds (25.6-37.1) 03/22/18 19:00 - Constitutional Appears: No Acute Distress - Head Exam Head Exam: NORMAL INSPECTION - Eye Exam Eye Exam: PERRL - ENT Exam ENT Exam: Normal Exam - Neck Exam Neck Exam: Normal Inspection - Respiratory Exam Respiratory Exam: NORMAL BREATHING PATTERN - Cardiovascular Exam Cardiovascular Exam: REGULAR RHYTHM - GI/Abdominal Exam GI & Abdominal Exam: Soft, Normal Bowel Sounds - Extremities Exam Extremities Exam: Normal Inspection - Neurological Exam Neurological Exam: Awake, CN II-XII Intact Additional comments: Confused, no focal motor/sensory deficit. - Psychiatric Exam Psychiatric exam: Normal Mood - Skin Skin Exam: Warm Assessment and Plan (1) Rhabdomyolysis Status: Resolved (2) Status post fall Status: Acute (3) Change in mental status Status: Acute (4) Dementia Status: Chronic (5) HTN (hypertension) Status: Chronic (6) Urinary retention Status: Resolved - Assessment and Plan (Free Text) Plan: continue Depakote , Aricept, Lopressor , Vasotec, Synthroid and rest of Tx, for Legal Guardianship
[2018-05-19] MEDS: Proshield Plus GEL TOP SCH ×3 (01:30→19:21)
[2018-05-19] MEDS: Levothyroxine 75 MCG TAB PO SCH (06:24)
[2018-05-19] MEDS: Divalproex 125 mg Sprinkle Capsule PO SCH ×2 (10:10→19:17)
--- NOTE | 2018-05-19 15:53 | CP.PCM.PN ---
Subjective - Date & Time of Evaluation Date of Evaluation: 05/19/18 Time of Evaluation: 14:10 - Subjective Subjective: F/U AMS Confused, calm, no A/D. Objective - Vital Signs/Intake and Output Vital Signs (last 24 hours): Temp Pulse Resp BP Pulse Ox 97.5 F L 60 20 148/75 98 05/19/18 09:00 05/19/18 10:10 05/19/18 09:00 05/19/18 10:10 05/19/18 09:00 - Medications Medications: Current Medications Acetaminophen (Tylenol 325mg Tab) 650 mg PO Q6 PRN PRN Reason: Pain, Mild (1-3) Last Admin: 04/15/18 23:34 Dose: 650 mg Cyanocobalamin (Vitamin B12 1000 Mcg Tab) 1,000 mcg PO DAILY [facility] Last Admin: 05/19/18 10:12 Dose: 1,000 mcg Dimethicone (Proshield Plus Skin Protectant) 1 applic TOP Q8 [facility] Last Admin: 05/19/18 10:11 Dose: 1 applic Divalproex Sodium (Depakote Sprinkles) 125 mg PO BID [facility] Last Admin: 05/19/18 10:10 Dose: 125 mg Donepezil HCl (Aricept) 5 mg PO HS [facility] Last Admin: 05/18/18 21:02 Dose: 5 mg Enalapril Maleate (Vasotec) 2.5 mg PO DAILY [facility] Last Admin: 05/19/18 10:12 Dose: 2.5 mg Haloperidol Lactate (Haldol) 0.5 mg IM Q4 PRN PRN Reason: Agitation Last Admin: 05/16/18 10:10 Dose: 0.5 mg Levothyroxine Sodium (Synthroid) 75 mcg PO DAILY@0630 [facility] Last Admin: 05/19/18 06:24 Dose: 75 mcg Metoprolol Tartrate (Lopressor) 50 mg PO Q12 [facility] Last Admin: 05/19/18 10:10 Dose: 50 mg - Labs Labs: 05/03/18 05:45 05/03/18 05:45 PT 11.9 Seconds (9.8-13.1) 03/22/18 19:00 INR 1.0 03/22/18 19:00 APTT 29.3 Seconds (25.6-37.1) 11/24/18 19:00 - Constitutional Appears: No Acute Distress - Head Exam Head Exam: NORMAL INSPECTION - Eye Exam Eye Exam: PERRL - ENT Exam ENT Exam: Normal Exam - Neck Exam Neck Exam: Normal Inspection - Respiratory Exam Respiratory Exam: NORMAL BREATHING PATTERN - Cardiovascular Exam Cardiovascular Exam: REGULAR RHYTHM - GI/Abdominal Exam GI & Abdominal Exam: Soft, Normal Bowel Sounds - Extremities Exam Extremities Exam: Normal Inspection - Neurological Exam Neurological Exam: Alert, CN II-XII Intact Additional comments: Confused, no focal motor/sensory deficit - Psychiatric Exam Psychiatric exam: Normal Mood - Skin Skin Exam: Warm Assessment and Plan (1) Rhabdomyolysis Status: Resolved (2) Status post fall Status: Acute (3) Change in mental status Status: Acute (4) Dementia Status: Chronic (5) HTN (hypertension) Status: Chronic (6) Urinary retention Status: Resolved - Assessment and Plan (Free Text) Plan: Continue current medications, for legal guardianship
[2018-05-20] MEDS: Proshield Plus GEL TOP SCH ×3 (01:50→16:51)
[2018-05-20] MEDS: Levothyroxine 75 MCG TAB PO SCH (06:00)
[2018-05-20] MEDS: Divalproex 125 mg Sprinkle Capsule PO SCH ×2 (09:29→16:51)
--- NOTE | 2018-05-20 15:36 | CP.PCM.PN ---
Subjective - Date & Time of Evaluation Date of Evaluation: 05/20/18 Time of Evaluation: 12:40 - Subjective Subjective: F/U AMS Awake, calm, confused. Objective - Vital Signs/Intake and Output Vital Signs (last 24 hours): Temp Pulse Resp BP Pulse Ox 97.6 F 72 18 130/97 H 96 05/20/18 08:15 05/20/18 09:30 05/20/18 08:15 05/20/18 09:30 05/20/18 08:15 - Medications Medications: Current Medications Acetaminophen (Tylenol 325mg Tab) 650 mg PO Q6 PRN PRN Reason: Pain, Mild (1-3) Last Admin: 04/15/18 23:34 Dose: 650 mg Cyanocobalamin (Vitamin B12 1000 Mcg Tab) 1,000 mcg PO DAILY [facility] Last Admin: 05/20/18 09:32 Dose: 1,000 mcg Dimethicone (Proshield Plus Skin Protectant) 1 applic TOP Q8 [facility] Last Admin: 05/20/18 09:30 Dose: 1 applic Divalproex Sodium (Depakote Sprinkles) 125 mg PO BID [facility] Last Admin: 05/20/18 09:29 Dose: 125 mg Donepezil HCl (Aricept) 5 mg PO HS [facility] Last Admin: 05/19/18 21:06 Dose: 5 mg Enalapril Maleate (Vasotec) 2.5 mg PO DAILY [facility] Last Admin: 05/20/18 09:31 Dose: 2.5 mg Haloperidol Lactate (Haldol) 0.5 mg IM Q4 PRN PRN Reason: Agitation Last Admin: 05/16/18 10:10 Dose: 0.5 mg Levothyroxine Sodium (Synthroid) 75 mcg PO DAILY@0630 [facility] Last Admin: 05/20/18 06:00 Dose: 75 mcg Metoprolol Tartrate (Lopressor) 50 mg PO Q12 [facility] Last Admin: 05/20/18 09:30 Dose: 50 mg - Labs Labs: 05/03/18 05:45 05/03/18 05:45 PT 11.9 Seconds (9.8-13.1) 03/22/18 19:00 INR 1.0 03/22/18 19:00 APTT 29.3 Seconds (25.6-37.1) 03/22/18 19:00 - Constitutional Appears: No Acute Distress - Head Exam Head Exam: NORMAL INSPECTION - Eye Exam Eye Exam: PERRL - ENT Exam ENT Exam: Normal Exam - Neck Exam Neck Exam: Normal Inspection - Respiratory Exam Respiratory Exam: NORMAL BREATHING PATTERN - Cardiovascular Exam Cardiovascular Exam: REGULAR RHYTHM - GI/Abdominal Exam GI & Abdominal Exam: Soft, Normal Bowel Sounds - Extremities Exam Extremities Exam: Normal Inspection - Neurological Exam Neurological Exam: Alert, CN II-XII Intact Additional comments: Confused, no focal motor/sensory deficit - Psychiatric Exam Psychiatric exam: Normal Mood - Skin Skin Exam: Warm Assessment and Plan (1) Rhabdomyolysis Status: Resolved (2) Status post fall Status: Acute (3) Change in mental status Status: Acute (4) Dementia Status: Chronic (5) HTN (hypertension) Status: Chronic (6) Urinary retention Status: Resolved - Assessment and Plan (Free Text) Plan: Continue Aricept, Depakote and rest of tx.
[2018-05-21] MEDS: Proshield Plus GEL TOP SCH ×3 (00:05→16:24)
[2018-05-21] MEDS: Levothyroxine 75 MCG TAB PO SCH (05:42)
[2018-05-21] MEDS: Divalproex 125 mg Sprinkle Capsule PO SCH ×2 (09:57→16:23)
--- NOTE | 2018-05-21 18:04 | CP.PCM.PN ---
Subjective - Date & Time of Evaluation Date of Evaluation: 05/21/18 Time of Evaluation: 12:00 - Subjective Subjective: F/U AMS Confused, calm, cooperative. Objective - Vital Signs/Intake and Output Vital Signs (last 24 hours): Temp Pulse Resp BP Pulse Ox 98.7 F 69 18 120/58 L 96 05/21/18 16:13 05/21/18 16:13 05/21/18 16:13 05/21/18 16:13 05/21/18 16:13 - Medications Medications: Current Medications Acetaminophen (Tylenol 325mg Tab) 650 mg PO Q6 PRN PRN Reason: Pain, Mild (1-3) Last Admin: 04/15/18 23:34 Dose: 650 mg Cyanocobalamin (Vitamin B12 1000 Mcg Tab) 1,000 mcg PO DAILY [facility] Last Admin: 05/21/18 10:00 Dose: 1,000 mcg Dimethicone (Proshield Plus Skin Protectant) 1 applic TOP Q8 [facility] Last Admin: 05/21/18 16:24 Dose: 1 applic Divalproex Sodium (Depakote Sprinkles) 125 mg PO BID [facility] Last Admin: 05/21/18 16:23 Dose: 125 mg Donepezil HCl (Aricept) 5 mg PO HS [facility] Last Admin: 05/20/18 21:42 Dose: 5 mg Enalapril Maleate (Vasotec) 2.5 mg PO DAILY [facility] Last Admin: 05/21/18 09:59 Dose: 2.5 mg Haloperidol Lactate (Haldol) 0.5 mg IM Q4 PRN PRN Reason: Agitation Last Admin: 05/16/18 10:10 Dose: 0.5 mg Levothyroxine Sodium (Synthroid) 75 mcg PO DAILY@0630 [facility] Last Admin: 05/21/18 05:42 Dose: 75 mcg Metoprolol Tartrate (Lopressor) 50 mg PO Q12 [facility] Last Admin: 05/21/18 09:57 Dose: 50 mg - Labs Labs: 05/03/18 05:45 05/03/18 05:45 PT 11.9 Seconds (9.8-13.1) 03/22/18 19:00 INR 1.0 03/22/18 19:00 APTT 29.3 Seconds (25.6-37.1) 03/22/18 19:00 - Constitutional Appears: No Acute Distress - Head Exam Head Exam: NORMAL INSPECTION - Eye Exam Eye Exam: PERRL - ENT Exam ENT Exam: Normal Exam - Neck Exam Neck Exam: Normal Inspection - Respiratory Exam Respiratory Exam: NORMAL BREATHING PATTERN - Cardiovascular Exam Cardiovascular Exam: REGULAR RHYTHM - GI/Abdominal Exam GI & Abdominal Exam: Soft, Normal Bowel Sounds - Extremities Exam Extremities Exam: Normal Inspection - Neurological Exam Neurological Exam: Alert, CN II-XII Intact Additional comments: Confused, no focal motor/sensory deficit. - Psychiatric Exam Psychiatric exam: Normal Mood - Skin Skin Exam: Warm Assessment and Plan (1) Rhabdomyolysis Status: Resolved (2) Status post fall Status: Acute (3) Change in mental status Status: Acute (4) Dementia Status: Chronic (5) HTN (hypertension) Status: Chronic (6) Urinary retention Status: Resolved - Assessment and Plan (Free Text) Plan: Continue current Tx.
[2018-05-22] MEDS: Proshield Plus GEL TOP SCH ×3 (01:33→16:21)
[2018-05-22] MEDS: Levothyroxine 75 MCG TAB PO SCH (05:49)
[2018-05-22] MEDS: Divalproex 125 mg Sprinkle Capsule PO SCH ×3 (09:53→16:21)
--- NOTE | 2018-05-22 19:34 | CP.PCM.PN ---
Subjective - Date & Time of Evaluation Date of Evaluation: 05/22/18 Time of Evaluation: 10:30 - Subjective Subjective: F/U AMS No AD, NC, confused. Objective - Vital Signs/Intake and Output Vital Signs (last 24 hours): Temp Pulse Resp BP Pulse Ox 98.4 F 69 18 122/70 96 05/22/18 16:35 05/22/18 16:35 05/22/18 16:35 05/22/18 16:35 05/22/18 16:35 - Medications Medications: Current Medications Acetaminophen (Tylenol 325mg Tab) 650 mg PO Q6 PRN PRN Reason: Pain, Mild (1-3) Last Admin: 04/15/18 23:34 Dose: 650 mg Cyanocobalamin (Vitamin B12 1000 Mcg Tab) 1,000 mcg PO DAILY [facility] Last Admin: 05/22/18 11:41 Dose: Not Given Dimethicone (Proshield Plus Skin Protectant) 1 applic TOP Q8 [facility] Last Admin: 05/22/18 16:21 Dose: 1 applic Divalproex Sodium (Depakote Sprinkles) 125 mg PO BID [facility] Last Admin: 05/22/18 16:21 Dose: 125 mg Donepezil HCl (Aricept) 5 mg PO HS [facility] Last Admin: 05/21/18 21:02 Dose: 5 mg Enalapril Maleate (Vasotec) 2.5 mg PO DAILY [facility] Last Admin: 05/22/18 11:40 Dose: Not Given Haloperidol Lactate (Haldol) 0.5 mg IM Q4 PRN PRN Reason: Agitation Last Admin: 05/16/18 10:10 Dose: 0.5 mg Levothyroxine Sodium (Synthroid) 75 mcg PO DAILY@0630 [facility] Last Admin: 05/22/18 05:49 Dose: 75 mcg Metoprolol Tartrate (Lopressor) 50 mg PO Q12 [facility] Last Admin: 05/22/18 11:40 Dose: Not Given - Labs Labs: 05/03/18 05:45 05/03/18 05:45 PT 11.9 Seconds (9.8-13.1) 03/22/18 19:00 INR 1.0 03/22/18 19:00 APTT 29.3 Seconds (25.6-37.1) 03/22/18 19:00 - Constitutional Appears: No Acute Distress - Head Exam Head Exam: NORMAL INSPECTION - Eye Exam Eye Exam: PERRL - ENT Exam ENT Exam: Normal Exam - Neck Exam Neck Exam: Normal Inspection - Respiratory Exam Respiratory Exam: NORMAL BREATHING PATTERN - Cardiovascular Exam Cardiovascular Exam: REGULAR RHYTHM - GI/Abdominal Exam GI & Abdominal Exam: Soft, Normal Bowel Sounds - Extremities Exam Extremities Exam: Normal Inspection - Neurological Exam Neurological Exam: Alert, CN II-XII Intact Additional comments: Confused, no focal motor/sensory dficit. - Psychiatric Exam Psychiatric exam: Normal Mood - Skin Skin Exam: Warm Assessment and Plan (1) Rhabdomyolysis Status: Resolved (2) Status post fall Status: Acute (3) Change in mental status Status: Acute (4) Dementia Status: Chronic (5) HTN (hypertension) Status: Chronic (6) Urinary retention Status: Resolved - Assessment and Plan (Free Text) Plan: continue current Tx, Legal Guardianship
[2018-05-23] MEDS: Proshield Plus GEL TOP SCH ×3 (01:54→16:35)
[2018-05-23] MEDS: Levothyroxine 75 MCG TAB PO SCH (06:43)
[2018-05-23 09:38] LABS: HEMOGLOBIN 12.8 g/dL (12.0-16.0); MEAN CELL VOLUME 92.7 fl (81.0-99.0); MEAN CORPUSCULAR HEMOGLOBIN 30.4 pg (27.0-31.0); MEAN CORPUSCULAR HGB CONC 32.8 g/dL (33.0-37.0); RBC 4.22 Mil/uL (3.80-5.20); RED CELL DISTRIBUTION WIDTH 14.9 % (11.5-14.5); WHITE BLOOD COUNT 5.2 K/uL (4.8-10.8)
[2018-05-23] MEDS: Divalproex 125 mg Sprinkle Capsule PO SCH ×2 (09:39→16:35)
[2018-05-23 09:49] LABS: ALB/GLOB RATIO 1.1 (1.0-2.1); ALBUMIN 3.7 g/dL (3.5-5.0); ALT/SGPT 59 U/L (9-52); AST/SGOT 51 U/L (14-36); BLOOD UREA NITROGEN 35 mg/dl (7-17); GFR NON-AFRICAN AMERICAN > 60
--- NOTE | 2018-05-23 17:03 | CP.PCM.PN ---
Subjective - Date & Time of Evaluation Date of Evaluation: 05/23/18 Time of Evaluation: 12:00 - Subjective Subjective: F/U AMS. Pt awake, confused, calm, cooperative Objective - Vital Signs/Intake and Output Vital Signs (last 24 hours): Temp Pulse Resp BP Pulse Ox 98 F 60 20 135/80 98 05/23/18 16:11 05/23/18 16:11 05/23/18 16:11 05/23/18 16:11 05/23/18 16:11 - Medications Medications: Current Medications Acetaminophen (Tylenol 325mg Tab) 650 mg PO Q6 PRN PRN Reason: Pain, Mild (1-3) Last Admin: 04/15/18 23:34 Dose: 650 mg Cyanocobalamin (Vitamin B12 1000 Mcg Tab) 1,000 mcg PO DAILY [facility] Last Admin: 05/23/18 09:40 Dose: 1,000 mcg Dimethicone (Proshield Plus Skin Protectant) 1 applic TOP Q8 [facility] Last Admin: 05/23/18 16:35 Dose: 1 applic Divalproex Sodium (Depakote Sprinkles) 125 mg PO BID [facility] Last Admin: 05/23/18 16:35 Dose: 125 mg Donepezil HCl (Aricept) 5 mg PO HS [facility] Last Admin: 05/22/18 21:00 Dose: 5 mg Enalapril Maleate (Vasotec) 2.5 mg PO DAILY [facility] Last Admin: 05/23/18 09:40 Dose: 2.5 mg Haloperidol Lactate (Haldol) 0.5 mg IM Q4 PRN PRN Reason: Agitation Last Admin: 05/16/18 10:10 Dose: 0.5 mg Levothyroxine Sodium (Synthroid) 75 mcg PO DAILY@0630 [facility] Last Admin: 05/23/18 06:43 Dose: Not Given Metoprolol Tartrate (Lopressor) 50 mg PO Q12 [facility] Last Admin: 05/23/18 09:39 Dose: 50 mg Rivaroxaban (Xarelto) 20 mg PO DAILY [facility]; Protocol Last Admin: 05/23/18 12:04 Dose: 20 mg - Labs Labs: 05/23/18 09:29 05/23/18 09:29 PT 11.9 Seconds (9.8-13.1) 03/22/18 19:00 INR 1.0 03/22/18 19:00 APTT 29.3 Seconds (25.6-37.1) 03/22/18 19:00 - Constitutional Appears: No Acute Distress - Head Exam Head Exam: NORMAL INSPECTION - Eye Exam Eye Exam: PERRL - ENT Exam ENT Exam: Normal Exam - Neck Exam Neck Exam: Normal Inspection - Respiratory Exam Respiratory Exam: NORMAL BREATHING PATTERN - Cardiovascular Exam Cardiovascular Exam: REGULAR RHYTHM - GI/Abdominal Exam GI & Abdominal Exam: Soft, Normal Bowel Sounds - Extremities Exam Extremities Exam: Normal Inspection - Neurological Exam Neurological Exam: Awake Additional comments: Confused, no focal motor/sensory deficit. - Psychiatric Exam Psychiatric exam: Normal Mood - Skin Skin Exam: Warm Assessment and Plan (1) Rhabdomyolysis Status: Resolved (2) Status post fall Status: Acute (3) Change in mental status Status: Acute (4) Dementia Status: Chronic (5) HTN (hypertension) Status: Chronic (6) Urinary retention Status: Resolved - Assessment and Plan (Free Text) Plan: Ping oseguera Tx, for legal guardianship.
[2018-05-24] MEDS: Proshield Plus GEL TOP SCH ×3 (01:39→16:40)
[2018-05-24] MEDS: Levothyroxine 75 MCG TAB PO SCH (06:39)
[2018-05-24] MEDS: Divalproex 125 mg Sprinkle Capsule PO SCH ×2 (08:55→16:39)
--- NOTE | 2018-05-24 14:22 | CP.PCM.PN ---
Subjective - Date & Time of Evaluation Date of Evaluation: 05/24/18 Time of Evaluation: 13:50 - Subjective Subjective: no AD, calm, confused Objective - Vital Signs/Intake and Output Vital Signs (last 24 hours): Temp Pulse Resp BP Pulse Ox 97.3 F L 61 20 138/74 98 05/24/18 08:34 05/24/18 08:56 05/24/18 08:34 05/24/18 08:56 05/24/18 08:34 - Medications Medications: Current Medications Acetaminophen (Tylenol 325mg Tab) 650 mg PO Q6 PRN PRN Reason: Pain, Mild (1-3) Last Admin: 04/15/18 23:34 Dose: 650 mg Cyanocobalamin (Vitamin B12 1000 Mcg Tab) 1,000 mcg PO DAILY [facility] Last Admin: 05/24/18 08:55 Dose: 1,000 mcg Dimethicone (Proshield Plus Skin Protectant) 1 applic TOP Q8 [facility] Last Admin: 05/24/18 08:56 Dose: 1 applic Divalproex Sodium (Depakote Sprinkles) 125 mg PO BID [facility] Last Admin: 05/24/18 08:55 Dose: 125 mg Donepezil HCl (Aricept) 5 mg PO HS [facility] Last Admin: 05/23/18 21:03 Dose: 5 mg Enalapril Maleate (Vasotec) 2.5 mg PO DAILY [facility] Last Admin: 05/24/18 08:55 Dose: 2.5 mg Haloperidol Lactate (Haldol) 0.5 mg IM Q4 PRN PRN Reason: Agitation Last Admin: 05/16/18 10:10 Dose: 0.5 mg Levothyroxine Sodium (Synthroid) 75 mcg PO DAILY@0630 [facility] Last Admin: 05/24/18 06:39 Dose: 75 mcg Metoprolol Tartrate (Lopressor) 50 mg PO Q12 [facility] Last Admin: 05/24/18 08:56 Dose: 50 mg Rivaroxaban (Xarelto) 20 mg PO DAILY [facility]; Protocol Last Admin: 05/24/18 09:51 Dose: 20 mg - Labs Labs: 05/23/18 09:29 05/23/18 09:29 PT 11.9 Seconds (9.8-13.1) 03/22/18 19:00 INR 1.0 03/22/18 19:00 APTT 29.3 Seconds (25.6-37.1) 03/22/18 19:00 - Constitutional Appears: No Acute Distress - Head Exam Head Exam: NORMAL INSPECTION - Eye Exam Eye Exam: PERRL - ENT Exam ENT Exam: Normal Oropharynx - Neck Exam Neck Exam: Normal Inspection - Respiratory Exam Respiratory Exam: Clear to Ausculation Bilateral - Cardiovascular Exam Cardiovascular Exam: REGULAR RHYTHM - GI/Abdominal Exam GI & Abdominal Exam: Soft, Normal Bowel Sounds - Extremities Exam Extremities Exam: Normal Inspection - Back Exam Back Exam: NORMAL INSPECTION - Neurological Exam Neurological Exam: Awake Additional comments: confused , no motor/ sensory deficit - Skin Additional comments: confused Assessment and Plan (1) Rhabdomyolysis Status: Resolved (2) Status post fall Status: Acute (3) Change in mental status Status: Acute (4) Dementia Status: Chronic (5) HTN (hypertension) Status: Chronic (6) Urinary retention Status: Resolved - Assessment and Plan (Free Text) Plan: continue Aricept. Depakote, Lopressor, Vasotec, Synthroid , for Legal Guardianship
[2018-05-25] MEDS: Proshield Plus GEL TOP SCH ×3 (01:15→16:06)
[2018-05-25] MEDS: Divalproex 125 mg Sprinkle Capsule PO SCH ×2 (09:20→16:06)
[2018-05-25] MEDS: Levothyroxine 75 MCG TAB PO SCH (09:20)
--- NOTE | 2018-05-25 15:29 | CP.PCM.PN ---
Subjective - Date & Time of Evaluation Date of Evaluation: 05/25/18 Time of Evaluation: 11:50 - Subjective Subjective: no AD, N/C, confused, calm, cooperative Objective - Vital Signs/Intake and Output Vital Signs (last 24 hours): Temp Pulse Resp BP Pulse Ox 97.4 F L 62 20 137/77 96 05/25/18 08:44 05/25/18 09:21 05/25/18 08:44 05/25/18 09:21 05/25/18 08:44 - Medications Medications: Current Medications Acetaminophen (Tylenol 325mg Tab) 650 mg PO Q6 PRN PRN Reason: Pain, Mild (1-3) Last Admin: 04/15/18 23:34 Dose: 650 mg Cyanocobalamin (Vitamin B12 1000 Mcg Tab) 1,000 mcg PO DAILY [facility] Last Admin: 05/25/18 09:22 Dose: 1,000 mcg Dimethicone (Proshield Plus Skin Protectant) 1 applic TOP Q8 [facility] Last Admin: 05/25/18 09:22 Dose: 1 applic Divalproex Sodium (Depakote Sprinkles) 125 mg PO BID [facility] Last Admin: 05/25/18 09:20 Dose: 125 mg Donepezil HCl (Aricept) 5 mg PO HS [facility] Last Admin: 05/24/18 21:03 Dose: 5 mg Enalapril Maleate (Vasotec) 2.5 mg PO DAILY [facility] Last Admin: 05/25/18 09:20 Dose: 2.5 mg Haloperidol Lactate (Haldol) 0.5 mg IM Q4 PRN PRN Reason: Agitation Last Admin: 05/16/18 10:10 Dose: 0.5 mg Levothyroxine Sodium (Synthroid) 75 mcg PO DAILY@0630 [facility] Last Admin: 05/25/18 09:20 Dose: 75 mcg Metoprolol Tartrate (Lopressor) 50 mg PO Q12 [facility] Last Admin: 05/25/18 09:21 Dose: 50 mg Rivaroxaban (Xarelto) 20 mg PO DAILY [facility]; Protocol Last Admin: 05/25/18 09:20 Dose: 20 mg - Labs Labs: 05/23/18 09:29 05/23/18 09:29 PT 11.9 Seconds (9.8-13.1) 03/22/18 19:00 INR 1.0 03/22/18 19:00 APTT 29.3 Seconds (25.6-37.1) 03/22/18 19:00 - Constitutional Appears: No Acute Distress - Head Exam Head Exam: NORMAL INSPECTION - Eye Exam Eye Exam: PERRL - ENT Exam ENT Exam: Normal Exam - Neck Exam Neck Exam: Normal Inspection - Respiratory Exam Respiratory Exam: NORMAL BREATHING PATTERN - Cardiovascular Exam Cardiovascular Exam: REGULAR RHYTHM - GI/Abdominal Exam GI & Abdominal Exam: Soft, Normal Bowel Sounds - Extremities Exam Extremities Exam: Normal Inspection - Back Exam Back Exam: NORMAL INSPECTION - Neurological Exam Neurological Exam: Alert Additional comments: confused, no motor/sensory deficit - Psychiatric Exam Additional comments: confused - Skin Skin Exam: Warm Assessment and Plan (1) Rhabdomyolysis Status: Resolved (2) Status post fall Status: Acute (3) Change in mental status Status: Acute (4) Dementia Status: Chronic (5) HTN (hypertension) Status: Chronic (6) Urinary retention Status: Resolved - Assessment and Plan (Free Text) Plan: continue current Tx, for Legal Guardianship
[2018-05-26] MEDS: Proshield Plus GEL TOP SCH ×3 (02:09→16:32)
[2018-05-26] MEDS: Levothyroxine 75 MCG TAB PO SCH (06:24)
[2018-05-26] MEDS: Divalproex 125 mg Sprinkle Capsule PO SCH ×2 (08:31→16:32)
--- NOTE | 2018-05-26 13:21 | CP.PCM.PN ---
Subjective - Date & Time of Evaluation Date of Evaluation: 05/26/18 Time of Evaluation: 10:20 - Subjective Subjective: F/U AMS no AD, N/C , confused Objective - Vital Signs/Intake and Output Vital Signs (last 24 hours): Temp Pulse Resp BP Pulse Ox 98.2 F 68 18 154/70 H 97 05/26/18 08:29 05/26/18 08:31 05/26/18 08:29 05/26/18 08:31 05/26/18 08:29 - Medications Medications: Current Medications Acetaminophen (Tylenol 325mg Tab) 650 mg PO Q6 PRN PRN Reason: Pain, Mild (1-3) Last Admin: 04/15/18 23:34 Dose: 650 mg Cyanocobalamin (Vitamin B12 1000 Mcg Tab) 1,000 mcg PO DAILY [facility] Last Admin: 05/26/18 08:32 Dose: 1,000 mcg Dimethicone (Proshield Plus Skin Protectant) 1 applic TOP Q8 [facility] Last Admin: 05/26/18 08:31 Dose: 1 applic Divalproex Sodium (Depakote Sprinkles) 125 mg PO BID [facility] Last Admin: 05/26/18 08:31 Dose: 125 mg Donepezil HCl (Aricept) 5 mg PO HS [facility] Last Admin: 05/25/18 21:13 Dose: 5 mg Enalapril Maleate (Vasotec) 2.5 mg PO DAILY [facility] Last Admin: 05/26/18 08:32 Dose: 2.5 mg Haloperidol Lactate (Haldol) 0.5 mg IM Q4 PRN PRN Reason: Agitation Last Admin: 05/16/18 10:10 Dose: 0.5 mg Levothyroxine Sodium (Synthroid) 75 mcg PO DAILY@0630 [facility] Last Admin: 05/26/18 06:24 Dose: 75 mcg Metoprolol Tartrate (Lopressor) 50 mg PO Q12 [facility] Last Admin: 05/26/18 08:31 Dose: 50 mg Rivaroxaban (Xarelto) 20 mg PO DAILY [facility]; Protocol Last Admin: 05/26/18 08:32 Dose: 20 mg - Labs Labs: 05/23/18 09:29 05/23/18 09:29 PT 11.9 Seconds (9.8-13.1) 03/22/18 19:00 INR 1.0 03/22/18 19:00 APTT 29.3 Seconds (25.6-37.1) 03/22/18 19:00 - Constitutional Appears: No Acute Distress - Head Exam Head Exam: NORMAL INSPECTION - Eye Exam Eye Exam: PERRL - ENT Exam ENT Exam: Normal Exam - Neck Exam Neck Exam: Normal Inspection - Respiratory Exam Respiratory Exam: NORMAL BREATHING PATTERN - Cardiovascular Exam Cardiovascular Exam: REGULAR RHYTHM - GI/Abdominal Exam GI & Abdominal Exam: Soft, Normal Bowel Sounds - Extremities Exam Extremities Exam: Normal Inspection - Back Exam Back Exam: NORMAL INSPECTION - Neurological Exam Neurological Exam: Awake Additional comments: Confused, no motor/sensory deficit. - Psychiatric Exam Additional comments: Confused, calm - Skin Skin Exam: Warm Assessment and Plan (1) Rhabdomyolysis Status: Resolved (2) Status post fall Status: Acute (3) Change in mental status Status: Acute (4) Dementia Status: Chronic (5) HTN (hypertension) Status: Chronic (6) Urinary retention Status: Resolved - Assessment and Plan (Free Text) Plan: continue current medications, for Legal Guardianship
[2018-05-27] MEDS: Proshield Plus GEL TOP SCH (01:55)
[2018-05-27] MEDS: Levothyroxine 75 MCG TAB PO SCH (05:33)
[2018-05-27] MEDS: Divalproex 125 mg Sprinkle Capsule PO SCH ×2 (08:52→17:09)
--- NOTE | 2018-05-27 14:42 | CP.PCM.PN ---
Subjective - Date & Time of Evaluation Date of Evaluation: 05/27/18 Time of Evaluation: 13:00 - Subjective Subjective: F/U AMS no AD, N/C, calm, confused Objective - Vital Signs/Intake and Output Vital Signs (last 24 hours): Temp Pulse Resp BP Pulse Ox 98.0 F 74 20 123/73 97 05/27/18 08:12 05/27/18 08:51 05/27/18 08:12 05/27/18 08:51 05/27/18 08:12 - Medications Medications: Current Medications Acetaminophen (Tylenol 325mg Tab) 650 mg PO Q6 PRN PRN Reason: Pain, Mild (1-3) Last Admin: 04/15/18 23:34 Dose: 650 mg Cyanocobalamin (Vitamin B12 1000 Mcg Tab) 1,000 mcg PO DAILY [facility] Last Admin: 05/27/18 08:52 Dose: 1,000 mcg Divalproex Sodium (Depakote Sprinkles) 125 mg PO BID [facility] Last Admin: 05/27/18 08:52 Dose: 125 mg Donepezil HCl (Aricept) 5 mg PO HS [facility] Last Admin: 05/26/18 21:32 Dose: 5 mg Enalapril Maleate (Vasotec) 2.5 mg PO DAILY [facility] Last Admin: 05/27/18 08:52 Dose: 2.5 mg Haloperidol Lactate (Haldol) 0.5 mg IM Q4 PRN PRN Reason: Agitation Last Admin: 05/16/18 10:10 Dose: 0.5 mg Levothyroxine Sodium (Synthroid) 75 mcg PO DAILY@0630 [facility] Last Admin: 05/27/18 05:33 Dose: 75 mcg Metoprolol Tartrate (Lopressor) 50 mg PO Q12 [facility] Last Admin: 05/27/18 08:51 Dose: 50 mg Rivaroxaban (Xarelto) 20 mg PO DAILY [facility]; Protocol Last Admin: 05/27/18 08:52 Dose: 20 mg - Labs Labs: 05/23/18 09:29 05/23/18 09:29 PT 11.9 Seconds (9.8-13.1) 03/22/18 19:00 INR 1.0 03/22/18 19:00 APTT 29.3 Seconds (25.6-37.1) 03/22/18 19:00 - Constitutional Appears: No Acute Distress - Head Exam Head Exam: NORMAL INSPECTION - Eye Exam Eye Exam: PERRL - ENT Exam ENT Exam: Normal Exam - Neck Exam Neck Exam: Normal Inspection - Respiratory Exam Respiratory Exam: NORMAL BREATHING PATTERN - Cardiovascular Exam Cardiovascular Exam: REGULAR RHYTHM - GI/Abdominal Exam GI & Abdominal Exam: Soft, Normal Bowel Sounds - Extremities Exam Extremities Exam: Normal Inspection - Back Exam Back Exam: NORMAL INSPECTION - Neurological Exam Neurological Exam: Awake Additional comments: Confused, forgetful, no motor/sensory deficit. - Skin Skin Exam: Warm Assessment and Plan (1) Rhabdomyolysis Status: Resolved (2) Status post fall Status: Acute (3) Change in mental status Status: Acute (4) Dementia Status: Chronic (5) HTN (hypertension) Status: Chronic (6) Urinary retention Status: Resolved - Assessment and Plan (Free Text) Plan: continue Depakote, Aricept, Eliquis, Vasotec, Lopressor and rest of treatment, for Legal Guadianship
[2018-05-28] MEDS: Levothyroxine 75 MCG TAB PO SCH ×2 (06:10→06:12)
[2018-05-28] MEDS: Divalproex 125 mg Sprinkle Capsule PO SCH ×2 (09:19→16:22)
--- NOTE | 2018-05-28 16:14 | CP.PCM.PN ---
Subjective - Date & Time of Evaluation Date of Evaluation: 05/28/18 Time of Evaluation: 11:00 - Subjective Subjective: F/U AMS. no AD, N/C, calm, forgetful Objective - Vital Signs/Intake and Output Vital Signs (last 24 hours): Temp Pulse Resp BP Pulse Ox 96.8 F L 74 20 148/70 98 05/28/18 08:41 05/28/18 09:20 05/28/18 08:41 05/28/18 09:20 05/28/18 08:41 - Medications Medications: Current Medications Acetaminophen (Tylenol 325mg Tab) 650 mg PO Q6 PRN PRN Reason: Pain, Mild (1-3) Last Admin: 04/15/18 23:34 Dose: 650 mg Cyanocobalamin (Vitamin B12 1000 Mcg Tab) 1,000 mcg PO DAILY [facility] Last Admin: 05/28/18 09:20 Dose: 1,000 mcg Divalproex Sodium (Depakote Sprinkles) 125 mg PO BID [facility] Last Admin: 05/28/18 09:19 Dose: 125 mg Donepezil HCl (Aricept) 5 mg PO HS [facility] Last Admin: 05/27/18 22:01 Dose: Not Given Enalapril Maleate (Vasotec) 2.5 mg PO DAILY [facility] Last Admin: 05/28/18 09:20 Dose: 2.5 mg Haloperidol Lactate (Haldol) 0.5 mg IM Q4 PRN PRN Reason: Agitation Last Admin: 05/16/18 10:10 Dose: 0.5 mg Levothyroxine Sodium (Synthroid) 75 mcg PO DAILY@0630 [facility] Last Admin: 05/28/18 06:12 Dose: Not Given Metoprolol Tartrate (Lopressor) 50 mg PO Q12 [facility] Last Admin: 05/28/18 09:20 Dose: 50 mg Rivaroxaban (Xarelto) 20 mg PO DAILY [facility]; Protocol Last Admin: 05/28/18 09:20 Dose: 20 mg - Labs Labs: 05/23/18 09:29 05/23/18 09:29 PT 11.9 Seconds (9.8-13.1) 03/22/18 19:00 INR 1.0 03/22/18 19:00 APTT 29.3 Seconds (25.6-37.1) 11/24/18 19:00 - Constitutional Appears: No Acute Distress - Head Exam Head Exam: NORMAL INSPECTION - Eye Exam Eye Exam: PERRL - ENT Exam ENT Exam: Normal Exam - Neck Exam Neck Exam: Normal Inspection - Respiratory Exam Respiratory Exam: NORMAL BREATHING PATTERN - Cardiovascular Exam Cardiovascular Exam: REGULAR RHYTHM - GI/Abdominal Exam GI & Abdominal Exam: Soft, Normal Bowel Sounds - Extremities Exam Extremities Exam: Normal Inspection - Back Exam Back Exam: NORMAL INSPECTION - Neurological Exam Neurological Exam: Awake Additional comments: Confused, forgetful, no motor/sensory deficit. - Skin Skin Exam: Warm Assessment and Plan (1) Rhabdomyolysis Status: Resolved (2) Status post fall Status: Acute (3) Change in mental status Status: Acute (4) Dementia Status: Chronic (5) HTN (hypertension) Status: Chronic (6) Urinary retention Status: Resolved - Assessment and Plan (Free Text) Plan: continue current Tx, for Court for Legal Guardianship in June
[2018-05-29] MEDS: Levothyroxine 75 MCG TAB PO SCH (05:55)
[2018-05-29] MEDS: Divalproex 125 mg Sprinkle Capsule PO SCH ×2 (09:13→16:25)
--- NOTE | 2018-05-29 14:46 | CP.PCM.PN ---
Subjective - Date & Time of Evaluation Date of Evaluation: 05/29/18 Time of Evaluation: 10:45 - Subjective Subjective: F/U AMS No AD, NC, confused Objective - Vital Signs/Intake and Output Vital Signs (last 24 hours): Temp Pulse Resp BP Pulse Ox 97.9 F 68 20 135/72 97 05/28/18 16:34 05/29/18 09:13 05/28/18 16:34 05/29/18 09:13 05/28/18 16:34 - Medications Medications: Current Medications Acetaminophen (Tylenol 325mg Tab) 650 mg PO Q6 PRN PRN Reason: Pain, Mild (1-3) Last Admin: 04/15/18 23:34 Dose: 650 mg Cyanocobalamin (Vitamin B12 1000 Mcg Tab) 1,000 mcg PO DAILY [facility] Last Admin: 05/29/18 09:14 Dose: 1,000 mcg Divalproex Sodium (Depakote Sprinkles) 125 mg PO BID [facility] Last Admin: 05/29/18 09:13 Dose: 125 mg Donepezil HCl (Aricept) 5 mg PO HS [facility] Last Admin: 05/28/18 21:38 Dose: 5 mg Enalapril Maleate (Vasotec) 2.5 mg PO DAILY [facility] Last Admin: 05/29/18 09:14 Dose: 2.5 mg Haloperidol Lactate (Haldol) 0.5 mg IM Q4 PRN PRN Reason: Agitation Last Admin: 05/16/18 10:10 Dose: 0.5 mg Levothyroxine Sodium (Synthroid) 75 mcg PO DAILY@0630 [facility] Last Admin: 05/29/18 05:55 Dose: 75 mcg Metoprolol Tartrate (Lopressor) 50 mg PO Q12 [facility] Last Admin: 05/29/18 09:13 Dose: 50 mg Rivaroxaban (Xarelto) 20 mg PO DAILY [facility]; Protocol Last Admin: 05/29/18 09:14 Dose: 20 mg - Labs Labs: 05/23/18 09:29 05/23/18 09:29 PT 11.9 Seconds (9.8-13.1) 03/22/18 19:00 INR 1.0 03/22/18 19:00 APTT 29.3 Seconds (25.6-37.1) 03/22/18 19:00 - Constitutional Appears: No Acute Distress - Head Exam Head Exam: NORMAL INSPECTION - Eye Exam Eye Exam: PERRL - ENT Exam ENT Exam: Normal Exam - Neck Exam Neck Exam: Normal Inspection - Respiratory Exam Respiratory Exam: NORMAL BREATHING PATTERN - Cardiovascular Exam Cardiovascular Exam: REGULAR RHYTHM - GI/Abdominal Exam GI & Abdominal Exam: Soft, Normal Bowel Sounds - Extremities Exam Extremities Exam: Normal Inspection - Back Exam Back Exam: NORMAL INSPECTION - Neurological Exam Neurological Exam: Awake Additional comments: Confused, forgetful, no motor/sensory deficit - Psychiatric Exam Additional comments: Calm - Skin Skin Exam: Warm Assessment and Plan (1) Rhabdomyolysis Status: Resolved (2) Status post fall Status: Acute (3) Change in mental status Status: Acute (4) Dementia Status: Chronic (5) HTN (hypertension) Status: Chronic (6) Urinary retention Status: Resolved - Assessment and Plan (Free Text) Plan: continue current Tx, Legal Guardianship
[2018-05-30 02:50] LABS: SQUAMOUS EPITHIAL 17 /hpf (0-5); URINE BACTERIA RARE (<OCC); URINE BILIRUBIN NEGATIVE (NEGATIVE); URINE BLOOD LARGE (NEGATIVE); URINE CLARITY CLOUDY (Clear); URINE COLOR YELLOW (YELLOW); URINE GLUCOSE (UA) NEG (NEGATIVE); URINE LEUKOCYTE ESTERASE MOD Leu/uL (Negative); URINE PROTEIN 30 mg/dL (NEGATIVE); URINE UROBILINOGEN 0.2-1.0 mg/dL (0.2-1.0)
[2018-05-30] MEDS: Levothyroxine 75 MCG TAB PO SCH (06:08)
[2018-05-30] MEDS: Divalproex 125 mg Sprinkle Capsule PO SCH ×2 (09:44→16:57)
--- NOTE | 2018-05-30 13:56 | CP.PCM.PN ---
Subjective - Date & Time of Evaluation Date of Evaluation: 05/30/18 Time of Evaluation: 14:30 - Subjective Subjective: no AD, N/C, confused Objective - Vital Signs/Intake and Output Vital Signs (last 24 hours): Temp Pulse Resp BP Pulse Ox 98.5 F 63 18 130/74 98 05/29/18 16:17 05/30/18 09:44 05/29/18 16:17 05/30/18 09:44 05/29/18 16:17 - Medications Medications: Current Medications Acetaminophen (Tylenol 325mg Tab) 650 mg PO Q6 PRN PRN Reason: Pain, Mild (1-3) Last Admin: 04/15/18 23:34 Dose: 650 mg Cyanocobalamin (Vitamin B12 1000 Mcg Tab) 1,000 mcg PO DAILY [facility] Last Admin: 05/30/18 09:44 Dose: 1,000 mcg Divalproex Sodium (Depakote Sprinkles) 125 mg PO BID [facility] Last Admin: 05/30/18 09:44 Dose: 125 mg Donepezil HCl (Aricept) 5 mg PO HS [facility] Last Admin: 05/29/18 21:32 Dose: 5 mg Enalapril Maleate (Vasotec) 2.5 mg PO DAILY [facility] Last Admin: 05/30/18 09:44 Dose: 2.5 mg Haloperidol Lactate (Haldol) 0.5 mg IM Q4 PRN PRN Reason: Agitation Last Admin: 05/30/18 10:06 Dose: 0.5 mg Levothyroxine Sodium (Synthroid) 75 mcg PO DAILY@0630 [facility] Last Admin: 05/30/18 06:08 Dose: 75 mcg Metoprolol Tartrate (Lopressor) 50 mg PO Q12 [facility] Last Admin: 05/30/18 09:44 Dose: 50 mg Rivaroxaban (Xarelto) 20 mg PO DAILY [facility]; Protocol Last Admin: 05/30/18 09:44 Dose: 20 mg - Labs Labs: 05/23/18 09:29 05/23/18 09:29 PT 11.9 Seconds (9.8-13.1) 03/22/18 19:00 INR 1.0 03/22/18 19:00 APTT 29.3 Seconds (25.6-37.1) 03/22/18 19:00 - Constitutional Appears: No Acute Distress - Head Exam Head Exam: NORMAL INSPECTION - Eye Exam Eye Exam: PERRL - ENT Exam ENT Exam: Normal Exam - Neck Exam Neck Exam: Normal Inspection - Respiratory Exam Respiratory Exam: NORMAL BREATHING PATTERN - Cardiovascular Exam Cardiovascular Exam: REGULAR RHYTHM - GI/Abdominal Exam GI & Abdominal Exam: Soft, Normal Bowel Sounds - Extremities Exam Extremities Exam: Normal Inspection - Back Exam Back Exam: NORMAL INSPECTION - Neurological Exam Neurological Exam: Alert, CN II-XII Intact. absent: Motor Sensory Deficit Additional comments: confused - Psychiatric Exam Additional comments: calm - Skin Skin Exam: Warm Assessment and Plan (1) Rhabdomyolysis Status: Resolved (2) Status post fall Status: Acute (3) Change in mental status Status: Acute (4) Dementia Status: Chronic (5) HTN (hypertension) Status: Chronic (6) Urinary retention Status: Resolved - Assessment and Plan (Free Text) Plan: continue current Tx, Court for Legal Guardianship in June
[2018-05-31] MEDS: Levothyroxine 75 MCG TAB PO SCH (06:21)
[2018-05-31] MEDS: Divalproex 125 mg Sprinkle Capsule PO SCH ×2 (09:38→17:18)
--- NOTE | 2018-05-31 18:39 | CP.PCM.PN ---
Subjective - Date & Time of Evaluation Date of Evaluation: 05/31/18 Time of Evaluation: 17:00 - Subjective Subjective: F/U AMS Pt confused, calm cooperative. Objective - Vital Signs/Intake and Output Vital Signs (last 24 hours): Temp Pulse Resp BP Pulse Ox 98 F 67 20 118/71 98 05/31/18 16:16 05/31/18 16:16 05/31/18 16:16 05/31/18 16:16 05/31/18 16:16 - Medications Medications: Current Medications Acetaminophen (Tylenol 325mg Tab) 650 mg PO Q6 PRN PRN Reason: Pain, Mild (1-3) Last Admin: 04/15/18 23:34 Dose: 650 mg Cyanocobalamin (Vitamin B12 1000 Mcg Tab) 1,000 mcg PO DAILY [facility] Last Admin: 05/31/18 09:38 Dose: 1,000 mcg Divalproex Sodium (Depakote Sprinkles) 125 mg PO BID [facility] Last Admin: 05/31/18 17:18 Dose: 125 mg Donepezil HCl (Aricept) 5 mg PO HS [facility] Last Admin: 05/30/18 21:07 Dose: 5 mg Enalapril Maleate (Vasotec) 2.5 mg PO DAILY [facility] Last Admin: 05/31/18 09:38 Dose: 2.5 mg Haloperidol Lactate (Haldol) 0.5 mg IM Q4 PRN PRN Reason: Agitation Last Admin: 05/30/18 10:06 Dose: 0.5 mg Levothyroxine Sodium (Synthroid) 75 mcg PO DAILY@0630 [facility] Last Admin: 05/31/18 06:21 Dose: 75 mcg Metoprolol Tartrate (Lopressor) 50 mg PO Q12 [facility] Last Admin: 05/31/18 09:41 Dose: 50 mg Rivaroxaban (Xarelto) 20 mg PO DAILY [facility]; Protocol Last Admin: 05/31/18 09:37 Dose: 20 mg - Labs Labs: 05/23/18 09:29 05/23/18 09:29 PT 11.9 Seconds (9.8-13.1) 03/22/18 19:00 INR 1.0 03/22/18 19:00 APTT 29.3 Seconds (25.6-37.1) 03/22/18 19:00 - Constitutional Appears: No Acute Distress - Head Exam Head Exam: NORMAL INSPECTION - Eye Exam Eye Exam: PERRL - ENT Exam ENT Exam: Normal Exam - Neck Exam Neck Exam: Normal Inspection - Respiratory Exam Respiratory Exam: NORMAL BREATHING PATTERN - Cardiovascular Exam Cardiovascular Exam: REGULAR RHYTHM - GI/Abdominal Exam GI & Abdominal Exam: Soft, Normal Bowel Sounds - Extremities Exam Extremities Exam: Normal Inspection - Back Exam Back Exam: NORMAL INSPECTION - Neurological Exam Neurological Exam: Alert, CN II-XII Intact. absent: Motor Sensory Deficit Additional comments: Confused - Psychiatric Exam Additional comments: Calm - Skin Skin Exam: Warm Assessment and Plan (1) Rhabdomyolysis Status: Resolved (2) Status post fall Status: Acute (3) Change in mental status Status: Acute (4) Dementia Status: Chronic (5) HTN (hypertension) Status: Chronic (6) Urinary retention Status: Resolved - Assessment and Plan (Free Text) Plan: Continue current Tx, for legal guardianship.
[2018-06-01] MEDS: Levothyroxine 75 MCG TAB PO SCH (06:37)
[2018-06-01] MEDS: Divalproex 125 mg Sprinkle Capsule PO SCH ×2 (08:44→16:27)
--- NOTE | 2018-06-01 15:20 | CP.PCM.PN ---
Subjective - Date & Time of Evaluation Date of Evaluation: 06/01/18 Time of Evaluation: 16:00 - Subjective Subjective: F/U AMS Pt awake, calm, confused. Objective - Vital Signs/Intake and Output Vital Signs (last 24 hours): Temp Pulse Resp BP Pulse Ox 97.5 F L 59 L 20 129/78 95 06/01/18 09:00 06/01/18 09:00 06/01/18 09:00 06/01/18 09:00 06/01/18 09:00 - Medications Medications: Current Medications Acetaminophen (Tylenol 325mg Tab) 650 mg PO Q6 PRN PRN Reason: Pain, Mild (1-3) Last Admin: 04/15/18 23:34 Dose: 650 mg Cyanocobalamin (Vitamin B12 1000 Mcg Tab) 1,000 mcg PO DAILY [facility] Last Admin: 06/01/18 08:40 Dose: 1,000 mcg Divalproex Sodium (Depakote Sprinkles) 125 mg PO BID [facility] Last Admin: 06/01/18 08:44 Dose: 125 mg Donepezil HCl (Aricept) 5 mg PO HS [facility] Last Admin: 05/31/18 21:48 Dose: 5 mg Enalapril Maleate (Vasotec) 2.5 mg PO DAILY [facility] Last Admin: 06/01/18 09:09 Dose: 2.5 mg Haloperidol Lactate (Haldol) 0.5 mg IM Q4 PRN PRN Reason: Agitation Last Admin: 05/30/18 10:06 Dose: 0.5 mg Levothyroxine Sodium (Synthroid) 75 mcg PO DAILY@0630 [facility] Last Admin: 06/01/18 06:37 Dose: 75 mcg Metoprolol Tartrate (Lopressor) 50 mg PO Q12 [facility] Last Admin: 06/01/18 08:41 Dose: 50 mg Rivaroxaban (Xarelto) 20 mg PO DAILY [facility]; Protocol Last Admin: 06/01/18 08:41 Dose: 20 mg - Labs Labs: 05/23/18 09:29 05/23/18 09:29 PT 11.9 Seconds (9.8-13.1) 03/22/18 19:00 INR 1.0 03/22/18 19:00 APTT 29.3 Seconds (25.6-37.1) 03/22/18 19:00 - Constitutional Appears: No Acute Distress - Head Exam Head Exam: NORMAL INSPECTION - Eye Exam Eye Exam: PERRL - ENT Exam ENT Exam: Normal Exam - Neck Exam Neck Exam: Normal Inspection - Respiratory Exam Respiratory Exam: NORMAL BREATHING PATTERN - Cardiovascular Exam Cardiovascular Exam: REGULAR RHYTHM - GI/Abdominal Exam GI & Abdominal Exam: Soft, Normal Bowel Sounds - Extremities Exam Extremities Exam: Normal Inspection - Back Exam Back Exam: NORMAL INSPECTION - Neurological Exam Neurological Exam: Awake Additional comments: Confused, forgetful, no motor/sensory deficit. - Skin Skin Exam: Warm Assessment and Plan (1) Rhabdomyolysis Status: Resolved (2) Status post fall Status: Acute (3) Change in mental status Status: Acute (4) Dementia Status: Chronic (5) HTN (hypertension) Status: Chronic (6) Urinary retention Status: Resolved - Assessment and Plan (Free Text) Plan: Continue Aricept, Depakote and rest of Tx, for legal guardianship
[2018-06-02] MEDS: Levothyroxine 75 MCG TAB PO SCH (06:35)
[2018-06-02] MEDS: Divalproex 125 mg Sprinkle Capsule PO SCH ×2 (08:33→16:49)
--- NOTE | 2018-06-02 14:45 | CP.PCM.PN ---
Subjective - Date & Time of Evaluation Date of Evaluation: 06/02/18 Time of Evaluation: 12:30 - Subjective Subjective: F/U AMS no AD, calm, confused Objective - Vital Signs/Intake and Output Vital Signs (last 24 hours): Temp Pulse Resp BP Pulse Ox 97.1 F L 62 18 120/72 94 L 06/02/18 08:09 06/02/18 08:36 06/02/18 08:09 06/02/18 08:36 06/02/18 08:09 - Medications Medications: Current Medications Acetaminophen (Tylenol 325mg Tab) 650 mg PO Q6 PRN PRN Reason: Pain, Mild (1-3) Last Admin: 04/15/18 23:34 Dose: 650 mg Cyanocobalamin (Vitamin B12 1000 Mcg Tab) 1,000 mcg PO DAILY [facility] Last Admin: 06/02/18 08:35 Dose: 1,000 mcg Divalproex Sodium (Depakote Sprinkles) 125 mg PO BID [facility] Last Admin: 06/02/18 08:33 Dose: 125 mg Donepezil HCl (Aricept) 5 mg PO HS [facility] Last Admin: 06/01/18 21:25 Dose: 5 mg Enalapril Maleate (Vasotec) 2.5 mg PO DAILY [facility] Last Admin: 06/02/18 08:39 Dose: 2.5 mg Haloperidol Lactate (Haldol) 0.5 mg IM Q4 PRN PRN Reason: Agitation Last Admin: 05/30/18 10:06 Dose: 0.5 mg Levothyroxine Sodium (Synthroid) 75 mcg PO DAILY@0630 [facility] Last Admin: 06/02/18 06:35 Dose: Not Given Metoprolol Tartrate (Lopressor) 50 mg PO Q12 [facility] Last Admin: 06/02/18 08:36 Dose: 50 mg Rivaroxaban (Xarelto) 20 mg PO DAILY [facility]; Protocol Last Admin: 06/02/18 08:35 Dose: 20 mg - Labs Labs: 05/23/18 09:29 05/23/18 09:29 PT 11.9 Seconds (9.8-13.1) 03/22/18 19:00 INR 1.0 03/22/18 19:00 APTT 29.3 Seconds (25.6-37.1) 03/22/18 19:00 - Constitutional Appears: No Acute Distress - Head Exam Head Exam: NORMAL INSPECTION - Eye Exam Eye Exam: PERRL - ENT Exam ENT Exam: Normal Exam - Neck Exam Neck Exam: Normal Inspection - Respiratory Exam Respiratory Exam: NORMAL BREATHING PATTERN - Cardiovascular Exam Cardiovascular Exam: REGULAR RHYTHM - GI/Abdominal Exam GI & Abdominal Exam: Soft, Normal Bowel Sounds - Extremities Exam Extremities Exam: Normal Inspection - Back Exam Back Exam: NORMAL INSPECTION - Neurological Exam Neurological Exam: Awake Additional comments: Confused, able to follow commands, no motor/sensory deficit. - Psychiatric Exam Additional comments: Calm - Skin Skin Exam: Warm Assessment and Plan (1) Rhabdomyolysis Status: Resolved (2) Status post fall Status: Acute (3) Change in mental status Status: Acute (4) Dementia Status: Chronic (5) HTN (hypertension) Status: Chronic (6) Urinary retention Status: Resolved - Assessment and Plan (Free Text) Plan: continue current Tx, for Legal Guadianship
[2018-06-03] MEDS: Levothyroxine 75 MCG TAB PO SCH (06:35)
[2018-06-03] MEDS: Divalproex 125 mg Sprinkle Capsule PO SCH ×2 (08:56→16:18)
--- NOTE | 2018-06-03 14:33 | CP.PCM.PN ---
Subjective - Date & Time of Evaluation Date of Evaluation: 06/03/18 Time of Evaluation: 12:00 - Subjective Subjective: F/U AMS no AD, calm, confused Objective - Vital Signs/Intake and Output Vital Signs (last 24 hours): Temp Pulse Resp BP Pulse Ox 96.4 F L 85 20 118/69 94 L 06/02/18 16:31 06/03/18 08:57 06/02/18 16:31 06/03/18 08:57 06/02/18 16:31 - Medications Medications: Current Medications Acetaminophen (Tylenol 325mg Tab) 650 mg PO Q6 PRN PRN Reason: Pain, Mild (1-3) Last Admin: 04/15/18 23:34 Dose: 650 mg Cyanocobalamin (Vitamin B12 1000 Mcg Tab) 1,000 mcg PO DAILY [facility] Last Admin: 06/03/18 08:58 Dose: 1,000 mcg Divalproex Sodium (Depakote Sprinkles) 125 mg PO BID [facility] Last Admin: 06/03/18 08:56 Dose: 125 mg Donepezil HCl (Aricept) 5 mg PO HS [facility] Last Admin: 06/02/18 23:11 Dose: 5 mg Enalapril Maleate (Vasotec) 2.5 mg PO DAILY [facility] Last Admin: 06/03/18 08:58 Dose: 2.5 mg Haloperidol Lactate (Haldol) 0.5 mg IM Q4 PRN PRN Reason: Agitation Last Admin: 05/30/18 10:06 Dose: 0.5 mg Levothyroxine Sodium (Synthroid) 75 mcg PO DAILY@0630 [facility] Last Admin: 06/03/18 06:35 Dose: Not Given Metoprolol Tartrate (Lopressor) 50 mg PO Q12 [facility] Last Admin: 06/03/18 08:57 Dose: 50 mg Rivaroxaban (Xarelto) 20 mg PO DAILY [facility]; Protocol Last Admin: 06/03/18 08:59 Dose: 20 mg - Labs Labs: 05/23/18 09:29 05/23/18 09:29 PT 11.9 Seconds (9.8-13.1) 03/22/18 19:00 INR 1.0 03/22/18 19:00 APTT 29.3 Seconds (25.6-37.1) 03/22/18 19:00 - Constitutional Appears: No Acute Distress - Head Exam Head Exam: NORMAL INSPECTION - Eye Exam Eye Exam: PERRL - ENT Exam ENT Exam: Normal Exam - Neck Exam Neck Exam: Normal Inspection - Respiratory Exam Respiratory Exam: NORMAL BREATHING PATTERN - Cardiovascular Exam Cardiovascular Exam: REGULAR RHYTHM - GI/Abdominal Exam GI & Abdominal Exam: Soft, Normal Bowel Sounds - Extremities Exam Extremities Exam: Normal Inspection - Back Exam Back Exam: NORMAL INSPECTION - Neurological Exam Neurological Exam: Awake Additional comments: Confused, follows commands, no motor/sensory deficit - Skin Skin Exam: Warm Assessment and Plan (1) Rhabdomyolysis Status: Resolved (2) Status post fall Status: Acute (3) Change in mental status Status: Acute (4) Dementia Status: Chronic (5) HTN (hypertension) Status: Chronic (6) Urinary retention Status: Resolved - Assessment and Plan (Free Text) Plan: continue Aeicept, Depakote, Xarelto and rest of Tx
[2018-06-04] MEDS: Levothyroxine 75 MCG TAB PO SCH (05:33)
[2018-06-04] MEDS: Divalproex 125 mg Sprinkle Capsule PO SCH ×2 (08:21→16:26)
--- NOTE | 2018-06-04 13:11 | CP.PCM.PN ---
Subjective - Date & Time of Evaluation Date of Evaluation: 06/04/18 Time of Evaluation: 10:00 - Subjective Subjective: F/U AMS No AD, NC, confused Objective - Vital Signs/Intake and Output Vital Signs (last 24 hours): Temp Pulse Resp BP Pulse Ox 97.9 F 71 20 137/72 97 06/04/18 07:43 06/04/18 08:21 06/04/18 07:43 06/04/18 08:21 06/04/18 07:43 - Medications Medications: Current Medications Acetaminophen (Tylenol 325mg Tab) 650 mg PO Q6 PRN PRN Reason: Pain, Mild (1-3) Last Admin: 04/15/18 23:34 Dose: 650 mg Cyanocobalamin (Vitamin B12 1000 Mcg Tab) 1,000 mcg PO DAILY [facility] Last Admin: 06/04/18 08:21 Dose: 1,000 mcg Divalproex Sodium (Depakote Sprinkles) 125 mg PO BID [facility] Last Admin: 06/04/18 08:21 Dose: 125 mg Donepezil HCl (Aricept) 5 mg PO HS [facility] Last Admin: 06/03/18 21:49 Dose: 5 mg Enalapril Maleate (Vasotec) 2.5 mg PO DAILY [facility] Last Admin: 06/04/18 08:22 Dose: 2.5 mg Haloperidol Lactate (Haldol) 0.5 mg IM Q4 PRN PRN Reason: Agitation Last Admin: 05/30/18 10:06 Dose: 0.5 mg Levothyroxine Sodium (Synthroid) 75 mcg PO DAILY@0630 [facility] Last Admin: 06/04/18 05:33 Dose: 75 mcg Metoprolol Tartrate (Lopressor) 50 mg PO Q12 [facility] Last Admin: 06/04/18 08:21 Dose: 50 mg Rivaroxaban (Xarelto) 20 mg PO DAILY [facility]; Protocol Last Admin: 06/04/18 08:22 Dose: 20 mg - Labs Labs: 05/23/18 09:29 05/23/18 09:29 PT 11.9 Seconds (9.8-13.1) 03/22/18 19:00 INR 1.0 03/22/18 19:00 APTT 29.3 Seconds (25.6-37.1) 03/22/18 19:00 - Constitutional Appears: No Acute Distress - Head Exam Head Exam: NORMAL INSPECTION - Eye Exam Eye Exam: PERRL - ENT Exam ENT Exam: Normal Exam - Neck Exam Neck Exam: Normal Inspection - Respiratory Exam Respiratory Exam: NORMAL BREATHING PATTERN - Cardiovascular Exam Cardiovascular Exam: REGULAR RHYTHM - GI/Abdominal Exam GI & Abdominal Exam: Soft, Normal Bowel Sounds - Extremities Exam Extremities Exam: Normal Inspection - Back Exam Back Exam: NORMAL INSPECTION - Neurological Exam Neurological Exam: Alert, Awake Additional comments: Confused, no motor/sensory deficit. - Skin Skin Exam: Warm Assessment and Plan (1) Rhabdomyolysis Status: Resolved (2) Status post fall Status: Acute (3) Change in mental status Status: Acute (4) Dementia Status: Chronic (5) HTN (hypertension) Status: Chronic (6) Urinary retention Status: Resolved - Assessment and Plan (Free Text) Plan: continue current Tx, Legal Guardianship
[2018-06-05] MEDS: Levothyroxine 75 MCG TAB PO SCH (05:35)
[2018-06-05] MEDS: Divalproex 125 mg Sprinkle Capsule PO SCH ×2 (08:56→16:03)
--- NOTE | 2018-06-05 18:04 | CP.PCM.PN ---
Subjective - Date & Time of Evaluation Date of Evaluation: 06/05/18 Time of Evaluation: 11:30 - Subjective Subjective: F/U AMS no AD, calm, confused Objective - Vital Signs/Intake and Output Vital Signs (last 24 hours): Temp Pulse Resp BP Pulse Ox 98.1 F 62 18 138/74 98 06/05/18 15:52 06/05/18 15:52 06/05/18 15:52 06/05/18 15:52 06/05/18 15:52 - Medications Medications: Current Medications Acetaminophen (Tylenol 325mg Tab) 650 mg PO Q6 PRN PRN Reason: Pain, Mild (1-3) Last Admin: 04/15/18 23:34 Dose: 650 mg Cyanocobalamin (Vitamin B12 1000 Mcg Tab) 1,000 mcg PO DAILY [facility] Last Admin: 06/05/18 08:57 Dose: 1,000 mcg Divalproex Sodium (Depakote Sprinkles) 125 mg PO BID [facility] Last Admin: 06/05/18 16:03 Dose: 125 mg Donepezil HCl (Aricept) 5 mg PO HS [facility] Last Admin: 06/04/18 21:41 Dose: 5 mg Enalapril Maleate (Vasotec) 2.5 mg PO DAILY [facility] Last Admin: 06/05/18 08:56 Dose: 2.5 mg Haloperidol Lactate (Haldol) 0.5 mg IM Q4 PRN PRN Reason: Agitation Last Admin: 05/30/18 10:06 Dose: 0.5 mg Levothyroxine Sodium (Synthroid) 75 mcg PO DAILY@0630 [facility] Last Admin: 06/05/18 05:35 Dose: 75 mcg Metoprolol Tartrate (Lopressor) 50 mg PO Q12 [facility] Last Admin: 06/05/18 08:56 Dose: 50 mg Rivaroxaban (Xarelto) 20 mg PO DAILY [facility]; Protocol Last Admin: 06/05/18 08:57 Dose: 20 mg - Labs Labs: 05/23/18 09:29 05/23/18 09:29 PT 11.9 Seconds (9.8-13.1) 03/22/18 19:00 INR 1.0 03/22/18 19:00 APTT 29.3 Seconds (25.6-37.1) 03/22/18 19:00 - Constitutional Appears: No Acute Distress - Head Exam Head Exam: NORMAL INSPECTION - Eye Exam Eye Exam: PERRL - ENT Exam ENT Exam: Normal Exam - Neck Exam Neck Exam: Normal Inspection - Respiratory Exam Respiratory Exam: NORMAL BREATHING PATTERN - Cardiovascular Exam Cardiovascular Exam: REGULAR RHYTHM - GI/Abdominal Exam GI & Abdominal Exam: Soft, Normal Bowel Sounds - Extremities Exam Extremities Exam: Normal Inspection - Back Exam Back Exam: NORMAL INSPECTION - Neurological Exam Neurological Exam: Awake Additional comments: Confused, forgetful, follows commands, no motor/sensory deficit. - Psychiatric Exam Additional comments: Calm - Skin Skin Exam: Warm Assessment and Plan (1) Rhabdomyolysis Status: Resolved (2) Status post fall Status: Acute (3) Change in mental status Status: Acute (4) Dementia Status: Chronic (5) HTN (hypertension) Status: Chronic (6) Urinary retention Status: Resolved - Assessment and Plan (Free Text) Plan: lucia current Tx for Legal Guardianship
[2018-06-06] MEDS: Levothyroxine 75 MCG TAB PO SCH (06:31)
[2018-06-06] MEDS: Divalproex 125 mg Sprinkle Capsule PO SCH ×2 (09:06→16:08)
--- NOTE | 2018-06-06 11:31 | CP.PCM.PN ---
Subjective - Date & Time of Evaluation Date of Evaluation: 06/06/18 Time of Evaluation: 10:40 - Subjective Subjective: F/U AMS no AD, N/C, calm, coopereative Objective - Vital Signs/Intake and Output Vital Signs (last 24 hours): Temp Pulse Resp BP Pulse Ox 97.5 F L 75 20 132/72 95 06/06/18 07:28 06/06/18 09:06 06/06/18 07:28 06/06/18 09:06 06/06/18 07:28 - Medications Medications: Current Medications Acetaminophen (Tylenol 325mg Tab) 650 mg PO Q6 PRN PRN Reason: Pain, Mild (1-3) Last Admin: 04/15/18 23:34 Dose: 650 mg Cyanocobalamin (Vitamin B12 1000 Mcg Tab) 1,000 mcg PO DAILY [facility] Last Admin: 06/06/18 09:07 Dose: 1,000 mcg Divalproex Sodium (Depakote Sprinkles) 125 mg PO BID [facility] Last Admin: 06/06/18 09:06 Dose: 125 mg Donepezil HCl (Aricept) 5 mg PO HS [facility] Last Admin: 06/05/18 21:08 Dose: 5 mg Enalapril Maleate (Vasotec) 2.5 mg PO DAILY [facility] Last Admin: 06/06/18 09:07 Dose: 2.5 mg Haloperidol Lactate (Haldol) 0.5 mg IM Q4 PRN PRN Reason: Agitation Last Admin: 05/30/18 10:06 Dose: 0.5 mg Levothyroxine Sodium (Synthroid) 75 mcg PO DAILY@0630 [facility] Last Admin: 06/06/18 06:31 Dose: Not Given Metoprolol Tartrate (Lopressor) 50 mg PO Q12 [facility] Last Admin: 06/06/18 09:06 Dose: 50 mg - Labs Labs: 05/23/18 09:29 05/23/18 09:29 PT 11.9 Seconds (9.8-13.1) 03/22/18 19:00 INR 1.0 03/22/18 19:00 APTT 29.3 Seconds (25.6-37.1) 03/22/18 19:00 - Constitutional Appears: No Acute Distress - Head Exam Head Exam: NORMAL INSPECTION - Eye Exam Eye Exam: PERRL - ENT Exam ENT Exam: Normal Exam - Neck Exam Neck Exam: Normal Inspection - Respiratory Exam Respiratory Exam: NORMAL BREATHING PATTERN - Cardiovascular Exam Cardiovascular Exam: REGULAR RHYTHM - GI/Abdominal Exam GI & Abdominal Exam: Soft, Normal Bowel Sounds - Extremities Exam Extremities Exam: Normal Inspection - Back Exam Back Exam: NORMAL INSPECTION - Neurological Exam Neurological Exam: Awake Additional comments: Forgetful, no motor/sensory deficit. able to follows commands. - Skin Skin Exam: Warm Assessment and Plan (1) Rhabdomyolysis Status: Resolved (2) Status post fall Status: Acute (3) Change in mental status Status: Acute (4) Dementia Status: Chronic (5) HTN (hypertension) Status: Chronic (6) Urinary retention Status: Resolved - Assessment and Plan (Free Text) Plan: contunue Aricept, Depakote, Xarelto, Lopressor, Vasoted, Synthroid, for Legal Guardianship
[2018-06-07] MEDS: Levothyroxine 75 MCG TAB PO SCH (06:52)
[2018-06-07] MEDS: Divalproex 125 mg Sprinkle Capsule PO SCH ×2 (11:29→16:18)
--- NOTE | 2018-06-07 17:31 | CP.PCM.PN ---
Subjective - Date & Time of Evaluation Date of Evaluation: 06/07/18 Time of Evaluation: 14:20 - Subjective Subjective: F/U AMS Pt calm, confused, no A/D. Objective - Vital Signs/Intake and Output Vital Signs (last 24 hours): Temp Pulse Resp BP Pulse Ox 98.3 F 61 18 103/62 95 06/07/18 16:29 06/07/18 16:29 06/07/18 16:29 06/07/18 16:29 06/07/18 16:29 - Medications Medications: Current Medications Acetaminophen (Tylenol 325mg Tab) 650 mg PO Q6 PRN PRN Reason: Pain, Mild (1-3) Last Admin: 04/15/18 23:34 Dose: 650 mg Cyanocobalamin (Vitamin B12 1000 Mcg Tab) 1,000 mcg PO DAILY [facility] Last Admin: 06/07/18 11:29 Dose: 1,000 mcg Divalproex Sodium (Depakote Sprinkles) 125 mg PO BID [facility] Last Admin: 06/07/18 16:18 Dose: 125 mg Donepezil HCl (Aricept) 5 mg PO HS [facility] Last Admin: 06/06/18 21:27 Dose: 5 mg Enalapril Maleate (Vasotec) 2.5 mg PO DAILY [facility] Last Admin: 06/07/18 11:32 Dose: 2.5 mg Haloperidol Lactate (Haldol) 0.5 mg IM Q4 PRN PRN Reason: Agitation Last Admin: 05/30/18 10:06 Dose: 0.5 mg Levothyroxine Sodium (Synthroid) 75 mcg PO DAILY@0630 [facility] Last Admin: 06/07/18 06:52 Dose: 75 mcg Metoprolol Tartrate (Lopressor) 50 mg PO Q12 [facility] Last Admin: 06/07/18 11:31 Dose: 50 mg Rivaroxaban (Xarelto) 20 mg PO DAILY [facility]; Protocol Last Admin: 06/07/18 11:30 Dose: 20 mg - Labs Labs: 05/23/18 09:29 05/23/18 09:29 PT 11.9 Seconds (9.8-13.1) 03/22/18 19:00 INR 1.0 03/22/18 19:00 APTT 29.3 Seconds (25.6-37.1) 03/22/18 19:00 - Constitutional Appears: No Acute Distress - Head Exam Head Exam: NORMAL INSPECTION - Eye Exam Eye Exam: PERRL - ENT Exam ENT Exam: Normal Exam - Neck Exam Neck Exam: Normal Inspection - Respiratory Exam Respiratory Exam: NORMAL BREATHING PATTERN - Cardiovascular Exam Cardiovascular Exam: REGULAR RHYTHM - GI/Abdominal Exam GI & Abdominal Exam: Soft, Normal Bowel Sounds - Extremities Exam Extremities Exam: Normal Inspection - Back Exam Back Exam: NORMAL INSPECTION - Neurological Exam Neurological Exam: Awake. absent: Motor Sensory Deficit Additional comments: Forgetful, able to follows commands. - Skin Skin Exam: Warm Assessment and Plan (1) Rhabdomyolysis Status: Resolved (2) Status post fall Status: Acute (3) Change in mental status Status: Acute (4) Dementia Status: Chronic (5) HTN (hypertension) Status: Chronic (6) Urinary retention Status: Resolved - Assessment and Plan (Free Text) Plan: Continue current Tx, for legal guardianship.
[2018-06-08] MEDS: Levothyroxine 75 MCG TAB PO SCH (07:17)
[2018-06-08] MEDS: Divalproex 125 mg Sprinkle Capsule PO SCH ×2 (08:37→16:52)
--- NOTE | 2018-06-08 17:21 | CP.PCM.PN ---
Subjective - Date & Time of Evaluation Date of Evaluation: 06/08/18 Time of Evaluation: 12:40 - Subjective Subjective: F/U AMS Pt awake, calm, no A/D Objective - Vital Signs/Intake and Output Vital Signs (last 24 hours): Temp Pulse Resp BP Pulse Ox 97.6 F 57 L 18 120/56 L 98 06/08/18 16:28 06/08/18 16:28 06/08/18 16:28 06/08/18 16:28 06/08/18 16:28 - Medications Medications: Current Medications Acetaminophen (Tylenol 325mg Tab) 650 mg PO Q6 PRN PRN Reason: Pain, Mild (1-3) Last Admin: 04/15/18 23:34 Dose: 650 mg Cyanocobalamin (Vitamin B12 1000 Mcg Tab) 1,000 mcg PO DAILY [facility] Last Admin: 06/08/18 08:37 Dose: 1,000 mcg Divalproex Sodium (Depakote Sprinkles) 125 mg PO BID [facility] Last Admin: 06/08/18 16:52 Dose: 125 mg Donepezil HCl (Aricept) 5 mg PO HS [facility] Last Admin: 06/07/18 21:10 Dose: 5 mg Enalapril Maleate (Vasotec) 2.5 mg PO DAILY [facility] Last Admin: 06/08/18 12:42 Dose: 2.5 mg Haloperidol Lactate (Haldol) 0.5 mg IM Q4 PRN PRN Reason: Agitation Last Admin: 05/30/18 10:06 Dose: 0.5 mg Levothyroxine Sodium (Synthroid) 75 mcg PO DAILY@0630 [facility] Last Admin: 06/08/18 07:17 Dose: 75 mcg Metoprolol Tartrate (Lopressor) 50 mg PO Q12 [facility] Last Admin: 06/08/18 08:38 Dose: 50 mg Rivaroxaban (Xarelto) 20 mg PO DAILY@1700 [facility]; Protocol Last Admin: 06/08/18 16:52 Dose: 20 mg - Labs Labs: 05/23/18 09:29 05/23/18 09:29 PT 11.9 Seconds (9.8-13.1) 03/22/18 19:00 INR 1.0 03/22/18 19:00 APTT 29.3 Seconds (25.6-37.1) 03/22/18 19:00 - Constitutional Appears: No Acute Distress - Head Exam Head Exam: NORMAL INSPECTION - Eye Exam Eye Exam: PERRL - ENT Exam ENT Exam: Normal Exam - Neck Exam Neck Exam: Normal Inspection - Respiratory Exam Respiratory Exam: NORMAL BREATHING PATTERN - Cardiovascular Exam Cardiovascular Exam: REGULAR RHYTHM - GI/Abdominal Exam GI & Abdominal Exam: Soft, Normal Bowel Sounds - Extremities Exam Extremities Exam: Normal Inspection - Back Exam Back Exam: NORMAL INSPECTION - Neurological Exam Neurological Exam: Awake. absent: Motor Sensory Deficit Additional comments: Forgetful, able to follows commands - Skin Skin Exam: Warm Assessment and Plan (1) Rhabdomyolysis Status: Resolved (2) Status post fall Status: Acute (3) Change in mental status Status: Acute (4) Dementia Status: Chronic (5) HTN (hypertension) Status: Chronic (6) Urinary retention Status: Resolved - Assessment and Plan (Free Text) Plan: Continue current medications, for legal guardianship
[2018-06-09] MEDS: Levothyroxine 75 MCG TAB PO SCH (05:58)
[2018-06-09] MEDS: Divalproex 125 mg Sprinkle Capsule PO SCH ×2 (08:55→16:15)
--- NOTE | 2018-06-09 12:55 | CP.PCM.PN ---
Subjective - Date & Time of Evaluation Date of Evaluation: 06/09/18 Time of Evaluation: 10:20 - Subjective Subjective: F/U AMS no AD, ambulating previously in the [place], confused Objective - Vital Signs/Intake and Output Vital Signs (last 24 hours): Temp Pulse Resp BP Pulse Ox 97.9 F 66 18 166/76 H 96 06/09/18 00:19 06/09/18 10:50 06/09/18 00:19 06/09/18 10:50 06/09/18 00:19 - Medications Medications: Current Medications Acetaminophen (Tylenol 325mg Tab) 650 mg PO Q6 PRN PRN Reason: Pain, Mild (1-3) Last Admin: 04/15/18 23:34 Dose: 650 mg Cyanocobalamin (Vitamin B12 1000 Mcg Tab) 1,000 mcg PO DAILY [facility] Last Admin: 06/09/18 08:55 Dose: 1,000 mcg Divalproex Sodium (Depakote Sprinkles) 125 mg PO BID [facility] Last Admin: 06/09/18 08:55 Dose: 125 mg Donepezil HCl (Aricept) 5 mg PO HS [facility] Last Admin: 06/08/18 21:00 Dose: 5 mg Enalapril Maleate (Vasotec) 2.5 mg PO DAILY [facility] Last Admin: 06/09/18 09:06 Dose: 2.5 mg Haloperidol Lactate (Haldol) 0.5 mg IM Q4 PRN PRN Reason: Agitation Last Admin: 05/30/18 10:06 Dose: 0.5 mg Levothyroxine Sodium (Synthroid) 75 mcg PO DAILY@0630 [facility] Last Admin: 06/09/18 05:58 Dose: 75 mcg Metoprolol Tartrate (Lopressor) 50 mg PO Q12 [facility] Last Admin: 06/09/18 10:50 Dose: 50 mg Rivaroxaban (Xarelto) 20 mg PO DAILY@1700 [facility]; Protocol Last Admin: 06/08/18 16:52 Dose: 20 mg - Labs Labs: 05/23/18 09:29 05/23/18 09:29 PT 11.9 Seconds (9.8-13.1) 03/22/18 19:00 INR 1.0 03/22/18 19:00 APTT 29.3 Seconds (25.6-37.1) 03/22/18 19:00 - Constitutional Appears: No Acute Distress - Head Exam Head Exam: NORMAL INSPECTION - Eye Exam Eye Exam: PERRL - ENT Exam ENT Exam: Normal Exam - Neck Exam Neck Exam: Normal Inspection - Respiratory Exam Respiratory Exam: NORMAL BREATHING PATTERN - Cardiovascular Exam Cardiovascular Exam: REGULAR RHYTHM - GI/Abdominal Exam GI & Abdominal Exam: Soft, Normal Bowel Sounds - Extremities Exam Extremities Exam: Normal Inspection - Back Exam Back Exam: NORMAL INSPECTION - Neurological Exam Neurological Exam: Awake Additional comments: Forgetful, no motor/sensory deficit. - Skin Skin Exam: Warm Assessment and Plan (1) Rhabdomyolysis Status: Resolved (2) Status post fall Status: Acute (3) Change in mental status Status: Acute (4) Dementia Status: Chronic (5) HTN (hypertension) Status: Chronic (6) Urinary retention Status: Resolved - Assessment and Plan (Free Text) Plan: continue current Tx, for Legal Guardianship
[2018-06-10] MEDS: Levothyroxine 75 MCG TAB PO SCH (06:03)
[2018-06-10] MEDS: Divalproex 125 mg Sprinkle Capsule PO SCH ×2 (12:05→16:33)
--- NOTE | 2018-06-10 14:27 | CP.PCM.PN ---
Subjective - Date & Time of Evaluation Date of Evaluation: 06/10/18 Time of Evaluation: 12:00 - Subjective Subjective: F/U AMS no AD, calm, confused Objective - Vital Signs/Intake and Output Vital Signs (last 24 hours): Temp Pulse Resp BP Pulse Ox 98.1 F 68 18 163/72 H 97 06/10/18 12:03 06/10/18 12:05 06/10/18 12:03 06/10/18 12:05 06/10/18 12:03 - Medications Medications: Current Medications Acetaminophen (Tylenol 325mg Tab) 650 mg PO Q6 PRN PRN Reason: Pain, Mild (1-3) Last Admin: 04/15/18 23:34 Dose: 650 mg Cyanocobalamin (Vitamin B12 1000 Mcg Tab) 1,000 mcg PO DAILY [facility] Last Admin: 06/10/18 12:05 Dose: 1,000 mcg Divalproex Sodium (Depakote Sprinkles) 125 mg PO BID [facility] Last Admin: 06/10/18 12:05 Dose: 125 mg Donepezil HCl (Aricept) 5 mg PO HS [facility] Last Admin: 06/09/18 21:15 Dose: 5 mg Enalapril Maleate (Vasotec) 2.5 mg PO DAILY [facility] Last Admin: 06/10/18 12:05 Dose: 2.5 mg Haloperidol Lactate (Haldol) 0.5 mg IM Q4 PRN PRN Reason: Agitation Last Admin: 05/30/18 10:06 Dose: 0.5 mg Levothyroxine Sodium (Synthroid) 75 mcg PO DAILY@0630 [facility] Last Admin: 06/10/18 06:03 Dose: 75 mcg Metoprolol Tartrate (Lopressor) 50 mg PO Q12 [facility] Last Admin: 06/10/18 12:05 Dose: 50 mg Rivaroxaban (Xarelto) 20 mg PO DAILY@1700 [facility]; Protocol Last Admin: 06/09/18 16:15 Dose: 20 mg - Labs Labs: 05/23/18 09:29 05/23/18 09:29 PT 11.9 Seconds (9.8-13.1) 03/22/18 19:00 INR 1.0 03/22/18 19:00 APTT 29.3 Seconds (25.6-37.1) 03/22/18 19:00 - Constitutional Appears: No Acute Distress - Head Exam Head Exam: NORMAL INSPECTION - Eye Exam Eye Exam: PERRL - ENT Exam ENT Exam: Normal Exam - Neck Exam Neck Exam: Normal Inspection - Respiratory Exam Respiratory Exam: NORMAL BREATHING PATTERN - Cardiovascular Exam Cardiovascular Exam: REGULAR RHYTHM - Extremities Exam Extremities Exam: Normal Inspection - Back Exam Back Exam: NORMAL INSPECTION - Neurological Exam Neurological Exam: Awake. absent: Motor Sensory Deficit Additional comments: Forgetful. - Skin Skin Exam: Warm Assessment and Plan (1) Rhabdomyolysis Status: Resolved (2) Status post fall Status: Acute (3) Change in mental status Status: Acute (4) Dementia Status: Chronic (5) HTN (hypertension) Status: Chronic (6) Urinary retention Status: Resolved - Assessment and Plan (Free Text) Plan: continue Aricept, Depakote, Vasotec, Lopressor, Xarelto and rest of Tx, for Legal Guardianship
[2018-06-11] MEDS: Levothyroxine 75 MCG TAB PO SCH (06:08)
[2018-06-11] MEDS: Divalproex 125 mg Sprinkle Capsule PO SCH ×2 (09:10→17:06)
--- NOTE | 2018-06-11 12:58 | CP.PCM.PN ---
Subjective - Date & Time of Evaluation Date of Evaluation: 06/11/18 Time of Evaluation: 11:30 - Subjective Subjective: F/U AMS no AD, N/C, confused Objective - Vital Signs/Intake and Output Vital Signs (last 24 hours): Temp Pulse Resp BP Pulse Ox 97.9 F 82 20 126/76 97 06/11/18 00:01 06/11/18 09:10 06/11/18 00:01 06/11/18 09:10 06/11/18 00:01 - Medications Medications: Current Medications Acetaminophen (Tylenol 325mg Tab) 650 mg PO Q6 PRN PRN Reason: Pain, Mild (1-3) Last Admin: 04/15/18 23:34 Dose: 650 mg Cyanocobalamin (Vitamin B12 1000 Mcg Tab) 1,000 mcg PO DAILY [facility] Last Admin: 06/11/18 09:11 Dose: 1,000 mcg Divalproex Sodium (Depakote Sprinkles) 125 mg PO BID [facility] Last Admin: 06/11/18 09:10 Dose: 125 mg Donepezil HCl (Aricept) 5 mg PO HS [facility] Last Admin: 06/10/18 21:12 Dose: 5 mg Enalapril Maleate (Vasotec) 2.5 mg PO DAILY [facility] Last Admin: 06/11/18 09:11 Dose: 2.5 mg Haloperidol Lactate (Haldol) 0.5 mg IM Q4 PRN PRN Reason: Agitation Last Admin: 05/30/18 10:06 Dose: 0.5 mg Levothyroxine Sodium (Synthroid) 75 mcg PO DAILY@0630 [facility] Last Admin: 06/11/18 06:08 Dose: 75 mcg Metoprolol Tartrate (Lopressor) 50 mg PO Q12 [facility] Last Admin: 06/11/18 09:10 Dose: 50 mg Rivaroxaban (Xarelto) 20 mg PO DAILY@1700 [facility]; Protocol Last Admin: 06/10/18 16:32 Dose: 20 mg - Labs Labs: 05/23/18 09:29 05/23/18 09:29 PT 11.9 Seconds (9.8-13.1) 03/22/18 19:00 INR 1.0 03/22/18 19:00 APTT 29.3 Seconds (25.6-37.1) 03/22/18 19:00 - Constitutional Appears: No Acute Distress - Head Exam Head Exam: NORMAL INSPECTION - Eye Exam Eye Exam: PERRL - ENT Exam ENT Exam: Normal Exam - Neck Exam Neck Exam: Normal Inspection - Respiratory Exam Respiratory Exam: NORMAL BREATHING PATTERN - Cardiovascular Exam Cardiovascular Exam: REGULAR RHYTHM - Extremities Exam Extremities Exam: Normal Inspection - Back Exam Back Exam: NORMAL INSPECTION - Neurological Exam Neurological Exam: Awake. absent: Motor Sensory Deficit Additional comments: Forgetful - Skin Skin Exam: Warm Assessment and Plan (1) Rhabdomyolysis Status: Resolved (2) Status post fall Status: Acute (3) Change in mental status Status: Acute (4) Dementia Status: Chronic (5) HTN (hypertension) Status: Chronic (6) Urinary retention Status: Resolved - Assessment and Plan (Free Text) Plan: continue current Tx, for Legal Guardianship
[2018-06-12] MEDS: Levothyroxine 75 MCG TAB PO SCH (06:11)
[2018-06-12] MEDS: Divalproex 125 mg Sprinkle Capsule PO SCH ×2 (09:38→16:45)
--- NOTE | 2018-06-12 14:04 | CP.PCM.PN ---
Subjective - Date & Time of Evaluation Date of Evaluation: 06/12/18 Time of Evaluation: 11:40 - Subjective Subjective: F/U AMS no Ad, N/C, confused Objective - Vital Signs/Intake and Output Vital Signs (last 24 hours): Temp Pulse Resp BP Pulse Ox 97.6 F 68 20 145/93 H 97 06/12/18 09:40 06/12/18 09:40 06/12/18 09:40 06/12/18 09:38 06/12/18 09:40 - Medications Medications: Current Medications Acetaminophen (Tylenol 325mg Tab) 650 mg PO Q6 PRN PRN Reason: Pain, Mild (1-3) Last Admin: 04/15/18 23:34 Dose: 650 mg Cyanocobalamin (Vitamin B12 1000 Mcg Tab) 1,000 mcg PO DAILY [facility] Last Admin: 06/12/18 09:39 Dose: 1,000 mcg Divalproex Sodium (Depakote Sprinkles) 125 mg PO BID [facility] Last Admin: 06/12/18 09:38 Dose: 125 mg Donepezil HCl (Aricept) 5 mg PO HS [facility] Last Admin: 06/11/18 21:18 Dose: 5 mg Enalapril Maleate (Vasotec) 2.5 mg PO DAILY [facility] Last Admin: 06/12/18 09:39 Dose: 2.5 mg Haloperidol Lactate (Haldol) 0.5 mg IM Q4 PRN PRN Reason: Agitation Last Admin: 05/30/18 10:06 Dose: 0.5 mg Levothyroxine Sodium (Synthroid) 75 mcg PO DAILY@0630 [facility] Last Admin: 06/12/18 06:11 Dose: 75 mcg Metoprolol Tartrate (Lopressor) 50 mg PO Q12 [facility] Last Admin: 06/12/18 09:38 Dose: 50 mg Rivaroxaban (Xarelto) 20 mg PO DAILY@1700 [facility]; Protocol Last Admin: 06/11/18 17:06 Dose: 20 mg - Labs Labs: 05/23/18 09:29 05/23/18 09:29 PT 11.9 Seconds (9.8-13.1) 03/22/18 19:00 INR 1.0 03/22/18 19:00 APTT 29.3 Seconds (25.6-37.1) 03/22/18 19:00 - Constitutional Appears: No Acute Distress - Head Exam Head Exam: NORMAL INSPECTION - Eye Exam Eye Exam: PERRL - ENT Exam ENT Exam: Normal Exam - Neck Exam Neck Exam: Normal Inspection - Respiratory Exam Respiratory Exam: NORMAL BREATHING PATTERN - Cardiovascular Exam Cardiovascular Exam: REGULAR RHYTHM - GI/Abdominal Exam GI & Abdominal Exam: Soft, Normal Bowel Sounds - Extremities Exam Extremities Exam: Normal Inspection - Back Exam Back Exam: NORMAL INSPECTION - Neurological Exam Neurological Exam: Alert, Awake. absent: Motor Sensory Deficit Additional comments: Forgetful - Psychiatric Exam Psychiatric exam: Normal Affect, Normal Mood - Skin Skin Exam: Warm Assessment and Plan (1) Rhabdomyolysis Status: Resolved (2) Status post fall Status: Acute (3) Change in mental status Status: Acute (4) Dementia Status: Chronic (5) HTN (hypertension) Status: Chronic (6) Urinary retention Status: Resolved - Assessment and Plan (Free Text) Plan: continue current Tx, for Legal Guardianship
[2018-06-13] MEDS: Levothyroxine 75 MCG TAB PO SCH (05:33)
[2018-06-13] MEDS: Divalproex 125 mg Sprinkle Capsule PO SCH ×2 (08:52→16:16)
--- NOTE | 2018-06-13 14:29 | CP.PCM.PN ---
Subjective - Date & Time of Evaluation Date of Evaluation: 06/13/18 Time of Evaluation: 13:00 - Subjective Subjective: F/U AMS no AD, calm, confused Objective - Vital Signs/Intake and Output Vital Signs (last 24 hours): Temp Pulse Resp BP Pulse Ox 97.6 F 57 L 20 132/78 97 06/13/18 00:16 06/13/18 00:16 06/13/18 00:16 06/13/18 00:16 06/13/18 00:16 - Medications Medications: Current Medications Acetaminophen (Tylenol 325mg Tab) 650 mg PO Q6 PRN PRN Reason: Pain, Mild (1-3) Last Admin: 04/15/18 23:34 Dose: 650 mg Cyanocobalamin (Vitamin B12 1000 Mcg Tab) 1,000 mcg PO DAILY [facility] Last Admin: 06/13/18 08:53 Dose: 1,000 mcg Divalproex Sodium (Depakote Sprinkles) 125 mg PO BID [facility] Last Admin: 06/13/18 08:52 Dose: 125 mg Donepezil HCl (Aricept) 5 mg PO HS [facility] Last Admin: 06/12/18 21:01 Dose: 5 mg Enalapril Maleate (Vasotec) 2.5 mg PO DAILY [facility] Last Admin: 06/13/18 08:53 Dose: 2.5 mg Haloperidol Lactate (Haldol) 0.5 mg IM Q4 PRN PRN Reason: Agitation Last Admin: 05/30/18 10:06 Dose: 0.5 mg Levothyroxine Sodium (Synthroid) 75 mcg PO DAILY@0630 [facility] Last Admin: 06/13/18 05:33 Dose: 75 mcg Metoprolol Tartrate (Lopressor) 50 mg PO Q12 [facility] Last Admin: 06/13/18 08:53 Dose: 50 mg Rivaroxaban (Xarelto) 20 mg PO DAILY@1700 [facility]; Protocol Last Admin: 06/12/18 16:45 Dose: 20 mg - Labs Labs: 05/23/18 09:29 05/23/18 09:29 PT 11.9 Seconds (9.8-13.1) 03/22/18 19:00 INR 1.0 03/22/18 19:00 APTT 29.3 Seconds (25.6-37.1) 03/22/18 19:00 - Constitutional Appears: No Acute Distress - Head Exam Head Exam: NORMAL INSPECTION - Eye Exam Eye Exam: PERRL - ENT Exam ENT Exam: Normal Exam - Neck Exam Neck Exam: Normal Inspection - Respiratory Exam Respiratory Exam: NORMAL BREATHING PATTERN - Cardiovascular Exam Cardiovascular Exam: REGULAR RHYTHM - GI/Abdominal Exam GI & Abdominal Exam: Soft, Normal Bowel Sounds - Extremities Exam Extremities Exam: Normal Inspection - Back Exam Back Exam: NORMAL INSPECTION - Neurological Exam Neurological Exam: Awake. absent: Motor Sensory Deficit Additional comments: Forgetful - Skin Skin Exam: Warm Assessment and Plan (1) Rhabdomyolysis Status: Resolved (2) Status post fall Status: Acute (3) Change in mental status Status: Acute (4) Dementia Status: Chronic (5) HTN (hypertension) Status: Chronic (6) Urinary retention Status: Resolved - Assessment and Plan (Free Text) Plan: continue Aricept, Depakote, Vasotec, Lopressor, Eliquis and rest of Tx, for Legal [employer]
[2018-06-14] MEDS: Levothyroxine 75 MCG TAB PO SCH (06:12)
[2018-06-14 08:54] LABS: BASO % 0.9 % (0.0-2.0); EOS # 0.1 K/uL (0.0-0.7); EOS % 1.7 % (0.0-4.0); HEMOGLOBIN 12.4 g/dL (12.0-16.0); LYMPH # 2.1 K/uL (1.0-4.3); LYMPH % 42.1 % (20.0-40.0); MEAN CELL VOLUME 91.6 fl (81.0-99.0); MEAN CORPUSCULAR HEMOGLOBIN 30.2 pg (27.0-31.0); MEAN CORPUSCULAR HGB CONC 32.9 g/dL (33.0-37.0); MEAN PLATELET VOLUME 10.6 fl (7.2-11.7); MONO # 0.4 K/uL (0.0-0.8); MONO % 8.7 % (0.0-10.0); NEUT # 2.4 K/uL (1.8-7.0); NEUT % 46.6 % (50.0-75.0); NRBC % 0.1 % (0.0-0.0); RBC 4.1 Mil/uL (3.80-5.20); RED CELL DISTRIBUTION WIDTH 14.7 % (11.5-14.5)
[2018-06-14] MEDS: Divalproex 125 mg Sprinkle Capsule PO SCH ×2 (09:10→17:04)
[2018-06-14 09:50] LABS: ALB/GLOB RATIO 1.2 (1.0-2.1); ALBUMIN 3.5 g/dL (3.5-5.0); ALT/SGPT 36 U/L (9-52); AST/SGOT 29 U/L (14-36); BLOOD UREA NITROGEN 24 mg/dl (7-17); GFR NON-AFRICAN AMERICAN > 60
--- NOTE | 2018-06-14 13:47 | CP.PCM.PN ---
Subjective - Date & Time of Evaluation Date of Evaluation: 06/14/18 Time of Evaluation: 11:10 - Subjective Subjective: F/U AMS Confused, cooperative. Objective - Vital Signs/Intake and Output Vital Signs (last 24 hours): Temp Pulse Resp BP Pulse Ox 98 F 64 18 127/77 96 06/14/18 01:00 06/14/18 01:00 06/14/18 01:00 06/14/18 12:10 06/14/18 01:00 - Medications Medications: Current Medications Acetaminophen (Tylenol 325mg Tab) 650 mg PO Q6 PRN PRN Reason: Pain, Mild (1-3) Last Admin: 04/15/18 23:34 Dose: 650 mg Cyanocobalamin (Vitamin B12 1000 Mcg Tab) 1,000 mcg PO DAILY [facility] Last Admin: 06/14/18 09:11 Dose: 1,000 mcg Divalproex Sodium (Depakote Sprinkles) 125 mg PO BID [facility] Last Admin: 06/14/18 09:10 Dose: 125 mg Donepezil HCl (Aricept) 5 mg PO HS [facility] Last Admin: 06/13/18 21:25 Dose: 5 mg Enalapril Maleate (Vasotec) 2.5 mg PO DAILY [facility] Last Admin: 06/14/18 08:10 Dose: 2.5 mg Haloperidol Lactate (Haldol) 0.5 mg IM Q4 PRN PRN Reason: Agitation Last Admin: 05/30/18 10:06 Dose: 0.5 mg Levothyroxine Sodium (Synthroid) 75 mcg PO DAILY@0630 [facility] Last Admin: 06/14/18 06:12 Dose: 75 mcg Metoprolol Tartrate (Lopressor) 50 mg PO Q12 [facility] Last Admin: 06/14/18 12:10 Dose: 50 mg Rivaroxaban (Xarelto) 20 mg PO DAILY@1700 [facility]; Protocol Last Admin: 06/13/18 16:16 Dose: 20 mg - Labs Labs: 06/14/18 06:50 06/14/18 06:50 PT 11.9 Seconds (9.8-13.1) 03/22/18 19:00 INR 1.0 03/22/18 19:00 APTT 29.3 Seconds (25.6-37.1) 03/22/18 19:00 - Constitutional Appears: No Acute Distress - Head Exam Head Exam: NORMAL INSPECTION - Eye Exam Eye Exam: PERRL - ENT Exam ENT Exam: Normal Exam - Neck Exam Neck Exam: Normal Inspection - Respiratory Exam Respiratory Exam: NORMAL BREATHING PATTERN - Cardiovascular Exam Cardiovascular Exam: REGULAR RHYTHM - GI/Abdominal Exam GI & Abdominal Exam: Soft, Normal Bowel Sounds - Extremities Exam Extremities Exam: Normal Inspection - Back Exam Back Exam: NORMAL INSPECTION - Neurological Exam Neurological Exam: Awake. absent: Motor Sensory Deficit Additional comments: Forgetful, disoriented. - Skin Skin Exam: Warm Assessment and Plan (1) Rhabdomyolysis Status: Resolved (2) Status post fall Status: Acute (3) Change in mental status Status: Acute (4) Dementia Status: Chronic (5) HTN (hypertension) Status: Chronic (6) Urinary retention Status: Resolved - Assessment and Plan (Free Text) Plan: Awaiting for legal guardianship
[2018-06-15] MEDS: Levothyroxine 75 MCG TAB PO SCH (05:57)
[2018-06-15] MEDS: Divalproex 125 mg Sprinkle Capsule PO SCH ×2 (09:24→17:10)
--- NOTE | 2018-06-15 15:39 | CP.PCM.PN ---
Subjective - Date & Time of Evaluation Date of Evaluation: 06/15/18 Time of Evaluation: 12:10 - Subjective Subjective: F/U AMS Pt awake, no A/D, no c/o. Objective - Vital Signs/Intake and Output Vital Signs (last 24 hours): Temp Pulse Resp BP Pulse Ox 98.1 F 63 20 134/76 95 06/15/18 00:00 06/15/18 00:00 06/15/18 00:00 06/15/18 09:00 06/15/18 00:00 - Medications Medications: Current Medications Acetaminophen (Tylenol 325mg Tab) 650 mg PO Q6 PRN PRN Reason: Pain, Mild (1-3) Last Admin: 04/15/18 23:34 Dose: 650 mg Cyanocobalamin (Vitamin B12 1000 Mcg Tab) 1,000 mcg PO DAILY [facility] Last Admin: 06/15/18 09:25 Dose: 1,000 mcg Divalproex Sodium (Depakote Sprinkles) 125 mg PO BID [facility] Last Admin: 06/15/18 09:24 Dose: 125 mg Donepezil HCl (Aricept) 5 mg PO HS [facility] Last Admin: 06/14/18 21:02 Dose: 5 mg Enalapril Maleate (Vasotec) 2.5 mg PO DAILY [facility] Last Admin: 06/14/18 08:10 Dose: 2.5 mg Haloperidol Lactate (Haldol) 0.5 mg IM Q4 PRN PRN Reason: Agitation Last Admin: 05/30/18 10:06 Dose: 0.5 mg Levothyroxine Sodium (Synthroid) 75 mcg PO DAILY@0630 [facility] Last Admin: 06/15/18 05:57 Dose: 75 mcg Metoprolol Tartrate (Lopressor) 50 mg PO Q12 [facility] Last Admin: 06/15/18 09:00 Dose: 50 mg Rivaroxaban (Xarelto) 20 mg PO DAILY@1700 [facility]; Protocol Last Admin: 06/14/18 17:07 Dose: 20 mg - Labs Labs: 06/14/18 06:50 06/14/18 06:50 PT 11.9 Seconds (9.8-13.1) 03/22/18 19:00 INR 1.0 03/22/18 19:00 APTT 29.3 Seconds (25.6-37.1) 03/22/18 19:00 - Constitutional Appears: No Acute Distress - Head Exam Head Exam: NORMAL INSPECTION - Eye Exam Eye Exam: PERRL - ENT Exam ENT Exam: Normal Exam - Neck Exam Neck Exam: Normal Inspection - Respiratory Exam Respiratory Exam: NORMAL BREATHING PATTERN - Cardiovascular Exam Cardiovascular Exam: REGULAR RHYTHM - GI/Abdominal Exam GI & Abdominal Exam: Soft, Normal Bowel Sounds - Extremities Exam Extremities Exam: Normal Inspection - Back Exam Back Exam: NORMAL INSPECTION - Neurological Exam Neurological Exam: Awake. absent: Motor Sensory Deficit Additional comments: Forgetful - Skin Skin Exam: Warm Assessment and Plan (1) Rhabdomyolysis Status: Resolved (2) Status post fall Status: Acute (3) Change in mental status Status: Acute (4) Dementia Status: Chronic (5) HTN (hypertension) Status: Chronic (6) Urinary retention Status: Resolved - Assessment and Plan (Free Text) Plan: Continue Aricept, Depakote, Haldol, Lopressor, Vasotec and rest of Tx.
[2018-06-16] MEDS: Levothyroxine 75 MCG TAB PO SCH (06:47)
[2018-06-16] MEDS: Divalproex 125 mg Sprinkle Capsule PO SCH ×2 (08:32→18:01)
--- NOTE | 2018-06-16 15:23 | CP.PCM.PN ---
Subjective - Date & Time of Evaluation Date of Evaluation: 06/16/18 Time of Evaluation: 11:50 - Subjective Subjective: F/U AMS. no AD, N/C, confused Objective - Vital Signs/Intake and Output Vital Signs (last 24 hours): Temp Pulse Resp BP Pulse Ox 98.2 F 67 20 159/82 H 98 06/16/18 09:00 06/16/18 09:00 06/16/18 09:00 06/16/18 09:00 06/16/18 09:00 - Medications Medications: Current Medications Acetaminophen (Tylenol 325mg Tab) 650 mg PO Q6 PRN PRN Reason: Pain, Mild (1-3) Last Admin: 04/15/18 23:34 Dose: 650 mg Cyanocobalamin (Vitamin B12 1000 Mcg Tab) 1,000 mcg PO DAILY [facility] Last Admin: 06/16/18 08:41 Dose: 1,000 mcg Divalproex Sodium (Depakote Sprinkles) 125 mg PO BID [facility] Last Admin: 06/16/18 08:32 Dose: 125 mg Donepezil HCl (Aricept) 5 mg PO HS [facility] Last Admin: 06/15/18 21:12 Dose: 5 mg Enalapril Maleate (Vasotec) 2.5 mg PO DAILY [facility] Last Admin: 06/16/18 08:41 Dose: 2.5 mg Haloperidol Lactate (Haldol) 0.5 mg IM Q4 PRN PRN Reason: Agitation Last Admin: 05/30/18 10:06 Dose: 0.5 mg Levothyroxine Sodium (Synthroid) 75 mcg PO DAILY@0630 [facility] Last Admin: 06/16/18 06:47 Dose: 75 mcg Metoprolol Tartrate (Lopressor) 50 mg PO Q12 [facility] Last Admin: 06/16/18 08:40 Dose: 50 mg - Labs Labs: 06/14/18 06:50 06/14/18 06:50 PT 11.9 Seconds (9.8-13.1) 03/22/18 19:00 INR 1.0 03/22/18 19:00 APTT 29.3 Seconds (25.6-37.1) 03/22/18 19:00 - Constitutional Appears: No Acute Distress - Head Exam Head Exam: NORMAL INSPECTION - Eye Exam Eye Exam: PERRL - ENT Exam ENT Exam: Normal Exam - Neck Exam Neck Exam: Normal Inspection - Respiratory Exam Respiratory Exam: NORMAL BREATHING PATTERN - Cardiovascular Exam Cardiovascular Exam: REGULAR RHYTHM - GI/Abdominal Exam GI & Abdominal Exam: Soft, Normal Bowel Sounds - Extremities Exam Extremities Exam: Normal Inspection - Back Exam Back Exam: NORMAL INSPECTION - Neurological Exam Neurological Exam: Alert, Awake. absent: Motor Sensory Deficit Additional comments: Forgetful, disoriented. - Skin Skin Exam: Warm Assessment and Plan (1) Rhabdomyolysis Status: Resolved (2) Status post fall Status: Acute (3) Change in mental status Status: Acute (4) Dementia Status: Chronic (5) HTN (hypertension) Status: Chronic (6) Urinary retention Status: Resolved (7) Vitamin D deficiency Status: Chronic - Assessment and Plan (Free Text) Plan: continue current Tx, for Legal Guardianship
[2018-06-16] MEDS: Ergocalciferol 50,000 Intl Units Cap PO SCH (23:41)
[2018-06-17] MEDS: Levothyroxine 75 MCG TAB PO SCH (06:25)
[2018-06-17] MEDS: Divalproex 125 mg Sprinkle Capsule PO SCH ×2 (08:25→16:42)
--- NOTE | 2018-06-17 15:02 | CP.PCM.PN ---
Subjective - Date & Time of Evaluation Date of Evaluation: 06/17/18 Time of Evaluation: 13:40 - Subjective Subjective: F/U AMS. Pt awake, no A/D, confused. Objective - Vital Signs/Intake and Output Vital Signs (last 24 hours): Temp Pulse Resp BP Pulse Ox 97.8 F 63 20 151/83 H 98 06/16/18 23:45 06/16/18 23:45 06/16/18 23:45 06/16/18 23:45 06/16/18 23:45 - Medications Medications: Current Medications Acetaminophen (Tylenol 325mg Tab) 650 mg PO Q6 PRN PRN Reason: Pain, Mild (1-3) Last Admin: 04/15/18 23:34 Dose: 650 mg Cyanocobalamin (Vitamin B12 1000 Mcg Tab) 1,000 mcg PO DAILY [facility] Last Admin: 06/17/18 08:26 Dose: 1,000 mcg Divalproex Sodium (Depakote Sprinkles) 125 mg PO BID [facility] Last Admin: 06/17/18 08:25 Dose: 125 mg Donepezil HCl (Aricept) 5 mg PO HS [facility] Last Admin: 06/16/18 21:25 Dose: 5 mg Enalapril Maleate (Vasotec) 2.5 mg PO DAILY [facility] Last Admin: 06/17/18 08:26 Dose: 2.5 mg Ergocalciferol (Drisdol 50,000 Intl Units Cap) 1 cap PO Q7D [facility] Last Admin: 06/16/18 23:41 Dose: 1 cap Haloperidol Lactate (Haldol) 0.5 mg IM Q4 PRN PRN Reason: Agitation Last Admin: 05/30/18 10:06 Dose: 0.5 mg Levothyroxine Sodium (Synthroid) 75 mcg PO DAILY@0630 [facility] Last Admin: 06/17/18 06:25 Dose: 75 mcg Metoprolol Tartrate (Lopressor) 50 mg PO Q12 [facility] Last Admin: 06/17/18 08:25 Dose: 50 mg Rivaroxaban (Xarelto) 20 mg PO DAILY@1700 [facility]; Protocol - Labs Labs: 06/14/18 06:50 06/14/18 06:50 PT 11.9 Seconds (9.8-13.1) 03/22/18 19:00 INR 1.0 03/22/18 19:00 APTT 29.3 Seconds (25.6-37.1) 03/22/18 19:00 - Constitutional Appears: No Acute Distress - Head Exam Head Exam: NORMAL INSPECTION - Eye Exam Eye Exam: PERRL - ENT Exam ENT Exam: Normal Exam - Neck Exam Neck Exam: Normal Inspection - Respiratory Exam Respiratory Exam: NORMAL BREATHING PATTERN - Cardiovascular Exam Cardiovascular Exam: REGULAR RHYTHM - GI/Abdominal Exam GI & Abdominal Exam: Soft, Normal Bowel Sounds - Extremities Exam Extremities Exam: Normal Inspection - Back Exam Back Exam: NORMAL INSPECTION - Neurological Exam Neurological Exam: Alert, Awake. absent: Motor Sensory Deficit Additional comments: Disoriented, forgetful, follows commands. - Psychiatric Exam Psychiatric exam: Normal Affect, Normal Mood - Skin Skin Exam: Warm Assessment and Plan (1) Rhabdomyolysis Status: Resolved (2) Status post fall Status: Acute (3) Change in mental status Status: Acute (4) Dementia Status: Chronic (5) HTN (hypertension) Status: Chronic (6) Urinary retention Status: Resolved (7) Vitamin D deficiency Status: Chronic - Assessment and Plan (Free Text) Plan: Continue Aricept, Depakote, Haldol and rest of Tx.
[2018-06-18] MEDS: Levothyroxine 75 MCG TAB PO SCH (06:31)
[2018-06-18] MEDS: Divalproex 125 mg Sprinkle Capsule PO SCH ×2 (08:00→16:05)
--- NOTE | 2018-06-18 14:50 | CP.PCM.PN ---
Subjective - Date & Time of Evaluation Date of Evaluation: 06/18/18 Time of Evaluation: 12:30 - Subjective Subjective: F/U AMS. Pt awake, disoriented, forgetful Objective - Vital Signs/Intake and Output Vital Signs (last 24 hours): Temp Pulse Resp BP Pulse Ox 97.7 F 70 18 130/69 95 06/17/18 23:32 06/17/18 23:32 06/17/18 23:32 06/17/18 23:32 06/17/18 23:32 - Medications Medications: Current Medications Acetaminophen (Tylenol 325mg Tab) 650 mg PO Q6 PRN PRN Reason: Pain, Mild (1-3) Last Admin: 04/15/18 23:34 Dose: 650 mg Cyanocobalamin (Vitamin B12 1000 Mcg Tab) 1,000 mcg PO DAILY [facility] Last Admin: 06/18/18 08:00 Dose: 1,000 mcg Divalproex Sodium (Depakote Sprinkles) 125 mg PO BID [facility] Last Admin: 06/18/18 08:00 Dose: 125 mg Donepezil HCl (Aricept) 5 mg PO HS [facility] Last Admin: 06/17/18 21:07 Dose: 5 mg Enalapril Maleate (Vasotec) 2.5 mg PO DAILY [facility] Last Admin: 06/18/18 08:00 Dose: 2.5 mg Ergocalciferol (Drisdol 50,000 Intl Units Cap) 1 cap PO Q7D [facility] Last Admin: 06/16/18 23:41 Dose: 1 cap Haloperidol Lactate (Haldol) 0.5 mg IM Q4 PRN PRN Reason: Agitation Last Admin: 05/30/18 10:06 Dose: 0.5 mg Levothyroxine Sodium (Synthroid) 75 mcg PO DAILY@0630 [facility] Last Admin: 06/18/18 06:31 Dose: 75 mcg Metoprolol Tartrate (Lopressor) 50 mg PO Q12 [facility] Last Admin: 06/18/18 08:00 Dose: 50 mg Rivaroxaban (Xarelto) 20 mg PO DAILY@1700 [facility]; Protocol Last Admin: 06/17/18 16:42 Dose: 20 mg - Labs Labs: 06/14/18 06:50 06/14/18 06:50 PT 11.9 Seconds (9.8-13.1) 03/22/18 19:00 INR 1.0 03/22/18 19:00 APTT 29.3 Seconds (25.6-37.1) 03/22/18 19:00 - Constitutional Appears: No Acute Distress - Head Exam Head Exam: NORMAL INSPECTION - Eye Exam Eye Exam: PERRL - ENT Exam ENT Exam: Normal Exam - Neck Exam Neck Exam: Normal Inspection - Respiratory Exam Respiratory Exam: NORMAL BREATHING PATTERN - Cardiovascular Exam Cardiovascular Exam: REGULAR RHYTHM - GI/Abdominal Exam GI & Abdominal Exam: Soft, Normal Bowel Sounds - Extremities Exam Extremities Exam: Normal Inspection - Back Exam Back Exam: NORMAL INSPECTION - Neurological Exam Neurological Exam: Awake, Reflexes Normal. absent: Motor Sensory Deficit Additional comments: Disoriented, forgetful, follows commands. - Psychiatric Exam Psychiatric exam: Normal Mood - Skin Skin Exam: Warm Assessment and Plan (1) Rhabdomyolysis Status: Resolved (2) Status post fall Status: Acute (3) Change in mental status Status: Acute (4) Dementia Status: Chronic (5) HTN (hypertension) Status: Chronic (6) Urinary retention Status: Resolved (7) Vitamin D deficiency Status: Chronic - Assessment and Plan (Free Text) Plan: Continue Aricept, Depakote and current Tx. For legal Guardianship.
[2018-06-19] MEDS: Levothyroxine 75 MCG TAB PO SCH (06:37)
[2018-06-19] MEDS: Divalproex 125 mg Sprinkle Capsule PO SCH ×2 (10:39→16:58)
--- NOTE | 2018-06-19 18:25 | CP.PCM.PN ---
Subjective - Date & Time of Evaluation Date of Evaluation: 06/19/18 Time of Evaluation: 14:40 - Subjective Subjective: F/U AMS calm,smiling, no AD, confused Objective - Vital Signs/Intake and Output Vital Signs (last 24 hours): Temp Pulse Resp BP Pulse Ox 97.9 F 71 18 108/61 96 06/19/18 16:29 06/19/18 16:29 06/19/18 16:29 06/19/18 16:29 06/19/18 16:29 - Medications Medications: Current Medications Acetaminophen (Tylenol 325mg Tab) 650 mg PO Q6 PRN PRN Reason: Pain, Mild (1-3) Last Admin: 04/15/18 23:34 Dose: 650 mg Cyanocobalamin (Vitamin B12 1000 Mcg Tab) 1,000 mcg PO DAILY [facility] Last Admin: 06/19/18 10:33 Dose: 1,000 mcg Divalproex Sodium (Depakote Sprinkles) 125 mg PO BID [facility] Last Admin: 06/19/18 16:58 Dose: 125 mg Donepezil HCl (Aricept) 5 mg PO HS [facility] Last Admin: 06/18/18 21:01 Dose: 5 mg Enalapril Maleate (Vasotec) 2.5 mg PO DAILY [facility] Last Admin: 06/19/18 10:33 Dose: 2.5 mg Ergocalciferol (Drisdol 50,000 Intl Units Cap) 1 cap PO Q7D [facility] Last Admin: 06/16/18 23:41 Dose: 1 cap Haloperidol Lactate (Haldol) 0.5 mg IM Q4 PRN PRN Reason: Agitation Last Admin: 05/30/18 10:06 Dose: 0.5 mg Levothyroxine Sodium (Synthroid) 75 mcg PO DAILY@0630 [facility] Last Admin: 06/19/18 06:37 Dose: 75 mcg Metoprolol Tartrate (Lopressor) 50 mg PO Q12 [facility] Last Admin: 06/19/18 10:33 Dose: 50 mg Rivaroxaban (Xarelto) 20 mg PO DAILY@1700 [facility]; Protocol Last Admin: 06/19/18 16:57 Dose: 20 mg - Labs Labs: 06/14/18 06:50 06/14/18 06:50 PT 11.9 Seconds (9.8-13.1) 03/22/18 19:00 INR 1.0 03/22/18 19:00 APTT 29.3 Seconds (25.6-37.1) 03/22/18 19:00 - Constitutional Appears: No Acute Distress - Head Exam Head Exam: NORMAL INSPECTION - Eye Exam Eye Exam: PERRL - ENT Exam ENT Exam: Normal Exam - Neck Exam Neck Exam: Normal Inspection - Respiratory Exam Respiratory Exam: NORMAL BREATHING PATTERN - Cardiovascular Exam Cardiovascular Exam: REGULAR RHYTHM - GI/Abdominal Exam GI & Abdominal Exam: Soft, Normal Bowel Sounds - Extremities Exam Extremities Exam: Normal Inspection - Back Exam Back Exam: NORMAL INSPECTION - Neurological Exam Neurological Exam: Awake, Reflexes Normal. absent: Motor Sensory Deficit Additional comments: Disoriented, forgetful, follows commands - Psychiatric Exam Psychiatric exam: Normal Mood - Skin Skin Exam: Warm Assessment and Plan (1) Rhabdomyolysis Status: Resolved (2) Status post fall Status: Acute (3) Change in mental status Status: Acute (4) Dementia Status: Chronic (5) HTN (hypertension) Status: Chronic (6) Urinary retention Status: Resolved (7) Vitamin D deficiency Status: Chronic - Assessment and Plan (Free Text) Plan: continue Aricept, Depakote, Lopressor, Vasoted, Synthroid and rest of treatment, for Legal Guardianship
[2018-06-20] MEDS: Levothyroxine 75 MCG TAB PO SCH ×2 (05:51→05:55)
[2018-06-20] MEDS: Divalproex 125 mg Sprinkle Capsule PO SCH ×2 (10:04→16:50)
--- NOTE | 2018-06-20 14:52 | CP.PCM.PN ---
Subjective - Date & Time of Evaluation Date of Evaluation: 06/20/18 Time of Evaluation: 13:45 - Subjective Subjective: F/U AMS No c/o, confused Objective - Vital Signs/Intake and Output Vital Signs (last 24 hours): Temp Pulse Resp BP Pulse Ox 98.0 F 67 20 127/90 96 06/20/18 00:35 06/20/18 10:04 06/20/18 00:35 06/20/18 10:04 06/20/18 00:35 - Medications Medications: Current Medications Acetaminophen (Tylenol 325mg Tab) 650 mg PO Q6 PRN PRN Reason: Pain, Mild (1-3) Last Admin: 04/15/18 23:34 Dose: 650 mg Cyanocobalamin (Vitamin B12 1000 Mcg Tab) 1,000 mcg PO DAILY [facility] Last Admin: 06/20/18 10:05 Dose: 1,000 mcg Divalproex Sodium (Depakote Sprinkles) 125 mg PO BID [facility] Last Admin: 06/20/18 10:04 Dose: 125 mg Donepezil HCl (Aricept) 5 mg PO HS [facility] Last Admin: 06/19/18 21:07 Dose: 5 mg Enalapril Maleate (Vasotec) 2.5 mg PO DAILY [facility] Last Admin: 06/20/18 10:04 Dose: 2.5 mg Ergocalciferol (Drisdol 50,000 Intl Units Cap) 1 cap PO Q7D [facility] Last Admin: 06/16/18 23:41 Dose: 1 cap Haloperidol Lactate (Haldol) 0.5 mg IM Q4 PRN PRN Reason: Agitation Last Admin: 05/30/18 10:06 Dose: 0.5 mg Levothyroxine Sodium (Synthroid) 75 mcg PO DAILY@0630 [facility] Last Admin: 06/20/18 05:55 Dose: Not Given Metoprolol Tartrate (Lopressor) 50 mg PO Q12 [facility] Last Admin: 06/20/18 10:04 Dose: 50 mg Rivaroxaban (Xarelto) 20 mg PO DAILY@1700 [facility]; Protocol Last Admin: 06/19/18 16:57 Dose: 20 mg - Labs Labs: 06/14/18 06:50 06/14/18 06:50 PT 11.9 Seconds (9.8-13.1) 03/22/18 19:00 INR 1.0 03/22/18 19:00 APTT 29.3 Seconds (25.6-37.1) 03/22/18 19:00 - Constitutional Appears: No Acute Distress - Head Exam Head Exam: NORMAL INSPECTION - Eye Exam Eye Exam: PERRL - ENT Exam ENT Exam: Normal Exam - Neck Exam Neck Exam: Normal Inspection - Respiratory Exam Respiratory Exam: NORMAL BREATHING PATTERN - Cardiovascular Exam Cardiovascular Exam: REGULAR RHYTHM - GI/Abdominal Exam GI & Abdominal Exam: Soft, Normal Bowel Sounds - Extremities Exam Extremities Exam: Normal Inspection - Back Exam Back Exam: NORMAL INSPECTION - Neurological Exam Neurological Exam: Awake, CN II-XII Intact. absent: Motor Sensory Deficit Additional comments: Forgetful, follows commands - Psychiatric Exam Psychiatric exam: Normal Mood - Skin Skin Exam: Warm Assessment and Plan (1) Rhabdomyolysis Status: Resolved (2) Status post fall Status: Acute (3) Change in mental status Status: Acute (4) Dementia Status: Chronic (5) HTN (hypertension) Status: Chronic (6) Urinary retention Status: Resolved (7) Vitamin D deficiency Status: Chronic - Assessment and Plan (Free Text) Plan: Continue Depakote, xarelto and rest of Tx. For legal guardianship.
[2018-06-21] MEDS: Levothyroxine 75 MCG TAB PO SCH (06:07)
[2018-06-21] MEDS: Divalproex 125 mg Sprinkle Capsule PO SCH ×2 (09:40→16:40)
--- NOTE | 2018-06-21 15:48 | CP.PCM.PN ---
Subjective - Date & Time of Evaluation Date of Evaluation: 06/21/18 Time of Evaluation: 14:00 - Subjective Subjective: F/U AMS. Pt awake, cooperative, smiling, confused. Objective - Vital Signs/Intake and Output Vital Signs (last 24 hours): Temp Pulse Resp BP Pulse Ox 98.6 F 60 18 131/72 97 06/21/18 00:34 06/21/18 09:40 06/21/18 00:34 06/21/18 09:40 06/21/18 00:34 - Medications Medications: Current Medications Acetaminophen (Tylenol 325mg Tab) 650 mg PO Q6 PRN PRN Reason: Pain, Mild (1-3) Last Admin: 04/15/18 23:34 Dose: 650 mg Cyanocobalamin (Vitamin B12 1000 Mcg Tab) 1,[address] [facility] Last Admin: 06/21/18 09:40 Dose: 1,000 mcg Divalproex Sodium (Depakote Sprinkles) [address] [facility] Last Admin: 06/21/18 09:40 Dose: 125 mg Donepezil HCl (Aricept) [address] [facility] Last Admin: 06/20/18 21:47 Dose: 5 mg Enalapril Maleate (Vasotec) 2.[address] [facility] Last Admin: 06/21/18 09:40 Dose: 2.5 mg Ergocalciferol (Drisdol 50,000 Intl Units Cap) [address] [facility] Last Admin: 06/16/18 23:41 Dose: 1 cap Haloperidol Lactate (Haldol) 0.5 mg IM Q4 PRN PRN Reason: Agitation Last Admin: 05/30/18 10:06 Dose: 0.5 mg Levothyroxine Sodium (Synthroid) 75 mcg PO DAILY@0630 [facility] Last Admin: 06/21/18 06:07 Dose: 75 mcg Metoprolol Tartrate (Lopressor) [address] [facility] Last Admin: 06/21/18 09:40 Dose: 50 mg Rivaroxaban (Xarelto) 20 mg PO DAILY@1700 [facility]; Protocol Last Admin: 06/20/18 16:50 Dose: 20 mg - Labs Labs: 06/14/18 06:50 06/14/18 06:50 PT 11.9 Seconds (9.8-13.1) 03/22/18 19:00 INR 1.0 03/22/18 19:00 APTT 29.3 Seconds (25.6-37.1) 03/22/18 19:00 - Constitutional Appears: No Acute Distress - Head Exam Head Exam: NORMAL INSPECTION - Eye Exam Eye Exam: PERRL - ENT Exam ENT Exam: Normal Exam - Neck Exam Neck Exam: Normal Inspection - Respiratory Exam Respiratory Exam: NORMAL BREATHING PATTERN - Cardiovascular Exam Cardiovascular Exam: REGULAR RHYTHM - GI/Abdominal Exam GI & Abdominal Exam: Soft, Normal Bowel Sounds - Extremities Exam Extremities Exam: Normal Inspection - Back Exam Back Exam: NORMAL INSPECTION - Neurological Exam Neurological Exam: Awake, CN II-XII Intact. absent: Motor Sensory Deficit Additional comments: Forgetful, confused, follows commands. - Psychiatric Exam Psychiatric exam: Normal Mood - Skin Skin Exam: Warm Assessment and Plan (1) Rhabdomyolysis Status: Resolved (2) Status post fall Status: Acute (3) Change in mental status Status: Acute (4) Dementia Status: Chronic (5) HTN (hypertension) Status: Chronic (6) Urinary retention Status: Resolved (7) Vitamin D deficiency Status: Chronic - Assessment and Plan (Free Text) Plan: Continue Aricept, Depakote and rest of Tx, awaiting for legal guardianship.
[2018-06-22] MEDS: Levothyroxine 75 MCG TAB PO SCH (07:35)
[2018-06-22] MEDS: Divalproex 125 mg Sprinkle Capsule PO SCH ×2 (09:50→16:31)
--- NOTE | 2018-06-22 14:47 | CP.PCM.PN ---
Subjective - Date & Time of Evaluation Date of Evaluation: 06/22/18 Time of Evaluation: 10:40 - Subjective Subjective: F/U AMS No A/D, calm, confused. Objective - Vital Signs/Intake and Output Vital Signs (last 24 hours): Temp Pulse Resp BP Pulse Ox 97.7 F 62 20 153/78 H 97 06/22/18 00:38 06/22/18 09:51 06/22/18 00:38 06/22/18 09:51 06/22/18 00:38 - Medications Medications: Current Medications Acetaminophen (Tylenol 325mg Tab) 650 mg PO Q6 PRN PRN Reason: Pain, Mild (1-3) Last Admin: 04/15/18 23:34 Dose: 650 mg Cyanocobalamin (Vitamin B12 1000 Mcg Tab) 1,000 mcg PO DAILY [facility] Last Admin: 06/22/18 09:52 Dose: 1,000 mcg Divalproex Sodium (Depakote Sprinkles) 125 mg PO BID [facility] Last Admin: 06/22/18 09:50 Dose: 125 mg Donepezil HCl (Aricept) 5 mg PO HS [facility] Last Admin: 06/21/18 21:07 Dose: 5 mg Enalapril Maleate (Vasotec) 2.5 mg PO DAILY [facility] Last Admin: 06/22/18 09:52 Dose: 2.5 mg Ergocalciferol (Drisdol 50,000 Intl Units Cap) 1 cap PO Q7D [facility] Last Admin: 06/16/18 23:41 Dose: 1 cap Haloperidol Lactate (Haldol) 0.5 mg IM Q4 PRN PRN Reason: Agitation Last Admin: 05/30/18 10:06 Dose: 0.5 mg Levothyroxine Sodium (Synthroid) 75 mcg PO DAILY@0630 [facility] Last Admin: 06/22/18 07:35 Dose: 75 mcg Metoprolol Tartrate (Lopressor) 50 mg PO Q12 [facility] Last Admin: 06/22/18 09:51 Dose: 50 mg Rivaroxaban (Xarelto) 20 mg PO DAILY@1700 [facility]; Protocol Last Admin: 06/21/18 16:41 Dose: 20 mg - Labs Labs: 06/14/18 06:50 06/14/18 06:50 PT 11.9 Seconds (9.8-13.1) 03/22/18 19:00 INR 1.0 03/22/18 19:00 APTT 29.3 Seconds (25.6-37.1) 03/22/18 19:00 - Constitutional Appears: No Acute Distress - Head Exam Head Exam: NORMAL INSPECTION - Eye Exam Eye Exam: PERRL - ENT Exam ENT Exam: Normal Exam - Neck Exam Neck Exam: Normal Inspection - Respiratory Exam Respiratory Exam: NORMAL BREATHING PATTERN - Cardiovascular Exam Cardiovascular Exam: REGULAR RHYTHM - GI/Abdominal Exam GI & Abdominal Exam: Soft, Normal Bowel Sounds - Extremities Exam Extremities Exam: Normal Inspection - Back Exam Back Exam: NORMAL INSPECTION - Neurological Exam Neurological Exam: Awake, CN II-XII Intact. absent: Motor Sensory Deficit Additional comments: Forgetful, follows commands. - Psychiatric Exam Psychiatric exam: Normal Mood - Skin Skin Exam: Warm Assessment and Plan (1) Rhabdomyolysis Status: Resolved (2) Status post fall Status: Acute (3) Change in mental status Status: Acute (4) Dementia Status: Chronic (5) HTN (hypertension) Status: Chronic (6) Urinary retention Status: Resolved (7) Vitamin D deficiency Status: Chronic - Assessment and Plan (Free Text) Plan: Continue Haldol, Aricept, Depakote and rest of Tx.
[2018-06-23] MEDS: Levothyroxine 75 MCG TAB PO SCH (05:42)
[2018-06-23] MEDS: Divalproex 125 mg Sprinkle Capsule PO SCH ×2 (09:22→17:21)
--- NOTE | 2018-06-23 13:06 | CP.PCM.PN ---
Subjective - Date & Time of Evaluation Date of Evaluation: 06/23/18 Time of Evaluation: 10:00 - Subjective Subjective: F/U AMS No A/D, calm, ambulating with steady gait. Objective - Vital Signs/Intake and Output Vital Signs (last 24 hours): Temp Pulse Resp BP Pulse Ox 98.2 F 65 20 156/77 H 96 06/23/18 00:54 06/23/18 09:21 06/23/18 00:54 06/23/18 09:21 06/23/18 00:54 - Medications Medications: Current Medications Acetaminophen (Tylenol 325mg Tab) 650 mg PO Q6 PRN PRN Reason: Pain, Mild (1-3) Last Admin: 04/15/18 23:34 Dose: 650 mg Cyanocobalamin (Vitamin B12 1000 Mcg Tab) 1,000 mcg PO DAILY [facility] Last Admin: 06/23/18 09:22 Dose: 1,000 mcg Divalproex Sodium (Depakote Sprinkles) 125 mg PO BID [facility] Last Admin: 06/23/18 09:22 Dose: 125 mg Donepezil HCl (Aricept) 5 mg PO HS [facility] Last Admin: 06/22/18 21:05 Dose: 5 mg Enalapril Maleate (Vasotec) 2.5 mg PO DAILY [facility] Last Admin: 06/23/18 09:22 Dose: 2.5 mg Ergocalciferol (Drisdol 50,000 Intl Units Cap) 1 cap PO Q7D [facility] Last Admin: 06/16/18 23:41 Dose: 1 cap Haloperidol Lactate (Haldol) 0.5 mg IM Q4 PRN PRN Reason: Agitation Last Admin: 05/30/18 10:06 Dose: 0.5 mg Levothyroxine Sodium (Synthroid) 75 mcg PO DAILY@0630 [facility] Last Admin: 06/23/18 05:42 Dose: 75 mcg Metoprolol Tartrate (Lopressor) 50 mg PO Q12 [facility] Last Admin: 06/23/18 09:21 Dose: 50 mg Rivaroxaban (Xarelto) 20 mg PO DAILY@1700 [facility]; Protocol Last Admin: 06/22/18 16:31 Dose: 20 mg - Labs Labs: 06/14/18 06:50 06/14/18 06:50 PT 11.9 Seconds (9.8-13.1) 03/22/18 19:00 INR 1.0 03/22/18 19:00 APTT 29.3 Seconds (25.6-37.1) 03/22/18 19:00 - Constitutional Appears: No Acute Distress - Head Exam Head Exam: NORMAL INSPECTION - Eye Exam Eye Exam: PERRL - ENT Exam ENT Exam: Normal Exam - Neck Exam Neck Exam: Normal Inspection - Respiratory Exam Respiratory Exam: NORMAL BREATHING PATTERN - Cardiovascular Exam Cardiovascular Exam: REGULAR RHYTHM - GI/Abdominal Exam GI & Abdominal Exam: Soft, Normal Bowel Sounds - Extremities Exam Extremities Exam: Normal Inspection - Back Exam Back Exam: NORMAL INSPECTION - Neurological Exam Neurological Exam: Awake, CN II-XII Intact. absent: Motor Sensory Deficit Additional comments: Forgetful, follows commands - Psychiatric Exam Psychiatric exam: Normal Mood - Skin Skin Exam: Warm Assessment and Plan (1) Rhabdomyolysis Status: Resolved (2) Status post fall Status: Acute (3) Change in mental status Status: Acute (4) Dementia Status: Chronic (5) HTN (hypertension) Status: Chronic (6) Urinary retention Status: Resolved (7) Vitamin D deficiency Status: Chronic - Assessment and Plan (Free Text) Plan: Awaiting for guardianship, continue current Tx.
[2018-06-23] MEDS: Ergocalciferol 50,000 Intl Units Cap PO SCH (23:14)
[2018-06-24] MEDS: Levothyroxine 75 MCG TAB PO SCH (06:16)
[2018-06-24] MEDS: Divalproex 125 mg Sprinkle Capsule PO SCH ×2 (09:36→16:52)
--- NOTE | 2018-06-24 13:48 | CP.PCM.PN ---
Subjective - Date & Time of Evaluation Date of Evaluation: 06/24/18 Time of Evaluation: 13:50 - Subjective Subjective: F/U AMS Awake, confused, cooperative Objective - Vital Signs/Intake and Output Vital Signs (last 24 hours): Temp Pulse Resp BP Pulse Ox 97.7 F 69 19 135/70 97 06/24/18 09:00 06/24/18 09:37 06/24/18 09:00 06/24/18 09:37 06/24/18 09:00 - Medications Medications: Current Medications Acetaminophen (Tylenol 325mg Tab) 650 mg PO Q6 PRN PRN Reason: Pain, Mild (1-3) Last Admin: 04/15/18 23:34 Dose: 650 mg Cyanocobalamin (Vitamin B12 1000 Mcg Tab) 1,000 mcg PO DAILY [facility] Last Admin: 06/24/18 09:37 Dose: 1,000 mcg Divalproex Sodium (Depakote Sprinkles) 125 mg PO BID [facility] Last Admin: 06/24/18 09:36 Dose: 125 mg Donepezil HCl (Aricept) 5 mg PO HS [facility] Last Admin: 06/23/18 21:26 Dose: 5 mg Enalapril Maleate (Vasotec) 2.5 mg PO DAILY [facility] Last Admin: 06/24/18 09:37 Dose: 2.5 mg Ergocalciferol (Drisdol 50,000 Intl Units Cap) 1 cap PO Q7D [facility] Last Admin: 06/23/18 23:14 Dose: 1 cap Haloperidol Lactate (Haldol) 0.5 mg IM Q4 PRN PRN Reason: Agitation Last Admin: 05/30/18 10:06 Dose: 0.5 mg Levothyroxine Sodium (Synthroid) 75 mcg PO DAILY@0630 [facility] Last Admin: 06/24/18 06:16 Dose: 75 mcg Metoprolol Tartrate (Lopressor) 50 mg PO Q12 [facility] Last Admin: 06/24/18 09:37 Dose: 50 mg Rivaroxaban (Xarelto) 20 mg PO DAILY@1700 [facility]; Protocol Last Admin: 06/23/18 17:22 Dose: 20 mg - Labs Labs: 06/14/18 06:50 06/14/18 06:50 PT 11.9 Seconds (9.8-13.1) 03/22/18 19:00 INR 1.0 03/22/18 19:00 APTT 29.3 Seconds (25.6-37.1) 03/22/18 19:00 - Constitutional Appears: No Acute Distress - Head Exam Head Exam: NORMAL INSPECTION - Eye Exam Eye Exam: PERRL - ENT Exam ENT Exam: Normal Exam - Neck Exam Neck Exam: Normal Inspection - Respiratory Exam Respiratory Exam: NORMAL BREATHING PATTERN - Cardiovascular Exam Cardiovascular Exam: REGULAR RHYTHM - GI/Abdominal Exam GI & Abdominal Exam: Soft, Normal Bowel Sounds - Extremities Exam Extremities Exam: Normal Inspection - Back Exam Back Exam: NORMAL INSPECTION - Neurological Exam Neurological Exam: Alert, CN II-XII Intact. absent: Motor Sensory Deficit Additional comments: Forgetful, follows commands - Psychiatric Exam Additional comments: Calm - Skin Skin Exam: Normal Color, Warm Assessment and Plan (1) Rhabdomyolysis Status: Resolved (2) Status post fall Status: Acute (3) Change in mental status Status: Acute (4) Dementia Status: Chronic (5) HTN (hypertension) Status: Chronic (6) Urinary retention Status: Resolved - Assessment and Plan (Free Text) Plan: Continue Depakote, Haldol, Lopressor, Vasotec and rest of Tx.
[2018-06-25] MEDS: Levothyroxine 75 MCG TAB PO SCH (08:28)
[2018-06-25] MEDS: Divalproex 125 mg Sprinkle Capsule PO SCH ×2 (08:48→16:10)
--- NOTE | 2018-06-25 14:23 | CP.PCM.PN ---
Subjective - Date & Time of Evaluation Date of Evaluation: 06/25/18 Time of Evaluation: 11:00 - Subjective Subjective: F/U AMS Confused, calm, smiling Objective - Vital Signs/Intake and Output Vital Signs (last 24 hours): Temp Pulse Resp BP Pulse Ox 97.9 F 68 19 140/69 97 06/25/18 08:52 06/25/18 08:52 06/25/18 08:52 06/25/18 08:52 06/25/18 08:52 - Medications Medications: Current Medications Acetaminophen (Tylenol 325mg Tab) 650 mg PO Q6 PRN PRN Reason: Pain, Mild (1-3) Last Admin: 04/15/18 23:34 Dose: 650 mg Cyanocobalamin (Vitamin B12 1000 Mcg Tab) 1,000 mcg PO DAILY [facility] Last Admin: 06/25/18 08:48 Dose: 1,000 mcg Divalproex Sodium (Depakote Sprinkles) 125 mg PO BID [facility] Last Admin: 06/25/18 08:48 Dose: 125 mg Donepezil HCl (Aricept) 5 mg PO HS [facility] Last Admin: 06/24/18 22:24 Dose: 5 mg Enalapril Maleate (Vasotec) 2.5 mg PO DAILY [facility] Last Admin: 06/25/18 08:48 Dose: 2.5 mg Ergocalciferol (Drisdol 50,000 Intl Units Cap) 1 cap PO Q7D [facility] Last Admin: 06/23/18 23:14 Dose: 1 cap Haloperidol Lactate (Haldol) 0.5 mg IM Q4 PRN PRN Reason: Agitation Last Admin: 05/30/18 10:06 Dose: 0.5 mg Levothyroxine Sodium (Synthroid) 75 mcg PO DAILY@0630 [facility] Last Admin: 06/25/18 08:28 Dose: 75 mcg Metoprolol Tartrate (Lopressor) 50 mg PO Q12 [facility] Last Admin: 06/25/18 08:48 Dose: 50 mg Rivaroxaban (Xarelto) 20 mg PO DAILY@1700 [facility]; Protocol - Labs Labs: 06/14/18 06:50 06/14/18 06:50 PT 11.9 Seconds (9.8-13.1) 03/22/18 19:00 INR 1.0 03/22/18 19:00 APTT 29.3 Seconds (25.6-37.1) 03/22/18 19:00 - Constitutional Appears: No Acute Distress - Head Exam Head Exam: NORMAL INSPECTION - Eye Exam Eye Exam: PERRL - ENT Exam ENT Exam: Normal Exam - Neck Exam Neck Exam: Normal Inspection - Respiratory Exam Respiratory Exam: NORMAL BREATHING PATTERN - Cardiovascular Exam Cardiovascular Exam: REGULAR RHYTHM - GI/Abdominal Exam GI & Abdominal Exam: Soft, Normal Bowel Sounds - Extremities Exam Extremities Exam: Normal Inspection - Back Exam Back Exam: NORMAL INSPECTION - Neurological Exam Neurological Exam: Alert, CN II-XII Intact. absent: Motor Sensory Deficit Additional comments: Forgetful, follows commands. - Psychiatric Exam Psychiatric exam: Normal Mood - Skin Skin Exam: Warm Assessment and Plan (1) Rhabdomyolysis Status: Resolved (2) Status post fall Status: Acute (3) Change in mental status Status: Acute (4) Dementia Status: Chronic (5) HTN (hypertension) Status: Chronic (6) Urinary retention Status: Resolved - Assessment and Plan (Free Text) Plan: Continue Vasotec, Lopressor, Synthroid, Aricept, Haldol and rest of Tx. For legal guardianship.
[2018-06-26] MEDS: Levothyroxine 75 MCG TAB PO SCH (06:59)
[2018-06-26] MEDS: Divalproex 125 mg Sprinkle Capsule PO SCH ×2 (09:23→17:14)
--- NOTE | 2018-06-26 17:13 | CP.PCM.PN ---
Subjective - Date & Time of Evaluation Date of Evaluation: 06/26/18 Time of Evaluation: 12:40 - Subjective Subjective: F/U AMS Confused, cooperating, smiling. Objective - Vital Signs/Intake and Output Vital Signs (last 24 hours): Temp Pulse Resp BP Pulse Ox 98.1 F 65 20 108/69 95 06/26/18 15:56 06/26/18 15:56 06/26/18 15:56 06/26/18 15:56 06/26/18 15:56 - Medications Medications: Current Medications Acetaminophen (Tylenol 325mg Tab) 650 mg PO Q6 PRN PRN Reason: Pain, Mild (1-3) Last Admin: 04/15/18 23:34 Dose: 650 mg Cyanocobalamin (Vitamin B12 1000 Mcg Tab) 1,000 mcg PO DAILY [facility] Last Admin: 06/26/18 09:25 Dose: 1,000 mcg Divalproex Sodium (Depakote Sprinkles) 125 mg PO BID [facility] Last Admin: 06/26/18 09:23 Dose: 125 mg Donepezil HCl (Aricept) 5 mg PO HS [facility] Last Admin: 06/25/18 21:46 Dose: Not Given Enalapril Maleate (Vasotec) 2.5 mg PO DAILY [facility] Last Admin: 06/26/18 09:23 Dose: 2.5 mg Ergocalciferol (Drisdol 50,000 Intl Units Cap) 1 cap PO Q7D [facility] Last Admin: 06/23/18 23:14 Dose: 1 cap Haloperidol Lactate (Haldol) 0.5 mg IM Q4 PRN PRN Reason: Agitation Last Admin: 05/30/18 10:06 Dose: 0.5 mg Levothyroxine Sodium (Synthroid) 75 mcg PO DAILY@0630 [facility] Last Admin: 06/26/18 06:59 Dose: 75 mcg Metoprolol Tartrate (Lopressor) 50 mg PO Q12 [facility] Last Admin: 06/26/18 09:23 Dose: 50 mg Rivaroxaban (Xarelto) 20 mg PO DAILY@1700 [facility]; Protocol Last Admin: 06/25/18 16:10 Dose: 20 mg - Labs Labs: 06/14/18 06:50 06/14/18 06:50 PT 11.9 Seconds (9.8-13.1) 03/22/18 19:00 INR 1.0 03/22/18 19:00 APTT 29.3 Seconds (25.6-37.1) 03/22/18 19:00 - Constitutional Appears: No Acute Distress - Head Exam Head Exam: NORMAL INSPECTION - Eye Exam Eye Exam: PERRL - ENT Exam ENT Exam: Normal Exam - Neck Exam Neck Exam: Normal Inspection - Respiratory Exam Respiratory Exam: NORMAL BREATHING PATTERN - Cardiovascular Exam Cardiovascular Exam: REGULAR RHYTHM - GI/Abdominal Exam GI & Abdominal Exam: Soft, Normal Bowel Sounds - Extremities Exam Extremities Exam: Normal Inspection - Back Exam Back Exam: NORMAL INSPECTION - Neurological Exam Neurological Exam: Awake, CN II-XII Intact. absent: Motor Sensory Deficit Additional comments: Confused, forgetful, follos commands. - Psychiatric Exam Psychiatric exam: Normal Affect, Normal Mood - Skin Skin Exam: Warm Assessment and Plan (1) Rhabdomyolysis Status: Resolved (2) Status post fall Status: Acute (3) Change in mental status Status: Acute (4) Dementia Status: Chronic (5) HTN (hypertension) Status: Chronic (6) Urinary retention Status: Resolved - Assessment and Plan (Free Text) Plan: Continue Vasotec, lopressor, Depakote and rest of tx. For legal guardianship.
[2018-06-27] MEDS: Levothyroxine 75 MCG TAB PO SCH (07:56)
[2018-06-27] MEDS: Divalproex 125 mg Sprinkle Capsule PO SCH ×2 (08:08→16:15)
--- NOTE | 2018-06-27 16:07 | CP.PCM.PN ---
Subjective - Date & Time of Evaluation Date of Evaluation: 06/27/18 Time of Evaluation: 11:40 - Subjective Subjective: F/U AMS Confused, calm, no A/D. Objective - Vital Signs/Intake and Output Vital Signs (last 24 hours): Temp Pulse Resp BP Pulse Ox 98.4 F 68 19 133/69 95 06/27/18 00:15 06/27/18 00:15 06/27/18 00:15 06/27/18 00:15 06/27/18 00:15 - Medications Medications: Current Medications Acetaminophen (Tylenol 325mg Tab) 650 mg PO Q6 PRN PRN Reason: Pain, Mild (1-3) Last Admin: 04/15/18 23:34 Dose: 650 mg Cyanocobalamin (Vitamin B12 1000 Mcg Tab) 1,000 mcg PO DAILY [facility] Last Admin: 06/27/18 08:08 Dose: 1,000 mcg Divalproex Sodium (Depakote Sprinkles) 125 mg PO BID [facility] Last Admin: 06/27/18 08:08 Dose: 125 mg Donepezil HCl (Aricept) 5 mg PO HS [facility] Last Admin: 06/26/18 21:11 Dose: 5 mg Enalapril Maleate (Vasotec) 2.5 mg PO DAILY [facility] Last Admin: 06/27/18 08:09 Dose: 2.5 mg Ergocalciferol (Drisdol 50,000 Intl Units Cap) 1 cap PO Q7D [facility] Last Admin: 06/23/18 23:14 Dose: 1 cap Haloperidol Lactate (Haldol) 0.5 mg IM Q4 PRN PRN Reason: Agitation Last Admin: 05/30/18 10:06 Dose: 0.5 mg Levothyroxine Sodium (Synthroid) 75 mcg PO DAILY@0630 [facility] Last Admin: 06/27/18 07:56 Dose: 75 mcg Metoprolol Tartrate (Lopressor) 50 mg PO Q12 [facility] Last Admin: 06/27/18 08:08 Dose: 50 mg Rivaroxaban (Xarelto) 20 mg PO DAILY@1700 [facility]; Protocol Last Admin: 06/26/18 17:14 Dose: 20 mg - Labs Labs: 06/14/18 06:50 06/14/18 06:50 PT 11.9 Seconds (9.8-13.1) 03/22/18 19:00 INR 1.0 03/22/18 19:00 APTT 29.3 Seconds (25.6-37.1) 03/22/18 19:00 - Constitutional Appears: No Acute Distress - Head Exam Head Exam: NORMAL INSPECTION - Eye Exam Eye Exam: PERRL - ENT Exam ENT Exam: Normal Exam - Neck Exam Neck Exam: Normal Inspection - Respiratory Exam Respiratory Exam: NORMAL BREATHING PATTERN - Cardiovascular Exam Cardiovascular Exam: REGULAR RHYTHM - GI/Abdominal Exam GI & Abdominal Exam: Soft, Normal Bowel Sounds - Extremities Exam Extremities Exam: Normal Inspection - Back Exam Back Exam: NORMAL INSPECTION - Neurological Exam Neurological Exam: Awake, CN II-XII Intact. absent: Motor Sensory Deficit Additional comments: Confused, forgetful, follows commands. - Psychiatric Exam Psychiatric exam: Normal Mood - Skin Skin Exam: Warm Assessment and Plan (1) Rhabdomyolysis Status: Resolved (2) Status post fall Status: Acute (3) Change in mental status Status: Acute (4) Dementia Status: Chronic (5) HTN (hypertension) Status: Chronic (6) Urinary retention Status: Resolved - Assessment and Plan (Free Text) Plan: Continue current Tx, for legal guardianship.
[2018-06-28] MEDS: Levothyroxine 75 MCG TAB PO SCH (06:02)
[2018-06-28] MEDS: Divalproex 125 mg Sprinkle Capsule PO SCH ×2 (08:39→15:59)
--- NOTE | 2018-06-28 14:40 | CP.PCM.PN ---
Subjective - Date & Time of Evaluation Date of Evaluation: 06/28/18 Time of Evaluation: 09:20 - Subjective Subjective: F/U AMS. Pt awake, no A/D, eating well, calm, confused. Objective - Vital Signs/Intake and Output Vital Signs (last 24 hours): Temp Pulse Resp BP Pulse Ox 97.5 F L 75 19 131/75 95 06/28/18 08:32 06/28/18 08:39 06/28/18 08:32 06/28/18 08:39 06/28/18 08:32 - Medications Medications: Current Medications Acetaminophen (Tylenol 325mg Tab) 650 mg PO Q6 PRN PRN Reason: Pain, Mild (1-3) Last Admin: 04/15/18 23:34 Dose: 650 mg Cyanocobalamin (Vitamin B12 1000 Mcg Tab) 1,000 mcg PO DAILY [facility] Last Admin: 06/28/18 08:40 Dose: 1,000 mcg Divalproex Sodium (Depakote Sprinkles) 125 mg PO BID [facility] Last Admin: 06/28/18 08:39 Dose: 125 mg Donepezil HCl (Aricept) 5 mg PO HS [facility] Last Admin: 06/27/18 21:43 Dose: 5 mg Enalapril Maleate (Vasotec) 2.5 mg PO DAILY [facility] Last Admin: 06/28/18 08:40 Dose: 2.5 mg Ergocalciferol (Drisdol 50,000 Intl Units Cap) 1 cap PO Q7D [facility] Last Admin: 06/23/18 23:14 Dose: 1 cap Haloperidol Lactate (Haldol) 0.5 mg IM Q4 PRN PRN Reason: Agitation Last Admin: 05/30/18 10:06 Dose: 0.5 mg Levothyroxine Sodium (Synthroid) 75 mcg PO DAILY@0630 [facility] Last Admin: 06/28/18 06:02 Dose: 75 mcg Metoprolol Tartrate (Lopressor) 50 mg PO Q12 [facility] Last Admin: 06/28/18 08:39 Dose: 50 mg Rivaroxaban (Xarelto) 20 mg PO DAILY@1700 [facility]; Protocol Last Admin: 06/27/18 16:15 Dose: 20 mg - Labs Labs: 06/14/18 06:50 06/14/18 06:50 PT 11.9 Seconds (9.8-13.1) 03/22/18 19:00 INR 1.0 03/22/18 19:00 APTT 29.3 Seconds (25.6-37.1) 03/22/18 19:00 - Constitutional Appears: No Acute Distress - Head Exam Head Exam: NORMAL INSPECTION - Eye Exam Eye Exam: PERRL - ENT Exam ENT Exam: Normal Exam - Neck Exam Neck Exam: Normal Inspection - Respiratory Exam Respiratory Exam: NORMAL BREATHING PATTERN - Cardiovascular Exam Cardiovascular Exam: REGULAR RHYTHM - GI/Abdominal Exam GI & Abdominal Exam: Soft, Normal Bowel Sounds - Extremities Exam Extremities Exam: Normal Inspection - Back Exam Back Exam: NORMAL INSPECTION - Neurological Exam Neurological Exam: Awake, CN II-XII Intact. absent: Motor Sensory Deficit Additional comments: confused, forgetful, follows commands - Psychiatric Exam Psychiatric exam: Normal Mood - Skin Skin Exam: Warm Assessment and Plan (1) Rhabdomyolysis Status: Resolved (2) Status post fall Status: Acute (3) Change in mental status Status: Acute (4) Dementia Status: Chronic (5) HTN (hypertension) Status: Chronic (6) Urinary retention Status: Resolved - Assessment and Plan (Free Text) Plan: Continue current Tx, for legal guardianship.
[2018-06-29] MEDS: Levothyroxine 75 MCG TAB PO SCH (06:19)
[2018-06-29] MEDS: Divalproex 125 mg Sprinkle Capsule PO SCH ×2 (09:40→17:12)
--- NOTE | 2018-06-29 14:53 | CP.PCM.PN ---
Subjective - Date & Time of Evaluation Date of Evaluation: 06/29/18 Time of Evaluation: 12:10 - Subjective Subjective: F/U AMS Pt awake, calm, confused. Objective - Vital Signs/Intake and Output Vital Signs (last 24 hours): Temp Pulse Resp BP Pulse Ox 97.4 F L 67 18 128/77 95 06/29/18 08:16 06/29/18 09:41 06/29/18 08:16 06/29/18 09:41 06/29/18 08:16 - Medications Medications: Current Medications Acetaminophen (Tylenol 325mg Tab) 650 mg PO Q6 PRN PRN Reason: Pain, Mild (1-3) Last Admin: 04/15/18 23:34 Dose: 650 mg Cyanocobalamin (Vitamin B12 1000 Mcg Tab) 1,000 mcg PO DAILY [facility] Last Admin: 06/29/18 09:40 Dose: 1,000 mcg Divalproex Sodium (Depakote Sprinkles) 125 mg PO BID [facility] Last Admin: 06/29/18 09:40 Dose: 125 mg Donepezil HCl (Aricept) 5 mg PO HS [facility] Last Admin: 06/28/18 21:42 Dose: 5 mg Enalapril Maleate (Vasotec) 2.5 mg PO DAILY [facility] Last Admin: 06/29/18 09:41 Dose: 2.5 mg Ergocalciferol (Drisdol 50,000 Intl Units Cap) 1 cap PO Q7D [facility] Last Admin: 06/23/18 23:14 Dose: 1 cap Haloperidol Lactate (Haldol) 0.5 mg IM Q4 PRN PRN Reason: Agitation Last Admin: 05/30/18 10:06 Dose: 0.5 mg Levothyroxine Sodium (Synthroid) 75 mcg PO DAILY@0630 [facility] Last Admin: 06/29/18 06:19 Dose: 75 mcg Metoprolol Tartrate (Lopressor) 50 mg PO Q12 [facility] Last Admin: 06/29/18 09:41 Dose: 50 mg Rivaroxaban (Xarelto) 20 mg PO DAILY@1700 [facility]; Protocol Last Admin: 06/28/18 15:59 Dose: 20 mg - Labs Labs: 06/14/18 06:50 06/14/18 06:50 PT 11.9 Seconds (9.8-13.1) 03/22/18 19:00 INR 1.0 03/22/18 19:00 APTT 29.3 Seconds (25.6-37.1) 03/22/18 19:00 - Constitutional Appears: No Acute Distress - Head Exam Head Exam: NORMAL INSPECTION - Eye Exam Eye Exam: PERRL - ENT Exam ENT Exam: Normal Exam - Neck Exam Neck Exam: Normal Inspection - Respiratory Exam Respiratory Exam: Respiratory Distress - Cardiovascular Exam Cardiovascular Exam: REGULAR RHYTHM - GI/Abdominal Exam GI & Abdominal Exam: Soft, Normal Bowel Sounds - Extremities Exam Extremities Exam: Normal Inspection - Back Exam Back Exam: NORMAL INSPECTION - Neurological Exam Neurological Exam: Awake, CN II-XII Intact Additional comments: Confused, forgetful, follows commands. - Psychiatric Exam Psychiatric exam: Normal Affect, Normal Mood - Skin Skin Exam: Warm Assessment and Plan (1) Rhabdomyolysis Status: Resolved (2) Status post fall Status: Acute (3) Change in mental status Status: Acute (4) Dementia Status: Chronic (5) HTN (hypertension) Status: Chronic (6) Urinary retention Status: Resolved - Assessment and Plan (Free Text) Plan: Continue Vasotec, Lopressor, Aricept, Depakote and rest of Tx.
[2018-06-30] MEDS: Levothyroxine 75 MCG TAB PO SCH (06:34)
[2018-06-30] MEDS: Divalproex 125 mg Sprinkle Capsule PO SCH ×2 (09:38→16:39)
--- NOTE | 2018-06-30 15:51 | CP.PCM.PN ---
Subjective - Date & Time of Evaluation Date of Evaluation: 06/30/18 Time of Evaluation: 09:20 - Subjective Subjective: F/U AMS Pt confused, forgetful, calm, smiling. Objective - Vital Signs/Intake and Output Vital Signs (last 24 hours): Temp Pulse Resp BP Pulse Ox 97.6 F 60 20 136/79 98 06/30/18 08:16 06/30/18 09:38 06/30/18 08:16 06/30/18 09:38 06/30/18 08:16 - Medications Medications: Current Medications Acetaminophen (Tylenol 325mg Tab) 650 mg PO Q6 PRN PRN Reason: Pain, Mild (1-3) Last Admin: 04/15/18 23:34 Dose: 650 mg Cyanocobalamin (Vitamin B12 1000 Mcg Tab) 1,000 mcg PO DAILY [facility] Last Admin: 06/30/18 09:39 Dose: 1,000 mcg Divalproex Sodium (Depakote Sprinkles) 125 mg PO BID [facility] Last Admin: 06/30/18 09:38 Dose: 125 mg Donepezil HCl (Aricept) 5 mg PO HS [facility] Last Admin: 06/29/18 21:27 Dose: 5 mg Enalapril Maleate (Vasotec) 2.5 mg PO DAILY [facility] Last Admin: 06/30/18 09:39 Dose: 2.5 mg Ergocalciferol (Drisdol 50,000 Intl Units Cap) 1 cap PO Q7D [facility] Last Admin: 06/23/18 23:14 Dose: 1 cap Haloperidol Lactate (Haldol) 0.5 mg IM Q4 PRN PRN Reason: Agitation Last Admin: 05/30/18 10:06 Dose: 0.5 mg Levothyroxine Sodium (Synthroid) 75 mcg PO DAILY@0630 [facility] Last Admin: 06/30/18 06:34 Dose: 75 mcg Metoprolol Tartrate (Lopressor) 50 mg PO Q12 [facility] Last Admin: 06/30/18 09:38 Dose: 50 mg Rivaroxaban (Xarelto) 20 mg PO DAILY@1700 [facility]; Protocol Last Admin: 06/29/18 17:12 Dose: 20 mg - Labs Labs: 06/14/18 06:50 06/14/18 06:50 PT 11.9 Seconds (9.8-13.1) 03/22/18 19:00 INR 1.0 03/22/18 19:00 APTT 29.3 Seconds (25.6-37.1) 03/22/18 19:00 - Constitutional Appears: No Acute Distress, Confused - Head Exam Head Exam: NORMAL INSPECTION - Eye Exam Eye Exam: PERRL - ENT Exam ENT Exam: Normal Exam - Neck Exam Neck Exam: Normal Inspection - Respiratory Exam Respiratory Exam: NORMAL BREATHING PATTERN - Cardiovascular Exam Cardiovascular Exam: REGULAR RHYTHM - GI/Abdominal Exam GI & Abdominal Exam: Soft, Normal Bowel Sounds - Extremities Exam Extremities Exam: Normal Inspection - Back Exam Back Exam: NORMAL INSPECTION - Neurological Exam Neurological Exam: Awake Additional comments: Forgetful, confused, follows commands. - Psychiatric Exam Psychiatric exam: Normal Mood - Skin Skin Exam: Normal Color, Warm Assessment and Plan (1) Rhabdomyolysis Status: Resolved (2) Status post fall Status: Acute (3) Change in mental status Status: Acute (4) Dementia Status: Chronic (5) HTN (hypertension) Status: Chronic (6) Urinary retention Status: Resolved - Assessment and Plan (Free Text) Plan: Continue Depakote, xarelto and rest of Tx, awaiting for legal guardianship.
[2018-06-30] MEDS: Ergocalciferol 50,000 Intl Units Cap PO SCH (23:04)
[2018-07-01] MEDS: Levothyroxine 75 MCG TAB PO SCH (06:35)
[2018-07-01] MEDS: Divalproex 125 mg Sprinkle Capsule PO SCH ×2 (08:20→16:02)
--- NOTE | 2018-07-01 13:36 | CP.PCM.PN ---
Subjective - Date & Time of Evaluation Date of Evaluation: 07/01/18 Time of Evaluation: 13:00 - Subjective Subjective: F/U AMS. Pt awake, no A/D, no c/o, no pain. Objective - Vital Signs/Intake and Output Vital Signs (last 24 hours): Temp Pulse Resp BP Pulse Ox 98.1 F 75 19 132/81 97 07/01/18 07:46 07/01/18 07:46 07/01/18 07:46 07/01/18 07:46 07/01/18 07:46 - Medications Medications: Current Medications Acetaminophen (Tylenol 325mg Tab) 650 mg PO Q6 PRN PRN Reason: Pain, Mild (1-3) Last Admin: 04/15/18 23:34 Dose: 650 mg Cyanocobalamin (Vitamin B12 1000 Mcg Tab) 1,000 mcg PO DAILY [facility] Last Admin: 07/01/18 08:19 Dose: 1,000 mcg Divalproex Sodium (Depakote Sprinkles) 125 mg PO BID [facility] Last Admin: 07/01/18 08:20 Dose: 125 mg Donepezil HCl (Aricept) 5 mg PO HS [facility] Last Admin: 06/30/18 21:01 Dose: 5 mg Enalapril Maleate (Vasotec) 2.5 mg PO DAILY [facility] Last Admin: 07/01/18 08:18 Dose: 2.5 mg Ergocalciferol (Drisdol 50,000 Intl Units Cap) 1 cap PO Q7D [facility] Last Admin: 06/30/18 23:04 Dose: 1 cap Haloperidol Lactate (Haldol) 0.5 mg IM Q4 PRN PRN Reason: Agitation Last Admin: 05/30/18 10:06 Dose: 0.5 mg Levothyroxine Sodium (Synthroid) 75 mcg PO DAILY@0630 [facility] Last Admin: 07/01/18 06:35 Dose: 75 mcg Metoprolol Tartrate (Lopressor) 50 mg PO Q12 [facility] Last Admin: 07/01/18 08:19 Dose: 50 mg Rivaroxaban (Xarelto) 20 mg PO DAILY@1700 [facility]; Protocol Last Admin: 06/30/18 16:39 Dose: 20 mg - Labs Labs: 06/14/18 06:50 06/14/18 06:50 PT 11.9 Seconds (9.8-13.1) 03/22/18 19:00 INR 1.0 03/22/18 19:00 APTT 29.3 Seconds (25.6-37.1) 03/22/18 19:00 - Constitutional Appears: No Acute Distress - Head Exam Head Exam: NORMAL INSPECTION - Eye Exam Eye Exam: PERRL - ENT Exam ENT Exam: Normal Exam - Neck Exam Neck Exam: Normal Inspection - Respiratory Exam Respiratory Exam: NORMAL BREATHING PATTERN - Cardiovascular Exam Cardiovascular Exam: REGULAR RHYTHM - GI/Abdominal Exam GI & Abdominal Exam: Soft, Normal Bowel Sounds - Extremities Exam Extremities Exam: Normal Inspection - Back Exam Back Exam: NORMAL INSPECTION - Neurological Exam Neurological Exam: Alert, Awake, CN II-XII Intact. absent: Motor Sensory Deficit Additional comments: Forgetful, follows commands. - Psychiatric Exam Psychiatric exam: Normal Mood - Skin Skin Exam: Warm Assessment and Plan (1) Rhabdomyolysis Status: Resolved (2) Status post fall Status: Acute (3) Change in mental status Status: Acute (4) Dementia Status: Chronic (5) HTN (hypertension) Status: Chronic (6) Urinary retention Status: Resolved - Assessment and Plan (Free Text) Plan: Continue Aricept, Vasotec, Lopressor and rest of Tx.
[2018-07-02] MEDS: Levothyroxine 75 MCG TAB PO SCH (06:14)
[2018-07-02] MEDS: Divalproex 125 mg Sprinkle Capsule PO SCH ×2 (08:35→16:46)
--- NOTE | 2018-07-02 15:12 | CP.PCM.PN ---
Subjective - Date & Time of Evaluation Date of Evaluation: 07/02/18 Time of Evaluation: 13:30 - Subjective Subjective: F/U AMS. Pt awake, calm, no c/o Objective - Vital Signs/Intake and Output Vital Signs (last 24 hours): Temp Pulse Resp BP Pulse Ox 97.2 F L 66 18 152/85 H 96 07/02/18 00:15 07/02/18 00:15 07/02/18 00:15 07/02/18 00:15 07/02/18 00:15 - Medications Medications: Current Medications Acetaminophen (Tylenol 325mg Tab) 650 mg PO Q6 PRN PRN Reason: Pain, Mild (1-3) Last Admin: 04/15/18 23:34 Dose: 650 mg Cyanocobalamin (Vitamin B12 1000 Mcg Tab) 1,000 mcg PO DAILY [facility] Last Admin: 07/02/18 08:35 Dose: 1,000 mcg Divalproex Sodium (Depakote Sprinkles) 125 mg PO BID [facility] Last Admin: 07/02/18 08:35 Dose: 125 mg Donepezil HCl (Aricept) 5 mg PO HS [facility] Last Admin: 07/01/18 21:26 Dose: 5 mg Enalapril Maleate (Vasotec) 2.5 mg PO DAILY [facility] Last Admin: 07/02/18 08:35 Dose: 2.5 mg Ergocalciferol (Drisdol 50,000 Intl Units Cap) 1 cap PO Q7D [facility] Last Admin: 06/30/18 23:04 Dose: 1 cap Haloperidol Lactate (Haldol) 0.5 mg IM Q4 PRN PRN Reason: Agitation Last Admin: 05/30/18 10:06 Dose: 0.5 mg Levothyroxine Sodium (Synthroid) 75 mcg PO DAILY@0630 [facility] Last Admin: 07/02/18 06:14 Dose: 75 mcg Metoprolol Tartrate (Lopressor) 50 mg PO Q12 [facility] Last Admin: 07/02/18 08:34 Dose: 50 mg Rivaroxaban (Xarelto) 20 mg PO DAILY@1700 [facility]; Protocol Last Admin: 07/01/18 16:02 Dose: 20 mg - Labs Labs: 06/14/18 06:50 06/14/18 06:50 PT 11.9 Seconds (9.8-13.1) 03/22/18 19:00 INR 1.0 03/22/18 19:00 APTT 29.3 Seconds (25.6-37.1) 03/22/18 19:00 - Constitutional Appears: No Acute Distress - Head Exam Head Exam: NORMAL INSPECTION - Eye Exam Eye Exam: PERRL - ENT Exam ENT Exam: Normal Exam - Neck Exam Neck Exam: Normal Inspection - Respiratory Exam Respiratory Exam: NORMAL BREATHING PATTERN - Cardiovascular Exam Cardiovascular Exam: REGULAR RHYTHM - GI/Abdominal Exam GI & Abdominal Exam: Soft, Normal Bowel Sounds - Extremities Exam Extremities Exam: Normal Inspection - Back Exam Back Exam: NORMAL INSPECTION - Neurological Exam Neurological Exam: Alert, Awake, CN II-XII Intact. absent: Motor Sensory Deficit Additional comments: Forgetful, follows commands. - Psychiatric Exam Additional comments: Calm now, at times agitated. - Skin Skin Exam: Warm Assessment and Plan (1) Rhabdomyolysis Status: Resolved (2) Status post fall Status: Acute (3) Change in mental status Status: Acute (4) Dementia Status: Chronic (5) HTN (hypertension) Status: Chronic (6) Urinary retention Status: Resolved - Assessment and Plan (Free Text) Plan: Continue Aricept, Haldol and rest of Tx.
[2018-07-03] MEDS: Levothyroxine 75 MCG TAB PO SCH (06:04)
[2018-07-03] MEDS: Divalproex 125 mg Sprinkle Capsule PO SCH ×2 (09:31→17:05)
--- NOTE | 2018-07-03 20:43 | CP.PCM.PN ---
Subjective - Date & Time of Evaluation Date of Evaluation: 07/03/18 Time of Evaluation: 08:45 - Subjective Subjective: F/U AMS Pt awake, no A/D, at times walking through the hallways. Objective - Vital Signs/Intake and Output Vital Signs (last 24 hours): Temp Pulse Resp BP Pulse Ox 97.4 F L 55 L 18 102/65 97 07/03/18 17:00 07/03/18 17:00 07/03/18 17:00 07/03/18 17:00 07/03/18 17:00 - Medications Medications: Current Medications Acetaminophen (Tylenol 325mg Tab) 650 mg PO Q6 PRN PRN Reason: Pain, Mild (1-3) Last Admin: 04/15/18 23:34 Dose: 650 mg Cyanocobalamin (Vitamin B12 1000 Mcg Tab) 1,000 mcg PO DAILY [facility] Last Admin: 07/03/18 09:33 Dose: 1,000 mcg Divalproex Sodium (Depakote Sprinkles) 125 mg PO BID [facility] Last Admin: 07/03/18 17:05 Dose: 125 mg Donepezil HCl (Aricept) 5 mg PO HS [facility] Last Admin: 07/02/18 21:20 Dose: 5 mg Enalapril Maleate (Vasotec) 2.5 mg PO DAILY [facility] Last Admin: 07/03/18 09:32 Dose: 2.5 mg Ergocalciferol (Drisdol 50,000 Intl Units Cap) 1 cap PO Q7D [facility] Last Admin: 06/30/18 23:04 Dose: 1 cap Haloperidol Lactate (Haldol) 0.5 mg IM Q4 PRN PRN Reason: Agitation Last Admin: 05/30/18 10:06 Dose: 0.5 mg Levothyroxine Sodium (Synthroid) 75 mcg PO DAILY@0630 [facility] Last Admin: 07/03/18 06:04 Dose: 75 mcg Metoprolol Tartrate (Lopressor) 50 mg PO Q12 [facility] Last Admin: 07/03/18 09:32 Dose: 50 mg Rivaroxaban (Xarelto) 20 mg PO DAILY@1700 [facility]; Protocol Last Admin: 07/03/18 17:05 Dose: 20 mg - Labs Labs: 06/14/18 06:50 06/14/18 06:50 PT 11.9 Seconds (9.8-13.1) 03/22/18 19:00 INR 1.0 03/22/18 19:00 APTT 29.3 Seconds (25.6-37.1) 03/22/18 19:00 - Constitutional Appears: No Acute Distress - Head Exam Head Exam: NORMAL INSPECTION - Eye Exam Eye Exam: PERRL - ENT Exam ENT Exam: Normal Exam - Neck Exam Neck Exam: Normal Inspection - Respiratory Exam Respiratory Exam: NORMAL BREATHING PATTERN - Cardiovascular Exam Cardiovascular Exam: REGULAR RHYTHM - GI/Abdominal Exam GI & Abdominal Exam: Soft, Normal Bowel Sounds - Extremities Exam Extremities Exam: Normal Inspection - Back Exam Back Exam: NORMAL INSPECTION, vertebral tenderness - Neurological Exam Neurological Exam: Alert, Awake, CN II-XII Intact Additional comments: Confused, forgetful, follows commands. - Psychiatric Exam Psychiatric exam: Normal Mood - Skin Skin Exam: Warm Assessment and Plan (1) Rhabdomyolysis Status: Resolved (2) Status post fall Status: Acute (3) Change in mental status Status: Acute (4) Dementia Status: Chronic (5) HTN (hypertension) Status: Chronic (6) Urinary retention Status: Resolved - Assessment and Plan (Free Text) Plan: Continue current Tx, for guardianship
[2018-07-04] MEDS: Levothyroxine 75 MCG TAB PO SCH (06:46)
[2018-07-04] MEDS: Divalproex 125 mg Sprinkle Capsule PO SCH ×2 (08:37→16:57)
--- NOTE | 2018-07-04 14:38 | CP.PCM.PN ---
Subjective - Date & Time of Evaluation Date of Evaluation: 07/04/18 Time of Evaluation: 13:00 - Subjective Subjective: F/U AMS Calm, no A/D, no c/o Objective - Vital Signs/Intake and Output Vital Signs (last 24 hours): Temp Pulse Resp BP Pulse Ox 97.9 F 88 20 145/77 95 07/04/18 08:14 07/04/18 08:38 07/04/18 08:14 07/04/18 08:38 07/04/18 08:14 - Medications Medications: Current Medications Acetaminophen (Tylenol 325mg Tab) 650 mg PO Q6 PRN PRN Reason: Pain, Mild (1-3) Last Admin: 04/15/18 23:34 Dose: 650 mg Cyanocobalamin (Vitamin B12 1000 Mcg Tab) 1,000 mcg PO DAILY [facility] Last Admin: 07/04/18 08:38 Dose: 1,000 mcg Divalproex Sodium (Depakote Sprinkles) 125 mg PO BID [facility] Last Admin: 07/04/18 08:37 Dose: 125 mg Donepezil HCl (Aricept) 5 mg PO HS [facility] Last Admin: 07/03/18 23:12 Dose: 5 mg Enalapril Maleate (Vasotec) 2.5 mg PO DAILY [facility] Last Admin: 07/04/18 08:38 Dose: 2.5 mg Ergocalciferol (Drisdol 50,000 Intl Units Cap) 1 cap PO Q7D [facility] Last Admin: 06/30/18 23:04 Dose: 1 cap Haloperidol Lactate (Haldol) 0.5 mg IM Q4 PRN PRN Reason: Agitation Last Admin: 05/30/18 10:06 Dose: 0.5 mg Levothyroxine Sodium (Synthroid) 75 mcg PO DAILY@0630 [facility] Last Admin: 07/04/18 06:46 Dose: 75 mcg Metoprolol Tartrate (Lopressor) 50 mg PO Q12 [facility] Last Admin: 07/04/18 08:38 Dose: 50 mg Rivaroxaban (Xarelto) 20 mg PO DAILY@1700 [facility]; Protocol Last Admin: 07/03/18 17:05 Dose: 20 mg - Labs Labs: 06/14/18 06:50 06/14/18 06:50 PT 11.9 Seconds (9.8-13.1) 03/22/18 19:00 INR 1.0 03/22/18 19:00 APTT 29.3 Seconds (25.6-37.1) 03/22/18 19:00 - Constitutional Appears: No Acute Distress - Head Exam Head Exam: NORMAL INSPECTION - Eye Exam Eye Exam: PERRL - ENT Exam ENT Exam: Normal Exam - Neck Exam Neck Exam: Normal Inspection - Respiratory Exam Respiratory Exam: NORMAL BREATHING PATTERN - Cardiovascular Exam Cardiovascular Exam: REGULAR RHYTHM - GI/Abdominal Exam GI & Abdominal Exam: Soft, Normal Bowel Sounds - Extremities Exam Extremities Exam: Normal Inspection - Back Exam Back Exam: NORMAL INSPECTION - Neurological Exam Neurological Exam: Alert, Awake, CN II-XII Intact. absent: Motor Sensory Deficit Additional comments: Ox2, confused, follows commands - Psychiatric Exam Psychiatric exam: Normal Mood - Skin Skin Exam: Warm Assessment and Plan (1) Rhabdomyolysis Status: Resolved (2) Status post fall Status: Acute (3) Change in mental status Status: Acute (4) Dementia Status: Chronic (5) HTN (hypertension) Status: Chronic (6) Urinary retention Status: Resolved - Assessment and Plan (Free Text) Plan: Continue Aricept, Depakote, Lopressor, Vasotec and rest of Tx. Awaiting for placement.
[2018-07-05] MEDS: Levothyroxine 75 MCG TAB PO SCH (07:20)
[2018-07-05] MEDS: Divalproex 125 mg Sprinkle Capsule PO SCH ×2 (10:17→16:47)
--- NOTE | 2018-07-05 15:57 | CP.PCM.PN ---
Subjective - Date & Time of Evaluation Date of Evaluation: 07/05/18 Time of Evaluation: 13:50 - Subjective Subjective: F/U AMS no AD, N/C,calm, confused Objective - Vital Signs/Intake and Output Vital Signs (last 24 hours): Temp Pulse Resp BP Pulse Ox 98.1 F 84 18 151/78 H 97 07/04/18 17:00 07/05/18 10:18 07/04/18 17:00 07/05/18 10:18 07/04/18 17:00 - Medications Medications: Current Medications Acetaminophen (Tylenol 325mg Tab) 650 mg PO Q6 PRN PRN Reason: Pain, Mild (1-3) Last Admin: 04/15/18 23:34 Dose: 650 mg Cyanocobalamin (Vitamin B12 1000 Mcg Tab) 1,000 mcg PO DAILY [facility] Last Admin: 07/05/18 10:17 Dose: 1,000 mcg Divalproex Sodium (Depakote Sprinkles) 125 mg PO BID [facility] Last Admin: 07/05/18 10:17 Dose: 125 mg Donepezil HCl (Aricept) 5 mg PO HS [facility] Last Admin: 07/04/18 21:13 Dose: 5 mg Enalapril Maleate (Vasotec) 2.5 mg PO DAILY [facility] Last Admin: 07/05/18 10:17 Dose: 2.5 mg Ergocalciferol (Drisdol 50,000 Intl Units Cap) 1 cap PO Q7D [facility] Last Admin: 06/30/18 23:04 Dose: 1 cap Haloperidol Lactate (Haldol) 0.5 mg IM Q4 PRN PRN Reason: Agitation Last Admin: 05/30/18 10:06 Dose: 0.5 mg Levothyroxine Sodium (Synthroid) 75 mcg PO DAILY@0630 [facility] Last Admin: 07/05/18 07:20 Dose: 75 mcg Metoprolol Tartrate (Lopressor) 50 mg PO Q12 [facility] Last Admin: 07/05/18 10:18 Dose: 50 mg Rivaroxaban (Xarelto) 20 mg PO DAILY@1700 [facility]; Protocol Last Admin: 07/04/18 16:58 Dose: 20 mg - Labs Labs: 06/14/18 06:50 06/14/18 06:50 PT 11.9 Seconds (9.8-13.1) 03/22/18 19:00 INR 1.0 03/22/18 19:00 APTT 29.3 Seconds (25.6-37.1) 03/22/18 19:00 - Constitutional Appears: No Acute Distress - Head Exam Head Exam: NORMAL INSPECTION - Eye Exam Eye Exam: PERRL - ENT Exam ENT Exam: Normal Exam - Neck Exam Neck Exam: Normal Inspection - Respiratory Exam Respiratory Exam: NORMAL BREATHING PATTERN - Cardiovascular Exam Cardiovascular Exam: REGULAR RHYTHM - GI/Abdominal Exam GI & Abdominal Exam: Soft, Normal Bowel Sounds - Extremities Exam Extremities Exam: Normal Inspection - Back Exam Back Exam: NORMAL INSPECTION - Neurological Exam Neurological Exam: Awake, CN II-XII Intact. absent: Motor Sensory Deficit Additional comments: Confused, forgetful - Psychiatric Exam Psychiatric exam: Normal Mood - Skin Skin Exam: Warm Assessment and Plan (1) Rhabdomyolysis Status: Resolved (2) Status post fall Status: Acute (3) Change in mental status Status: Acute (4) Dementia Status: Chronic (5) HTN (hypertension) Status: Chronic (6) Urinary retention Status: Resolved - Assessment and Plan (Free Text) Plan: continue Aricept, Depakote, Lopressor, Vasotec, and rest of Tx, for Legal Guardianship
[2018-07-06] MEDS: Levothyroxine 75 MCG TAB PO SCH (06:56)
[2018-07-06] MEDS: Divalproex 125 mg Sprinkle Capsule PO SCH ×2 (09:22→16:05)
--- NOTE | 2018-07-06 17:10 | CP.PCM.PN ---
Subjective - Date & Time of Evaluation Date of Evaluation: 07/06/18 Time of Evaluation: 13:00 - Subjective Subjective: F/U AMS no AD, N/C, ambulating , confused, smiling Objective - Vital Signs/Intake and Output Vital Signs (last 24 hours): Temp Pulse Resp BP Pulse Ox 97.6 F 63 18 135/76 95 07/05/18 23:47 07/05/18 23:47 07/05/18 23:47 07/05/18 23:47 07/05/18 23:47 - Medications Medications: Current Medications Acetaminophen (Tylenol 325mg Tab) 650 mg PO Q6 PRN PRN Reason: Pain, Mild (1-3) Last Admin: 04/15/18 23:34 Dose: 650 mg Cyanocobalamin (Vitamin B12 1000 Mcg Tab) 1,000 mcg PO DAILY [facility] Last Admin: 07/06/18 09:22 Dose: 1,000 mcg Divalproex Sodium (Depakote Sprinkles) 125 mg PO BID [facility] Last Admin: 07/06/18 16:05 Dose: 125 mg Donepezil HCl (Aricept) 5 mg PO HS [facility] Last Admin: 07/05/18 21:47 Dose: 5 mg Enalapril Maleate (Vasotec) 2.5 mg PO DAILY [facility] Last Admin: 07/06/18 09:22 Dose: 2.5 mg Ergocalciferol (Drisdol 50,000 Intl Units Cap) 1 cap PO Q7D [facility] Last Admin: 06/30/18 23:04 Dose: 1 cap Haloperidol Lactate (Haldol) 0.5 mg IM Q4 PRN PRN Reason: Agitation Last Admin: 05/30/18 10:06 Dose: 0.5 mg Levothyroxine Sodium (Synthroid) 75 mcg PO DAILY@0630 [facility] Last Admin: 07/06/18 06:56 Dose: 75 mcg Metoprolol Tartrate (Lopressor) 50 mg PO Q12 [facility] Last Admin: 07/06/18 09:22 Dose: 50 mg Rivaroxaban (Xarelto) 20 mg PO DAILY@1700 [facility]; Protocol Last Admin: 07/06/18 16:05 Dose: 20 mg - Labs Labs: 06/14/18 06:50 06/14/18 06:50 PT 11.9 Seconds (9.8-13.1) 03/22/18 19:00 INR 1.0 03/22/18 19:00 APTT 29.3 Seconds (25.6-37.1) 03/22/18 19:00 - Constitutional Appears: No Acute Distress - Head Exam Head Exam: NORMAL INSPECTION - Eye Exam Eye Exam: PERRL - ENT Exam ENT Exam: Normal Exam - Neck Exam Neck Exam: Normal Inspection - Respiratory Exam Respiratory Exam: NORMAL BREATHING PATTERN - Cardiovascular Exam Cardiovascular Exam: REGULAR RHYTHM - GI/Abdominal Exam GI & Abdominal Exam: Soft, Normal Bowel Sounds - Extremities Exam Extremities Exam: Normal Inspection - Back Exam Back Exam: NORMAL INSPECTION - Neurological Exam Neurological Exam: Awake, CN II-XII Intact. absent: Motor Sensory Deficit - Psychiatric Exam Psychiatric exam: Normal Mood Additional comments: forgetful, confused - Skin Skin Exam: Warm Assessment and Plan (1) Rhabdomyolysis Status: Resolved (2) Status post fall Status: Acute (3) Change in mental status Status: Acute (4) Dementia Status: Chronic (5) HTN (hypertension) Status: Chronic (6) Urinary retention Status: Resolved - Assessment and Plan (Free Text) Plan: continue current Tx, for Legal Guardianship
[2018-07-07] MEDS: Levothyroxine 75 MCG TAB PO SCH (05:48)
[2018-07-07 06:35] LABS: BASO % 0.6 % (0.0-2.0); EOS # 0.1 K/uL (0.0-0.7); HEMOGLOBIN 11.9 g/dL (12.0-16.0); LYMPH # 1.6 K/uL (1.0-4.3); LYMPH % 25.4 % (20.0-40.0); MEAN CELL VOLUME 92.5 fl (81.0-99.0); MEAN CORPUSCULAR HEMOGLOBIN 30.5 pg (27.0-31.0); MEAN PLATELET VOLUME 11.4 fl (7.2-11.7); MONO # 0.6 K/uL (0.0-0.8); MONO % 9.5 % (0.0-10.0); NEUT # 4.1 K/uL (1.8-7.0); NEUT % 63.5 % (50.0-75.0); NRBC % 0.1 % (0.0-0.0); RBC 3.91 Mil/uL (3.80-5.20); RED CELL DISTRIBUTION WIDTH 14.8 % (11.5-14.5); WHITE BLOOD COUNT 6.5 K/uL (4.8-10.8)
[2018-07-07 07:02] LABS: ALB/GLOB RATIO 1.1 (1.0-2.1); ALBUMIN 3.4 g/dL (3.5-5.0); ALT/SGPT 27 U/L (9-52); AST/SGOT 29 U/L (14-36); BLOOD UREA NITROGEN 26 mg/dl (7-17); GFR NON-AFRICAN AMERICAN > 60
[2018-07-07] MEDS: Divalproex 125 mg Sprinkle Capsule PO SCH ×2 (08:49→16:29)
--- NOTE | 2018-07-07 14:47 | CP.PCM.PN ---
Subjective - Date & Time of Evaluation Date of Evaluation: 07/07/18 Time of Evaluation: 11:00 - Subjective Subjective: F/U AMS Pt awake, confused, calm. Objective - Vital Signs/Intake and Output Vital Signs (last 24 hours): Temp Pulse Resp BP Pulse Ox 98.0 F 75 20 152/84 H 98 07/07/18 07:53 07/07/18 08:49 07/07/18 07:53 07/07/18 08:49 07/07/18 07:53 - Medications Medications: Current Medications Acetaminophen (Tylenol 325mg Tab) 650 mg PO Q6 PRN PRN Reason: Pain, Mild (1-3) Last Admin: 04/15/18 23:34 Dose: 650 mg Cyanocobalamin (Vitamin B12 1000 Mcg Tab) 1,000 mcg PO DAILY [facility] Last Admin: 07/07/18 08:50 Dose: 1,000 mcg Divalproex Sodium (Depakote Sprinkles) 125 mg PO BID [facility] Last Admin: 07/07/18 08:49 Dose: 125 mg Donepezil HCl (Aricept) 5 mg PO HS [facility] Last Admin: 07/06/18 21:19 Dose: 5 mg Enalapril Maleate (Vasotec) 2.5 mg PO DAILY [facility] Last Admin: 07/07/18 08:50 Dose: 2.5 mg Ergocalciferol (Drisdol 50,000 Intl Units Cap) 1 cap PO Q7D [facility] Last Admin: 06/30/18 23:04 Dose: 1 cap Haloperidol Lactate (Haldol) 0.5 mg IM Q4 PRN PRN Reason: Agitation Last Admin: 05/30/18 10:06 Dose: 0.5 mg Levothyroxine Sodium (Synthroid) 75 mcg PO DAILY@0630 [facility] Last Admin: 07/07/18 05:48 Dose: 75 mcg Metoprolol Tartrate (Lopressor) 50 mg PO Q12 [facility] Last Admin: 07/07/18 08:49 Dose: 50 mg Rivaroxaban (Xarelto) 20 mg PO DAILY@1700 [facility]; Protocol Last Admin: 07/06/18 16:05 Dose: 20 mg - Labs Labs: 07/07/18 05:55 07/07/18 05:55 PT 11.9 Seconds (9.8-13.1) 03/22/18 19:00 INR 1.0 03/22/18 19:00 APTT 29.3 Seconds (25.6-37.1) 03/22/18 19:00 - Constitutional Appears: No Acute Distress - Head Exam Head Exam: NORMAL INSPECTION - Eye Exam Eye Exam: PERRL - ENT Exam ENT Exam: Normal Exam - Neck Exam Neck Exam: Normal Inspection - Respiratory Exam Respiratory Exam: NORMAL BREATHING PATTERN - Cardiovascular Exam Cardiovascular Exam: REGULAR RHYTHM - GI/Abdominal Exam GI & Abdominal Exam: Soft, Normal Bowel Sounds - Extremities Exam Extremities Exam: Normal Inspection - Back Exam Back Exam: NORMAL INSPECTION - Neurological Exam Neurological Exam: Alert, Awake. absent: Motor Sensory Deficit Additional comments: Forgetful, confused, follows commands. - Psychiatric Exam Psychiatric exam: Normal Mood - Skin Skin Exam: Warm Assessment and Plan (1) Rhabdomyolysis Status: Resolved (2) Status post fall Status: Acute (3) Change in mental status Status: Acute (4) Dementia Status: Chronic (5) HTN (hypertension) Status: Chronic (6) Urinary retention Status: Resolved - Assessment and Plan (Free Text) Plan: Continue Depakote, Lopressor, Synthroid and rest of Tx.
[2018-07-07] MEDS: Ergocalciferol 50,000 Intl Units Cap PO SCH (22:30)
[2018-07-08] MEDS: Levothyroxine 75 MCG TAB PO SCH (05:36)
[2018-07-08] MEDS: Divalproex 125 mg Sprinkle Capsule PO SCH ×2 (10:00→17:06)
--- NOTE | 2018-07-08 13:43 | CP.PCM.PN ---
Subjective - Date & Time of Evaluation Date of Evaluation: 07/08/18 Time of Evaluation: 12:35 - Subjective Subjective: F/U AMS Pt awake, confused, no c/o, no A/D Objective - Vital Signs/Intake and Output Vital Signs (last 24 hours): Temp Pulse Resp BP Pulse Ox 97.8 F 60 18 124/73 97 07/08/18 00:34 07/08/18 10:00 07/08/18 00:34 07/08/18 10:00 07/08/18 00:34 - Medications Medications: Current Medications Acetaminophen (Tylenol 325mg Tab) 650 mg PO Q6 PRN PRN Reason: Pain, Mild (1-3) Last Admin: 04/15/18 23:34 Dose: 650 mg Cyanocobalamin (Vitamin B12 1000 Mcg Tab) 1,000 mcg PO DAILY [facility] Last Admin: 07/08/18 10:00 Dose: 1,000 mcg Divalproex Sodium (Depakote Sprinkles) 125 mg PO BID [facility] Last Admin: 07/08/18 10:00 Dose: 125 mg Donepezil HCl (Aricept) 5 mg PO HS [facility] Last Admin: 07/07/18 22:30 Dose: 5 mg Enalapril Maleate (Vasotec) 2.5 mg PO DAILY [facility] Last Admin: 07/08/18 10:00 Dose: 2.5 mg Ergocalciferol (Drisdol 50,000 Intl Units Cap) 1 cap PO Q7D [facility] Last Admin: 07/07/18 22:30 Dose: 1 cap Haloperidol Lactate (Haldol) 0.5 mg IM Q4 PRN PRN Reason: Agitation Last Admin: 05/30/18 10:06 Dose: 0.5 mg Levothyroxine Sodium (Synthroid) 75 mcg PO DAILY@0630 [facility] Last Admin: 07/08/18 05:36 Dose: 75 mcg Metoprolol Tartrate (Lopressor) 50 mg PO Q12 [facility] Last Admin: 07/08/18 10:00 Dose: 50 mg Rivaroxaban (Xarelto) 20 mg PO DAILY@1700 [facility]; Protocol Last Admin: 07/07/18 16:30 Dose: 20 mg - Labs Labs: 07/07/18 05:55 07/07/18 05:55 PT 11.9 Seconds (9.8-13.1) 03/22/18 19:00 INR 1.0 03/22/18 19:00 APTT 29.3 Seconds (25.6-37.1) 03/22/18 19:00 - Constitutional Appears: No Acute Distress - Head Exam Head Exam: NORMAL INSPECTION - Eye Exam Eye Exam: PERRL - ENT Exam ENT Exam: Normal Exam - Neck Exam Neck Exam: Normal Inspection - Respiratory Exam Respiratory Exam: NORMAL BREATHING PATTERN - Cardiovascular Exam Cardiovascular Exam: REGULAR RHYTHM - GI/Abdominal Exam GI & Abdominal Exam: Soft, Normal Bowel Sounds - Extremities Exam Extremities Exam: Normal Inspection - Back Exam Back Exam: NORMAL INSPECTION - Neurological Exam Neurological Exam: Alert, Awake, CN II-XII Intact. absent: Motor Sensory Deficit Additional comments: Disoriented, confuse, follows commands. - Psychiatric Exam Psychiatric exam: Normal Mood - Skin Skin Exam: Normal Color, Warm Assessment and Plan (1) Rhabdomyolysis Status: Resolved (2) Status post fall Status: Acute (3) Change in mental status Status: Acute (4) Dementia Status: Chronic (5) HTN (hypertension) Status: Chronic (6) Urinary retention Status: Resolved - Assessment and Plan (Free Text) Plan: Awaiting for Guardianship.
[2018-07-09] MEDS: Levothyroxine 75 MCG TAB PO SCH (06:32)
[2018-07-09] MEDS: Divalproex 125 mg Sprinkle Capsule PO SCH ×2 (11:13→18:52)
--- NOTE | 2018-07-09 14:44 | CP.PCM.PN ---
Subjective - Date & Time of Evaluation Date of Evaluation: 07/09/18 Time of Evaluation: 13:20 - Subjective Subjective: F/U AMS. Pt awake, alert but confused, no A/D. Objective - Vital Signs/Intake and Output Vital Signs (last 24 hours): Temp Pulse Resp BP Pulse Ox 98.7 F 71 18 126/70 96 07/09/18 00:04 07/09/18 11:12 07/09/18 00:04 07/09/18 11:12 07/09/18 00:04 - Medications Medications: Current Medications Acetaminophen (Tylenol 325mg Tab) 650 mg PO Q6 PRN PRN Reason: Pain, Mild (1-3) Last Admin: 04/15/18 23:34 Dose: 650 mg Cyanocobalamin (Vitamin B12 1000 Mcg Tab) 1,000 mcg PO DAILY [facility] Last Admin: 07/09/18 11:13 Dose: 1,000 mcg Divalproex Sodium (Depakote Sprinkles) 125 mg PO BID [facility] Last Admin: 07/09/18 11:13 Dose: 125 mg Donepezil HCl (Aricept) 5 mg PO HS [facility] Last Admin: 07/08/18 21:45 Dose: 5 mg Enalapril Maleate (Vasotec) 2.5 mg PO DAILY [facility] Last Admin: 07/09/18 11:13 Dose: 2.5 mg Ergocalciferol (Drisdol 50,000 Intl Units Cap) 1 cap PO Q7D [facility] Last Admin: 07/07/18 22:30 Dose: 1 cap Haloperidol Lactate (Haldol) 0.5 mg IM Q4 PRN PRN Reason: Agitation Last Admin: 05/30/18 10:06 Dose: 0.5 mg Levothyroxine Sodium (Synthroid) 75 mcg PO DAILY@0630 [facility] Last Admin: 07/09/18 06:32 Dose: 75 mcg Metoprolol Tartrate (Lopressor) 50 mg PO Q12 [facility] Last Admin: 07/09/18 11:12 Dose: 50 mg - Labs Labs: 07/07/18 05:55 07/07/18 05:55 PT 11.9 Seconds (9.8-13.1) 03/22/18 19:00 INR 1.0 03/22/18 19:00 APTT 29.3 Seconds (25.6-37.1) 03/22/18 19:00 - Constitutional Appears: No Acute Distress - Head Exam Head Exam: NORMAL INSPECTION - Eye Exam Eye Exam: PERRL - ENT Exam ENT Exam: Normal Exam - Neck Exam Neck Exam: Normal Inspection - Respiratory Exam Respiratory Exam: NORMAL BREATHING PATTERN - Cardiovascular Exam Cardiovascular Exam: REGULAR RHYTHM - GI/Abdominal Exam GI & Abdominal Exam: Soft, Normal Bowel Sounds - Extremities Exam Extremities Exam: Normal Inspection - Back Exam Back Exam: NORMAL INSPECTION - Neurological Exam Neurological Exam: Alert, Awake, CN II-XII Intact. absent: Motor Sensory Defic it Additional comments: Confused, forgetful, follows commands. - Psychiatric Exam Psychiatric exam: Normal Mood - Skin Skin Exam: Warm Assessment and Plan (1) Rhabdomyolysis Status: Resolved (2) Status post fall Status: Acute (3) Change in mental status Status: Acute (4) Dementia Status: Chronic (5) HTN (hypertension) Status: Chronic (6) Urinary retention Status: Resolved - Assessment and Plan (Free Text) Plan: Continue Lopressor, Vasotec, Aricept, Vit B 12 and rest of Tx.
[2018-07-10] MEDS: Levothyroxine 75 MCG TAB PO SCH (06:33)
[2018-07-10] MEDS: Divalproex 125 mg Sprinkle Capsule PO SCH ×2 (08:33→16:19)
--- NOTE | 2018-07-10 15:45 | CP.PCM.PN ---
Subjective - Date & Time of Evaluation Date of Evaluation: 07/10/18 Time of Evaluation: 09:40 - Subjective Subjective: F/U AMS Wake, confused, no A/D Objective - Vital Signs/Intake and Output Vital Signs (last 24 hours): Temp Pulse Resp BP Pulse Ox 97.8 F 66 19 161/87 H 96 07/10/18 00:41 07/10/18 00:41 07/10/18 00:41 07/10/18 00:41 07/10/18 00:41 - Medications Medications: Current Medications Acetaminophen (Tylenol 325mg Tab) 650 mg PO Q6 PRN PRN Reason: Pain, Mild (1-3) Last Admin: 04/15/18 23:34 Dose: 650 mg Cyanocobalamin (Vitamin B12 1000 Mcg Tab) 1,000 mcg PO DAILY [facility] Last Admin: 07/10/18 08:33 Dose: 1,000 mcg Divalproex Sodium (Depakote Sprinkles) 125 mg PO BID [facility] Last Admin: 07/10/18 08:33 Dose: 125 mg Donepezil HCl (Aricept) 5 mg PO HS [facility] Last Admin: 07/09/18 21:25 Dose: 5 mg Enalapril Maleate (Vasotec) 2.5 mg PO DAILY [facility] Last Admin: 07/10/18 08:34 Dose: 2.5 mg Ergocalciferol (Drisdol 50,000 Intl Units Cap) 1 cap PO Q7D [facility] Last Admin: 07/07/18 22:30 Dose: 1 cap Haloperidol Lactate (Haldol) 0.5 mg IM Q4 PRN PRN Reason: Agitation Last Admin: 05/30/18 10:06 Dose: 0.5 mg Levothyroxine Sodium (Synthroid) 75 mcg PO DAILY@0630 [facility] Last Admin: 07/10/18 06:33 Dose: 75 mcg Metoprolol Tartrate (Lopressor) 50 mg PO Q12 [facility] Last Admin: 07/10/18 08:33 Dose: 50 mg Rivaroxaban (Xarelto) 20 mg PO QD5 [facility]; Protocol Last Admin: 07/09/18 22:55 Dose: 20 mg - Labs Labs: 07/07/18 05:55 07/07/18 05:55 PT 11.9 Seconds (9.8-13.1) 03/22/18 19:00 INR 1.0 11/24/18 19:00 APTT 29.3 Seconds (25.6-37.1) 03/22/18 19:00 - Constitutional Appears: No Acute Distress - Head Exam Head Exam: NORMAL INSPECTION - Eye Exam Eye Exam: PERRL - ENT Exam ENT Exam: Normal Exam - Neck Exam Neck Exam: Normal Inspection - Respiratory Exam Respiratory Exam: NORMAL BREATHING PATTERN - Cardiovascular Exam Cardiovascular Exam: REGULAR RHYTHM - GI/Abdominal Exam GI & Abdominal Exam: Soft, Normal Bowel Sounds - Extremities Exam Extremities Exam: Normal Inspection - Back Exam Back Exam: NORMAL INSPECTION - Neurological Exam Neurological Exam: Alert, Awake, CN II-XII Intact. absent: Motor Sensory Deficit Additional comments: Forgetful, follows commands - Psychiatric Exam Psychiatric exam: Normal Mood - Skin Skin Exam: Warm Assessment and Plan (1) Rhabdomyolysis Status: Resolved (2) Status post fall Status: Acute (3) Change in mental status Status: Acute (4) Dementia Status: Chronic (5) HTN (hypertension) Status: Chronic (6) Urinary retention Status: Resolved - Assessment and Plan (Free Text) Plan: Awaiting for guardianship
[2018-07-11] MEDS: Levothyroxine 75 MCG TAB PO SCH (06:47)
[2018-07-11] MEDS: Divalproex 125 mg Sprinkle Capsule PO SCH ×2 (11:02→17:14)
--- NOTE | 2018-07-11 14:16 | CP.PCM.PN ---
Subjective - Date & Time of Evaluation Date of Evaluation: 07/11/18 Time of Evaluation: 14:10 - Subjective Subjective: F/U AMS Awake, no c/o, at times ambulating in hallways with steady gait Objective - Vital Signs/Intake and Output Vital Signs (last 24 hours): Temp Pulse Resp BP Pulse Ox 98.1 F 84 20 150/85 100 07/10/18 23:56 07/11/18 10:02 07/10/18 23:56 07/11/18 10:02 07/10/18 23:56 - Medications Medications: Current Medications Acetaminophen (Tylenol 325mg Tab) 650 mg PO Q6 PRN PRN Reason: Pain, Mild (1-3) Last Admin: 04/15/18 23:34 Dose: 650 mg Cyanocobalamin (Vitamin B12 1000 Mcg Tab) 1,000 mcg PO DAILY [facility] Last Admin: 07/11/18 11:03 Dose: 1,000 mcg Divalproex Sodium (Depakote Sprinkles) 125 mg PO BID [facility] Last Admin: 07/11/18 11:02 Dose: 125 mg Donepezil HCl (Aricept) 5 mg PO HS [facility] Last Admin: 07/10/18 21:16 Dose: 5 mg Enalapril Maleate (Vasotec) 2.5 mg PO DAILY [facility] Last Admin: 07/11/18 11:03 Dose: 2.5 mg Ergocalciferol (Drisdol 50,000 Intl Units Cap) 1 cap PO Q7D [facility] Last Admin: 07/07/18 22:30 Dose: 1 cap Haloperidol Lactate (Haldol) 0.5 mg IM Q4 PRN PRN Reason: Agitation Last Admin: 05/30/18 10:06 Dose: 0.5 mg Levothyroxine Sodium (Synthroid) 75 mcg PO DAILY@0630 [facility] Last Admin: 07/11/18 06:47 Dose: 75 mcg Metoprolol Tartrate (Lopressor) 50 mg PO Q12 [facility] Last Admin: 07/11/18 10:02 Dose: 50 mg Rivaroxaban (Xarelto) 20 mg PO QD5 [facility]; Protocol Last Admin: 07/10/18 16:19 Dose: 20 mg - Labs Labs: 07/07/18 05:55 07/07/18 05:55 PT 11.9 Seconds (9.8-13.1) 03/22/18 19:00 INR 1.0 03/22/18 19:00 APTT 29.3 Seconds (25.6-37.1) 03/22/18 19:00 - Constitutional Appears: No Acute Distress - Head Exam Head Exam: NORMAL INSPECTION - Eye Exam Eye Exam: PERRL - ENT Exam ENT Exam: Normal Exam - Neck Exam Neck Exam: Normal Inspection - Respiratory Exam Respiratory Exam: NORMAL BREATHING PATTERN - Cardiovascular Exam Cardiovascular Exam: REGULAR RHYTHM - GI/Abdominal Exam GI & Abdominal Exam: Soft, Normal Bowel Sounds - Extremities Exam Extremities Exam: Normal Inspection - Back Exam Back Exam: NORMAL INSPECTION - Neurological Exam Neurological Exam: Alert, Awake, CN II-XII Intact. absent: Motor Sensory Deficit Additional comments: Forgetful, confused, follows commands. - Psychiatric Exam Psychiatric exam: Normal Mood - Skin Skin Exam: Warm Assessment and Plan (1) Rhabdomyolysis Status: Resolved (2) Status post fall Status: Acute (3) Change in mental status Status: Acute (4) Dementia Status: Chronic (5) HTN (hypertension) Status: Chronic (6) Urinary retention Status: Resolved - Assessment and Plan (Free Text) Plan: Continue current medications, awaiting for legal guardianship.
[2018-07-12] MEDS: Levothyroxine 75 MCG TAB PO SCH (07:01)
[2018-07-12] MEDS: Divalproex 125 mg Sprinkle Capsule PO SCH ×2 (08:59→17:19)
--- NOTE | 2018-07-12 14:48 | CP.PCM.PN ---
Subjective - Date & Time of Evaluation Date of Evaluation: 07/12/18 Time of Evaluation: 13:50 - Subjective Subjective: F/U AMS Pt awake, alert, confused, no A/D. Objective - Vital Signs/Intake and Output Vital Signs (last 24 hours): Temp Pulse Resp BP Pulse Ox 97.8 F 65 19 151/73 H 97 07/12/18 08:03 07/12/18 08:03 07/12/18 08:03 07/12/18 08:03 07/12/18 08:03 - Medications Medications: Current Medications Acetaminophen (Tylenol 325mg Tab) 650 mg PO Q6 PRN PRN Reason: Pain, Mild (1-3) Last Admin: 04/15/18 23:34 Dose: 650 mg Cyanocobalamin (Vitamin B12 1000 Mcg Tab) 1,000 mcg PO DAILY [facility] Last Admin: 07/12/18 08:59 Dose: 1,000 mcg Divalproex Sodium (Depakote Sprinkles) 125 mg PO BID [facility] Last Admin: 07/12/18 08:59 Dose: 125 mg Donepezil HCl (Aricept) 5 mg PO HS [facility] Last Admin: 07/11/18 20:59 Dose: 5 mg Enalapril Maleate (Vasotec) 2.5 mg PO DAILY [facility] Last Admin: 07/12/18 09:00 Dose: 2.5 mg Ergocalciferol (Drisdol 50,000 Intl Units Cap) 1 cap PO Q7D [facility] Last Admin: 07/07/18 22:30 Dose: 1 cap Haloperidol Lactate (Haldol) 0.5 mg IM Q4 PRN PRN Reason: Agitation Last Admin: 05/30/18 10:06 Dose: 0.5 mg Levothyroxine Sodium (Synthroid) 75 mcg PO DAILY@0630 [facility] Last Admin: 07/12/18 07:01 Dose: 75 mcg Metoprolol Tartrate (Lopressor) 50 mg PO Q12 [facility] Last Admin: 07/12/18 09:00 Dose: 50 mg Rivaroxaban (Xarelto) 20 mg PO QD5 [facility]; Protocol Last Admin: 07/11/18 17:15 Dose: 20 mg - Labs Labs: 07/07/18 05:55 07/07/18 05:55 PT 11.9 Seconds (9.8-13.1) 03/22/18 19:00 INR 1.0 03/22/18 19:00 APTT 29.3 Seconds (25.6-37.1) 03/22/18 19:00 Assessment and Plan (1) Rhabdomyolysis Status: Resolved (2) Status post fall Status: Acute (3) Change in mental status Status: Acute (4) Dementia Status: Chronic (5) HTN (hypertension) Status: Chronic (6) Urinary retention Status: Resolved - Assessment and Plan (Free Text) Plan: Continue depakote, Xarelto, Lopressor, Vasotec and rest of Tx.
[2018-07-13] MEDS: Levothyroxine 75 MCG TAB PO SCH (07:13)
[2018-07-13] MEDS: Divalproex 125 mg Sprinkle Capsule PO SCH ×2 (08:33→16:28)
[2018-07-14] MEDS: Levothyroxine 75 MCG TAB PO SCH (06:30)
[2018-07-14] MEDS: Divalproex 125 mg Sprinkle Capsule PO SCH ×2 (08:26→18:06)
--- NOTE | 2018-07-14 14:04 | CP.PCM.PN ---
Subjective - Date & Time of Evaluation Date of Evaluation: 07/14/18 Time of Evaluation: 13:20 - Subjective Subjective: F/U AMS Pt calm, no A/D, no c/o. Objective - Vital Signs/Intake and Output Vital Signs (last 24 hours): Temp Pulse Resp BP Pulse Ox 97.4 F L 61 20 156/81 H 97 07/14/18 09:00 07/14/18 09:46 07/14/18 09:00 07/14/18 09:46 07/14/18 09:00 - Medications Medications: Current Medications Acetaminophen (Tylenol 325mg Tab) 650 mg PO Q6 PRN PRN Reason: Pain, Mild (1-3) Last Admin: 04/15/18 23:34 Dose: 650 mg Cyanocobalamin (Vitamin B12 1000 Mcg Tab) 1,000 mcg PO DAILY [facility] Last Admin: 07/14/18 08:27 Dose: 1,000 mcg Divalproex Sodium (Depakote Sprinkles) 125 mg PO BID [facility] Last Admin: 07/14/18 08:26 Dose: 125 mg Donepezil HCl (Aricept) 5 mg PO HS [facility] Last Admin: 07/13/18 21:06 Dose: 5 mg Enalapril Maleate (Vasotec) 2.5 mg PO DAILY [facility] Last Admin: 07/14/18 08:28 Dose: 2.5 mg Ergocalciferol (Drisdol 50,000 Intl Units Cap) 1 cap PO Q7D [facility] Last Admin: 07/07/18 22:30 Dose: 1 cap Haloperidol Lactate (Haldol) 0.5 mg IM Q4 PRN PRN Reason: Agitation Last Admin: 05/30/18 10:06 Dose: 0.5 mg Levothyroxine Sodium (Synthroid) 75 mcg PO DAILY@0630 [facility] Last Admin: 07/14/18 06:30 Dose: 75 mcg Metoprolol Tartrate (Lopressor) 50 mg PO Q12 [facility] Last Admin: 07/14/18 09:46 Dose: 50 mg Rivaroxaban (Xarelto) 20 mg PO QD5 [facility]; Protocol Last Admin: 07/13/18 16:29 Dose: 20 mg - Labs Labs: 07/07/18 05:55 07/07/18 05:55 PT 11.9 Seconds (9.8-13.1) 03/22/18 19:00 INR 1.0 03/22/18 19:00 APTT 29.3 Seconds (25.6-37.1) 03/22/18 19:00 - Constitutional Appears: No Acute Distress - Head Exam Head Exam: NORMAL INSPECTION - Eye Exam Eye Exam: PERRL - ENT Exam ENT Exam: Normal Exam - Neck Exam Neck Exam: Normal Inspection - Respiratory Exam Respiratory Exam: NORMAL BREATHING PATTERN - Cardiovascular Exam Cardiovascular Exam: REGULAR RHYTHM - GI/Abdominal Exam GI & Abdominal Exam: Soft, Normal Bowel Sounds - Extremities Exam Extremities Exam: Normal Inspection - Back Exam Back Exam: NORMAL INSPECTION - Neurological Exam Neurological Exam: Awake, CN II-XII Intact. absent: Motor Sensory Deficit Additional comments: Alert to person, confused, forgetful, follows commands. - Psychiatric Exam Psychiatric exam: Normal Mood - Skin Skin Exam: Warm Assessment and Plan (1) Rhabdomyolysis Status: Resolved (2) Status post fall Status: Acute (3) Change in mental status Status: Acute (4) Dementia Status: Chronic (5) HTN (hypertension) Status: Chronic (6) Urinary retention Status: Resolved - Assessment and Plan (Free Text) Plan: Continue current Tx, awaiting for legal guardianship
[2018-07-14] MEDS: Ergocalciferol 50,000 Intl Units Cap PO SCH (23:00)
[2018-07-15] MEDS: Levothyroxine 75 MCG TAB PO SCH (07:02)
[2018-07-15] MEDS: Divalproex 125 mg Sprinkle Capsule PO SCH ×2 (08:11→16:11)
[2018-07-16] MEDS: Levothyroxine 75 MCG TAB PO SCH (05:36)
[2018-07-16] MEDS: Divalproex 125 mg Sprinkle Capsule PO SCH ×2 (08:11→16:08)
--- NOTE | 2018-07-16 14:52 | CP.PCM.PN ---
Subjective - Date & Time of Evaluation Date of Evaluation: 07/16/18 Time of Evaluation: 09:00 - Subjective Subjective: F?U AMS no AD, N/C, confused Objective - Vital Signs/Intake and Output Vital Signs (last 24 hours): Temp Pulse Resp BP Pulse Ox 97.5 F L 83 18 138/66 98 07/16/18 08:35 07/16/18 08:35 07/16/18 08:35 07/16/18 08:35 07/16/18 08:35 - Medications Medications: Current Medications Acetaminophen (Tylenol 325mg Tab) 650 mg PO Q6 PRN PRN Reason: Pain, Mild (1-3) Last Admin: 04/15/18 23:34 Dose: 650 mg Cyanocobalamin (Vitamin B12 1000 Mcg Tab) 1,000 mcg PO DAILY [facility] Last Admin: 07/16/18 08:11 Dose: 1,000 mcg Divalproex Sodium (Depakote Sprinkles) 125 mg PO BID [facility] Last Admin: 07/16/18 08:11 Dose: 125 mg Donepezil HCl (Aricept) 5 mg PO HS [facility] Last Admin: 07/15/18 21:01 Dose: 5 mg Enalapril Maleate (Vasotec) 2.5 mg PO DAILY [facility] Last Admin: 07/16/18 08:10 Dose: 2.5 mg Ergocalciferol (Drisdol 50,000 Intl Units Cap) 1 cap PO Q7D [facility] Last Admin: 07/14/18 23:00 Dose: 1 cap Haloperidol Lactate (Haldol) 0.5 mg IM Q4 PRN PRN Reason: Agitation Last Admin: 05/30/18 10:06 Dose: 0.5 mg Levothyroxine Sodium (Synthroid) 75 mcg PO DAILY@0630 [facility] Last Admin: 07/16/18 05:36 Dose: 75 mcg Metoprolol Tartrate (Lopressor) 50 mg PO Q12 [facility] Last Admin: 07/16/18 08:11 Dose: 50 mg Rivaroxaban (Xarelto) 20 mg PO QD5 [facility]; Protocol Last Admin: 07/15/18 16:10 Dose: 20 mg - Labs Labs: 07/07/18 05:55 07/07/18 05:55 PT 11.9 Seconds (9.8-13.1) 03/22/18 19:00 INR 1.0 11/24/18 19:00 APTT 29.3 Seconds (25.6-37.1) 03/22/18 19:00 - Constitutional Appears: No Acute Distress - Head Exam Head Exam: NORMAL INSPECTION - Eye Exam Eye Exam: PERRL - ENT Exam ENT Exam: Normal Exam - Neck Exam Neck Exam: Normal Inspection - Respiratory Exam Respiratory Exam: NORMAL BREATHING PATTERN - Cardiovascular Exam Cardiovascular Exam: REGULAR RHYTHM - GI/Abdominal Exam GI & Abdominal Exam: Soft, Normal Bowel Sounds - Extremities Exam Extremities Exam: Normal Inspection - Back Exam Back Exam: NORMAL INSPECTION - Neurological Exam Neurological Exam: Awake, CN II-XII Intact, Reflexes Normal Additional comments: Alert x1, confused, forgetful, follows commands. - Psychiatric Exam Psychiatric exam: Normal Mood - Skin Skin Exam: Warm Assessment and Plan (1) Rhabdomyolysis Status: Resolved (2) Status post fall Status: Acute (3) Change in mental status Status: Acute (4) Dementia Status: Chronic (5) HTN (hypertension) Status: Chronic (6) Urinary retention Status: Resolved - Assessment and Plan (Free Text) Plan: continue Depakote, Aricept, Lopressor, Vasotec, Synthroid and rest of Tx, for Legal Guardianship
[2018-07-17] MEDS: Levothyroxine 75 MCG TAB PO SCH (05:39)
[2018-07-17] MEDS: Divalproex 125 mg Sprinkle Capsule PO SCH ×2 (08:21→16:29)
[2018-07-17 12:37] LABS: HEMOGLOBIN 13.1 g/dL (12.0-16.0); MEAN CORPUSCULAR HEMOGLOBIN 30.3 pg (27.0-31.0); MEAN CORPUSCULAR HGB CONC 32.5 g/dL (33.0-37.0); RBC 4.31 Mil/uL (3.80-5.20); RED CELL DISTRIBUTION WIDTH 14.7 % (11.5-14.5)
[2018-07-17 13:23] LABS: ALB/GLOB RATIO 1.1 (1.0-2.1); ALBUMIN 3.9 g/dL (3.5-5.0); CALCIUM 9.7 mg/dL (8.4-10.2)
--- NOTE | 2018-07-17 15:20 | US ---
Date of service: 07/17/2018 PROCEDURE: Ultrasound of the Kidneys HISTORY: right flank pain COMPARISON: 03/23/2018. TECHNIQUE: Sonogram of the kidneys. FINDINGS: RIGHT KIDNEY: Measures: 5.3 x 5.2 x 11.2 cm. Normal in size, contour and echogenicity. No stone, solid mass lesion or hydronephrosis visualized. Incidental Multiple simple cysts the largest 1.5 x 1.6 cm. LEFT KIDNEY: Measures: 4.9 x 4.2 x 12.1 cm. Normal in size, contour and echogenicity. No stone, solid mass lesion or hydronephrosis visualized. Incidental finding(s): Lower pole cyst 1.2 x 1.4 cm OTHER FINDINGS: None. IMPRESSION: No significant or acute findings to account for/ related to the clinical presentation. Additional benign and/or incidental findings described above. No significant interval change compared to the prior examination(s).
--- NOTE | 2018-07-17 15:42 | CP.PCM.PN ---
Subjective - Date & Time of Evaluation Date of Evaluation: 07/17/18 Time of Evaluation: 12:25 - Subjective Subjective: F/U AMS Nausea /vomiting early in the morning. Objective - Vital Signs/Intake and Output Vital Signs (last 24 hours): Temp Pulse Resp BP Pulse Ox 97.6 F 65 19 157/94 H 96 07/17/18 01:12 07/17/18 12:10 07/17/18 01:12 07/17/18 12:10 07/17/18 01:12 - Medications Medications: Current Medications Acetaminophen (Tylenol 325mg Tab) 650 mg PO Q6 PRN PRN Reason: Pain, Mild (1-3) Last Admin: 07/17/18 06:00 Dose: 650 mg Cyanocobalamin (Vitamin B12 1000 Mcg Tab) 1,000 mcg PO DAILY [facility] Last Admin: 07/17/18 08:16 Dose: 1,000 mcg Divalproex Sodium (Depakote Sprinkles) 125 mg PO BID [facility] Last Admin: 07/17/18 08:21 Dose: 125 mg Donepezil HCl (Aricept) 5 mg PO HS [facility] Last Admin: 07/16/18 21:06 Dose: 5 mg Enalapril Maleate (Vasotec) 2.5 mg PO DAILY [facility] Last Admin: 07/17/18 10:20 Dose: 2.5 mg Ergocalciferol (Drisdol 50,000 Intl Units Cap) 1 cap PO Q7D [facility] Last Admin: 07/14/18 23:00 Dose: 1 cap Haloperidol Lactate (Haldol) 0.5 mg IM Q4 PRN PRN Reason: Agitation Last Admin: 05/30/18 10:06 Dose: 0.5 mg Levothyroxine Sodium (Synthroid) 75 mcg PO DAILY@0630 [facility] Last Admin: 07/17/18 05:39 Dose: 75 mcg Metoprolol Tartrate (Lopressor) 50 mg PO Q12 [facility] Last Admin: 07/17/18 12:10 Dose: 50 mg Ondansetron HCl (Zofran Inj) 4 mg IVP Q4 PRN PRN Reason: Nausea/Vomiting Last Admin: 07/17/18 07:39 Dose: 4 mg Rivaroxaban (Xarelto) 20 mg PO QD5 [facility]; Protocol - Labs Labs: 07/17/18 12:25 07/17/18 12:25 PT 11.9 Seconds (9.8-13.1) 03/22/18 19:00 INR 1.0 03/22/18 19:00 APTT 29.3 Seconds (25.6-37.1) 03/22/18 19:00 - Constitutional Appears: No Acute Distress - Head Exam Head Exam: NORMAL INSPECTION - Eye Exam Eye Exam: PERRL - ENT Exam ENT Exam: Normal Exam - Neck Exam Neck Exam: Normal Inspection - Respiratory Exam Respiratory Exam: NORMAL BREATHING PATTERN - Cardiovascular Exam Cardiovascular Exam: REGULAR RHYTHM - Extremities Exam Extremities Exam: Normal Inspection - Back Exam Back Exam: NORMAL INSPECTION - Neurological Exam Neurological Exam: Awake, CN II-XII Intact. absent: Motor Sensory Deficit Additional comments: Forgetful, confused, follows commands. - Psychiatric Exam Psychiatric exam: Normal Mood - Skin Skin Exam: Warm Assessment and Plan (1) Rhabdomyolysis Status: Resolved (2) Status post fall Status: Acute (3) Change in mental status Status: Acute (4) Dementia Status: Chronic (5) HTN (hypertension) Status: Chronic (6) Urinary retention Status: Resolved - Assessment and Plan (Free Text) Plan: Zofran q 4 prn and rest of Tx.
[2018-07-18] MEDS: Levothyroxine 75 MCG TAB PO SCH (06:11)
[2018-07-18] MEDS: Divalproex 125 mg Sprinkle Capsule PO SCH ×2 (09:18→16:17)
--- NOTE | 2018-07-18 14:22 | CP.PCM.PN ---
Subjective - Date & Time of Evaluation Date of Evaluation: 07/18/18 Time of Evaluation: 14:10 - Subjective Subjective: F/U AMS Pt awake, no A/D, N/C, no nausea/vomiting, at times walking in the [place]. Objective - Vital Signs/Intake and Output Vital Signs (last 24 hours): Temp Pulse Resp BP Pulse Ox 97.9 F 64 20 130/74 96 07/18/18 08:26 07/18/18 09:17 07/18/18 08:26 07/18/18 09:17 07/18/18 08:26 - Medications Medications: Current Medications Acetaminophen (Tylenol 325mg Tab) 650 mg PO Q6 PRN PRN Reason: Pain, Mild (1-3) Last Admin: 07/17/18 06:00 Dose: 650 mg Cyanocobalamin (Vitamin B12 1000 Mcg Tab) 1,000 mcg PO DAILY [facility] Last Admin: 07/18/18 09:18 Dose: 1,000 mcg Divalproex Sodium (Depakote Sprinkles) 125 mg PO BID [facility] Last Admin: 07/18/18 09:18 Dose: 125 mg Donepezil HCl (Aricept) 5 mg PO HS [facility] Last Admin: 07/17/18 22:19 Dose: 5 mg Enalapril Maleate (Vasotec) 2.5 mg PO DAILY [facility] Last Admin: 07/18/18 09:18 Dose: 2.5 mg Ergocalciferol (Drisdol 50,000 Intl Units Cap) 1 cap PO Q7D [facility] Last Admin: 07/14/18 23:00 Dose: 1 cap Haloperidol Lactate (Haldol) 0.5 mg IM Q4 PRN PRN Reason: Agitation Last Admin: 05/30/18 10:06 Dose: 0.5 mg Levothyroxine Sodium (Synthroid) 75 mcg PO DAILY@0630 [facility] Last Admin: 07/18/18 06:11 Dose: 75 mcg Metoprolol Tartrate (Lopressor) 50 mg PO Q12 [facility] Last Admin: 07/18/18 09:17 Dose: 50 mg Ondansetron HCl (Zofran Inj) 4 mg IVP Q4 PRN PRN Reason: Nausea/Vomiting Last Admin: 07/17/18 07:39 Dose: 4 mg Rivaroxaban (Xarelto) 20 mg PO QD5 [facility]; Protocol Last Admin: 07/17/18 16:29 Dose: 20 mg - Labs Labs: 07/17/18 12:25 07/17/18 12:25 PT 11.9 Seconds (9.8-13.1) 03/22/18 19:00 INR 1.0 03/22/18 19:00 APTT 29.3 Seconds (25.6-37.1) 03/22/18 19:00 - Constitutional Appears: No Acute Distress - Head Exam Head Exam: NORMAL INSPECTION - Eye Exam Eye Exam: PERRL - ENT Exam ENT Exam: Normal Exam - Neck Exam Neck Exam: Normal Inspection - Respiratory Exam Respiratory Exam: NORMAL BREATHING PATTERN - Cardiovascular Exam Cardiovascular Exam: REGULAR RHYTHM - GI/Abdominal Exam GI & Abdominal Exam: Soft, Normal Bowel Sounds - Extremities Exam Extremities Exam: Normal Inspection - Back Exam Back Exam: NORMAL INSPECTION - Neurological Exam Neurological Exam: Alert, CN II-XII Intact. absent: Motor Sensory Deficit Additional comments: Confused, follows simple commands - Psychiatric Exam Psychiatric exam: Normal Mood - Skin Skin Exam: Warm Assessment and Plan (1) Rhabdomyolysis Status: Resolved (2) Status post fall Status: Acute (3) Change in mental status Status: Acute (4) Dementia Status: Chronic (5) HTN (hypertension) Status: Chronic (6) Urinary retention Status: Resolved - Assessment and Plan (Free Text) Plan: Continue Depakote, Xarelto, Vasotec, Lopressor and rest of Tx. Awaiting guardiaship.
[2018-07-19] MEDS: Levothyroxine 75 MCG TAB PO SCH (06:23)
[2018-07-19] MEDS: Divalproex 125 mg Sprinkle Capsule PO SCH ×2 (08:54→16:16)
--- NOTE | 2018-07-19 14:34 | CP.PCM.PN ---
Subjective - Date & Time of Evaluation Date of Evaluation: 07/19/18 Time of Evaluation: 11:50 - Subjective Subjective: F/U AMS. Pt awake, follows simple commands, no c/o Objective - Vital Signs/Intake and Output Vital Signs (last 24 hours): Temp Pulse Resp BP Pulse Ox 97.3 F L 63 18 154/80 H 99 07/19/18 08:42 07/19/18 08:54 07/19/18 08:42 07/19/18 08:54 07/19/18 08:42 - Medications Medications: Current Medications Acetaminophen (Tylenol 325mg Tab) 650 mg PO Q6 PRN PRN Reason: Pain, Mild (1-3) Last Admin: 07/17/18 06:00 Dose: 650 mg Cyanocobalamin (Vitamin B12 1000 Mcg Tab) 1,000 mcg PO DAILY [facility] Last Admin: 07/19/18 08:55 Dose: 1,000 mcg Divalproex Sodium (Depakote Sprinkles) 125 mg PO BID [facility] Last Admin: 07/19/18 08:54 Dose: 125 mg Donepezil HCl (Aricept) 5 mg PO HS [facility] Last Admin: 07/18/18 21:05 Dose: 5 mg Enalapril Maleate (Vasotec) 2.5 mg PO DAILY [facility] Last Admin: 07/19/18 08:55 Dose: 2.5 mg Ergocalciferol (Drisdol 50,000 Intl Units Cap) 1 cap PO Q7D [facility] Last Admin: 07/14/18 23:00 Dose: 1 cap Haloperidol Lactate (Haldol) 0.5 mg IM Q4 PRN PRN Reason: Agitation Last Admin: 05/30/18 10:06 Dose: 0.5 mg Levothyroxine Sodium (Synthroid) 75 mcg PO DAILY@0630 [facility] Last Admin: 07/19/18 06:23 Dose: 75 mcg Metoprolol Tartrate (Lopressor) 50 mg PO Q12 [facility] Last Admin: 07/19/18 08:54 Dose: 50 mg Ondansetron HCl (Zofran Inj) 4 mg IVP Q4 PRN PRN Reason: Nausea/Vomiting Last Admin: 07/17/18 07:39 Dose: 4 mg Rivaroxaban (Xarelto) 20 mg PO QD5 [facility]; Protocol Last Admin: 07/18/18 16:17 Dose: 20 mg - Labs Labs: 07/17/18 12:25 07/17/18 12:25 PT 11.9 Seconds (9.8-13.1) 03/22/18 19:00 INR 1.0 03/22/18 19:00 APTT 29.3 Seconds (25.6-37.1) 03/22/18 19:00 - Constitutional Appears: No Acute Distress - Head Exam Head Exam: NORMAL INSPECTION - Eye Exam Eye Exam: PERRL - ENT Exam ENT Exam: Normal Exam - Neck Exam Neck Exam: Normal Inspection - Respiratory Exam Respiratory Exam: NORMAL BREATHING PATTERN - Cardiovascular Exam Cardiovascular Exam: REGULAR RHYTHM - GI/Abdominal Exam GI & Abdominal Exam: Soft, Normal Bowel Sounds - Extremities Exam Extremities Exam: Normal Inspection - Back Exam Back Exam: NORMAL INSPECTION - Neurological Exam Neurological Exam: Awake, CN II-XII Intact, Reflexes Normal. absent: Motor Sensory Deficit Additional comments: follows simple commands - Psychiatric Exam Additional comments: calm - Skin Skin Exam: Normal Color, Warm Assessment and Plan (1) Rhabdomyolysis Status: Resolved (2) Status post fall Status: Acute (3) Change in mental status Status: Acute (4) Dementia Status: Chronic (5) HTN (hypertension) Status: Chronic (6) Urinary retention Status: Resolved - Assessment and Plan (Free Text) Plan: Continue current Tx, awaiting for guardianship.
[2018-07-20] MEDS: Levothyroxine 75 MCG TAB PO SCH (06:12)
[2018-07-20] MEDS: Divalproex 125 mg Sprinkle Capsule PO SCH ×2 (08:37→16:23)
--- NOTE | 2018-07-20 23:23 | CP.PCM.PN ---
Subjective - Date & Time of Evaluation Date of Evaluation: 07/20/18 Time of Evaluation: 10:30 - Subjective Subjective: no Ad, N/C , confused, ambulating in [place] Objective - Vital Signs/Intake and Output Vital Signs (last 24 hours): Temp Pulse Resp BP Pulse Ox 98.2 F 79 18 126/75 98 07/20/18 17:41 07/20/18 21:14 07/20/18 17:41 07/20/18 21:14 07/20/18 17:41 - Medications Medications: Current Medications Acetaminophen (Tylenol 325mg Tab) 650 mg PO Q6 PRN PRN Reason: Pain, Mild (1-3) Last Admin: 07/17/18 06:00 Dose: 650 mg Cyanocobalamin (Vitamin B12 1000 Mcg Tab) 1,000 mcg PO DAILY [facility] Last Admin: 07/20/18 08:38 Dose: 1,000 mcg Divalproex Sodium (Depakote Sprinkles) 125 mg PO BID [facility] Last Admin: 07/20/18 16:23 Dose: 125 mg Donepezil HCl (Aricept) 5 mg PO HS [facility] Last Admin: 07/20/18 21:14 Dose: 5 mg Enalapril Maleate (Vasotec) 2.5 mg PO DAILY [facility] Last Admin: 07/20/18 08:38 Dose: 2.5 mg Ergocalciferol (Drisdol 50,000 Intl Units Cap) 1 cap PO Q7D [facility] Last Admin: 07/14/18 23:00 Dose: 1 cap Haloperidol Lactate (Haldol) 0.5 mg IM Q4 PRN PRN Reason: Agitation Last Admin: 05/30/18 10:06 Dose: 0.5 mg Levothyroxine Sodium (Synthroid) 75 mcg PO DAILY@0630 [facility] Last Admin: 07/20/18 06:12 Dose: 75 mcg Metoprolol Tartrate (Lopressor) 50 mg PO Q12 [facility] Last Admin: 07/20/18 21:14 Dose: 50 mg Ondansetron HCl (Zofran Inj) 4 mg IVP Q4 PRN PRN Reason: Nausea/Vomiting Last Admin: 07/17/18 07:39 Dose: 4 mg Rivaroxaban (Xarelto) 20 mg PO QD5 [facility]; Protocol Last Admin: 07/20/18 16:24 Dose: 20 mg - Labs Labs: 07/17/18 12:25 07/17/18 12:25 PT 11.9 Seconds (9.8-13.1) 03/22/18 19:00 INR 1.0 03/22/18 19:00 APTT 29.3 Seconds (25.6-37.1) 03/22/18 19:00 - Constitutional Appears: No Acute Distress - Head Exam Head Exam: NORMAL INSPECTION - Eye Exam Eye Exam: PERRL - ENT Exam ENT Exam: Normal Exam - Neck Exam Neck Exam: Normal Inspection - Respiratory Exam Respiratory Exam: Clear to Ausculation Bilateral - Cardiovascular Exam Cardiovascular Exam: REGULAR RHYTHM - GI/Abdominal Exam GI & Abdominal Exam: Soft, Normal Bowel Sounds - Extremities Exam Extremities Exam: Normal Inspection - Back Exam Back Exam: NORMAL INSPECTION - Neurological Exam Neurological Exam: Awake, CN II-XII Intact. absent: Motor Sensory Deficit Additional comments: confused - Psychiatric Exam Psychiatric exam: Normal Mood Additional comments: confused - Skin Skin Exam: Warm Assessment and Plan (1) Rhabdomyolysis Status: Resolved (2) Status post fall Status: Acute (3) Change in mental status Status: Acute (4) Dementia Status: Chronic (5) HTN (hypertension) Status: Chronic (6) Urinary retention Status: Resolved - Assessment and Plan (Free Text) Plan: continue current Tx, for Legal Guardianship
[2018-07-21] MEDS: Levothyroxine 75 MCG TAB PO SCH (05:30)
[2018-07-21] MEDS: Divalproex 125 mg Sprinkle Capsule PO SCH ×2 (10:57→17:47)
--- NOTE | 2018-07-21 15:25 | CP.PCM.PN ---
Subjective - Date & Time of Evaluation Date of Evaluation: 07/21/18 Time of Evaluation: 12:20 - Subjective Subjective: F/U AMS Pt awake, forgetful, confused. Objective - Vital Signs/Intake and Output Vital Signs (last 24 hours): Temp Pulse Resp BP Pulse Ox 98.1 F 61 20 144/77 97 07/21/18 08:44 07/21/18 10:57 07/21/18 08:44 07/21/18 10:57 07/21/18 08:44 - Medications Medications: Current Medications Acetaminophen (Tylenol 325mg Tab) 650 mg PO Q6 PRN PRN Reason: Pain, Mild (1-3) Last Admin: 07/17/18 06:00 Dose: 650 mg Cyanocobalamin (Vitamin B12 1000 Mcg Tab) 1,000 mcg PO DAILY [facility] Last Admin: 07/21/18 10:58 Dose: 1,000 mcg Divalproex Sodium (Depakote Sprinkles) 125 mg PO BID [facility] Last Admin: 07/21/18 10:57 Dose: 125 mg Donepezil HCl (Aricept) 5 mg PO HS [facility] Last Admin: 07/20/18 21:14 Dose: 5 mg Enalapril Maleate (Vasotec) 2.5 mg PO DAILY [facility] Last Admin: 07/21/18 10:57 Dose: 2.5 mg Ergocalciferol (Drisdol 50,000 Intl Units Cap) 1 cap PO Q7D [facility] Last Admin: 07/14/18 23:00 Dose: 1 cap Haloperidol Lactate (Haldol) 0.5 mg IM Q4 PRN PRN Reason: Agitation Last Admin: 05/30/18 10:06 Dose: 0.5 mg Levothyroxine Sodium (Synthroid) 75 mcg PO DAILY@0630 [facility] Last Admin: 07/21/18 05:30 Dose: 75 mcg Metoprolol Tartrate (Lopressor) 50 mg PO Q12 [facility] Last Admin: 07/21/18 10:57 Dose: 50 mg Ondansetron HCl (Zofran Inj) 4 mg IVP Q4 PRN PRN Reason: Nausea/Vomiting Last Admin: 07/17/18 07:39 Dose: 4 mg Rivaroxaban (Xarelto) 20 mg PO QD5 [facility]; Protocol Last Admin: 07/20/18 16:24 Dose: 20 mg - Labs Labs: 07/17/18 12:25 07/17/18 12:25 PT 11.9 Seconds (9.8-13.1) 03/22/18 19:00 INR 1.0 03/22/18 19:00 APTT 29.3 Seconds (25.6-37.1) 03/22/18 19:00 Assessment and Plan (1) Rhabdomyolysis Status: Resolved (2) Status post fall Status: Acute (3) Change in mental status Status: Acute (4) Dementia Status: Chronic (5) HTN (hypertension) Status: Chronic (6) Urinary retention Status: Resolved - Assessment and Plan (Free Text) Plan: Continue Depakote, Vit B, Synthroid and restTx, awaiting for guardianship
[2018-07-22] MEDS: Levothyroxine 75 MCG TAB PO SCH (05:48)
[2018-07-22] MEDS: Divalproex 125 mg Sprinkle Capsule PO SCH ×2 (09:25→16:40)
--- NOTE | 2018-07-22 12:47 | CP.PCM.PN ---
Objective - Vital Signs/Intake and Output Vital Signs (last 24 hours): Temp Pulse Resp BP Pulse Ox 98.1 F 63 20 172/83 H 98 07/21/18 17:02 07/22/18 09:29 07/21/18 17:02 07/22/18 09:29 07/21/18 17:02 - Medications Medications: Current Medications Acetaminophen (Tylenol 325mg Tab) 650 mg PO Q6 PRN PRN Reason: Pain, Mild (1-3) Last Admin: 07/17/18 06:00 Dose: 650 mg Cyanocobalamin (Vitamin B12 1000 Mcg Tab) 1,000 mcg PO DAILY [facility] Last Admin: 07/22/18 09:25 Dose: 1,000 mcg Divalproex Sodium (Depakote Sprinkles) 125 mg PO BID [facility] Last Admin: 07/22/18 09:25 Dose: 125 mg Donepezil HCl (Aricept) 5 mg PO HS [facility] Last Admin: 07/21/18 21:17 Dose: 5 mg Enalapril Maleate (Vasotec) 2.5 mg PO DAILY [facility] Last Admin: 07/22/18 09:25 Dose: 2.5 mg Ergocalciferol (Drisdol 50,000 Intl Units Cap) 1 cap PO Q7D [facility] Last Admin: 07/14/18 23:00 Dose: 1 cap Haloperidol Lactate (Haldol) 0.5 mg IM Q4 PRN PRN Reason: Agitation Last Admin: 05/30/18 10:06 Dose: 0.5 mg Levothyroxine Sodium (Synthroid) 75 mcg PO DAILY@0630 [facility] Last Admin: 07/22/18 05:48 Dose: 75 mcg Metoprolol Tartrate (Lopressor) 50 mg PO Q12 [facility] Last Admin: 07/22/18 09:29 Dose: 50 mg Ondansetron HCl (Zofran Inj) 4 mg IVP Q4 PRN PRN Reason: Nausea/Vomiting Last Admin: 07/17/18 07:39 Dose: 4 mg Rivaroxaban (Xarelto) 20 mg PO QD5 [facility]; Protocol Last Admin: 07/21/18 17:47 Dose: 20 mg - Labs Labs: 07/17/18 12:25 07/17/18 12:25 PT 11.9 Seconds (9.8-13.1) 03/22/18 19:00 INR 1.0 03/22/18 19:00 APTT 29.3 Seconds (25.6-37.1) 03/22/18 19:00 Assessment and Plan (1) Rhabdomyolysis Status: Resolved (2) Status post fall Status: Acute (3) Change in mental status Status: Acute (4) Dementia Status: Chronic (5) HTN (hypertension) Status: Chronic (6) Urinary retention Status: Resolved
--- NOTE | 2018-07-22 16:38 | CP.PCM.PN ---
Subjective - Date & Time of Evaluation Date of Evaluation: 07/22/18 Time of Evaluation: 09:20 - Subjective Subjective: F/U AMS Pt awake, calm, no c/o Objective - Vital Signs/Intake and Output Vital Signs (last 24 hours): Temp Pulse Resp BP Pulse Ox 97.8 F 71 20 119/61 98 07/22/18 16:28 07/22/18 16:28 07/22/18 16:28 07/22/18 16:28 07/22/18 16:28 - Medications Medications: Current Medications Acetaminophen (Tylenol 325mg Tab) 650 mg PO Q6 PRN PRN Reason: Pain, Mild (1-3) Last Admin: 07/17/18 06:00 Dose: 650 mg Cyanocobalamin (Vitamin B12 1000 Mcg Tab) 1,000 mcg PO DAILY [facility] Last Admin: 07/22/18 09:25 Dose: 1,000 mcg Divalproex Sodium (Depakote Sprinkles) 125 mg PO BID [facility] Last Admin: 07/22/18 09:25 Dose: 125 mg Donepezil HCl (Aricept) 5 mg PO HS [facility] Last Admin: 07/21/18 21:17 Dose: 5 mg Enalapril Maleate (Vasotec) 2.5 mg PO DAILY [facility] Last Admin: 07/22/18 09:25 Dose: 2.5 mg Ergocalciferol (Drisdol 50,000 Intl Units Cap) 1 cap PO Q7D [facility] Last Admin: 07/14/18 23:00 Dose: 1 cap Haloperidol Lactate (Haldol) 0.5 mg IM Q4 PRN PRN Reason: Agitation Last Admin: 05/30/18 10:06 Dose: 0.5 mg Levothyroxine Sodium (Synthroid) 75 mcg PO DAILY@0630 [facility] Last Admin: 07/22/18 05:48 Dose: 75 mcg Metoprolol Tartrate (Lopressor) 50 mg PO Q12 [facility] Last Admin: 07/22/18 09:29 Dose: 50 mg Ondansetron HCl (Zofran Inj) 4 mg IVP Q4 PRN PRN Reason: Nausea/Vomiting Last Admin: 07/17/18 07:39 Dose: 4 mg Rivaroxaban (Xarelto) 20 mg PO QD5 [facility]; Protocol Last Admin: 07/21/18 17:47 Dose: 20 mg - Labs Labs: 07/17/18 12:25 07/17/18 12:25 PT 11.9 Seconds (9.8-13.1) 03/22/18 19:00 INR 1.0 03/22/18 19:00 APTT 29.3 Seconds (25.6-37.1) 03/22/18 19:00 - Constitutional Appears: No Acute Distress - Head Exam Head Exam: NORMAL INSPECTION - Eye Exam Eye Exam: PERRL - ENT Exam ENT Exam: Normal Exam - Neck Exam Neck Exam: Normal Inspection - Respiratory Exam Respiratory Exam: NORMAL BREATHING PATTERN - Cardiovascular Exam Cardiovascular Exam: REGULAR RHYTHM - GI/Abdominal Exam GI & Abdominal Exam: Soft, Normal Bowel Sounds - Extremities Exam Extremities Exam: Normal Inspection - Back Exam Back Exam: NORMAL INSPECTION - Neurological Exam Neurological Exam: Awake, CN II-XII Intact. absent: Motor Sensory Deficit Additional comments: Forgetful, Ox2 , follows commands. - Psychiatric Exam Psychiatric exam: Normal Mood - Skin Skin Exam: Warm Assessment and Plan (1) Rhabdomyolysis Status: Resolved (2) Status post fall Status: Acute (3) Change in mental status Status: Acute (4) Dementia Status: Chronic (5) HTN (hypertension) Status: Chronic (6) Urinary retention Status: Resolved - Assessment and Plan (Free Text) Plan: Continue Aricept, Depakote, Xarelto, Vasotec, Lopressor and rest of Tx.
[2018-07-23] MEDS: Levothyroxine 75 MCG TAB PO SCH (05:36)
[2018-07-23] MEDS: Divalproex 125 mg Sprinkle Capsule PO SCH ×2 (09:39→16:44)
--- NOTE | 2018-07-23 14:51 | CP.PCM.PN ---
Subjective - Date & Time of Evaluation Date of Evaluation: 07/23/18 Time of Evaluation: 10:00 - Subjective Subjective: F/U AMS. Pt awake, no A/D, confused, no pain. Objective - Vital Signs/Intake and Output Vital Signs (last 24 hours): Temp Pulse Resp BP Pulse Ox 97.8 F 80 18 163/73 H 96 07/23/18 09:00 07/23/18 09:39 07/23/18 09:00 07/23/18 09:39 07/23/18 09:00 - Medications Medications: Current Medications Acetaminophen (Tylenol 325mg Tab) 650 mg PO Q6 PRN PRN Reason: Pain, Mild (1-3) Last Admin: 07/17/18 06:00 Dose: 650 mg Cyanocobalamin (Vitamin B12 1000 Mcg Tab) 1,000 mcg PO DAILY [facility] Last Admin: 07/23/18 09:40 Dose: 1,000 mcg Divalproex Sodium (Depakote Sprinkles) 125 mg PO BID [facility] Last Admin: 07/23/18 09:39 Dose: 125 mg Donepezil HCl (Aricept) 5 mg PO HS [facility] Last Admin: 07/22/18 21:28 Dose: 5 mg Enalapril Maleate (Vasotec) 2.5 mg PO DAILY [facility] Last Admin: 07/23/18 09:39 Dose: 2.5 mg Ergocalciferol (Drisdol 50,000 Intl Units Cap) 1 cap PO Q7D [facility] Last Admin: 07/14/18 23:00 Dose: 1 cap Haloperidol Lactate (Haldol) 0.5 mg IM Q4 PRN PRN Reason: Agitation Last Admin: 05/30/18 10:06 Dose: 0.5 mg Levothyroxine Sodium (Synthroid) 75 mcg PO DAILY@0630 [facility] Last Admin: 07/23/18 05:36 Dose: 75 mcg Metoprolol Tartrate (Lopressor) 50 mg PO Q12 [facility] Last Admin: 07/23/18 09:39 Dose: 50 mg Ondansetron HCl (Zofran Inj) 4 mg IVP Q4 PRN PRN Reason: Nausea/Vomiting Last Admin: 07/17/18 07:39 Dose: 4 mg Rivaroxaban (Xarelto) 20 mg PO QD5 [facility]; Protocol Last Admin: 07/22/18 16:40 Dose: 20 mg - Labs Labs: 07/17/18 12:25 07/17/18 12:25 PT 11.9 Seconds (9.8-13.1) 03/22/18 19:00 INR 1.0 03/22/18 19:00 APTT 29.3 Seconds (25.6-37.1) 03/22/18 19:00 - Constitutional Appears: No Acute Distress - Head Exam Head Exam: NORMAL INSPECTION - Eye Exam Eye Exam: PERRL - ENT Exam ENT Exam: Normal Exam - Neck Exam Neck Exam: Normal Inspection - Respiratory Exam Respiratory Exam: NORMAL BREATHING PATTERN - Cardiovascular Exam Cardiovascular Exam: REGULAR RHYTHM - GI/Abdominal Exam GI & Abdominal Exam: Soft, Normal Bowel Sounds - Extremities Exam Extremities Exam: Normal Inspection - Back Exam Back Exam: NORMAL INSPECTION - Neurological Exam Neurological Exam: Awake, CN II-XII Intact. absent: Motor Sensory Deficit Additional comments: Forgetful, confused at times, follows commands. - Psychiatric Exam Psychiatric exam: Normal Mood - Skin Skin Exam: Warm Assessment and Plan (1) Rhabdomyolysis Status: Resolved (2) Status post fall Status: Acute (3) Change in mental status Status: Acute (4) Dementia Status: Chronic (5) HTN (hypertension) Status: Chronic (6) Urinary retention Status: Resolved - Assessment and Plan (Free Text) Plan: Continue Lopressor, Vasotec, Synthroid, f/u U [facility].
[2018-07-23 15:35] LABS: SQUAMOUS EPITHIAL 4 /hpf (0-5); URINE BILIRUBIN NEGATIVE (NEGATIVE); URINE BLOOD SMALL (NEGATIVE); URINE CLARITY SLIGHTY-CLOUDY (Clear); URINE COLOR YELLOW (YELLOW); URINE GLUCOSE (UA) NEG (NEGATIVE); URINE LEUKOCYTE ESTERASE TRACE Leu/uL (Negative); URINE PROTEIN NEGATIVE (NEGATIVE); URINE UROBILINOGEN 0.2-1.0 mg/dL (0.2-1.0)
[2018-07-24] MEDS: Levothyroxine 75 MCG TAB PO SCH (05:31)
[2018-07-24] MEDS: Divalproex 125 mg Sprinkle Capsule PO SCH ×2 (09:04→16:03)
--- NOTE | 2018-07-24 14:58 | CP.PCM.PN ---
Subjective - Date & Time of Evaluation Date of Evaluation: 07/24/18 Time of Evaluation: 08:20 - Subjective Subjective: F/U AMS. Pt awake, no pain, no c/o, confused. Objective - Vital Signs/Intake and Output Vital Signs (last 24 hours): Temp Pulse Resp BP Pulse Ox 97.8 F 60 18 165/72 H 98 07/24/18 08:42 07/24/18 08:42 07/24/18 08:42 07/24/18 08:42 07/24/18 08:42 - Medications Medications: Current Medications Acetaminophen (Tylenol 325mg Tab) 650 mg PO Q6 PRN PRN Reason: Pain, Mild (1-3) Last Admin: 07/17/18 06:00 Dose: 650 mg Cyanocobalamin (Vitamin B12 1000 Mcg Tab) 1,000 mcg PO DAILY [facility] Last Admin: 07/24/18 09:04 Dose: 1,000 mcg Divalproex Sodium (Depakote Sprinkles) 125 mg PO BID [facility] Last Admin: 07/24/18 09:04 Dose: 125 mg Donepezil HCl (Aricept) 5 mg PO HS [facility] Last Admin: 07/23/18 21:06 Dose: 5 mg Enalapril Maleate (Vasotec) 2.5 mg PO DAILY [facility] Last Admin: 07/24/18 09:02 Dose: 2.5 mg Ergocalciferol (Drisdol 50,000 Intl Units Cap) 1 cap PO Q7D [facility] Last Admin: 07/14/18 23:00 Dose: 1 cap Haloperidol Lactate (Haldol) 0.5 mg IM Q4 PRN PRN Reason: Agitation Last Admin: 05/30/18 10:06 Dose: 0.5 mg Levothyroxine Sodium (Synthroid) 75 mcg PO DAILY@0630 [facility] Last Admin: 07/24/18 05:31 Dose: 75 mcg Metoprolol Tartrate (Lopressor) 50 mg PO Q12 [facility] Last Admin: 07/24/18 09:01 Dose: 50 mg Ondansetron HCl (Zofran Inj) 4 mg IVP Q4 PRN PRN Reason: Nausea/Vomiting Last Admin: 07/17/18 07:39 Dose: 4 mg Rivaroxaban (Xarelto) 20 mg PO QD5 [facility]; Protocol Last Admin: 07/23/18 16:44 Dose: 20 mg - Labs Labs: 07/17/18 12:25 07/17/18 12:25 PT 11.9 Seconds (9.8-13.1) 03/22/18 19:00 INR 1.0 03/22/18 19:00 APTT 29.3 Seconds (25.6-37.1) 03/22/18 19:00 - Constitutional Appears: No Acute Distress - Head Exam Head Exam: NORMAL INSPECTION - Eye Exam Eye Exam: PERRL - ENT Exam ENT Exam: Normal Exam - Neck Exam Neck Exam: Normal Inspection - Respiratory Exam Respiratory Exam: NORMAL BREATHING PATTERN - Cardiovascular Exam Cardiovascular Exam: REGULAR RHYTHM - GI/Abdominal Exam GI & Abdominal Exam: Soft, Normal Bowel Sounds - Extremities Exam Extremities Exam: Normal Inspection - Back Exam Back Exam: NORMAL INSPECTION - Neurological Exam Neurological Exam: Awake, CN II-XII Intact. absent: Motor Sensory Deficit Additional comments: Forgetful, follows commands. - Psychiatric Exam Psychiatric exam: Normal Mood - Skin Skin Exam: Normal Color Assessment and Plan (1) Rhabdomyolysis Status: Resolved (2) Status post fall Status: Acute (3) Change in mental status Status: Acute (4) Dementia Status: Chronic (5) HTN (hypertension) Status: Chronic (6) Urinary retention Status: Resolved - Assessment and Plan (Free Text) Plan: Continue current Tx, awaiting for legal guardianship.
[2018-07-25] MEDS: Levothyroxine 75 MCG TAB PO SCH (06:53)
[2018-07-25] MEDS: Divalproex 125 mg Sprinkle Capsule PO SCH ×2 (09:53→16:46)
--- NOTE | 2018-07-25 13:37 | CP.PCM.PN ---
Subjective - Date & Time of Evaluation Date of Evaluation: 07/25/18 Time of Evaluation: 09:00 - Subjective Subjective: F/U AMS No A/D, confused, follows commands. Objective - Vital Signs/Intake and Output Vital Signs (last 24 hours): Temp Pulse Resp BP Pulse Ox 97.6 F 65 20 132/71 97 07/25/18 08:56 07/25/18 08:56 07/25/18 08:56 07/25/18 08:56 07/25/18 08:56 - Medications Medications: Current Medications Acetaminophen (Tylenol 325mg Tab) 650 mg PO Q6 PRN PRN Reason: Pain, Mild (1-3) Last Admin: 07/17/18 06:00 Dose: 650 mg Cyanocobalamin (Vitamin B12 1000 Mcg Tab) 1,000 mcg PO DAILY [facility] Last Admin: 07/25/18 09:54 Dose: 1,000 mcg Divalproex Sodium (Depakote Sprinkles) 125 mg PO BID [facility] Last Admin: 07/25/18 09:53 Dose: 125 mg Donepezil HCl (Aricept) 5 mg PO HS [facility] Last Admin: 07/24/18 21:31 Dose: 5 mg Enalapril Maleate (Vasotec) 2.5 mg PO DAILY [facility] Last Admin: 07/25/18 09:54 Dose: 2.5 mg Ergocalciferol (Drisdol 50,000 Intl Units Cap) 1 cap PO Q7D [facility] Last Admin: 07/14/18 23:00 Dose: 1 cap Haloperidol Lactate (Haldol) 0.5 mg IM Q4 PRN PRN Reason: Agitation Last Admin: 05/30/18 10:06 Dose: 0.5 mg Levothyroxine Sodium (Synthroid) 75 mcg PO DAILY@0630 [facility] Last Admin: 07/25/18 06:53 Dose: 75 mcg Metoprolol Tartrate (Lopressor) 50 mg PO Q12 [facility] Last Admin: 07/25/18 09:54 Dose: 50 mg Ondansetron HCl (Zofran Inj) 4 mg IVP Q4 PRN PRN Reason: Nausea/Vomiting Last Admin: 07/17/18 07:39 Dose: 4 mg Rivaroxaban (Xarelto) 20 mg PO QD5 [facility]; Protocol Last Admin: 07/24/18 16:03 Dose: 20 mg - Labs Labs: 03/21/19 12:25 07/17/18 12:25 PT 11.9 Seconds (9.8-13.1) 03/22/18 19:00 INR 1.0 03/22/18 19:00 APTT 29.3 Seconds (25.6-37.1) 03/22/18 19:00 - Constitutional Appears: No Acute Distress - Head Exam Head Exam: NORMAL INSPECTION - Eye Exam Eye Exam: PERRL - ENT Exam ENT Exam: Normal Exam - Neck Exam Neck Exam: Normal Inspection - Respiratory Exam Respiratory Exam: NORMAL BREATHING PATTERN - Cardiovascular Exam Cardiovascular Exam: REGULAR RHYTHM - GI/Abdominal Exam GI & Abdominal Exam: Soft, Normal Bowel Sounds - Extremities Exam Extremities Exam: Normal Inspection - Back Exam Back Exam: NORMAL INSPECTION - Neurological Exam Neurological Exam: Awake Additional comments: Confused, forgetful, follows commands. - Psychiatric Exam Psychiatric exam: Normal Mood - Skin Skin Exam: Warm Assessment and Plan (1) Rhabdomyolysis Status: Resolved (2) Status post fall Status: Acute (3) Change in mental status Status: Acute (4) Dementia Status: Chronic (5) HTN (hypertension) Status: Chronic (6) Urinary retention Status: Resolved - Assessment and Plan (Free Text) Plan: Continue Aricept, Depakote, Synthroid and rest of Tx.
[2018-07-26] MEDS: Levothyroxine 75 MCG TAB PO SCH (07:20)
[2018-07-26] MEDS: Divalproex 125 mg Sprinkle Capsule PO SCH ×2 (10:31→17:05)
[2018-07-27] MEDS: Levothyroxine 75 MCG TAB PO SCH (07:40)
[2018-07-27] MEDS: Divalproex 125 mg Sprinkle Capsule PO SCH ×2 (09:19→16:35)
--- NOTE | 2018-07-27 16:11 | CP.PCM.PN ---
Subjective - Date & Time of Evaluation Date of Evaluation: 07/27/18 Time of Evaluation: 15:00 - Subjective Subjective: no AD, N/C, smiling , confused, cooperative Objective - Vital Signs/Intake and Output Vital Signs (last 24 hours): Temp Pulse Resp BP Pulse Ox 97.6 F 64 19 159/85 H 95 07/27/18 07:48 07/27/18 10:17 07/27/18 07:48 07/27/18 10:17 07/27/18 07:48 - Medications Medications: Current Medications Acetaminophen (Tylenol 325mg Tab) 650 mg PO Q6 PRN PRN Reason: Pain, Mild (1-3) Last Admin: 07/17/18 06:00 Dose: 650 mg Cyanocobalamin (Vitamin B12 1000 Mcg Tab) 1,000 mcg PO DAILY [facility] Last Admin: 07/27/18 09:19 Dose: 1,000 mcg Divalproex Sodium (Depakote Sprinkles) 125 mg PO BID [facility] Last Admin: 07/27/18 09:19 Dose: 125 mg Donepezil HCl (Aricept) 5 mg PO HS [facility] Last Admin: 07/26/18 21:16 Dose: 5 mg Enalapril Maleate (Vasotec) 2.5 mg PO DAILY [facility]S [facility] Last Admin: 07/27/18 09:19 Dose: 2.5 mg Ergocalciferol (Drisdol 50,000 Intl Units Cap) 1 cap PO Q7D [facility] Last Admin: 07/14/18 23:00 Dose: 1 cap Haloperidol Lactate (Haldol) 0.5 mg IM Q4 PRN PRN Reason: Agitation Last Admin: 05/30/18 10:06 Dose: 0.5 mg Levothyroxine Sodium (Synthroid) 75 mcg PO DAILY@0630 [facility] Last Admin: 07/27/18 07:40 Dose: 75 mcg Metoprolol Tartrate (Lopressor) 50 mg PO Q12 [facility] Last Admin: 07/27/18 10:17 Dose: 50 mg Ondansetron HCl (Zofran Inj) 4 mg IVP Q4 PRN PRN Reason: Nausea/Vomiting Last Admin: 07/17/18 07:39 Dose: 4 mg Rivaroxaban (Xarelto) 20 mg PO QD5 [facility]; Protocol Last Admin: 07/26/18 17:06 Dose: 20 mg - Labs Labs: 03/21/19 12:25 07/17/18 12:25 PT 11.9 Seconds (9.8-13.1) 03/22/18 19:00 INR 1.0 03/22/18 19:00 APTT 29.3 Seconds (25.6-37.1) 03/22/18 19:00 - Constitutional Appears: No Acute Distress - Head Exam Head Exam: NORMAL INSPECTION - Eye Exam Eye Exam: PERRL - ENT Exam ENT Exam: Normal Exam - Neck Exam Neck Exam: Normal Inspection - Respiratory Exam Respiratory Exam: Clear to Ausculation Bilateral - Cardiovascular Exam Cardiovascular Exam: REGULAR RHYTHM - GI/Abdominal Exam GI & Abdominal Exam: Soft, Normal Bowel Sounds - Extremities Exam Extremities Exam: Normal Inspection - Back Exam Back Exam: NORMAL INSPECTION - Neurological Exam Neurological Exam: Awake Additional comments: confused, no motor/sensory deficit Assessment and Plan (1) Rhabdomyolysis Status: Resolved (2) Status post fall Status: Acute (3) Change in mental status Status: Acute (4) Dementia Status: Chronic (5) HTN (hypertension) Status: Chronic (6) Urinary retention Status: Resolved - Assessment and Plan (Free Text) Plan: Continue current Tx, awaiting for guardianship
[2018-07-28] MEDS: Levothyroxine 75 MCG TAB PO SCH (06:24)
[2018-07-28] MEDS: Divalproex 125 mg Sprinkle Capsule PO SCH ×2 (09:03→16:36)
--- NOTE | 2018-07-28 14:22 | CP.PCM.PN ---
Subjective - Date & Time of Evaluation Date of Evaluation: 07/28/18 Time of Evaluation: 12:00 - Subjective Subjective: F/U AMS Pt awake, calm, no c/o no A/D, walking around the unit earlier. Objective - Vital Signs/Intake and Output Vital Signs (last 24 hours): Temp Pulse Resp BP Pulse Ox 97.9 F 78 19 121/83 97 07/28/18 07:59 07/28/18 09:04 07/28/18 07:59 07/28/18 09:04 07/28/18 07:59 - Medications Medications: Current Medications Acetaminophen (Tylenol 325mg Tab) 650 mg PO Q6 PRN PRN Reason: Pain, Mild (1-3) Last Admin: 07/17/18 06:00 Dose: 650 mg Cyanocobalamin (Vitamin B12 1000 Mcg Tab) 1,000 mcg PO DAILY [facility] Last Admin: 07/28/18 09:04 Dose: 1,000 mcg Divalproex Sodium (Depakote Sprinkles) 125 mg PO BID [facility] Last Admin: 07/28/18 09:03 Dose: 125 mg Donepezil HCl (Aricept) 5 mg PO HS [facility] Last Admin: 07/27/18 21:02 Dose: 5 mg Enalapril Maleate (Vasotec) 2.5 mg PO DAILY [facility] Last Admin: 07/28/18 09:03 Dose: 2.5 mg Ergocalciferol (Drisdol 50,000 Intl Units Cap) 1 cap PO Q7D [facility] Last Admin: 07/14/18 23:00 Dose: 1 cap Haloperidol Lactate (Haldol) 0.5 mg IM Q4 PRN PRN Reason: Agitation Last Admin: 05/30/18 10:06 Dose: 0.5 mg Levothyroxine Sodium (Synthroid) 75 mcg PO DAILY@0630 [facility] Last Admin: 07/28/18 06:24 Dose: 75 mcg Metoprolol Tartrate (Lopressor) 50 mg PO Q12 [facility] Last Admin: 07/28/18 09:04 Dose: 50 mg Ondansetron HCl (Zofran Inj) 4 mg IVP Q4 PRN PRN Reason: Nausea/Vomiting Last Admin: 07/17/18 07:39 Dose: 4 mg Rivaroxaban (Xarelto) 20 mg PO QD5 [facility]; Protocol Last Admin: 07/27/18 16:35 Dose: 20 mg - Labs Labs: 07/17/18 12:25 07/17/18 12:25 PT 11.9 Seconds (9.8-13.1) 03/22/18 19:00 INR 1.0 03/22/18 19:00 APTT 29.3 Seconds (25.6-37.1) 03/22/18 19:00 - Constitutional Appears: No Acute Distress - Head Exam Head Exam: NORMAL INSPECTION - Eye Exam Eye Exam: PERRL - ENT Exam ENT Exam: Normal Exam - Neck Exam Neck Exam: Normal Inspection - Respiratory Exam Respiratory Exam: NORMAL BREATHING PATTERN - Cardiovascular Exam Cardiovascular Exam: REGULAR RHYTHM - GI/Abdominal Exam GI & Abdominal Exam: Soft, Normal Bowel Sounds - Extremities Exam Extremities Exam: Normal Inspection - Back Exam Back Exam: NORMAL INSPECTION - Neurological Exam Neurological Exam: Awake Additional comments: Forgetul, follows commands. - Psychiatric Exam Psychiatric exam: Normal Mood - Skin Skin Exam: Warm Assessment and Plan (1) Rhabdomyolysis Status: Resolved (2) Status post fall Status: Acute (3) Change in mental status Status: Acute (4) Dementia Status: Chronic (5) HTN (hypertension) Status: Chronic (6) Urinary retention Status: Resolved - Assessment and Plan (Free Text) Plan: Continue current Tx, awaiting for guardianship
[2018-07-28] MEDS: Ergocalciferol 50,000 Intl Units Cap PO SCH (23:06)
[2018-07-29] MEDS: Levothyroxine 75 MCG TAB PO SCH (06:32)
[2018-07-29] MEDS: Divalproex 125 mg Sprinkle Capsule PO SCH ×2 (09:43→16:41)
--- NOTE | 2018-07-29 15:37 | CP.PCM.PN ---
Subjective - Date & Time of Evaluation Date of Evaluation: 07/29/18 Time of Evaluation: 11:20 - Subjective Subjective: F/U AMS Pt awake, no c/o, calm Objective - Vital Signs/Intake and Output Vital Signs (last 24 hours): Temp Pulse Resp BP Pulse Ox 98.4 F 92 H 18 132/62 97 07/28/18 23:56 07/29/18 09:45 07/28/18 23:56 07/29/18 09:45 07/28/18 23:56 - Medications Medications: Current Medications Acetaminophen (Tylenol 325mg Tab) 650 mg PO Q6 PRN PRN Reason: Pain, Mild (1-3) Last Admin: 07/17/18 06:00 Dose: 650 mg Cyanocobalamin (Vitamin B12 1000 Mcg Tab) 1,000 mcg PO DAILY [facility] Last Admin: 07/29/18 09:46 Dose: 1,000 mcg Divalproex Sodium (Depakote Sprinkles) 125 mg PO BID [facility] Last Admin: 07/29/18 09:43 Dose: 125 mg Donepezil HCl (Aricept) 5 mg PO HS [facility] Last Admin: 07/28/18 21:03 Dose: 5 mg Enalapril Maleate (Vasotec) 2.5 mg PO DAILY [facility] Last Admin: 07/29/18 09:46 Dose: 2.5 mg Ergocalciferol (Drisdol 50,000 Intl Units Cap) 1 cap PO Q7D [facility] Last Admin: 07/28/18 23:06 Dose: 1 cap Haloperidol Lactate (Haldol) 0.5 mg IM Q4 PRN PRN Reason: Agitation Last Admin: 05/30/18 10:06 Dose: 0.5 mg Levothyroxine Sodium (Synthroid) 75 mcg PO DAILY@0630 [facility] Last Admin: 07/29/18 06:32 Dose: 75 mcg Metoprolol Tartrate (Lopressor) 50 mg PO Q12 [facility] Last Admin: 07/29/18 09:45 Dose: 50 mg Ondansetron HCl (Zofran Inj) 4 mg IVP Q4 PRN PRN Reason: Nausea/Vomiting Last Admin: 07/17/18 07:39 Dose: 4 mg Rivaroxaban (Xarelto) 20 mg PO QD5 [facility]; Protocol Last Admin: 07/28/18 16:36 Dose: 20 mg - Labs Labs: 03/21/19 12:25 07/17/18 12:25 PT 11.9 Seconds (9.8-13.1) 03/22/18 19:00 INR 1.0 03/22/18 19:00 APTT 29.3 Seconds (25.6-37.1) 03/22/18 19:00 - Constitutional Appears: No Acute Distress - Head Exam Head Exam: NORMAL INSPECTION - Eye Exam Eye Exam: PERRL - ENT Exam ENT Exam: Normal Exam - Neck Exam Neck Exam: Normal Inspection - Respiratory Exam Respiratory Exam: NORMAL BREATHING PATTERN - Cardiovascular Exam Cardiovascular Exam: REGULAR RHYTHM - GI/Abdominal Exam GI & Abdominal Exam: Soft, Normal Bowel Sounds - Extremities Exam Extremities Exam: Normal Inspection - Back Exam Back Exam: NORMAL INSPECTION - Neurological Exam Neurological Exam: Awake, CN II-XII Intact. absent: Motor Sensory Deficit Additional comments: Forgetful, follows commands. - Psychiatric Exam Psychiatric exam: Normal Affect, Normal Mood - Skin Skin Exam: Normal Color, Warm Assessment and Plan (1) Rhabdomyolysis Status: Resolved (2) Status post fall Status: Acute (3) Change in mental status Status: Acute (4) Dementia Status: Chronic (5) HTN (hypertension) Status: Chronic (6) Urinary retention Status: Resolved - Assessment and Plan (Free Text) Plan: Continue Synthrpid, Lopressor, Vasotec, Vit B 12 and rest of Tx.
[2018-07-30] MEDS: Levothyroxine 75 MCG TAB PO SCH (06:04)
[2018-07-30] MEDS: Divalproex 125 mg Sprinkle Capsule PO SCH ×2 (08:51→16:19)
--- NOTE | 2018-07-30 12:30 | CP.PCM.PN ---
Subjective - Date & Time of Evaluation Date of Evaluation: 07/30/18 Time of Evaluation: 10:50 - Subjective Subjective: F/U AMS. No A/D, no discomfort, confused, ambulating in hallways earlier today with steady gait Objective - Vital Signs/Intake and Output Vital Signs (last 24 hours): Temp Pulse Resp BP Pulse Ox 98.1 F 55 L 18 150/77 97 07/30/18 08:05 07/30/18 08:05 07/30/18 08:05 07/30/18 08:05 07/30/18 08:05 - Medications Medications: Current Medications Acetaminophen (Tylenol 325mg Tab) 650 mg PO Q6 PRN PRN Reason: Pain, Mild (1-3) Last Admin: 07/17/18 06:00 Dose: 650 mg Cyanocobalamin (Vitamin B12 1000 Mcg Tab) 1,000 mcg PO DAILY [facility] Last Admin: 07/30/18 08:52 Dose: 1,000 mcg Divalproex Sodium (Depakote Sprinkles) 125 mg PO BID [facility] Last Admin: 07/30/18 08:51 Dose: 125 mg Donepezil HCl (Aricept) 5 mg PO HS [facility] Last Admin: 07/29/18 21:56 Dose: 5 mg Enalapril Maleate (Vasotec) 2.5 mg PO DAILY [facility] Last Admin: 07/30/18 08:52 Dose: 2.5 mg Ergocalciferol (Drisdol 50,000 Intl Units Cap) 1 cap PO Q7D [facility] Last Admin: 07/28/18 23:06 Dose: 1 cap Haloperidol Lactate (Haldol) 0.5 mg IM Q4 PRN PRN Reason: Agitation Last Admin: 05/30/18 10:06 Dose: 0.5 mg Levothyroxine Sodium (Synthroid) 75 mcg PO DAILY@0630 [facility] Last Admin: 07/30/18 06:04 Dose: 75 mcg Metoprolol Tartrate (Lopressor) 50 mg PO Q12 [facility] Last Admin: 07/30/18 08:51 Dose: 50 mg Ondansetron HCl (Zofran Inj) 4 mg IVP Q4 PRN PRN Reason: Nausea/Vomiting Last Admin: 07/17/18 07:39 Dose: 4 mg Rivaroxaban (Xarelto) 20 mg PO QD5 [facility]; Protocol Last Admin: 07/29/18 16:40 Dose: 20 mg - Labs Labs: 07/17/18 12:25 07/17/18 12:25 PT 11.9 Seconds (9.8-13.1) 03/22/18 19:00 INR 1.0 03/22/18 19:00 APTT 29.3 Seconds (25.6-37.1) 03/22/18 19:00 - Constitutional Appears: No Acute Distress - Head Exam Head Exam: NORMAL INSPECTION - Eye Exam Eye Exam: PERRL - ENT Exam ENT Exam: Normal Exam - Neck Exam Neck Exam: Normal Inspection - Respiratory Exam Respiratory Exam: NORMAL BREATHING PATTERN - Cardiovascular Exam Cardiovascular Exam: REGULAR RHYTHM - GI/Abdominal Exam GI & Abdominal Exam: Soft, Normal Bowel Sounds - Extremities Exam Extremities Exam: Normal Inspection - Back Exam Back Exam: NORMAL INSPECTION - Neurological Exam Neurological Exam: Awake, CN II-XII Intact. absent: Motor Sensory Deficit Additional comments: Forgetful, obeys commands. - Psychiatric Exam Psychiatric exam: Normal Affect, Normal Mood - Skin Skin Exam: Normal Color, Warm Assessment and Plan (1) Rhabdomyolysis Status: Resolved (2) Status post fall Status: Acute (3) Change in mental status Status: Acute (4) Dementia Status: Chronic (5) HTN (hypertension) Status: Chronic (6) Urinary retention Status: Resolved - Assessment and Plan (Free Text) Plan: Continue Depakote, Synthroid, Vit B and rest of Tx. awaiting for legal guardianship.
[2018-07-31] MEDS: Levothyroxine 75 MCG TAB PO SCH (05:48)
[2018-07-31] MEDS: Divalproex 125 mg Sprinkle Capsule PO SCH ×2 (09:25→16:29)
--- NOTE | 2018-07-31 14:22 | CP.PCM.PN ---
Subjective - Date & Time of Evaluation Date of Evaluation: 07/31/18 Time of Evaluation: 09:10 - Subjective Subjective: F/U AMS Pt awake, calm, confused. Objective - Vital Signs/Intake and Output Vital Signs (last 24 hours): Temp Pulse Resp BP Pulse Ox 97.7 F 68 20 139/71 98 07/31/18 09:00 07/31/18 09:25 07/31/18 09:00 07/31/18 09:25 07/31/18 09:00 - Medications Medications: Current Medications Acetaminophen (Tylenol 325mg Tab) 650 mg PO Q6 PRN PRN Reason: Pain, Mild (1-3) Last Admin: 07/17/18 06:00 Dose: 650 mg Cyanocobalamin (Vitamin B12 1000 Mcg Tab) 1,000 mcg PO DAILY [facility] Last Admin: 07/31/18 09:25 Dose: 1,000 mcg Divalproex Sodium (Depakote Sprinkles) 125 mg PO BID [facility] Last Admin: 07/31/18 09:25 Dose: 125 mg Donepezil HCl (Aricept) 5 mg PO HS [facility] Last Admin: 07/30/18 21:06 Dose: 5 mg Enalapril Maleate (Vasotec) 2.5 mg PO DAILY [facility] Last Admin: 07/31/18 09:25 Dose: 2.5 mg Ergocalciferol (Drisdol 50,000 Intl Units Cap) 1 cap PO Q7D [facility] Last Admin: 07/28/18 23:06 Dose: 1 cap Haloperidol Lactate (Haldol) 0.5 mg IM Q4 PRN PRN Reason: Agitation Last Admin: 05/30/18 10:06 Dose: 0.5 mg Levothyroxine Sodium (Synthroid) 75 mcg PO DAILY@0630 [facility] Last Admin: 07/31/18 05:48 Dose: 75 mcg Metoprolol Tartrate (Lopressor) 50 mg PO Q12 [facility] Last Admin: 07/31/18 09:25 Dose: 50 mg Ondansetron HCl (Zofran Inj) 4 mg IVP Q4 PRN PRN Reason: Nausea/Vomiting Last Admin: 07/17/18 07:39 Dose: 4 mg - Labs Labs: 07/17/18 12:25 07/17/18 12:25 PT 11.9 Seconds (9.8-13.1) 03/22/18 19:00 INR 1.0 03/22/18 19:00 APTT 29.3 Seconds (25.6-37.1) 03/22/18 19:00 - Constitutional Appears: No Acute Distress - Head Exam Head Exam: NORMAL INSPECTION - Eye Exam Eye Exam: PERRL - ENT Exam ENT Exam: Normal Exam - Neck Exam Neck Exam: Normal Inspection - Respiratory Exam Respiratory Exam: NORMAL BREATHING PATTERN - Cardiovascular Exam Cardiovascular Exam: REGULAR RHYTHM - GI/Abdominal Exam GI & Abdominal Exam: Soft, Normal Bowel Sounds - Extremities Exam Extremities Exam: Normal Inspection - Back Exam Back Exam: NORMAL INSPECTION - Neurological Exam Neurological Exam: Awake, CN II-XII Intact. absent: Motor Sensory Deficit Additional comments: Confused, forgetful, obey commands. - Psychiatric Exam Psychiatric exam: Normal Mood - Skin Skin Exam: Warm Assessment and Plan (1) Rhabdomyolysis Status: Resolved (2) Status post fall Status: Acute (3) Change in mental status Status: Acute (4) Dementia Status: Chronic (5) HTN (hypertension) Status: Chronic (6) Urinary retention Status: Resolved - Assessment and Plan (Free Text) Plan: Continue Aricept, Depakote and rest of Tx.
[2018-07-31 18:54] LABS: BASO % 0.2 % (0.0-2.0); EOS # 0.2 K/uL (0.0-0.7); EOS % 3.8 % (0.0-4.0); HEMOGLOBIN 13.2 g/dL (12.0-16.0); LYMPH # 1.8 K/uL (1.0-4.3); MEAN CELL VOLUME 92.3 fl (81.0-99.0); MEAN CORPUSCULAR HEMOGLOBIN 30.8 pg (27.0-31.0); MEAN CORPUSCULAR HGB CONC 33.3 g/dL (33.0-37.0); MEAN PLATELET VOLUME 10.4 fl (7.2-11.7); MONO # 0.4 K/uL (0.0-0.8); MONO % 6.7 % (0.0-10.0); NEUT # 3.8 K/uL (1.8-7.0); NEUT % 60.3 % (50.0-75.0); NRBC % 0.2 % (0.0-0.0); RBC 4.28 Mil/uL (3.80-5.20); RED CELL DISTRIBUTION WIDTH 14.5 % (11.5-14.5); WHITE BLOOD COUNT 6.3 K/uL (4.8-10.8)
[2018-07-31 19:03] LABS: CALCIUM 8.7 mg/dL (8.4-10.2)
[2018-08-01] MEDS: Levothyroxine 75 MCG TAB PO SCH (05:30)
[2018-08-01] MEDS: Divalproex 125 mg Sprinkle Capsule PO SCH ×2 (08:37→16:18)
--- NOTE | 2018-08-01 14:18 | PQF ---
PROVIDER RESPONSE TEXT: DTI on her right inner gluteal cleft and her left buttock. It has partial thickness skin loss. She de nies pain to site. Etiology is from pressure and shear after the fall. POA REVIEWER QUERY TEXT: Present On Admission It is unclear whether a diagnosis was present on admission. Your help is needed. Please clarify the POA status of pt's pressure ulcer. Such as: -- Present on admission -- Not present on admission The patient's Clinical Indicators include: 03/26 PN "DTI RT GLUTEAL." 04/01 PN "DECUBITUS SACRAL." Query created by: Nasrin Naranjo on 08/01/2018 12:17 PM Electronically signed by: Vic Burger MD 08/01/2018 2:15 PM
[2018-08-02] MEDS: Levothyroxine 75 MCG TAB PO SCH (06:16)
[2018-08-02] MEDS: Divalproex 125 mg Sprinkle Capsule PO SCH ×2 (08:32→16:26)
--- NOTE | 2018-08-02 17:30 | CP.PCM.PN ---
Subjective - Date & Time of Evaluation Date of Evaluation: 08/02/18 Time of Evaluation: 13:00 - Subjective Subjective: F/U AMS. No c/o, no A/D, no pain, no discomfort. Objective - Vital Signs/Intake and Output Vital Signs (last 24 hours): Temp Pulse Resp BP Pulse Ox 98.1 F 66 18 132/73 97 08/02/18 16:26 08/02/18 16:26 08/02/18 16:26 08/02/18 16:26 08/02/18 16:26 - Medications Medications: Current Medications Acetaminophen (Tylenol 325mg Tab) 650 mg PO Q6 PRN PRN Reason: Pain, Mild (1-3) Last Admin: 07/17/18 06:00 Dose: 650 mg Cyanocobalamin (Vitamin B12 1000 Mcg Tab) 1,000 mcg PO DAILY [facility] Last Admin: 08/02/18 08:33 Dose: 1,000 mcg Divalproex Sodium (Depakote Sprinkles) 125 mg PO BID [facility] Last Admin: 08/02/18 16:26 Dose: 125 mg Donepezil HCl (Aricept) 5 mg PO HS [facility] Last Admin: 08/01/18 21:05 Dose: 5 mg Enalapril Maleate (Vasotec) 2.5 mg PO DAILY [facility] Last Admin: 08/02/18 08:33 Dose: 2.5 mg Ergocalciferol (Drisdol 50,000 Intl Units Cap) 1 cap PO Q7D [facility] Last Admin: 07/28/18 23:06 Dose: 1 cap Haloperidol Lactate (Haldol) 0.5 mg IM Q4 PRN PRN Reason: Agitation Last Admin: 05/30/18 10:06 Dose: 0.5 mg Levothyroxine Sodium (Synthroid) 75 mcg PO DAILY@0630 [facility] Last Admin: 08/02/18 06:16 Dose: 75 mcg Metoprolol Tartrate (Lopressor) 50 mg PO Q12 [facility] Last Admin: 08/02/18 08:32 Dose: 50 mg Rivaroxaban (Xarelto) 20 mg PO QD5 [facility]; Protocol Last Admin: 08/02/18 16:26 Dose: 20 mg - Labs Labs: 07/31/18 18:30 07/31/18 18:30 PT 11.9 Seconds (9.8-13.1) 03/22/18 19:00 INR 1.0 03/22/18 19:00 APTT 29.3 Seconds (25.6-37.1) 03/22/18 19:00 - Constitutional Appears: No Acute Distress, Confused - Head Exam Head Exam: NORMAL INSPECTION - Eye Exam Eye Exam: PERRL - ENT Exam ENT Exam: Normal Exam - Neck Exam Neck Exam: Normal Inspection - Respiratory Exam Respiratory Exam: NORMAL BREATHING PATTERN - Cardiovascular Exam Cardiovascular Exam: REGULAR RHYTHM - GI/Abdominal Exam GI & Abdominal Exam: Soft, Normal Bowel Sounds - Extremities Exam Extremities Exam: Normal Inspection - Back Exam Back Exam: NORMAL INSPECTION - Neurological Exam Neurological Exam: Awake, CN II-XII Intact. absent: Motor Sensory Deficit Additional comments: Follows commands. - Psychiatric Exam Psychiatric exam: Normal Mood - Skin Skin Exam: Normal Color, Warm Assessment and Plan (1) Rhabdomyolysis Status: Resolved (2) Status post fall Status: Acute (3) Change in mental status Status: Acute (4) Dementia Status: Chronic (5) HTN (hypertension) Status: Chronic (6) Urinary retention Status: Resolved - Assessment and Plan (Free Text) Plan: Continue Aricept, Depakote and rest of Tx. Awaiting for gurdianship.
[2018-08-03] MEDS: Levothyroxine 75 MCG TAB PO SCH (05:46)
[2018-08-03] MEDS: Divalproex 125 mg Sprinkle Capsule PO SCH ×2 (09:05→16:36)
--- NOTE | 2018-08-03 16:53 | CP.PCM.PN ---
Subjective - Date & Time of Evaluation Date of Evaluation: 08/03/18 Time of Evaluation: 14:00 - Subjective Subjective: no AD, N/C, confused Objective - Vital Signs/Intake and Output Vital Signs (last 24 hours): Temp Pulse Resp BP Pulse Ox 98.5 F 71 18 125/77 97 08/03/18 16:17 08/03/18 16:17 08/03/18 16:17 08/03/18 16:17 08/03/18 16:17 - Medications Medications: Current Medications Acetaminophen (Tylenol 325mg Tab) 650 mg PO Q6 PRN PRN Reason: Pain, Mild (1-3) Last Admin: 07/17/18 06:00 Dose: 650 mg Cyanocobalamin (Vitamin B12 1000 Mcg Tab) 1,000 mcg PO DAILY [facility] Last Admin: 08/03/18 09:05 Dose: 1,000 mcg Divalproex Sodium (Depakote Sprinkles) 125 mg PO BID [facility] Last Admin: 08/03/18 16:36 Dose: 125 mg Donepezil HCl (Aricept) 5 mg PO HS [facility] Last Admin: 08/02/18 21:09 Dose: 5 mg Enalapril Maleate (Vasotec) 2.5 mg PO DAILY [facility] Last Admin: 08/03/18 09:05 Dose: 2.5 mg Ergocalciferol (Drisdol 50,000 Intl Units Cap) 1 cap PO Q7D [facility] Last Admin: 07/28/18 23:06 Dose: 1 cap Haloperidol Lactate (Haldol) 0.5 mg IM Q4 PRN PRN Reason: Agitation Last Admin: 05/30/18 10:06 Dose: 0.5 mg Levothyroxine Sodium (Synthroid) 75 mcg PO DAILY@0630 [facility] Last Admin: 08/03/18 05:46 Dose: 75 mcg Metoprolol Tartrate (Lopressor) 50 mg PO Q12 [facility] Last Admin: 08/03/18 09:05 Dose: 50 mg Rivaroxaban (Xarelto) 20 mg PO QD5 [facility]; Protocol Last Admin: 08/03/18 16:36 Dose: 20 mg - Labs Labs: 07/31/18 18:30 07/31/18 18:30 PT 11.9 Seconds (9.8-13.1) 03/22/18 19:00 INR 1.0 03/22/18 19:00 APTT 29.3 Seconds (25.6-37.1) 03/22/18 19:00 - Constitutional Appears: No Acute Distress - Head Exam Head Exam: NORMAL INSPECTION - Eye Exam Eye Exam: PERRL - ENT Exam ENT Exam: Normal Exam - Neck Exam Neck Exam: Normal Inspection - Respiratory Exam Respiratory Exam: NORMAL BREATHING PATTERN - Cardiovascular Exam Cardiovascular Exam: REGULAR RHYTHM - GI/Abdominal Exam GI & Abdominal Exam: Soft, Normal Bowel Sounds - Extremities Exam Extremities Exam: Normal Inspection - Back Exam Back Exam: NORMAL INSPECTION - Neurological Exam Neurological Exam: Alert, CN II-XII Intact, Oriented x3 Additional comments: Confused, forgetful, no focal motor/sensory deficit., generalized weakness. - Psychiatric Exam Psychiatric exam: Normal Mood - Skin Skin Exam: Warm Assessment and Plan (1) Rhabdomyolysis Status: Resolved (2) Status post fall Status: Acute (3) Change in mental status Status: Acute (4) Dementia Status: Chronic (5) HTN (hypertension) Status: Chronic (6) Urinary retention Status: Resolved - Assessment and Plan (Free Text) Plan: Continue Aricept, Depakote, Xarelto, Lopressor, Vasotec, Drisdol, vitamin B12, for Legal Guardianship
[2018-08-04] MEDS: Levothyroxine 75 MCG TAB PO SCH (05:54)
[2018-08-04] MEDS: Divalproex 125 mg Sprinkle Capsule PO SCH ×2 (08:58→16:19)
--- NOTE | 2018-08-04 16:27 | CP.PCM.PN ---
Subjective - Date & Time of Evaluation Date of Evaluation: 08/04/18 Time of Evaluation: 13:40 - Subjective Subjective: F/U AMS. Pt awake, O x2, follows commands. Objective - Vital Signs/Intake and Output Vital Signs (last 24 hours): Temp Pulse Resp BP Pulse Ox 97.7 F 68 20 146/60 96 08/04/18 16:16 08/04/18 16:16 08/04/18 16:16 08/04/18 16:16 08/04/18 16:16 - Medications Medications: Current Medications Acetaminophen (Tylenol 325mg Tab) 650 mg PO Q6 PRN PRN Reason: Pain, Mild (1-3) Last Admin: 07/17/18 06:00 Dose: 650 mg Cyanocobalamin (Vitamin B12 1000 Mcg Tab) 1,000 mcg PO DAILY [facility] Last Admin: 08/04/18 08:59 Dose: 1,000 mcg Divalproex Sodium (Depakote Sprinkles) 125 mg PO BID [facility] Last Admin: 08/04/18 16:19 Dose: 125 mg Donepezil HCl (Aricept) 5 mg PO HS [facility] Last Admin: 08/03/18 21:32 Dose: 5 mg Enalapril Maleate (Vasotec) 2.5 mg PO DAILY [facility] Last Admin: 08/04/18 08:59 Dose: 2.5 mg Ergocalciferol (Drisdol 50,000 Intl Units Cap) 1 cap PO Q7D [facility] Last Admin: 07/28/18 23:06 Dose: 1 cap Haloperidol Lactate (Haldol) 0.5 mg IM Q4 PRN PRN Reason: Agitation Last Admin: 05/30/18 10:06 Dose: 0.5 mg Levothyroxine Sodium (Synthroid) 75 mcg PO DAILY@0630 [facility] Last Admin: 08/04/18 05:54 Dose: 75 mcg Metoprolol Tartrate (Lopressor) 50 mg PO Q12 [facility] Last Admin: 08/04/18 08:59 Dose: 50 mg Rivaroxaban (Xarelto) 20 mg PO QD5 [facility]; Protocol Last Admin: 08/04/18 16:18 Dose: 20 mg - Labs Labs: 07/31/18 18:30 07/31/18 18:30 PT 11.9 Seconds (9.8-13.1) 03/22/18 19:00 INR 1.0 03/22/18 19:00 APTT 29.3 Seconds (25.6-37.1) 03/22/18 19:00 - Constitutional Appears: No Acute Distress - Head Exam Head Exam: NORMAL INSPECTION - Eye Exam Eye Exam: PERRL - ENT Exam ENT Exam: Normal Exam - Neck Exam Neck Exam: Normal Inspection - Respiratory Exam Respiratory Exam: NORMAL BREATHING PATTERN - Cardiovascular Exam Cardiovascular Exam: REGULAR RHYTHM - GI/Abdominal Exam GI & Abdominal Exam: Soft, Normal Bowel Sounds - Extremities Exam Extremities Exam: Normal Inspection - Back Exam Back Exam: NORMAL INSPECTION - Neurological Exam Neurological Exam: Awake, CN II-XII Intact. absent: Motor Sensory Deficit Additional comments: Ox2, follows commands Assessment and Plan (1) Rhabdomyolysis Status: Resolved (2) Status post fall Status: Acute (3) Change in mental status Status: Acute (4) Dementia Status: Chronic (5) HTN (hypertension) Status: Chronic (6) Urinary retention Status: Resolved - Assessment and Plan (Free Text) Plan: Continue Depakote, Lopressor, Vasotec and rest of Tx.
[2018-08-04] MEDS: Ergocalciferol 50,000 Intl Units Cap PO SCH (22:42)
[2018-08-05] MEDS: Levothyroxine 75 MCG TAB PO SCH (05:55)
[2018-08-05] MEDS: Divalproex 125 mg Sprinkle Capsule PO SCH ×2 (08:01→16:21)
--- NOTE | 2018-08-05 16:22 | CP.PCM.PN ---
Subjective - Date & Time of Evaluation Date of Evaluation: 08/05/18 Time of Evaluation: 12:40 - Subjective Subjective: F/U AMS. Pt awake, no c/o, no A/D, VS normal. Objective - Vital Signs/Intake and Output Vital Signs (last 24 hours): Temp Pulse Resp BP Pulse Ox 98.1 F 61 20 156/80 H 97 08/05/18 07:43 08/05/18 07:43 08/05/18 07:43 08/05/18 07:43 08/05/18 07:43 - Medications Medications: Current Medications Acetaminophen (Tylenol 325mg Tab) 650 mg PO Q6 PRN PRN Reason: Pain, Mild (1-3) Last Admin: 07/17/18 06:00 Dose: 650 mg Cyanocobalamin (Vitamin B12 1000 Mcg Tab) 1,000 mcg PO DAILY [facility] Last Admin: 08/05/18 08:02 Dose: 1,000 mcg Divalproex Sodium (Depakote Sprinkles) 125 mg PO BID [facility] Last Admin: 08/05/18 16:21 Dose: 125 mg Donepezil HCl (Aricept) 5 mg PO HS [facility] Last Admin: 08/04/18 22:07 Dose: 5 mg Enalapril Maleate (Vasotec) 2.5 mg PO DAILY [facility] Last Admin: 08/05/18 08:01 Dose: 2.5 mg Ergocalciferol (Drisdol 50,000 Intl Units Cap) 1 cap PO Q7D [facility] Last Admin: 08/04/18 22:42 Dose: 1 cap Haloperidol Lactate (Haldol) 0.5 mg IM Q4 PRN PRN Reason: Agitation Last Admin: 05/30/18 10:06 Dose: 0.5 mg Levothyroxine Sodium (Synthroid) 75 mcg PO DAILY@0630 [facility] Last Admin: 08/05/18 05:55 Dose: 75 mcg Metoprolol Tartrate (Lopressor) 50 mg PO Q12 [facility] Last Admin: 08/05/18 08:01 Dose: 50 mg Rivaroxaban (Xarelto) 20 mg PO QD5 [facility]; Protocol Last Admin: 08/05/18 16:21 Dose: 20 mg - Labs Labs: 07/31/18 18:30 07/31/18 18:30 PT 11.9 Seconds (9.8-13.1) 03/22/18 19:00 INR 1.0 03/22/18 19:00 APTT 29.3 Seconds (25.6-37.1) 03/22/18 19:00 - Constitutional Appears: No Acute Distress, Confused - Head Exam Head Exam: NORMAL INSPECTION - Eye Exam Eye Exam: PERRL - ENT Exam ENT Exam: Normal Exam - Neck Exam Neck Exam: Normal Inspection - Respiratory Exam Respiratory Exam: NORMAL BREATHING PATTERN - Cardiovascular Exam Cardiovascular Exam: REGULAR RHYTHM - GI/Abdominal Exam GI & Abdominal Exam: Soft, Normal Bowel Sounds - Extremities Exam Extremities Exam: Normal Inspection - Back Exam Back Exam: NORMAL INSPECTION - Neurological Exam Neurological Exam: Awake, CN II-XII Intact. absent: Motor Sensory Deficit Additional comments: Forgetful, follows commands. - Psychiatric Exam Psychiatric exam: Normal Mood - Skin Skin Exam: Normal Color, Warm Assessment and Plan (1) Change in mental status Status: Acute (2) Rhabdomyolysis Status: Resolved (3) Status post fall Status: Acute (4) Dementia Status: Chronic (5) HTN (hypertension) Status: Chronic (6) Urinary retention Status: Resolved - Assessment and Plan (Free Text) Plan: Continue depakote, Xarelto, Aricept and rest of tx.
[2018-08-06] MEDS: Levothyroxine 75 MCG TAB PO SCH (05:37)
[2018-08-06 07:06] LABS: INR 1.3; PROTHROMBIN TIME 15.3 Seconds (9.8-13.1)
[2018-08-06 07:09] LABS: PARTIAL THROMBOPLASTIN TIME 37.2 Seconds (25.6-37.1)
[2018-08-06 07:11] LABS: BASO % 0.5 % (0.0-2.0); EOS # 0.4 K/uL (0.0-0.7); EOS % 6.6 % (0.0-4.0); HEMOGLOBIN 12.6 g/dL (12.0-16.0); LYMPH # 1.9 K/uL (1.0-4.3); LYMPH % 30.3 % (20.0-40.0); MEAN CELL VOLUME 92.7 fl (81.0-99.0); MEAN CORPUSCULAR HEMOGLOBIN 30.7 pg (27.0-31.0); MEAN CORPUSCULAR HGB CONC 33.1 g/dL (33.0-37.0); MEAN PLATELET VOLUME 10.6 fl (7.2-11.7); MONO # 0.4 K/uL (0.0-0.8); NEUT # 3.5 K/uL (1.8-7.0); NEUT % 55.6 % (50.0-75.0); RBC 4.1 Mil/uL (3.80-5.20); RED CELL DISTRIBUTION WIDTH 14.6 % (11.5-14.5); WHITE BLOOD COUNT 6.2 K/uL (4.8-10.8)
[2018-08-06 07:34] LABS: ALB/GLOB RATIO 1.2 (1.0-2.1); ALBUMIN 3.7 g/dL (3.5-5.0); ALT/SGPT 36 U/L (9-52); AST/SGOT 25 U/L (14-36); BLOOD UREA NITROGEN 33 mg/dl (7-17); GFR NON-AFRICAN AMERICAN 60
[2018-08-06] MEDS: Divalproex 125 mg Sprinkle Capsule PO SCH ×2 (09:18→16:55)
--- NOTE | 2018-08-06 13:58 | CP.PCM.PN ---
Subjective - Date & Time of Evaluation Date of Evaluation: 08/06/18 Time of Evaluation: 12:50 - Subjective Subjective: F/U AMD. Awake, confused, oriented to person, no A/D. Objective - Vital Signs/Intake and Output Vital Signs (last 24 hours): Temp Pulse Resp BP Pulse Ox 97.6 F 65 20 147/81 96 08/06/18 07:57 08/06/18 09:19 08/06/18 07:57 08/06/18 09:19 08/06/18 07:57 - Medications Medications: Current Medications Acetaminophen (Tylenol 325mg Tab) 650 mg PO Q6 PRN PRN Reason: Pain, Mild (1-3) Last Admin: 07/17/18 06:00 Dose: 650 mg Cyanocobalamin (Vitamin B12 1000 Mcg Tab) 1,000 mcg PO DAILY [facility] Last Admin: 08/06/18 09:20 Dose: 1,000 mcg Divalproex Sodium (Depakote Sprinkles) 125 mg PO BID [facility] Last Admin: 08/06/18 09:18 Dose: 125 mg Donepezil HCl (Aricept) 5 mg PO HS [facility] Last Admin: 08/05/18 21:00 Dose: 5 mg Enalapril Maleate (Vasotec) 2.5 mg PO DAILY [facility] Last Admin: 08/06/18 09:19 Dose: 2.5 mg Ergocalciferol (Drisdol 50,000 Intl Units Cap) 1 cap PO Q7D [facility] Last Admin: 08/04/18 22:42 Dose: 1 cap Haloperidol Lactate (Haldol) 0.5 mg IM Q4 PRN PRN Reason: Agitation Last Admin: 05/30/18 10:06 Dose: 0.5 mg Levothyroxine Sodium (Synthroid) 75 mcg PO DAILY@0630 [facility] Last Admin: 08/06/18 05:37 Dose: 75 mcg Metoprolol Tartrate (Lopressor) 50 mg PO Q12 [facility] Last Admin: 08/06/18 09:19 Dose: 50 mg Rivaroxaban (Xarelto) 20 mg PO QD5 [facility]; Protocol Last Admin: 08/05/18 16:21 Dose: 20 mg - Labs Labs: 08/06/18 06:40 08/06/18 06:40 PT 15.3 Seconds (9.8-13.1) H 08/06/18 06:40 INR 1.3 08/06/18 06:40 APTT 37.2 Seconds (25.6-37.1) H 08/06/18 06:40 - Constitutional Appears: No Acute Distress, Confused - Head Exam Head Exam: NORMAL INSPECTION - Eye Exam Eye Exam: PERRL - ENT Exam ENT Exam: Normal Exam - Neck Exam Neck Exam: Normal Inspection - Respiratory Exam Respiratory Exam: NORMAL BREATHING PATTERN - Cardiovascular Exam Cardiovascular Exam: REGULAR RHYTHM - GI/Abdominal Exam GI & Abdominal Exam: Soft, Normal Bowel Sounds - Extremities Exam Extremities Exam: Normal Inspection - Back Exam Back Exam: NORMAL INSPECTION - Neurological Exam Neurological Exam: Alert, Awake, CN II-XII Intact. absent: Motor Sensory Deficit Additional comments: Confused, forgetful, follows commands. - Psychiatric Exam Psychiatric exam: Normal Mood - Skin Skin Exam: Warm Assessment and Plan (1) Change in mental status Status: Acute (2) Rhabdomyolysis Status: Resolved (3) Status post fall Status: Acute (4) Dementia Status: Chronic (5) HTN (hypertension) Status: Chronic (6) Urinary retention Status: Resolved - Assessment and Plan (Free Text) Plan: Continue Aricept, Dapakote and rest of Tx. Awaiting for legal guardianship.
[2018-08-07] MEDS: Levothyroxine 75 MCG TAB PO SCH (05:47)
[2018-08-07] MEDS: Divalproex 125 mg Sprinkle Capsule PO SCH ×2 (09:24→16:06)
--- NOTE | 2018-08-07 13:45 | CP.PCM.PN ---
Subjective - Date & Time of Evaluation Date of Evaluation: 08/07/18 - Subjective Subjective: F/U AMS. Pt awake, calm, no A/D Objective - Vital Signs/Intake and Output Vital Signs (last 24 hours): Temp Pulse Resp BP Pulse Ox 97.2 F L 60 18 118/70 94 L 08/06/18 23:40 08/06/18 23:40 08/06/18 23:40 08/06/18 23:40 08/06/18 23:40 - Medications Medications: Current Medications Acetaminophen (Tylenol 325mg Tab) 650 mg PO Q6 PRN PRN Reason: Pain, Mild (1-3) Last Admin: 07/17/18 06:00 Dose: 650 mg Cyanocobalamin (Vitamin B12 1000 Mcg Tab) 1,000 mcg PO DAILY [facility] Last Admin: 08/07/18 09:25 Dose: 1,000 mcg Divalproex Sodium (Depakote Sprinkles) 125 mg PO BID [facility] Last Admin: 08/07/18 09:24 Dose: 125 mg Donepezil HCl (Aricept) 5 mg PO HS [facility] Last Admin: 08/06/18 22:02 Dose: 5 mg Enalapril Maleate (Vasotec) 2.5 mg PO DAILY [facility] Last Admin: 08/07/18 09:24 Dose: 2.5 mg Ergocalciferol (Drisdol 50,000 Intl Units Cap) 1 cap PO Q7D [facility] Last Admin: 08/04/18 22:42 Dose: 1 cap Haloperidol Lactate (Haldol) 0.5 mg IM Q4 PRN PRN Reason: Agitation Last Admin: 05/30/18 10:06 Dose: 0.5 mg Levothyroxine Sodium (Synthroid) 75 mcg PO DAILY@0630 [facility] Last Admin: 08/07/18 05:47 Dose: 75 mcg Metoprolol Tartrate (Lopressor) 50 mg PO Q12 [facility] Last Admin: 08/07/18 09:24 Dose: 50 mg Rivaroxaban (Xarelto) 20 mg PO QD5 [facility]; Protocol Last Admin: 08/06/18 16:56 Dose: 20 mg - Labs Labs: 08/06/18 06:40 08/06/18 06:40 PT 15.3 Seconds (9.8-13.1) H 08/06/18 06:40 INR 1.3 08/06/18 06:40 APTT 37.2 Seconds (25.6-37.1) H 08/06/18 06:40 - Constitutional Appears: No Acute Distress - Head Exam Head Exam: NORMAL INSPECTION - Eye Exam Eye Exam: PERRL - ENT Exam ENT Exam: Normal Exam - Neck Exam Neck Exam: Normal Inspection - Respiratory Exam Respiratory Exam: NORMAL BREATHING PATTERN - Cardiovascular Exam Cardiovascular Exam: REGULAR RHYTHM - GI/Abdominal Exam GI & Abdominal Exam: Soft, Normal Bowel Sounds - Extremities Exam Extremities Exam: Normal Inspection - Back Exam Back Exam: NORMAL INSPECTION - Neurological Exam Neurological Exam: Awake, CN II-XII Intact. absent: Motor Sensory Deficit Additional comments: Forgetful, steady gait, follows commands - Psychiatric Exam Psychiatric exam: Normal Mood - Skin Skin Exam: Warm Assessment and Plan (1) Change in mental status Status: Acute (2) Rhabdomyolysis Status: Resolved (3) Status post fall Status: Acute (4) Dementia Status: Chronic (5) HTN (hypertension) Status: Chronic (6) Urinary retention Status: Resolved - Assessment and Plan (Free Text) Plan: Continue Aricept, Depakote and rest of Tx.
[2018-08-08] MEDS: Levothyroxine 75 MCG TAB PO SCH (05:30)
[2018-08-08] MEDS: Divalproex 125 mg Sprinkle Capsule PO SCH ×2 (09:26→16:50)
--- NOTE | 2018-08-08 13:24 | CP.PCM.PN ---
Subjective - Date & Time of Evaluation Date of Evaluation: 08/08/18 Time of Evaluation: 10:40 - Subjective Subjective: F/U AMS Pt walking in the [place] at times, no C/O, no pain. Objective - Vital Signs/Intake and Output Vital Signs (last 24 hours): Temp Pulse Resp BP Pulse Ox 97.6 F 73 18 107/66 97 08/07/18 23:43 08/08/18 09:26 08/07/18 23:43 08/08/18 09:26 08/07/18 23:43 - Medications Medications: Current Medications Acetaminophen (Tylenol 325mg Tab) 650 mg PO Q6 PRN PRN Reason: Pain, Mild (1-3) Last Admin: 07/17/18 06:00 Dose: 650 mg Cyanocobalamin (Vitamin B12 1000 Mcg Tab) 1,000 mcg PO DAILY [facility] Last Admin: 08/08/18 09:27 Dose: 1,000 mcg Divalproex Sodium (Depakote Sprinkles) 125 mg PO BID [facility] Last Admin: 08/08/18 09:26 Dose: 125 mg Donepezil HCl (Aricept) 5 mg PO HS [facility] Last Admin: 08/07/18 21:14 Dose: 5 mg Enalapril Maleate (Vasotec) 2.5 mg PO DAILY [facility] Last Admin: 08/08/18 09:26 Dose: 2.5 mg Ergocalciferol (Drisdol 50,000 Intl Units Cap) 1 cap PO Q7D [facility] Last Admin: 08/04/18 22:42 Dose: 1 cap Haloperidol Lactate (Haldol) 0.5 mg IM Q4 PRN PRN Reason: Agitation Last Admin: 05/30/18 10:06 Dose: 0.5 mg Levothyroxine Sodium (Synthroid) 75 mcg PO DAILY@0630 [facility] Last Admin: 08/08/18 05:30 Dose: 75 mcg Metoprolol Tartrate (Lopressor) 50 mg PO Q12 [facility] Last Admin: 08/08/18 09:26 Dose: 50 mg - Labs Labs: 08/06/18 06:40 08/06/18 06:40 PT 15.3 Seconds (9.8-13.1) H 08/06/18 06:40 INR 1.3 08/06/18 06:40 APTT 37.2 Seconds (25.6-37.1) H 08/06/18 06:40 - Constitutional Appears: No Acute Distress - Head Exam Head Exam: NORMAL INSPECTION - Eye Exam Eye Exam: PERRL - ENT Exam ENT Exam: Normal Exam - Neck Exam Neck Exam: Normal Inspection - Respiratory Exam Respiratory Exam: NORMAL BREATHING PATTERN - Cardiovascular Exam Cardiovascular Exam: REGULAR RHYTHM - GI/Abdominal Exam GI & Abdominal Exam: Soft, Normal Bowel Sounds - Extremities Exam Extremities Exam: Normal Inspection - Back Exam Back Exam: NORMAL INSPECTION - Neurological Exam Neurological Exam: Awake, CN II-XII Intact. absent: Motor Sensory Deficit Additional comments: Confused at times, forgetful, follows commands. - Psychiatric Exam Psychiatric exam: Normal Mood - Skin Skin Exam: Normal Color, Warm Assessment and Plan (1) Change in mental status Status: Acute (2) Rhabdomyolysis Status: Resolved (3) Status post fall Status: Acute (4) Dementia Status: Chronic (5) HTN (hypertension) Status: Chronic (6) Urinary retention Status: Resolved - Assessment and Plan (Free Text) Plan: continue current Tx, Legal Guardianship
[2018-08-09] MEDS: Levothyroxine 75 MCG TAB PO SCH (06:26)
[2018-08-09] MEDS: Divalproex 125 mg Sprinkle Capsule PO SCH ×2 (09:20→16:52)
--- NOTE | 2018-08-09 16:49 | CP.PCM.PN ---
Subjective - Date & Time of Evaluation Date of Evaluation: 08/09/18 Time of Evaluation: 15:00 - Subjective Subjective: F/U AMS. Pt calm, cooperative, oriented to self. Objective - Vital Signs/Intake and Output Vital Signs (last 24 hours): Temp Pulse Resp BP Pulse Ox 97.8 F 65 20 136/70 92 L 08/09/18 16:33 08/09/18 16:33 08/09/18 16:33 08/09/18 16:33 08/09/18 16:33 - Medications Medications: Current Medications Acetaminophen (Tylenol 325mg Tab) 650 mg PO Q6 PRN PRN Reason: Pain, Mild (1-3) Last Admin: 07/17/18 06:00 Dose: 650 mg Cyanocobalamin (Vitamin B12 1000 Mcg Tab) 1,000 mcg PO DAILY [facility] Last Admin: 08/09/18 09:21 Dose: 1,000 mcg Divalproex Sodium (Depakote Sprinkles) 125 mg PO BID [facility] Last Admin: 08/09/18 09:20 Dose: 125 mg Donepezil HCl (Aricept) 5 mg PO HS [facility] Last Admin: 08/08/18 21:03 Dose: 5 mg Enalapril Maleate (Vasotec) 2.5 mg PO DAILY [facility] Last Admin: 08/09/18 09:21 Dose: 2.5 mg Ergocalciferol (Drisdol 50,000 Intl Units Cap) 1 cap PO Q7D [facility] Last Admin: 08/04/18 22:42 Dose: 1 cap Haloperidol Lactate (Haldol) 0.5 mg IM Q4 PRN PRN Reason: Agitation Last Admin: 05/30/18 10:06 Dose: 0.5 mg Levothyroxine Sodium (Synthroid) 75 mcg PO DAILY@0630 [facility] Last Admin: 08/09/18 06:26 Dose: 75 mcg Metoprolol Tartrate (Lopressor) 50 mg PO Q12 [facility] Last Admin: 08/09/18 09:20 Dose: 50 mg Rivaroxaban (Xarelto) 20 mg PO QD5 [facility]; Protocol Last Admin: 08/08/18 17:29 Dose: 20 mg - Labs Labs: 08/06/18 06:40 08/06/18 06:40 PT 15.3 Seconds (9.8-13.1) H 08/06/18 06:40 INR 1.3 08/06/18 06:40 APTT 37.2 Seconds (25.6-37.1) H 08/06/18 06:40 - Constitutional Appears: No Acute Distress - Head Exam Head Exam: NORMAL INSPECTION - Eye Exam Eye Exam: PERRL - ENT Exam ENT Exam: Normal Exam - Neck Exam Neck Exam: Normal Inspection - Respiratory Exam Respiratory Exam: NORMAL BREATHING PATTERN - Cardiovascular Exam Cardiovascular Exam: REGULAR RHYTHM - GI/Abdominal Exam GI & Abdominal Exam: Soft, Normal Bowel Sounds - Extremities Exam Extremities Exam: Normal Inspection - Back Exam Back Exam: NORMAL INSPECTION - Neurological Exam Neurological Exam: Awake, CN II-XII Intact. absent: Motor Sensory Deficit Additional comments: Forgetful, follows commands. - Psychiatric Exam Psychiatric exam: Normal Mood - Skin Skin Exam: Normal Color, Warm Assessment and Plan (1) Change in mental status Status: Acute (2) Rhabdomyolysis Status: Resolved (3) Status post fall Status: Acute (4) Dementia Status: Chronic (5) HTN (hypertension) Status: Chronic (6) Urinary retention Status: Resolved - Assessment and Plan (Free Text) Plan: Continue current Tx, awaiting for guardianship.
[2018-08-10] MEDS: Levothyroxine 75 MCG TAB PO SCH (05:49)
[2018-08-10] MEDS: Divalproex 125 mg Sprinkle Capsule PO SCH ×2 (08:23→16:40)
[2018-08-11] MEDS: Levothyroxine 75 MCG TAB PO SCH (05:30)
[2018-08-11] MEDS: Divalproex 125 mg Sprinkle Capsule PO SCH ×2 (09:19→16:16)
--- NOTE | 2018-08-11 15:50 | CP.PCM.PN ---
Subjective - Date & Time of Evaluation Date of Evaluation: 08/11/18 Time of Evaluation: 12:00 - Subjective Subjective: F/U AMS No A/D, N/C, calm, O x1. Objective - Vital Signs/Intake and Output Vital Signs (last 24 hours): Temp Pulse Resp BP Pulse Ox 98.4 F 84 20 134/80 97 08/11/18 08:31 08/11/18 09:20 08/11/18 08:31 08/11/18 09:20 08/11/18 08:31 - Medications Medications: Current Medications Acetaminophen (Tylenol 325mg Tab) 650 mg PO Q6 PRN PRN Reason: Pain, Mild (1-3) Last Admin: 07/17/18 06:00 Dose: 650 mg Cyanocobalamin (Vitamin B12 1000 Mcg Tab) 1,000 mcg PO DAILY [facility] Last Admin: 08/11/18 09:20 Dose: 1,000 mcg Divalproex Sodium (Depakote Sprinkles) 125 mg PO BID [facility] Last Admin: 08/11/18 09:19 Dose: 125 mg Donepezil HCl (Aricept) 5 mg PO HS [facility] Last Admin: 08/10/18 21:10 Dose: 5 mg Enalapril Maleate (Vasotec) 2.5 mg PO DAILY [facility] Last Admin: 08/11/18 09:20 Dose: 2.5 mg Ergocalciferol (Drisdol 50,000 Intl Units Cap) 1 cap PO Q7D [facility] Last Admin: 08/04/18 22:42 Dose: 1 cap Haloperidol Lactate (Haldol) 0.5 mg IM Q4 PRN PRN Reason: Agitation Last Admin: 05/30/18 10:06 Dose: 0.5 mg Levothyroxine Sodium (Synthroid) 75 mcg PO DAILY@0630 [facility] Last Admin: 08/11/18 05:30 Dose: 75 mcg Metoprolol Tartrate (Lopressor) 50 mg PO Q12 [facility] Last Admin: 08/11/18 09:20 Dose: 50 mg Rivaroxaban (Xarelto) 20 mg PO QD5 [facility]; Protocol Last Admin: 08/10/18 16:40 Dose: 20 mg - Labs Labs: 08/06/18 06:40 08/06/18 06:40 PT 15.3 Seconds (9.8-13.1) H 08/06/18 06:40 INR 1.3 08/06/18 06:40 APTT 37.2 Seconds (25.6-37.1) H 08/06/18 06:40 - Constitutional Appears: No Acute Distress - Head Exam Head Exam: NORMAL INSPECTION - Eye Exam Eye Exam: PERRL - ENT Exam ENT Exam: Normal Exam - Neck Exam Neck Exam: Normal Inspection - Respiratory Exam Respiratory Exam: NORMAL BREATHING PATTERN - Cardiovascular Exam Cardiovascular Exam: Clicks - GI/Abdominal Exam GI & Abdominal Exam: Soft, Normal Bowel Sounds - Extremities Exam Extremities Exam: Normal Inspection - Back Exam Back Exam: NORMAL INSPECTION - Neurological Exam Neurological Exam: Awake, CN II-XII Intact. absent: Motor Sensory Deficit Additional comments: Forgetful, confused - Psychiatric Exam Psychiatric exam: Normal Affect, Normal Mood - Skin Skin Exam: Normal Color, Warm Assessment and Plan (1) Change in mental status Status: Acute (2) Rhabdomyolysis Status: Resolved (3) Status post fall Status: Acute (4) Dementia Status: Chronic (5) HTN (hypertension) Status: Chronic (6) Urinary retention Status: Resolved - Assessment and Plan (Free Text) Plan: Continue Depakote, Lopressor, Vasotec and rest of Tx.
[2018-08-11] MEDS: Ergocalciferol 50,000 Intl Units Cap PO SCH (23:00)
[2018-08-12] MEDS: Levothyroxine 75 MCG TAB PO SCH (05:30)
[2018-08-12] MEDS: Divalproex 125 mg Sprinkle Capsule PO SCH ×2 (09:18→17:07)
[2018-08-13] MEDS: Levothyroxine 75 MCG TAB PO SCH (05:39)
[2018-08-13] MEDS: Divalproex 125 mg Sprinkle Capsule PO SCH ×2 (08:47→17:07)
--- NOTE | 2018-08-13 16:12 | CP.PCM.PN ---
Subjective - Date & Time of Evaluation Date of Evaluation: 08/13/18 Time of Evaluation: 10:00 - Subjective Subjective: F/U AMS Pt calm, no A/D, no pain, no c/o. Objective - Vital Signs/Intake and Output Vital Signs (last 24 hours): Temp Pulse Resp BP Pulse Ox 97.8 F 60 20 147/83 96 08/13/18 08:23 08/13/18 08:47 08/13/18 08:23 08/13/18 08:47 08/13/18 08:23 - Medications Medications: Current Medications Acetaminophen (Tylenol 325mg Tab) 650 mg PO Q6 PRN PRN Reason: Pain, Mild (1-3) Last Admin: 07/17/18 06:00 Dose: 650 mg Cyanocobalamin (Vitamin B12 1000 Mcg Tab) 1,000 mcg PO DAILY [facility] Last Admin: 08/13/18 08:48 Dose: 1,000 mcg Divalproex Sodium (Depakote Sprinkles) 125 mg PO BID [facility] Last Admin: 08/13/18 08:47 Dose: 125 mg Donepezil HCl (Aricept) 5 mg PO HS [facility] Last Admin: 08/12/18 21:09 Dose: 5 mg Enalapril Maleate (Vasotec) 2.5 mg PO DAILY [facility] Last Admin: 08/13/18 08:48 Dose: 2.5 mg Ergocalciferol (Drisdol 50,000 Intl Units Cap) 1 cap PO Q7D [facility] Last Admin: 08/11/18 23:00 Dose: 1 cap Haloperidol Lactate (Haldol) 0.5 mg IM Q4 PRN PRN Reason: Agitation Last Admin: 05/30/18 10:06 Dose: 0.5 mg Levothyroxine Sodium (Synthroid) 75 mcg PO DAILY@0630 [facility] Last Admin: 08/13/18 05:39 Dose: 75 mcg Metoprolol Tartrate (Lopressor) 50 mg PO Q12 [facility] Last Admin: 08/13/18 08:47 Dose: 50 mg Rivaroxaban (Xarelto) 20 mg PO QD5 [facility]; Protocol Last Admin: 08/12/18 17:07 Dose: 20 mg - Labs Labs: 08/06/18 06:40 08/06/18 06:40 PT 15.3 Seconds (9.8-13.1) H 08/06/18 06:40 INR 1.3 08/06/18 06:40 APTT 37.2 Seconds (25.6-37.1) H 08/06/18 06:40 - Constitutional Appears: No Acute Distress, Chronically Ill - Head Exam Head Exam: NORMAL INSPECTION - Eye Exam Eye Exam: PERRL - ENT Exam ENT Exam: Normal Exam - Neck Exam Neck Exam: Normal Inspection - Respiratory Exam Respiratory Exam: NORMAL BREATHING PATTERN - Cardiovascular Exam Cardiovascular Exam: REGULAR RHYTHM - GI/Abdominal Exam GI & Abdominal Exam: Soft, Normal Bowel Sounds - Extremities Exam Extremities Exam: Normal Inspection - Back Exam Back Exam: NORMAL INSPECTION - Neurological Exam Neurological Exam: Awake, CN II-XII Intact. absent: Motor Sensory Deficit Additional comments: Forgetful, confused, follows commands - Psychiatric Exam Psychiatric exam: Normal Mood - Skin Skin Exam: Warm Assessment and Plan (1) Change in mental status Status: Acute (2) Rhabdomyolysis Status: Resolved (3) Status post fall Status: Acute (4) Dementia Status: Chronic (5) HTN (hypertension) Status: Chronic (6) Urinary retention Status: Resolved - Assessment and Plan (Free Text) Plan: Continue Aricept, Depakote and rest of Tx, awaiting for legal guardianship.
[2018-08-14] MEDS: Levothyroxine 75 MCG TAB PO SCH (06:06)
[2018-08-14] MEDS: Divalproex 125 mg Sprinkle Capsule PO SCH ×2 (08:42→16:29)
--- NOTE | 2018-08-14 15:43 | CP.PCM.PN ---
Subjective - Date & Time of Evaluation Date of Evaluation: 08/14/18 Time of Evaluation: 13:20 - Subjective Subjective: F/U AMS Awake, calm, forgetful, no c/o. Objective - Vital Signs/Intake and Output Vital Signs (last 24 hours): Temp Pulse Resp BP Pulse Ox 98.6 F 89 20 177/77 H 94 L 08/14/18 08:18 08/14/18 08:18 08/14/18 08:18 08/14/18 08:18 08/14/18 08:18 - Medications Medications: Current Medications Acetaminophen (Tylenol 325mg Tab) 650 mg PO Q6 PRN PRN Reason: Pain, Mild (1-3) Last Admin: 07/17/18 06:00 Dose: 650 mg Cyanocobalamin (Vitamin B12 1000 Mcg Tab) 1,000 mcg PO DAILY [facility] Last Admin: 08/14/18 08:43 Dose: 1,000 mcg Divalproex Sodium (Depakote Sprinkles) 125 mg PO BID [facility] Last Admin: 08/14/18 08:42 Dose: 125 mg Donepezil HCl (Aricept) 5 mg PO HS [facility] Last Admin: 08/13/18 21:22 Dose: 5 mg Enalapril Maleate (Vasotec) 2.5 mg PO DAILY [facility] Last Admin: 08/14/18 08:42 Dose: 2.5 mg Ergocalciferol (Drisdol 50,000 Intl Units Cap) 1 cap PO Q7D [facility] Last Admin: 08/11/18 23:00 Dose: 1 cap Haloperidol Lactate (Haldol) 0.5 mg IM Q4 PRN PRN Reason: Agitation Last Admin: 05/30/18 10:06 Dose: 0.5 mg Levothyroxine Sodium (Synthroid) 75 mcg PO DAILY@0630 [facility] Last Admin: 08/14/18 06:06 Dose: 75 mcg Metoprolol Tartrate (Lopressor) 50 mg PO Q12 [facility] Last Admin: 08/14/18 08:43 Dose: 50 mg Rivaroxaban (Xarelto) 20 mg PO QD5 [facility]; Protocol Last Admin: 08/13/18 17:07 Dose: 20 mg - Labs Labs: 08/06/18 06:40 08/06/18 06:40 PT 15.3 Seconds (9.8-13.1) H 08/06/18 06:40 INR 1.3 08/06/18 06:40 APTT 37.2 Seconds (25.6-37.1) H 08/06/18 06:40 - Constitutional Appears: No Acute Distress, Chronically Ill - Head Exam Head Exam: NORMAL INSPECTION - Eye Exam Eye Exam: PERRL - ENT Exam ENT Exam: Normal Exam - Neck Exam Neck Exam: Normal Inspection - Respiratory Exam Respiratory Exam: NORMAL BREATHING PATTERN - Cardiovascular Exam Cardiovascular Exam: REGULAR RHYTHM - GI/Abdominal Exam GI & Abdominal Exam: Soft, Normal Bowel Sounds - Extremities Exam Extremities Exam: Normal Inspection - Back Exam Back Exam: NORMAL INSPECTION - Neurological Exam Neurological Exam: Awake, CN II-XII Intact. absent: Motor Sensory Deficit Additional comments: Forgetful, follows commands. - Psychiatric Exam Psychiatric exam: Normal Mood - Skin Skin Exam: Warm Assessment and Plan (1) Change in mental status Status: Acute (2) Rhabdomyolysis Status: Resolved (3) Status post fall Status: Acute (4) Dementia Status: Chronic (5) HTN (hypertension) Status: Chronic (6) Urinary retention Status: Resolved - Assessment and Plan (Free Text) Plan: Awaiting for guardianship.
[2018-08-15] MEDS: Levothyroxine 75 MCG TAB PO SCH (05:34)
[2018-08-15] MEDS: Divalproex 125 mg Sprinkle Capsule PO SCH ×2 (08:25→16:04)
[2018-08-16] MEDS: Levothyroxine 75 MCG TAB PO SCH ×2 (06:15→06:18)
[2018-08-16] MEDS: Divalproex 125 mg Sprinkle Capsule PO SCH ×2 (09:43→16:27)
--- NOTE | 2018-08-16 14:39 | CP.PCM.PN ---
Subjective - Date & Time of Evaluation Date of Evaluation: 08/16/18 Time of Evaluation: 14:10 - Subjective Subjective: F/U AMS Pt awake, no c/o, calm. Objective - Vital Signs/Intake and Output Vital Signs (last 24 hours): Temp Pulse Resp BP Pulse Ox 97.4 F L 65 18 132/77 98 08/16/18 08:43 08/16/18 09:43 08/16/18 08:43 08/16/18 09:43 08/16/18 08:43 - Medications Medications: Current Medications Acetaminophen (Tylenol 325mg Tab) 650 mg PO Q6 PRN PRN Reason: Pain, Mild (1-3) Last Admin: 07/17/18 06:00 Dose: 650 mg Cyanocobalamin (Vitamin B12 1000 Mcg Tab) 1,000 mcg PO DAILY [facility] Last Admin: 08/16/18 10:16 Dose: 1,000 mcg Divalproex Sodium (Depakote Sprinkles) 125 mg PO BID [facility] Last Admin: 08/16/18 09:43 Dose: 125 mg Donepezil HCl (Aricept) 5 mg PO HS [facility] Last Admin: 08/15/18 21:02 Dose: 5 mg Enalapril Maleate (Vasotec) 2.5 mg PO DAILY [facility] Last Admin: 08/16/18 09:43 Dose: 2.5 mg Ergocalciferol (Drisdol 50,000 Intl Units Cap) 1 cap PO Q7D [facility] Last Admin: 08/11/18 23:00 Dose: 1 cap Haloperidol Lactate (Haldol) 0.5 mg IM Q4 PRN PRN Reason: Agitation Last Admin: 05/30/18 10:06 Dose: 0.5 mg Levothyroxine Sodium (Synthroid) 75 mcg PO DAILY@0630 [facility] Last Admin: 08/16/18 06:18 Dose: Not Given Metoprolol Tartrate (Lopressor) 50 mg PO Q12 [facility] Last Admin: 08/16/18 09:43 Dose: 50 mg Rivaroxaban (Xarelto) 20 mg PO QD5 [facility]; Protocol Last Admin: 08/15/18 16:04 Dose: 20 mg - Labs Labs: 08/06/18 06:40 08/06/18 06:40 PT 15.3 Seconds (9.8-13.1) H 08/06/18 06:40 INR 1.3 08/06/18 06:40 APTT 37.2 Seconds (25.6-37.1) H 08/06/18 06:40 - Constitutional Appears: No Acute Distress, Chronically Ill - Head Exam Head Exam: NORMAL INSPECTION - Eye Exam Eye Exam: PERRL - ENT Exam ENT Exam: Normal Exam - Neck Exam Neck Exam: Normal Inspection - Respiratory Exam Respiratory Exam: NORMAL BREATHING PATTERN - Cardiovascular Exam Cardiovascular Exam: REGULAR RHYTHM - GI/Abdominal Exam GI & Abdominal Exam: Soft, Normal Bowel Sounds - Extremities Exam Extremities Exam: Normal Inspection - Back Exam Back Exam: NORMAL INSPECTION - Neurological Exam Neurological Exam: Awake, CN II-XII Intact. absent: Motor Sensory Deficit Additional comments: Confused, forgetful - Psychiatric Exam Psychiatric exam: Normal Mood - Skin Skin Exam: Warm Assessment and Plan (1) Change in mental status Status: Acute (2) Rhabdomyolysis Status: Resolved (3) Status post fall Status: Acute (4) Dementia Status: Chronic (5) HTN (hypertension) Status: Chronic (6) Urinary retention Status: Resolved - Assessment and Plan (Free Text) Plan: Awaiting for guardianship.
[2018-08-17] MEDS: Levothyroxine 75 MCG TAB PO SCH (06:20)
[2018-08-17] MEDS: Divalproex 125 mg Sprinkle Capsule PO SCH ×2 (09:09→16:13)
--- NOTE | 2018-08-17 16:50 | CP.PCM.PN ---
Subjective - Date & Time of Evaluation Date of Evaluation: 08/17/18 Time of Evaluation: 14:00 - Subjective Subjective: F/U AMS Forgetful, confused, no c/o, no pain. Objective - Vital Signs/Intake and Output Vital Signs (last 24 hours): Temp Pulse Resp BP Pulse Ox 97.5 F L 72 20 114/73 97 08/17/18 08:12 08/17/18 11:13 08/17/18 08:12 08/17/18 11:13 08/17/18 08:12 - Medications Medications: Current Medications Acetaminophen (Tylenol 325mg Tab) 650 mg PO Q6 PRN PRN Reason: Pain, Mild (1-3) Last Admin: 07/17/18 06:00 Dose: 650 mg Cyanocobalamin (Vitamin B12 1000 Mcg Tab) 1,000 mcg PO DAILY [facility] Last Admin: 08/17/18 09:10 Dose: 1,000 mcg Divalproex Sodium (Depakote Sprinkles) 125 mg PO BID [facility] Last Admin: 08/17/18 16:13 Dose: 125 mg Donepezil HCl (Aricept) 5 mg PO HS [facility] Last Admin: 08/16/18 21:27 Dose: 5 mg Enalapril Maleate (Vasotec) 2.5 mg PO DAILY [facility] Last Admin: 08/17/18 09:10 Dose: 2.5 mg Ergocalciferol (Drisdol 50,000 Intl Units Cap) 1 cap PO Q7D [facility] Last Admin: 08/11/18 23:00 Dose: 1 cap Haloperidol Lactate (Haldol) 0.5 mg IM Q4 PRN PRN Reason: Agitation Last Admin: 05/30/18 10:06 Dose: 0.5 mg Levothyroxine Sodium (Synthroid) 75 mcg PO DAILY@0630 [facility] Last Admin: 08/17/18 06:20 Dose: 75 mcg Metoprolol Tartrate (Lopressor) 50 mg PO Q12 [facility] Last Admin: 08/17/18 09:10 Dose: 50 mg Rivaroxaban (Xarelto) 20 mg PO QD5 [facility]; Protocol Last Admin: 08/17/18 16:13 Dose: 20 mg - Labs Labs: 08/06/18 06:40 08/06/18 06:40 PT 15.3 Seconds (9.8-13.1) H 08/06/18 06:40 INR 1.3 08/06/18 06:40 APTT 37.2 Seconds (25.6-37.1) H 08/06/18 06:40 - Constitutional Appears: No Acute Distress, Chronically Ill - Head Exam Head Exam: NORMAL INSPECTION - Eye Exam Eye Exam: PERRL - ENT Exam ENT Exam: Normal Exam - Neck Exam Neck Exam: Normal Inspection - Respiratory Exam Respiratory Exam: NORMAL BREATHING PATTERN - Cardiovascular Exam Cardiovascular Exam: REGULAR RHYTHM - Extremities Exam Extremities Exam: Normal Inspection - Back Exam Back Exam: NORMAL INSPECTION - Neurological Exam Neurological Exam: Awake, CN II-XII Intact, Motor Sensory Deficit, Reflexes Normal Additional comments: Forgetful, follows commands. - Psychiatric Exam Psychiatric exam: Normal Mood - Skin Skin Exam: Warm Assessment and Plan (1) Change in mental status Status: Acute (2) Rhabdomyolysis Status: Resolved (3) Status post fall Status: Acute (4) Dementia Status: Chronic (5) HTN (hypertension) Status: Chronic (6) Urinary retention Status: Resolved - Assessment and Plan (Free Text) Plan: Continue Lopressor, Vasotec, Synthroid and rest of Tx.
[2018-08-18] MEDS: Levothyroxine 75 MCG TAB PO SCH (06:03)
[2018-08-18] MEDS: Divalproex 125 mg Sprinkle Capsule PO SCH ×2 (08:00→16:00)
--- NOTE | 2018-08-18 18:09 | CP.PCM.PN ---
Subjective - Date & Time of Evaluation Date of Evaluation: 08/18/18 Time of Evaluation: 13:00 - Subjective Subjective: F/U AMS. No A/D, N/C, VS normal. Objective - Vital Signs/Intake and Output Vital Signs (last 24 hours): Temp Pulse Resp BP Pulse Ox 98.5 F 64 18 122/72 97 08/18/18 16:05 08/18/18 16:05 08/18/18 16:05 08/18/18 16:05 08/18/18 16:05 - Medications Medications: Current Medications Acetaminophen (Tylenol 325mg Tab) 650 mg PO Q6 PRN PRN Reason: Pain, Mild (1-3) Last Admin: 07/17/18 06:00 Dose: 650 mg Cyanocobalamin (Vitamin B12 1000 Mcg Tab) 1,000 mcg PO DAILY [facility] Last Admin: 08/18/18 08:01 Dose: 1,000 mcg Divalproex Sodium (Depakote Sprinkles) 125 mg PO BID [facility] Last Admin: 08/18/18 16:00 Dose: 125 mg Donepezil HCl (Aricept) 5 mg PO HS [facility] Last Admin: 08/17/18 21:03 Dose: 5 mg Enalapril Maleate (Vasotec) 2.5 mg PO DAILY [facility] Last Admin: 08/18/18 08:01 Dose: 2.5 mg Ergocalciferol (Drisdol 50,000 Intl Units Cap) 1 cap PO Q7D [facility] Last Admin: 08/11/18 23:00 Dose: 1 cap Haloperidol Lactate (Haldol) 0.5 mg IM Q4 PRN PRN Reason: Agitation Last Admin: 05/30/18 10:06 Dose: 0.5 mg Levothyroxine Sodium (Synthroid) 75 mcg PO DAILY@0630 [facility] Last Admin: 08/18/18 06:03 Dose: 75 mcg Metoprolol Tartrate (Lopressor) 50 mg PO Q12 [facility] Last Admin: 08/18/18 08:00 Dose: 50 mg Rivaroxaban (Xarelto) 20 mg PO QD5 [facility]; Protocol Last Admin: 08/18/18 16:00 Dose: 20 mg - Labs Labs: 08/06/18 06:40 08/06/18 06:40 PT 15.3 Seconds (9.8-13.1) H 08/06/18 06:40 INR 1.3 08/06/18 06:40 APTT 37.2 Seconds (25.6-37.1) H 08/06/18 06:40 - Constitutional Appears: No Acute Distress, Chronically Ill - Head Exam Head Exam: NORMAL INSPECTION - Eye Exam Eye Exam: PERRL - ENT Exam ENT Exam: Normal Exam - Neck Exam Neck Exam: Normal Inspection - Respiratory Exam Respiratory Exam: NORMAL BREATHING PATTERN - Cardiovascular Exam Cardiovascular Exam: REGULAR RHYTHM - GI/Abdominal Exam GI & Abdominal Exam: Soft, Normal Bowel Sounds - Extremities Exam Extremities Exam: Normal Inspection - Back Exam Back Exam: NORMAL INSPECTION - Neurological Exam Neurological Exam: Awake, CN II-XII Intact, Reflexes Normal. absent: Motor Sensory Deficit Additional comments: Forgetful, follows commands. - Psychiatric Exam Psychiatric exam: Normal Mood - Skin Skin Exam: Warm Assessment and Plan (1) Change in mental status Status: Acute (2) Rhabdomyolysis Status: Resolved (3) Status post fall Status: Acute (4) Dementia Status: Chronic (5) HTN (hypertension) Status: Chronic (6) Urinary retention Status: Resolved - Assessment and Plan (Free Text) Plan: Continue depakote, Vit B 12, Xarelto and rest of Tx.
[2018-08-18] MEDS: Ergocalciferol 50,000 Intl Units Cap PO SCH (23:24)
[2018-08-19] MEDS: Levothyroxine 75 MCG TAB PO SCH (05:33)
[2018-08-19] MEDS: Divalproex 125 mg Sprinkle Capsule PO SCH ×2 (08:29→16:06)
--- NOTE | 2018-08-19 16:54 | CP.PCM.PN ---
Subjective - Date & Time of Evaluation Date of Evaluation: 08/19/18 Time of Evaluation: 13:30 - Subjective Subjective: F/U AMS Pt awake, oriented to person, no SOB, no pain, no c/o. Objective - Vital Signs/Intake and Output Vital Signs (last 24 hours): Temp Pulse Resp BP Pulse Ox 97.3 F L 66 20 165/85 H 98 08/19/18 16:30 08/19/18 16:30 08/19/18 16:30 08/19/18 16:30 08/19/18 16:30 - Medications Medications: Current Medications Acetaminophen (Tylenol 325mg Tab) 650 mg PO Q6 PRN PRN Reason: Pain, Mild (1-3) Last Admin: 07/17/18 06:00 Dose: 650 mg Cyanocobalamin (Vitamin B12 1000 Mcg Tab) 1,000 mcg PO DAILY [facility] Last Admin: 08/19/18 08:29 Dose: 1,000 mcg Divalproex Sodium (Depakote Sprinkles) 125 mg PO BID [facility] Last Admin: 08/19/18 16:06 Dose: 125 mg Donepezil HCl (Aricept) 5 mg PO HS [facility] Last Admin: 08/18/18 21:00 Dose: 5 mg Enalapril Maleate (Vasotec) 2.5 mg PO DAILY [facility] Last Admin: 08/19/18 08:29 Dose: 2.5 mg Ergocalciferol (Drisdol 50,000 Intl Units Cap) 1 cap PO Q7D [facility] Last Admin: 08/18/18 23:24 Dose: 1 cap Haloperidol Lactate (Haldol) 0.5 mg IM Q4 PRN PRN Reason: Agitation Last Admin: 05/30/18 10:06 Dose: 0.5 mg Levothyroxine Sodium (Synthroid) 75 mcg PO DAILY@0630 [facility] Last Admin: 08/19/18 05:33 Dose: 75 mcg Metoprolol Tartrate (Lopressor) 50 mg PO Q12 [facility] Last Admin: 08/19/18 08:28 Dose: 50 mg Rivaroxaban (Xarelto) 20 mg PO QD5 [facility]; Protocol Last Admin: 08/18/18 16:00 Dose: 20 mg - Labs Labs: 08/06/18 06:40 08/06/18 06:40 PT 15.3 Seconds (9.8-13.1) H 04/10/19 06:40 INR 1.3 08/06/18 06:40 APTT 37.2 Seconds (25.6-37.1) H 08/06/18 06:40 - Constitutional Appears: No Acute Distress, Chronically Ill - Head Exam Head Exam: NORMAL INSPECTION - Eye Exam Eye Exam: PERRL - ENT Exam ENT Exam: Normal Exam - Neck Exam Neck Exam: Normal Inspection - Respiratory Exam Respiratory Exam: NORMAL BREATHING PATTERN - Cardiovascular Exam Cardiovascular Exam: REGULAR RHYTHM - GI/Abdominal Exam GI & Abdominal Exam: Soft, Normal Bowel Sounds - Extremities Exam Extremities Exam: Normal Inspection - Back Exam Back Exam: NORMAL INSPECTION - Neurological Exam Neurological Exam: Awake, CN II-XII Intact, Reflexes Normal. absent: Motor Sensory Deficit Additional comments: Forgetful, steady gait - Psychiatric Exam Psychiatric exam: Normal Mood - Skin Skin Exam: Warm Assessment and Plan (1) Change in mental status Status: Acute (2) Rhabdomyolysis Status: Resolved (3) Status post fall Status: Acute (4) Dementia Status: Chronic (5) HTN (hypertension) Status: Chronic (6) Urinary retention Status: Resolved - Assessment and Plan (Free Text) Plan: Continue Depakote, Vit B12, Lopressor Vasotec and rest of Tx, for Legal Guardianship
[2018-08-20] MEDS: Levothyroxine 75 MCG TAB PO SCH (05:35)
[2018-08-20] MEDS: Divalproex 125 mg Sprinkle Capsule PO SCH ×2 (08:38→16:47)
[2018-08-21] MEDS: Levothyroxine 75 MCG TAB PO SCH (07:08)
[2018-08-21] MEDS: Divalproex 125 mg Sprinkle Capsule PO SCH ×2 (08:34→16:32)
--- NOTE | 2018-08-21 20:54 | CP.PCM.PN ---
Subjective - Date & Time of Evaluation Date of Evaluation: 08/21/18 Time of Evaluation: 12:40 - Subjective Subjective: F/U AMS Pt awake, forgetful, denied any disconfort. Objective - Vital Signs/Intake and Output Vital Signs (last 24 hours): Temp Pulse Resp BP Pulse Ox 98.4 F 75 18 139/78 94 L 08/21/18 16:24 08/21/18 20:11 08/21/18 16:24 08/21/18 20:11 08/21/18 16:24 - Medications Medications: Current Medications Acetaminophen (Tylenol 325mg Tab) 650 mg PO Q6 PRN PRN Reason: Pain, Mild (1-3) Last Admin: 07/17/18 06:00 Dose: 650 mg Cyanocobalamin (Vitamin B12 1000 Mcg Tab) 1,000 mcg PO DAILY [facility] Last Admin: 08/21/18 08:34 Dose: 1,000 mcg Divalproex Sodium (Depakote Sprinkles) 125 mg PO BID [facility] Last Admin: 08/21/18 16:32 Dose: 125 mg Donepezil HCl (Aricept) 5 mg PO HS [facility] Last Admin: 08/20/18 20:59 Dose: 5 mg Enalapril Maleate (Vasotec) 2.5 mg PO DAILY [facility] Last Admin: 08/21/18 08:34 Dose: 2.5 mg Ergocalciferol (Drisdol 50,000 Intl Units Cap) 1 cap PO Q7D [facility] Last Admin: 08/18/18 23:24 Dose: 1 cap Haloperidol Lactate (Haldol) 0.5 mg IM Q4 PRN PRN Reason: Agitation Last Admin: 05/30/18 10:06 Dose: 0.5 mg Levothyroxine Sodium (Synthroid) 75 mcg PO DAILY@0630 [facility] Last Admin: 08/21/18 07:08 Dose: 75 mcg Metoprolol Tartrate (Lopressor) 50 mg PO Q12 [facility] Last Admin: 08/21/18 20:11 Dose: 50 mg Rivaroxaban (Xarelto) 20 mg PO QD5 [facility]; Protocol Last Admin: 08/21/18 16:32 Dose: 20 mg - Labs Labs: 08/06/18 06:40 08/06/18 06:40 PT 15.3 Seconds (9.8-13.1) H 08/06/18 06:40 INR 1.3 08/06/18 06:40 APTT 37.2 Seconds (25.6-37.1) H 08/06/18 06:40 - Constitutional Appears: No Acute Distress - Head Exam Head Exam: NORMAL INSPECTION - Eye Exam Eye Exam: PERRL - ENT Exam ENT Exam: Normal Exam - Neck Exam Neck Exam: Normal Inspection - Respiratory Exam Respiratory Exam: NORMAL BREATHING PATTERN - Cardiovascular Exam Cardiovascular Exam: REGULAR RHYTHM - GI/Abdominal Exam GI & Abdominal Exam: Soft, Normal Bowel Sounds - Extremities Exam Extremities Exam: Normal Inspection - Back Exam Back Exam: NORMAL INSPECTION - Neurological Exam Neurological Exam: Awake, CN II-XII Intact, Reflexes Normal. absent: Motor S ensory Deficit Additional comments: Follows commands - Psychiatric Exam Additional comments: Calm - Skin Skin Exam: Warm Assessment and Plan (1) Change in mental status Status: Acute (2) Rhabdomyolysis Status: Resolved (3) Status post fall Status: Acute (4) Dementia Status: Chronic (5) HTN (hypertension) Status: Chronic (6) Urinary retention Status: Resolved - Assessment and Plan (Free Text) Plan: ontinue Aricept, Depakote and rest of Tx, awaiting for guardianship.
[2018-08-22] MEDS: Levothyroxine 75 MCG TAB PO SCH (05:38)
[2018-08-22 06:23] LABS: BASO # 0.1 K/uL (0.0-0.2); BASO % 0.9 % (0.0-2.0); EOS # 0.1 K/uL (0.0-0.7); HEMOGLOBIN 12.9 g/dL (12.0-16.0); LYMPH # 2.1 K/uL (1.0-4.3); LYMPH % 35.8 % (20.0-40.0); MEAN CELL VOLUME 91.9 fl (81.0-99.0); MEAN CORPUSCULAR HEMOGLOBIN 30.5 pg (27.0-31.0); MEAN CORPUSCULAR HGB CONC 33.2 g/dL (33.0-37.0); MEAN PLATELET VOLUME 10.1 fl (7.2-11.7); MONO # 0.5 K/uL (0.0-0.8); MONO % 9.4 % (0.0-10.0); NEUT % 51.9 % (50.0-75.0); NRBC % 0.1 % (0.0-0.0); RBC 4.23 Mil/uL (3.80-5.20); RED CELL DISTRIBUTION WIDTH 14.3 % (11.5-14.5); WHITE BLOOD COUNT 5.9 K/uL (4.8-10.8)
[2018-08-22 06:50] LABS: ALB/GLOB RATIO 1.1 (1.0-2.1); ALBUMIN 3.6 g/dL (3.5-5.0); ALT/SGPT 32 U/L (9-52); AST/SGOT 32 U/L (14-36); BLOOD UREA NITROGEN 25 mg/dl (7-17); GFR NON-AFRICAN AMERICAN > 60
[2018-08-22] MEDS: Divalproex 125 mg Sprinkle Capsule PO SCH ×2 (09:19→16:35)
--- NOTE | 2018-08-22 13:54 | CP.PCM.PN ---
Subjective - Date & Time of Evaluation Date of Evaluation: 08/22/18 Time of Evaluation: 13:00 - Subjective Subjective: F/U AMS Pt awake, no A/D, O x1 Objective - Vital Signs/Intake and Output Vital Signs (last 24 hours): Temp Pulse Resp BP Pulse Ox 97.5 F L 84 20 126/68 95 08/22/18 07:56 08/22/18 09:19 08/22/18 07:56 08/22/18 09:19 08/22/18 07:56 - Medications Medications: Current Medications Acetaminophen (Tylenol 325mg Tab) 650 mg PO Q6 PRN PRN Reason: Pain, Mild (1-3) Last Admin: 07/17/18 06:00 Dose: 650 mg Cyanocobalamin (Vitamin B12 1000 Mcg Tab) 1,000 mcg PO [facility]ILY [facility] Last Admin: 08/22/18 09:20 Dose: 1,000 mcg Divalproex Sodium (Depakote Sprinkles) 125 mg PO BID [facility] Last Admin: 08/22/18 09:19 Dose: 125 mg Donepezil HCl (Aricept) 5 mg PO HS [facility] Last Admin: 08/21/18 21:00 Dose: 5 mg Enalapril Maleate (Vasotec) 2.5 mg PO DAILY [facility] Last Admin: 08/22/18 09:19 Dose: 2.5 mg Ergocalciferol (Drisdol 50,000 Intl Units Cap) 1 cap PO Q7D [facility] Last Admin: 08/18/18 23:24 Dose: 1 cap Haloperidol Lactate (Haldol) 0.5 mg IM Q4 PRN PRN Reason: Agitation Last Admin: 05/30/18 10:06 Dose: 0.5 mg Levothyroxine Sodium (Synthroid) 75 mcg PO DAILY@0630 [facility] Last Admin: 08/22/18 05:38 Dose: 75 mcg Metoprolol Tartrate (Lopressor) 50 mg PO Q12 [facility] Last Admin: 08/22/18 09:19 Dose: 50 mg Rivaroxaban (Xarelto) 20 mg PO QD5 [facility]; Protocol Last Admin: 08/21/18 16:32 Dose: 20 mg - Labs Labs: 08/22/18 04:50 08/22/18 04:50 PT 15.3 Seconds (9.8-13.1) H 08/06/18 06:40 INR 1.3 08/06/18 06:40 APTT 37.2 Seconds (25.6-37.1) H 08/06/18 06:40 - Constitutional Appears: No Acute Distress - Head Exam Head Exam: NORMAL INSPECTION - Eye Exam Eye Exam: PERRL - ENT Exam ENT Exam: Normal Exam - Neck Exam Neck Exam: Normal Inspection - Respiratory Exam Respiratory Exam: NORMAL BREATHING PATTERN - Cardiovascular Exam Cardiovascular Exam: REGULAR RHYTHM - GI/Abdominal Exam GI & Abdominal Exam: Soft, Normal Bowel Sounds - Extremities Exam Extremities Exam: Normal Inspection - Back Exam Back Exam: NORMAL INSPECTION - Neurological Exam Neurological Exam: Alert, Awake, CN II-XII Intact. absent: Motor Sensory Deficit Additional comments: O x1, follows commands. - Psychiatric Exam Psychiatric exam: Normal Mood - Skin Skin Exam: Warm Assessment and Plan (1) Change in mental status Status: Acute (2) Rhabdomyolysis Status: Resolved (3) Status post fall Status: Acute (4) Dementia Status: Chronic (5) HTN (hypertension) Status: Chronic (6) Urinary retention Status: Resolved - Assessment and Plan (Free Text) Plan: Continue Aricept, Depakote, Lopressor, Vasotec and rest of Tx.
[2018-08-23] MEDS: Levothyroxine 75 MCG TAB PO SCH (06:35)
[2018-08-23] MEDS: Divalproex 125 mg Sprinkle Capsule PO SCH ×2 (08:39→16:28)
--- NOTE | 2018-08-23 15:25 | CP.PCM.PN ---
Subjective - Date & Time of Evaluation Date of Evaluation: 08/23/18 Time of Evaluation: 14:10 - Subjective Subjective: F/U AMS Pt Calm, no A/D, no pain, no SOB. Objective - Vital Signs/Intake and Output Vital Signs (last 24 hours): Temp Pulse Resp BP Pulse Ox 98.2 F 79 20 131/84 97 08/23/18 07:43 08/23/18 08:38 08/23/18 07:43 08/23/18 08:38 08/23/18 07:43 - Medications Medications: Current Medications Acetaminophen (Tylenol 325mg Tab) 650 mg PO Q6 PRN PRN Reason: Pain, Mild (1-3) Last Admin: 07/17/18 06:00 Dose: 650 mg Cyanocobalamin (Vitamin B12 1000 Mcg Tab) 1,000 mcg PO DAILY [facility] Last Admin: 08/23/18 08:40 Dose: 1,000 mcg Divalproex Sodium (Depakote Sprinkles) 125 mg PO BID [facility] Last Admin: 08/23/18 08:39 Dose: 125 mg Donepezil HCl (Aricept) 5 mg PO HS [facility] Last Admin: 08/22/18 21:29 Dose: 5 mg Enalapril Maleate (Vasotec) 2.5 mg PO DAILY [facility] Last Admin: 08/23/18 08:40 Dose: 2.5 mg Ergocalciferol (Drisdol 50,000 Intl Units Cap) 1 cap PO Q7D [facility] Last Admin: 08/18/18 23:24 Dose: 1 cap Haloperidol Lactate (Haldol) 0.5 mg IM Q4 PRN PRN Reason: Agitation Last Admin: 05/30/18 10:06 Dose: 0.5 mg Levothyroxine Sodium (Synthroid) 75 mcg PO DAILY@0630 [facility] Last Admin: 08/23/18 06:35 Dose: 75 mcg Metoprolol Tartrate (Lopressor) 50 mg PO Q12 [facility] Last Admin: 08/23/18 08:38 Dose: 50 mg Rivaroxaban (Xarelto) 20 mg PO QD5 [facility]; Protocol Last Admin: 08/22/18 16:35 Dose: 20 mg - Labs Labs: 08/22/18 04:50 08/22/18 04:50 PT 15.3 Seconds (9.8-13.1) H 08/06/18 06:40 INR 1.3 08/06/18 06:40 APTT 37.2 Seconds (25.6-37.1) H 08/06/18 06:40 - Constitutional Appears: No Acute Distress - Head Exam Head Exam: NORMAL INSPECTION - Eye Exam Eye Exam: PERRL - ENT Exam ENT Exam: Normal Exam - Neck Exam Neck Exam: Normal Inspection - Respiratory Exam Respiratory Exam: NORMAL BREATHING PATTERN - Cardiovascular Exam Cardiovascular Exam: REGULAR RHYTHM - GI/Abdominal Exam GI & Abdominal Exam: Soft, Normal Bowel Sounds - Extremities Exam Extremities Exam: Normal Inspection - Back Exam Back Exam: NORMAL INSPECTION - Neurological Exam Neurological Exam: Awake, CN II-XII Intact, Reflexes Normal. absent: Motor Sensory Deficit Additional comments: Follows commands. - Psychiatric Exam Psychiatric exam: Normal Mood - Skin Skin Exam: Normal Color, Warm Assessment and Plan (1) Change in mental status Status: Acute (2) Rhabdomyolysis Status: Resolved (3) Status post fall Status: Acute (4) Dementia Status: Chronic (5) HTN (hypertension) Status: Chronic (6) Urinary retention Status: Resolved - Assessment and Plan (Free Text) Plan: Continue current Tx, awaiting for guardianship.
[2018-08-24] MEDS: Levothyroxine 75 MCG TAB PO SCH (05:33)
[2018-08-24] MEDS: Divalproex 125 mg Sprinkle Capsule PO SCH ×2 (08:32→16:32)
--- NOTE | 2018-08-24 15:26 | CP.PCM.PN ---
Subjective - Date & Time of Evaluation Date of Evaluation: 08/24/18 Time of Evaluation: 15:00 - Subjective Subjective: F/U AMS No A/D, no c/o, no pain, no discomfort. Objective - Vital Signs/Intake and Output Vital Signs (last 24 hours): Temp Pulse Resp BP Pulse Ox 98.1 F 79 19 158/72 H 98 08/24/18 07:55 08/24/18 08:32 08/24/18 07:55 08/24/18 08:32 08/24/18 07:55 - Medications Medications: Current Medications Acetaminophen (Tylenol 325mg Tab) 650 mg PO Q6 PRN PRN Reason: Pain, Mild (1-3) Last Admin: 07/17/18 06:00 Dose: 650 mg Cyanocobalamin (Vitamin B12 1000 Mcg Tab) 1,000 mcg PO DAILY [facility] Last Admin: 08/24/18 08:33 Dose: 1,000 mcg Divalproex Sodium (Depakote Sprinkles) 125 mg PO BID [facility] Last Admin: 08/24/18 08:32 Dose: 125 mg Donepezil HCl (Aricept) 5 mg PO HS [facility] Last Admin: 08/23/18 21:20 Dose: 5 mg Enalapril Maleate (Vasotec) 2.5 mg PO DAILY [facility] Last Admin: 08/24/18 08:33 Dose: 2.5 mg Ergocalciferol (Drisdol 50,000 Intl Units Cap) 1 cap PO Q7D [facility] Last Admin: 08/18/18 23:24 Dose: 1 cap Haloperidol Lactate (Haldol) 0.5 mg IM Q4 PRN PRN Reason: Agitation Last Admin: 05/30/18 10:06 Dose: 0.5 mg Levothyroxine Sodium (Synthroid) 75 mcg PO DAILY@0630 [facility] Last Admin: 08/24/18 05:33 Dose: 75 mcg Metoprolol Tartrate (Lopressor) 50 mg PO Q12 [facility] Last Admin: 08/24/18 08:32 Dose: 50 mg Rivaroxaban (Xarelto) 20 mg PO QD5 [facility]; Protocol Last Admin: 08/23/18 16:28 Dose: 20 mg - Labs Labs: 08/22/18 04:50 08/22/18 04:50 PT 15.3 Seconds (9.8-13.1) H 08/06/18 06:40 INR 1.3 08/06/18 06:40 APTT 37.2 Seconds (25.6-37.1) H 08/06/18 06:40 - Constitutional Appears: No Acute Distress - Head Exam Head Exam: NORMAL INSPECTION - Eye Exam Eye Exam: PERRL - ENT Exam ENT Exam: Normal Exam - Neck Exam Neck Exam: Normal Inspection - Respiratory Exam Respiratory Exam: NORMAL BREATHING PATTERN - Cardiovascular Exam Cardiovascular Exam: REGULAR RHYTHM - GI/Abdominal Exam GI & Abdominal Exam: Soft, Normal Bowel Sounds - Extremities Exam Extremities Exam: Normal Inspection - Back Exam Back Exam: NORMAL INSPECTION - Neurological Exam Neurological Exam: Awake, CN II-XII Intact, Reflexes Normal. absent: Motor Sensory Deficit Additional comments: able to follows commands. - Psychiatric Exam Psychiatric exam: Normal Mood - Skin Skin Exam: Warm Assessment and Plan (1) Change in mental status Status: Acute (2) Rhabdomyolysis Status: Resolved (3) Status post fall Status: Acute (4) Dementia Status: Chronic (5) HTN (hypertension) Status: Chronic (6) Urinary retention Status: Resolved - Assessment and Plan (Free Text) Plan: Continue current Tx, awaiting for guardianship.
--- NOTE | 2018-08-24 18:27 | CP.PCM.CON ---
History of Present Illness - History of Present Illness History of Present Illness: pt has been inpt 6[facility] since approximately 03/16. pt reportedly was admitted 2nd to changes in mentation and underlying medical conditions. staff report that pt is noted to be about unit and attempting to water plants, going into other person's rooms. this behavior is reportedly increasing in later afternoon, early evening. pt reports that when was home, would keep self busy but doing things around the house. pt denies having family in [facility]. some family audie withwhom she denies keeping contact. pt reports forgetting things. believes that as of this writing she is in the first bed and in the first room she have lived in pt. Review of Systems - Psychiatric Psychiatric: Abnormal Sleep Pattern, Paranoia Past Patient History - Past Medical History & Family History Past Medical History?: Yes - Past Social History Smoking Status: Never Smoked Alcohol: None Drugs: Denies Home Situation {Lives}: Alone - CARDIAC Hx Cardiac Disorders: Yes Hx Hypercholesterolemia: Yes Hx Hypertension: Yes - PULMONARY Hx Respiratory Disorders: No - NEUROLOGICAL Hx Neurological Disorder: Yes Hx Dementia: Yes Hx Vertigo: Yes - HEENT Hx HEENT Problems: No - RENAL Hx Chronic Kidney Disease: No - ENDOCRINE/METABOLIC Hx Endocrine Disorders: Yes Hx Hypothyroidism: Yes - HEMATOLOGICAL/ONCOLOGICAL Hx Blood Disorders: No - INTEGUMENTARY Hx Dermatological Problems: No - MUSCULOSKELETAL/RHEUMATOLOGICAL Hx Musculoskeletal Disorders: Yes Hx Arthritis: Yes Hx Falls: Yes - GASTROINTESTINAL Hx Gastrointestinal Disorders: No - GENITOURINARY/GYNECOLOGICAL Hx Genitourinary Disorders: No - PSYCHIATRIC Hx Psychophysiologic Disorder: Yes Hx Anxiety: Yes - SURGICAL HISTORY Hx Surgeries: No - ANESTHESIA Hx Anesthesia: No Hx Anesthesia Reactions: No Hx Malignant Hyperthermia: No Meds Allergies/Adverse Reactions: Allergies Allergy/AdvReac Type Severity Reaction Status Date / Time No Known Allergies Allergy Verified 03/18/15 19:39 - Medications Medications: Current Medications Acetaminophen (Tylenol 325mg Tab) 650 mg PO Q6 PRN PRN Reason: Pain, Mild (1-3) Last Admin: 07/17/18 06:00 Dose: 650 mg Cyanocobalamin (Vitamin B12 1000 Mcg Tab) 1,000 mcg PO DAILY [facility] Last Admin: 08/24/18 08:33 Dose: 1,000 mcg Divalproex Sodium (Depakote Sprinkles) 125 mg PO BID [facility] Last Admin: 08/24/18 16:32 Dose: 125 mg Donepezil HCl (Aricept) 5 mg PO HS [facility] Last Admin: 08/23/18 21:20 Dose: 5 mg Enalapril Maleate (Vasotec) 2.5 mg PO DAILY [facility] Last Admin: 08/24/18 08:33 Dose: 2.5 mg Ergocalciferol (Drisdol 50,000 Intl Units Cap) 1 cap PO Q7D [facility] Last Admin: 08/18/18 23:24 Dose: 1 cap Haloperidol Lactate (Haldol) 0.5 mg IM Q4 PRN PRN Reason: Agitation Last Admin: 05/30/18 10:06 Dose: 0.5 mg Levothyroxine Sodium (Synthroid) 75 mcg PO DAILY@0630 [facility] Last Admin: 08/24/18 05:33 Dose: 75 mcg Metoprolol Tartrate (Lopressor) 50 mg PO Q12 [facility] Last Admin: 08/24/18 08:32 Dose: 50 mg Rivaroxaban (Xarelto) 20 mg PO QD5 [facility]; Protocol Last Admin: 08/24/18 16:32 Dose: 20 mg Physical Exam - Psychiatric Exam Additional comments: dressed in hospital attire, speaks ecuadorean, of varying rate of lower tone, thought process is disorganized, episodic eye contact, mood is reported as okay, affect constricted, some psychomotor retardation, denies s/i, h/i or psychosis, i/j poor, walks/rises/sits unassisted Results - Vital Signs Recent Vital Signs: Last Vital Signs Temp 97.6 F 08/24/18 16:23 Pulse 54 L 08/24/18 16:23 Resp 18 08/24/18 16:23 BP 128/78 08/24/18 16:23 Pulse Ox 97 08/24/18 16:23 - Labs Result Diagrams: 08/22/18 04:50 08/22/18 04:50 Assessment & Plan - Assessment and Plan (Free Text) Assessment: dementia type? alzheimer's significantly impaired cognition speaks ecuadorean Plan: recommend contacting dr marko pearce for demential screening (dr. pearce is present on hospital premises) for dementia screening consider aricept 5mg po pm/x 1 week, then second meed 10mg po pm/nanemenda 5mg po am-2nd week 5mg po bid, 3rd week 5mg po am and 10mg po pm, 4th week 10mg po bid manage underlying medical conditions per primary's team clinical judgment thanking you for the opportunity of allowing psychiatry to participate in the patient's treatment c - Date & Time Date: 08/24/18 Time: 13:00
[2018-08-25] MEDS: Levothyroxine 75 MCG TAB PO SCH (06:18)
[2018-08-25] MEDS: Divalproex 125 mg Sprinkle Capsule PO SCH ×2 (09:37→16:46)
--- NOTE | 2018-08-25 14:19 | CP.PCM.PN ---
Subjective - Date & Time of Evaluation Date of Evaluation: 08/25/18 Time of Evaluation: 11:00 - Subjective Subjective: F/U AMS. Pt awake, calm, no A/D, NC, confused. Objective - Vital Signs/Intake and Output Vital Signs (last 24 hours): Temp Pulse Resp BP Pulse Ox 97.9 F 79 20 132/79 98 08/25/18 07:40 08/25/18 09:37 08/25/18 07:40 08/25/18 09:37 08/25/18 07:40 - Medications Medications: Current Medications Acetaminophen (Tylenol 325mg Tab) 650 mg PO Q6 PRN PRN Reason: Pain, Mild (1-3) Last Admin: 07/17/18 06:00 Dose: 650 mg Cyanocobalamin (Vitamin B12 1000 Mcg Tab) 1,000 mcg PO DAILY [facility] Last Admin: 08/25/18 09:37 Dose: 1,000 mcg Divalproex Sodium (Depakote Sprinkles) 125 mg PO BID [facility] Last Admin: 08/25/18 09:37 Dose: 125 mg Donepezil HCl (Aricept) 5 mg PO HS [facility] Last Admin: 08/24/18 21:10 Dose: 5 mg Enalapril Maleate (Vasotec) 2.5 mg PO DAILY [facility] Last Admin: 08/25/18 09:37 Dose: 2.5 mg Ergocalciferol (Drisdol 50,000 Intl Units Cap) 1 cap PO Q7D [facility] Last Admin: 08/18/18 23:24 Dose: 1 cap Haloperidol Lactate (Haldol) 0.5 mg IM Q4 PRN PRN Reason: Agitation Last Admin: 05/30/18 10:06 Dose: 0.5 mg Levothyroxine Sodium (Synthroid) 75 mcg PO DAILY@0630 [facility] Last Admin: 08/25/18 06:18 Dose: 75 mcg Metoprolol Tartrate (Lopressor) 50 mg PO Q12 [facility] Last Admin: 08/25/18 09:37 Dose: 50 mg Rivaroxaban (Xarelto) 20 mg PO QD5 [facility]; Protocol Last Admin: 08/24/18 16:32 Dose: 20 mg - Labs Labs: 08/22/18 04:50 08/22/18 04:50 PT 15.3 Seconds (9.8-13.1) H 08/06/18 06:40 INR 1.3 08/06/18 06:40 APTT 37.2 Seconds (25.6-37.1) H 08/06/18 06:40 - Constitutional Appears: No Acute Distress - Head Exam Head Exam: NORMAL INSPECTION - Eye Exam Eye Exam: PERRL - ENT Exam ENT Exam: Normal Exam - Neck Exam Neck Exam: Normal Inspection - Respiratory Exam Respiratory Exam: NORMAL BREATHING PATTERN - Cardiovascular Exam Cardiovascular Exam: REGULAR RHYTHM - GI/Abdominal Exam GI & Abdominal Exam: Soft, Normal Bowel Sounds - Extremities Exam Extremities Exam: Normal Inspection - Back Exam Back Exam: NORMAL INSPECTION - Neurological Exam Neurological Exam: Awake, CN II-XII Intact, Reflexes Normal. absent: Motor Sensory Deficit Additional comments: Confused, forgetful, follows commands. - Psychiatric Exam Psychiatric exam: Normal Mood - Skin Skin Exam: Warm Assessment and Plan (1) Change in mental status Status: Acute (2) Rhabdomyolysis Status: Resolved (3) Status post fall Status: Acute (4) Dementia Status: Chronic (5) HTN (hypertension) Status: Chronic (6) Urinary retention Status: Resolved - Assessment and Plan (Free Text) Plan: Continue Aricept, Depakote and rest of Tx.
[2018-08-25] MEDS: Ergocalciferol 50,000 Intl Units Cap PO SCH (23:01)
[2018-08-26] MEDS: Levothyroxine 75 MCG TAB PO SCH (06:15)
[2018-08-26] MEDS: Divalproex 125 mg Sprinkle Capsule PO SCH ×2 (08:21→16:02)
[2018-08-27] MEDS: Levothyroxine 75 MCG TAB PO SCH (05:44)
[2018-08-27] MEDS: Divalproex 125 mg Sprinkle Capsule PO SCH ×2 (08:47→16:14)
--- NOTE | 2018-08-27 13:45 | CP.PCM.PN ---
Subjective - Date & Time of Evaluation Date of Evaluation: 08/27/18 Time of Evaluation: 12:20 - Subjective Subjective: F/U AMS. Pt awake, calm, no A/D, as per nurse, she was ambulating in the hallway with steady gait earlier today. Objective - Vital Signs/Intake and Output Vital Signs (last 24 hours): Temp Pulse Resp BP Pulse Ox 97.7 F 75 20 154/78 H 93 L 08/27/18 08:49 08/27/18 08:49 08/27/18 08:49 08/27/18 08:49 08/27/18 08:49 - Medications Medications: Current Medications Acetaminophen (Tylenol 325mg Tab) 650 mg PO Q6 PRN PRN Reason: Pain, Mild (1-3) Last Admin: 07/17/18 06:00 Dose: 650 mg Cyanocobalamin (Vitamin B12 1000 Mcg Tab) 1,000 mcg PO DAILY [facility] Last Admin: 08/27/18 08:47 Dose: 1,000 mcg Divalproex Sodium (Depakote Sprinkles) 125 mg PO BID [facility] Last Admin: 08/27/18 08:47 Dose: 125 mg Donepezil HCl (Aricept) 5 mg PO HS [facility] Last Admin: 08/26/18 21:28 Dose: 5 mg Enalapril Maleate (Vasotec) 2.5 mg PO DAILY [facility] Last Admin: 08/27/18 08:47 Dose: 2.5 mg Ergocalciferol (Drisdol 50,000 Intl Units Cap) 1 cap PO Q7D [facility] Last Admin: 08/25/18 23:01 Dose: 1 cap Levothyroxine Sodium (Synthroid) 75 mcg PO DAILY@0630 [facility] Last Admin: 08/27/18 05:44 Dose: 75 mcg Metoprolol Tartrate (Lopressor) 50 mg PO Q12 [facility] Last Admin: 08/27/18 08:47 Dose: 50 mg Rivaroxaban (Xarelto) 20 mg PO QD5 [facility]; Protocol Last Admin: 08/26/18 16:02 Dose: 20 mg - Labs Labs: 08/22/18 04:50 08/22/18 04:50 PT 15.3 Seconds (9.8-13.1) H 08/06/18 06:40 INR 1.3 08/06/18 06:40 APTT 37.2 Seconds (25.6-37.1) H 08/06/18 06:40 Assessment and Plan (1) Change in mental status Status: Acute (2) Rhabdomyolysis Status: Resolved (3) Status post fall Status: Acute (4) Dementia Status: Chronic (5) HTN (hypertension) Status: Chronic (6) Urinary retention Status: Resolved - Assessment and Plan (Free Text) Plan: Continue Aricept, Depakote, Lopressor, Vasotec, Synthroid, Xarelto and rest of Tx.
[2018-08-28] MEDS: Levothyroxine 75 MCG TAB PO SCH (05:33)
[2018-08-28] MEDS: Divalproex 125 mg Sprinkle Capsule PO SCH ×2 (08:29→16:11)
[2018-08-29] MEDS: Levothyroxine 75 MCG TAB PO SCH (05:33)
[2018-08-29] MEDS: Divalproex 125 mg Sprinkle Capsule PO SCH ×2 (08:22→16:54)
--- NOTE | 2018-08-29 16:24 | CP.PCM.PN ---
Subjective - Date & Time of Evaluation Date of Evaluation: 08/29/18 Time of Evaluation: 13:55 - Subjective Subjective: F/U AMS. Pt awake, confused, disoriented. Objective - Vital Signs/Intake and Output Vital Signs (last 24 hours): Temp Pulse Resp BP Pulse Ox 97.6 F 62 20 145/79 97 08/29/18 08:15 08/29/18 08:23 08/29/18 08:15 08/29/18 08:23 08/29/18 08:15 - Medications Medications: Current Medications Acetaminophen (Tylenol 325mg Tab) 650 mg PO Q6 PRN PRN Reason: Pain, Mild (1-3) Last Admin: 07/17/18 06:00 Dose: 650 mg Cyanocobalamin (Vitamin B12 1000 Mcg Tab) 1,000 mcg PO DAILY [facility] Last Admin: 08/29/18 08:22 Dose: 1,000 mcg Divalproex Sodium (Depakote Sprinkles) 125 mg PO BID [facility] Last Admin: 08/29/18 08:22 Dose: 125 mg Donepezil HCl (Aricept) 5 mg PO HS [facility] Last Admin: 08/28/18 21:01 Dose: 5 mg Enalapril Maleate (Vasotec) 2.5 mg PO DAILY [facility] Last Admin: 08/29/18 08:24 Dose: 2.5 mg Ergocalciferol (Drisdol 50,000 Intl Units Cap) 1 cap PO Q7D [facility] Last Admin: 08/25/18 23:01 Dose: 1 cap Levothyroxine Sodium (Synthroid) 75 mcg PO DAILY@0630 [facility] Last Admin: 08/29/18 05:33 Dose: 75 mcg Metoprolol Tartrate (Lopressor) 50 mg PO Q12 [facility] Last Admin: 08/29/18 08:23 Dose: 50 mg Rivaroxaban (Xarelto) 20 mg PO QD5 [facility]; Protocol Last Admin: 08/28/18 16:11 Dose: 20 mg - Labs Labs: 08/22/18 04:50 08/22/18 04:50 PT 15.3 Seconds (9.8-13.1) H 08/06/18 06:40 INR 1.3 08/06/18 06:40 APTT 37.2 Seconds (25.6-37.1) H 08/06/18 06:40 - Constitutional Appears: No Acute Distress, Chronically Ill - Head Exam Head Exam: NORMAL INSPECTION - Eye Exam Eye Exam: PERRL - ENT Exam ENT Exam: Normal Exam - Neck Exam Neck Exam: Normal Inspection - Respiratory Exam Respiratory Exam: NORMAL BREATHING PATTERN - Cardiovascular Exam Cardiovascular Exam: REGULAR RHYTHM - GI/Abdominal Exam GI & Abdominal Exam: Soft, Normal Bowel Sounds - Extremities Exam Extremities Exam: Normal Inspection - Back Exam Back Exam: NORMAL INSPECTION - Neurological Exam Neurological Exam: Awake, CN II-XII Intact, Reflexes Normal. absent: Motor Sensory Deficit Additional comments: O x1, confused, disoriented - Psychiatric Exam Psychiatric exam: Normal Mood - Skin Skin Exam: Warm Assessment and Plan (1) Change in mental status Status: Acute (2) Rhabdomyolysis Status: Resolved (3) Status post fall Status: Acute (4) Dementia Status: Chronic (5) HTN (hypertension) Status: Chronic (6) Urinary retention Status: Resolved - Assessment and Plan (Free Text) Plan: Continue aricept, Depakote, Vit B 12 and rest of Tx. Awaiting for guardianship.
[2018-08-30] MEDS: Levothyroxine 75 MCG TAB PO SCH (05:31)
[2018-08-30] MEDS: Divalproex 125 mg Sprinkle Capsule PO SCH ×2 (09:05→16:56)
--- NOTE | 2018-08-30 17:13 | CP.PCM.PN ---
Objective - Vital Signs/Intake and Output Vital Signs (last 24 hours): Temp Pulse Resp BP Pulse Ox 97.7 F 62 20 110/65 99 08/30/18 16:56 08/30/18 16:56 08/30/18 16:56 08/30/18 16:56 08/30/18 16:56 - Medications Medications: Current Medications Acetaminophen (Tylenol 325mg Tab) 650 mg PO Q6 PRN PRN Reason: Pain, Mild (1-3) Last Admin: 07/17/18 06:00 Dose: 650 mg Cyanocobalamin (Vitamin B12 1000 Mcg Tab) 1,000 mcg PO DAILY [facility] Last Admin: 08/30/18 09:05 Dose: 1,000 mcg Divalproex Sodium (Depakote Sprinkles) 125 mg PO BID [facility] Last Admin: 08/30/18 16:56 Dose: 125 mg Donepezil HCl (Aricept) 5 mg PO HS [facility] Last Admin: 08/29/18 21:00 Dose: 5 mg Enalapril Maleate (Vasotec) 2.5 mg PO DAILY [facility] Last Admin: 08/30/18 09:05 Dose: 2.5 mg Ergocalciferol (Drisdol 50,000 Intl Units Cap) 1 cap PO Q7D [facility] Last Admin: 08/25/18 23:01 Dose: 1 cap Levothyroxine Sodium (Synthroid) 75 mcg PO DAILY@0630 [facility] Last Admin: 08/30/18 05:31 Dose: 75 mcg Metoprolol Tartrate (Lopressor) 50 mg PO Q12 [facility] Last Admin: 08/30/18 09:05 Dose: Not Given Rivaroxaban (Xarelto) 20 mg PO QD5 [facility]; Protocol Last Admin: 08/30/18 16:56 Dose: 20 mg - Labs Labs: 08/22/18 04:50 08/22/18 04:50 PT 15.3 Seconds (9.8-13.1) H 08/06/18 06:40 INR 1.3 08/06/18 06:40 APTT 37.2 Seconds (25.6-37.1) H 08/06/18 06:40 Assessment and Plan (1) Change in mental status Status: Acute (2) Rhabdomyolysis Status: Resolved (3) Status post fall Status: Acute (4) Dementia Status: Chronic (5) HTN (hypertension) Status: Chronic (6) Urinary retention Status: Resolved
[2018-08-31] MEDS: Levothyroxine 75 MCG TAB PO SCH (06:40)
[2018-08-31] MEDS: Divalproex 125 mg Sprinkle Capsule PO SCH ×2 (09:27→16:02)
--- NOTE | 2018-08-31 17:34 | CP.PCM.PN ---
Subjective - Date & Time of Evaluation Date of Evaluation: 08/30/18 Time of Evaluation: 17:00 - Subjective Subjective: F/U AMS. Confused, calm, no A/D Objective - Vital Signs/Intake and Output Vital Signs (last 24 hours): Temp Pulse Resp BP Pulse Ox 97.8 F 80 20 128/72 96 08/31/18 08:08 08/31/18 09:25 08/31/18 08:08 08/31/18 09:25 08/31/18 08:08 - Medications Medications: Current Medications Acetaminophen (Tylenol 325mg Tab) 650 mg PO Q6 PRN PRN Reason: Pain, Mild (1-3) Last Admin: 07/17/18 06:00 Dose: 650 mg Cyanocobalamin (Vitamin B12 1000 Mcg Tab) 1,000 mcg PO DAILY [facility] Last Admin: 08/31/18 09:26 Dose: 1,000 mcg Divalproex Sodium (Depakote Sprinkles) 125 mg PO BID [facility] Last Admin: 08/31/18 16:02 Dose: 125 mg Donepezil HCl (Aricept) 5 mg PO HS [facility] Last Admin: 08/30/18 21:01 Dose: 5 mg Enalapril Maleate (Vasotec) 2.5 mg PO DAILY [facility] Last Admin: 08/31/18 09:27 Dose: 2.5 mg Ergocalciferol (Drisdol 50,000 Intl Units Cap) 1 cap PO Q7D [facility] Last Admin: 08/25/18 23:01 Dose: 1 cap Levothyroxine Sodium (Synthroid) 75 mcg PO DAILY@0630 [facility] Last Admin: 08/31/18 06:40 Dose: 75 mcg Metoprolol Tartrate (Lopressor) 50 mg PO Q12 [facility] Last Admin: 08/31/18 09:25 Dose: 50 mg Rivaroxaban (Xarelto) 20 mg PO QD5 [facility]; Protocol Last Admin: 08/31/18 16:02 Dose: 20 mg - Labs Labs: 08/22/18 04:50 08/22/18 04:50 PT 15.3 Seconds (9.8-13.1) H 08/06/18 06:40 INR 1.3 08/06/18 06:40 APTT 37.2 Seconds (25.6-37.1) H 04/10/19 06:40 - Constitutional Appears: No Acute Distress - Head Exam Head Exam: NORMAL INSPECTION - Eye Exam Eye Exam: PERRL - ENT Exam ENT Exam: Normal Exam - Neck Exam Neck Exam: Normal Inspection - Respiratory Exam Respiratory Exam: Clear to Ausculation Bilateral - Cardiovascular Exam Cardiovascular Exam: REGULAR RHYTHM - GI/Abdominal Exam GI & Abdominal Exam: Soft, Normal Bowel Sounds - Extremities Exam Extremities Exam: Normal Inspection - Back Exam Back Exam: NORMAL INSPECTION - Neurological Exam Neurological Exam: Awake, CN II-XII Intact, Reflexes Normal. absent: Motor Sensory Deficit Additional comments: Forgetful, confused,follows commands - Psychiatric Exam Psychiatric exam: Normal Mood - Skin Skin Exam: Warm Assessment and Plan (1) Change in mental status Status: Acute (2) Rhabdomyolysis Status: Resolved (3) Status post fall Status: Acute (4) Dementia Status: Chronic (5) HTN (hypertension) Status: Chronic (6) Urinary retention Status: Resolved - Assessment and Plan (Free Text) Plan: Continue current Aricept, Depakote, Vit B 12 and rest of tx.
[2018-09-01] MEDS: Levothyroxine 75 MCG TAB PO SCH (05:47)
[2018-09-01] MEDS: Divalproex 125 mg Sprinkle Capsule PO SCH ×2 (08:15→16:05)
[2018-09-01] MEDS: Ergocalciferol 50,000 Intl Units Cap PO SCH (23:44)
[2018-09-02] MEDS: Levothyroxine 75 MCG TAB PO SCH (05:36)
[2018-09-02] MEDS: Divalproex 125 mg Sprinkle Capsule PO SCH ×2 (08:24→16:05)
[2018-09-03] MEDS: Levothyroxine 75 MCG TAB PO SCH (05:51)
[2018-09-03] MEDS: Divalproex 125 mg Sprinkle Capsule PO SCH ×2 (08:13→16:06)
--- NOTE | 2018-09-03 15:45 | CP.PCM.PN ---
Subjective - Date & Time of Evaluation Date of Evaluation: 09/03/18 Time of Evaluation: 10:40 - Subjective Subjective: F/U AMS Pt awake, no A/D, no pain, calm. Objective - Vital Signs/Intake and Output Vital Signs (last 24 hours): Temp Pulse Resp BP Pulse Ox 97.9 F 81 19 129/75 96 09/03/18 07:41 09/03/18 07:41 09/03/18 07:41 09/03/18 07:41 09/03/18 07:41 - Medications Medications: Current Medications Acetaminophen (Tylenol 325mg Tab) 650 mg PO Q6 PRN PRN Reason: Pain, Mild (1-3) Last Admin: 07/17/18 06:00 Dose: 650 mg Cyanocobalamin (Vitamin B12 1000 Mcg Tab) 1,000 mcg PO DAILY [facility] Last Admin: 09/03/18 08:13 Dose: 1,000 mcg Divalproex Sodium (Depakote Sprinkles) 125 mg PO BID [facility] Last Admin: 09/03/18 08:13 Dose: 125 mg Donepezil HCl (Aricept) 5 mg PO HS [facility] Last Admin: 09/02/18 21:33 Dose: 5 mg Enalapril Maleate (Vasotec) 2.5 mg PO DAILY [facility] Last Admin: 09/03/18 08:14 Dose: 2.5 mg Ergocalciferol (Drisdol 50,000 Intl Units Cap) 1 cap PO Q7D [facility] Last Admin: 09/01/18 23:44 Dose: 1 cap Levothyroxine Sodium (Synthroid) 75 mcg PO DAILY@0630 [facility] Last Admin: 09/03/18 05:51 Dose: 75 mcg Metoprolol Tartrate (Lopressor) 50 mg PO Q12 [facility] Last Admin: 09/03/18 08:14 Dose: 50 mg Rivaroxaban (Xarelto) 20 mg PO QD5 [facility]; Protocol Last Admin: 09/02/18 16:05 Dose: 20 mg - Labs Labs: 08/22/18 04:50 08/22/18 04:50 PT 15.3 Seconds (9.8-13.1) H 08/06/18 06:40 INR 1.3 08/06/18 06:40 APTT 37.2 Seconds (25.6-37.1) H 08/06/18 06:40 - Constitutional Appears: No Acute Distress, Confused - Head Exam Head Exam: NORMAL INSPECTION - Eye Exam Eye Exam: PERRL - ENT Exam ENT Exam: Normal Exam - Neck Exam Neck Exam: Normal Inspection - Respiratory Exam Respiratory Exam: NORMAL BREATHING PATTERN - Cardiovascular Exam Cardiovascular Exam: REGULAR RHYTHM - GI/Abdominal Exam GI & Abdominal Exam: Soft, Normal Bowel Sounds - Extremities Exam Extremities Exam: Normal Inspection - Back Exam Back Exam: NORMAL INSPECTION - Neurological Exam Neurological Exam: Awake, CN II-XII Intact, Reflexes Normal. absent: Motor Sensory Deficit Additional comments: Forgetful, follows commands - Psychiatric Exam Psychiatric exam: Normal Affect, Normal Mood - Skin Skin Exam: Warm Assessment and Plan (1) Change in mental status Status: Acute (2) Rhabdomyolysis Status: Resolved (3) Status post fall Status: Acute (4) Dementia Status: Chronic (5) HTN (hypertension) Status: Chronic (6) Urinary retention Status: Resolved - Assessment and Plan (Free Text) Plan: Continue Aricept, Depakote and rest of Tx. Awaiting for guardianship
[2018-09-04] MEDS: Levothyroxine 75 MCG TAB PO SCH (05:37)
[2018-09-04] MEDS: Divalproex 125 mg Sprinkle Capsule PO SCH ×2 (09:18→16:33)
--- NOTE | 2018-09-04 15:59 | CP.PCM.PN ---
Subjective - Date & Time of Evaluation Date of Evaluation: 09/04/18 Time of Evaluation: 12:10 - Subjective Subjective: F/U AMS. Pt awake, calm, no A/D, no pain, VS normal. Objective - Vital Signs/Intake and Output Vital Signs (last 24 hours): Temp Pulse Resp BP Pulse Ox 97.9 F 76 20 128/75 98 09/04/18 07:46 09/04/18 09:18 09/04/18 07:46 09/04/18 09:18 09/04/18 07:46 - Medications Medications: Current Medications Acetaminophen (Tylenol 325mg Tab) 650 mg PO Q6 PRN PRN Reason: Pain, Mild (1-3) Last Admin: 07/17/18 06:00 Dose: 650 mg Cyanocobalamin (Vitamin B12 1000 Mcg Tab) 1,000 mcg PO DAILY [facility] Last Admin: 09/04/18 09:18 Dose: 1,000 mcg Divalproex Sodium (Depakote Sprinkles) 125 mg PO BID [facility] Last Admin: 09/04/18 09:18 Dose: 125 mg Donepezil HCl (Aricept) 5 mg PO HS [facility] Last Admin: 09/03/18 21:38 Dose: 5 mg Enalapril Maleate (Vasotec) 2.5 mg PO DAILY [facility] Last Admin: 09/04/18 09:17 Dose: 2.5 mg Ergocalciferol (Drisdol 50,000 Intl Units Cap) 1 cap PO Q7D [facility] Last Admin: 09/01/18 23:44 Dose: 1 cap Levothyroxine Sodium (Synthroid) 75 mcg PO DAILY@0630 [facility] Last Admin: 09/04/18 05:37 Dose: 75 mcg Metoprolol Tartrate (Lopressor) 50 mg PO Q12 [facility] Last Admin: 09/04/18 09:18 Dose: 50 mg - Labs Labs: 08/22/18 04:50 08/22/18 04:50 PT 15.3 Seconds (9.8-13.1) H 08/06/18 06:40 INR 1.3 08/06/18 06:40 APTT 37.2 Seconds (25.6-37.1) H 08/06/18 06:40 - Constitutional Appears: No Acute Distress, Confused - Head Exam Head Exam: NORMAL INSPECTION - Eye Exam Eye Exam: PERRL - ENT Exam ENT Exam: Normal Exam - Neck Exam Neck Exam: Normal Inspection - Respiratory Exam Respiratory Exam: NORMAL BREATHING PATTERN - Cardiovascular Exam Cardiovascular Exam: REGULAR RHYTHM - GI/Abdominal Exam GI & Abdominal Exam: Soft, Normal Bowel Sounds - Extremities Exam Extremities Exam: Normal Inspection - Back Exam Back Exam: NORMAL INSPECTION - Neurological Exam Neurological Exam: Awake, CN II-XII Intact, Reflexes Normal. absent: Motor Sensory Deficit Additional comments: Forgetful, follows commands. - Psychiatric Exam Psychiatric exam: Normal Mood - Skin Skin Exam: Warm Assessment and Plan (1) Change in mental status Status: Acute (2) Rhabdomyolysis Status: Resolved (3) Status post fall Status: Acute (4) Dementia Status: Chronic (5) HTN (hypertension) Status: Chronic (6) Urinary retention Status: Resolved - Assessment and Plan (Free Text) Plan: Continue Aricept, Vit B 12, Depakote and rest of tx.
[2018-09-04 22:54] VITALS: BMI 26.0
[2018-09-05] MEDS: Levothyroxine 75 MCG TAB PO SCH (05:36)
[2018-09-05] MEDS: Divalproex 125 mg Sprinkle Capsule PO SCH ×2 (09:12→17:03)
--- NOTE | 2018-09-05 14:58 | CP.PCM.PN ---
Subjective - Date & Time of Evaluation Date of Evaluation: 09/05/18 Time of Evaluation: 15:00 - Subjective Subjective: F/U AMS. Pt awake, calm, no pain, no SOB, no CP, VS normal. Objective - Vital Signs/Intake and Output Vital Signs (last 24 hours): Temp Pulse Resp BP Pulse Ox 97.4 F L 63 20 122/71 98 09/05/18 08:38 09/05/18 09:13 09/05/18 08:38 09/05/18 09:13 09/05/18 08:38 - Medications Medications: Current Medications Acetaminophen (Tylenol 325mg Tab) 650 mg PO Q6 PRN PRN Reason: Pain, Mild (1-3) Last Admin: 07/17/18 06:00 Dose: 650 mg Cyanocobalamin (Vitamin B12 1000 Mcg Tab) 1,000 mcg PO DAILY [facility] Last Admin: 09/05/18 09:13 Dose: 1,000 mcg Divalproex Sodium (Depakote Sprinkles) 125 mg PO BID [facility] Last Admin: 09/05/18 09:12 Dose: 125 mg Donepezil HCl (Aricept) 5 mg PO HS [facility] Last Admin: 09/04/18 21:00 Dose: 5 mg Enalapril Maleate (Vasotec) 2.5 mg PO DAILY [facility] Last Admin: 09/05/18 09:13 Dose: 2.5 mg Ergocalciferol (Drisdol 50,000 Intl Units Cap) 1 cap PO Q7D [facility] Last Admin: 09/01/18 23:44 Dose: 1 cap Levothyroxine Sodium (Synthroid) 75 mcg PO DAILY@0630 [facility] Last Admin: 09/05/18 05:36 Dose: 75 mcg Metoprolol Tartrate (Lopressor) 50 mg PO Q12 [facility] Last Admin: 09/05/18 09:13 Dose: 50 mg - Labs Labs: 08/22/18 04:50 08/22/18 04:50 PT 15.3 Seconds (9.8-13.1) H 08/06/18 06:40 INR 1.3 08/06/18 06:40 APTT 37.2 Seconds (25.6-37.1) H 08/06/18 06:40 - Constitutional Appears: No Acute Distress, Confused - Head Exam Head Exam: NORMAL INSPECTION - Eye Exam Eye Exam: PERRL - ENT Exam ENT Exam: Normal Exam - Neck Exam Neck Exam: Normal Inspection - Respiratory Exam Respiratory Exam: NORMAL BREATHING PATTERN - Cardiovascular Exam Cardiovascular Exam: REGULAR RHYTHM - GI/Abdominal Exam GI & Abdominal Exam: Soft, Normal Bowel Sounds - Extremities Exam Extremities Exam: Normal Inspection - Back Exam Back Exam: NORMAL INSPECTION - Neurological Exam Neurological Exam: Awake, CN II-XII Intact, Reflexes Normal. absent: Motor Sensory Deficit Additional comments: Ox1, follows commands. - Psychiatric Exam Psychiatric exam: Normal Mood - Skin Skin Exam: Warm Assessment and Plan (1) Change in mental status Status: Acute (2) Rhabdomyolysis Status: Resolved (3) Status post fall Status: Acute (4) Dementia Status: Chronic (5) HTN (hypertension) Status: Chronic (6) Urinary retention Status: Resolved - Assessment and Plan (Free Text) Plan: Continue Lopressor, Vasotec, Depakote, Xarelto, Aricept and rest of Tx. Awaiting for placement.
[2018-09-06] MEDS: Levothyroxine 75 MCG TAB PO SCH (06:24)
[2018-09-06 07:15] LABS: BASO % 0.5 % (0.0-2.0); EOS # 0.1 K/uL (0.0-0.7); EOS % 2.4 % (0.0-4.0); HEMOGLOBIN 12.2 g/dL (12.0-16.0); LYMPH # 2.2 K/uL (1.0-4.3); LYMPH % 44.3 % (20.0-40.0); MEAN CELL VOLUME 92.7 fl (81.0-99.0); MEAN CORPUSCULAR HEMOGLOBIN 30.5 pg (27.0-31.0); MEAN CORPUSCULAR HGB CONC 32.9 g/dL (33.0-37.0); MEAN PLATELET VOLUME 10.9 fl (7.2-11.7); MONO # 0.4 K/uL (0.0-0.8); MONO % 7.6 % (0.0-10.0); NEUT # 2.2 K/uL (1.8-7.0); NEUT % 45.2 % (50.0-75.0); RBC 3.98 Mil/uL (3.80-5.20); RED CELL DISTRIBUTION WIDTH 14.3 % (11.5-14.5)
[2018-09-06 07:34] LABS: ALB/GLOB RATIO 1.2 (1.0-2.1); ALBUMIN 3.6 g/dL (3.5-5.0); ALT/SGPT 39 U/L (9-52); AST/SGOT 29 U/L (14-36); BLOOD UREA NITROGEN 29 mg/dl (7-17); CALCIUM 8.7 mg/dL (8.4-10.2); GFR NON-AFRICAN AMERICAN > 60
[2018-09-06] MEDS: Divalproex 125 mg Sprinkle Capsule PO SCH ×2 (08:35→16:03)
[2018-09-07] MEDS: Levothyroxine 75 MCG TAB PO SCH (06:00)
[2018-09-07] MEDS: Divalproex 125 mg Sprinkle Capsule PO SCH ×2 (08:51→16:26)
[2018-09-08] MEDS: Levothyroxine 75 MCG TAB PO SCH (06:28)
[2018-09-08] MEDS: Divalproex 125 mg Sprinkle Capsule PO SCH ×2 (08:23→17:00)
--- NOTE | 2018-09-08 14:05 | CP.PCM.PN ---
Subjective - Date & Time of Evaluation Date of Evaluation: 09/08/18 Time of Evaluation: 10:40 - Subjective Subjective: F/U AMS. Pt awake, oriented to self, no A/D, No pain, no c/o, VS normal. Objective - Vital Signs/Intake and Output Vital Signs (last 24 hours): Temp Pulse Resp BP Pulse Ox 97.6 F 71 20 121/82 97 09/08/18 07:30 09/08/18 08:24 09/08/18 07:30 09/08/18 08:24 09/08/18 07:30 - Medications Medications: Current Medications Acetaminophen (Tylenol 325mg Tab) 650 mg PO Q6 PRN PRN Reason: Pain, Mild (1-3) Last Admin: 07/17/18 06:00 Dose: 650 mg Cyanocobalamin (Vitamin B12 1000 Mcg Tab) 1,000 mcg PO DAILY [facility] Last Admin: 09/08/18 08:23 Dose: 1,000 mcg Divalproex Sodium (Depakote Sprinkles) 125 mg PO BID [facility] Last Admin: 09/08/18 08:23 Dose: 125 mg Donepezil HCl (Aricept) 5 mg PO HS [facility] Last Admin: 09/07/18 21:55 Dose: 5 mg Enalapril Maleate (Vasotec) 2.5 mg PO DAILY [facility] Last Admin: 09/08/18 12:16 Dose: 2.5 mg Ergocalciferol (Drisdol 50,000 Intl Units Cap) 1 cap PO Q7D [facility] Last Admin: 09/01/18 23:44 Dose: 1 cap Levothyroxine Sodium (Synthroid) 75 mcg PO DAILY@0630 [facility] Last Admin: 09/08/18 06:28 Dose: 75 mcg Metoprolol Tartrate (Lopressor) 50 mg PO Q12 [facility] Last Admin: 09/08/18 08:24 Dose: 50 mg Rivaroxaban (Xarelto) 20 mg PO DAILY@1700 [facility]; Protocol Last Admin: 09/07/18 16:26 Dose: 20 mg - Labs Labs: 09/06/18 06:05 09/06/18 06:05 PT 15.3 Seconds (9.8-13.1) H 08/06/18 06:40 INR 1.3 08/06/18 06:40 APTT 37.2 Seconds (25.6-37.1) H 08/06/18 06:40 - Constitutional Appears: No Acute Distress, Confused - Head Exam Head Exam: NORMAL INSPECTION - Eye Exam Eye Exam: PERRL - ENT Exam ENT Exam: Normal Exam - Neck Exam Neck Exam: Normal Inspection - Respiratory Exam Respiratory Exam: NORMAL BREATHING PATTERN - Cardiovascular Exam Cardiovascular Exam: REGULAR RHYTHM - GI/Abdominal Exam GI & Abdominal Exam: Soft, Normal Bowel Sounds - Extremities Exam Extremities Exam: Normal Inspection - Back Exam Back Exam: NORMAL INSPECTION - Neurological Exam Neurological Exam: Awake, CN II-XII Intact, Reflexes Normal. absent: Motor Sensory Deficit Additional comments: Follows commands - Psychiatric Exam Psychiatric exam: Normal Mood - Skin Skin Exam: Warm Assessment and Plan (1) Change in mental status Status: Acute (2) Rhabdomyolysis Status: Resolved (3) Status post fall Status: Acute (4) Dementia Status: Chronic (5) HTN (hypertension) Status: Chronic (6) Urinary retention Status: Resolved - Assessment and Plan (Free Text) Plan: Continue Aricept, Xarelto, Depakote, Vit B 12 and rest of tx. awaiting for placement
[2018-09-08 15:58] VITALS: RESP 18
[2018-09-08] MEDS: Ergocalciferol 50,000 Intl Units Cap PO SCH (22:35)
[2018-09-09] MEDS: Levothyroxine 75 MCG TAB PO SCH (05:35)
[2018-09-09 07:57] VITALS: PULSE 62
[2018-09-09] MEDS: Divalproex 125 mg Sprinkle Capsule PO SCH ×2 (08:18→16:22)
--- NOTE | 2018-09-09 13:05 | CP.PCM.DIS ---
Provider - Provider Date of Admission: 03/22/18 19:46 Attending physician: Vic Burger MD Consults: 05/12/18 11:32 Psychiatry Consult Routine Comment: Consulting Provider: aWi Marroquin Consulting Physician: Wai Marroquin Reason for Consult: F/u capacity 08/24/18 08:50 Psychiatry Consult Routine Comment: Consulting Provider: William Roy Consulting Physician: William Roy Reason for Consult: AMS, Re-consult for capacity 03/23/18 06:36 Wound Care [Nursing Referral for Wound Care] Routine Comment: Physician Instructions: Reason For Exam: skin tear in left buttock/right lower back/ 03/24/18 10:02 Psychiatry Consult Routine Comment: Consulting Provider: Wendy Goins Consulting Physician: Wendy Goins Reason for Consult: hx dementia, adm with fall; on 1:1 for agitation/ anxiety 03/24/18 11:43 Urology Consult Routine Comment: Consulting Provider: Gris Khoury Consulting Physician: Gris Khoury Reason for Consult: mild L hydro; urinary retention s/p meza; rhabdo 03/27/18 13:36 Psychology Consult Routine Comment: Consulting Provider: Judy Richmond Consulting Physician: Judy Richmond Reason for Consult: Evaluate neurocognitive function 03/28/18 06:32 Cardiology Consult Routine Comment: Consulting Provider: Andres Murray Consulting Physician: Andres Murray Reason for Consult: afib 04/15/18 11:54 Psychiatry Consult Routine Comment: Consulting Provider: Wai Marroquin Consulting Physician: Wai Marroquin Reason for Consult: AMS, re-consult for capacity Time Spent in preparation of Discharge (in minutes): 35 Diagnosis - Discharge Diagnosis (1) Change in mental status Status: Acute Priority: High (2) Rhabdomyolysis Status: Resolved Priority: High (3) Status post fall Status: Acute Priority: High (4) Dementia Status: Chronic Priority: Medium (5) HTN (hypertension) Status: Chronic Priority: Medium (6) Urinary retention Status: Resolved Hospital Course - Lab Results Lab Results: Micro Results 07/23/18 14:52 Urine Random Urine Culture - Final Lactobacillus Species 05/30/18 02:00 Urine Random Urine Culture - Final No Growth (<1,000 CFU/ML) 05/07/18 12:18 Urine Random Urine Culture - Final No Growth (<1,000 CFU/ML) 03/22/18 19:30 Blood-Venous Blood Culture - Final NO GROWTH AFTER 5 DAYS 03/22/18 19:30 Blood-Venous Gram Stain - Final TEST NOT PERFORMED 03/22/18 19:00 Blood-Venous Blood Culture - Final NO GROWTH AFTER 5 DAYS 03/22/18 19:00 Blood-Venous Gram Stain - Final TEST NOT PERFORMED 03/23/18 07:46 Urine,Clean Catch Urine Culture - Final Enterococcus Faecalis Escherichia Coli Most Recent Lab Values WBC 5.0 K/uL (4.8-10.8) 09/06/18 06:05 RBC 3.98 Mil/uL (3.80-5.20) 09/06/18 06:05 Hgb 12.2 g/dL (12.0-16.0) 09/06/18 06:05 Hct 37.0 % (34.0-47.0) 09/06/18 06:05 MCV 92.7 fl (81.0-99.0) 09/06/18 06:05 MCH 30.5 pg (27.0-31.0) 09/06/18 06:05 MCHC 32.9 g/dL (33.0-37.0) L 09/06/18 06:05 RDW 14.3 % (11.5-14.5) 09/06/18 06:05 Plt Count 119 K/uL (130-400) L D 09/06/18 06:05 MPV 10.9 fl (7.2-11.7) 09/06/18 06:05 Neut % (Auto) 45.2 % (50.0-75.0) L 09/06/18 06:05 Lymph % (Auto) 44.3 % (20.0-40.0) H 09/06/18 06:05 [place] % (Auto) 7.6 % (0.0-10.0) 09/06/18 06:05 Eos % (Auto) 2.4 % (0.0-4.0) 09/06/18 06:05 Baso % (Auto) 0.5 % (0.0-2.0) 09/06/18 06:05 Neut # (Auto) 2.2 K/uL (1.8-7.0) 09/06/18 06:05 Lymph # (Auto) 2.2 K/uL (1.0-4.3) 09/06/18 06:05 [place] # (Auto) 0.4 K/uL (0.0-0.8) 09/06/18 06:05 Eos # (Auto) 0.1 K/uL (0.0-0.7) 09/06/18 06:05 Baso # (Auto) 0.0 K/uL (0.0-0.2) 09/06/18 06:05 Neutrophils % (Manual) 93 % (42-75) H 03/22/18 19:00 Lymphocytes % (Manual) 3 % (20-50) L 03/22/18 19:00 Monocytes % (Manual) 4 % (0-10) 03/22/18 19:00 Platelet Estimate Normal (NORMAL) 03/22/18 19:00 Poikilocytosis (manual Slight 03/22/18 19:00 Anisocytosis (manual) Slight 03/22/18 19:00 Tear Drop Cells Slight 03/22/18 19:00 Ovalocytes Slight 03/22/18 19:00 PT 15.3 Seconds (9.8-13.1) H 08/06/18 06:40 INR 1.3 08/06/18 06:40 APTT 37.2 Seconds (25.6-37.1) H 08/06/18 06:40 Sodium 140 mmol/l (132-148) 09/06/18 06:05 Potassium 4.2 MMOL/L (3.6-5.0) 09/06/18 06:05 Chloride 101 mmol/L (98-107) 09/06/18 06:05 Carbon Dioxide 33 mmol/L (22-30) H 09/06/18 06:05 Anion Gap 10 (10-20) 09/06/18 06:05 BUN 29 mg/dl (7-17) H 09/06/18 06:05 Creatinine 0.8 mg/dl (0.7-1.2) 09/06/18 06:05 Est GFR ( Amer) > 60 09/06/18 06:05 Est GFR (Non-Af Amer) > 60 09/06/18 06:05 POC Glucose (mg/dL) 117 mg/dL (65-110) H 03/22/18 19:08 Random Glucose 95 mg/dL (65-105) 09/06/18 06:05 Hemoglobin A1c 6.1 % (4.2-6.5) 07/22/18 06:00 Lactic Acid 1.2 MMOL/L (0.7-2.1) 03/22/18 19:00 Calcium 8.7 mg/dL (8.4-10.2) 09/06/18 06:05 Phosphorus 3.9 mg/dl (2.5-4.5) 03/27/18 09:29 Magnesium 2.1 MG/DL (1.6-2.3) 09/06/18 06:05 Total Bilirubin 0.4 mg/dl (0.2-1.3) 09/06/18 06:05 AST 29 U/L (14-36) 09/06/18 06:05 ALT 39 U/L (9-52) 09/06/18 06:05 Alkaline Phosphatase 65 U/L (38-126) 09/06/18 06:05 Total Creatine Kinase 133 U/L (30-135) 03/27/18 09:29 Troponin I 0.0330 ng/mL (0.00-0.120) 03/22/18 19:00 NT-Pro-B Natriuret Pep 835 pg/ml (0-900) 03/27/18 09:29 Total Protein 6.6 G/DL (6.3-8.2) 09/06/18 06:05 Albumin 3.6 g/dL (3.5-5.0) 09/06/18 06:05 Globulin 3.0 gm/dL (2.2-3.9) 09/06/18 06:05 Albumin/Globulin Ratio 1.2 (1.0-2.1) 09/06/18 06:05 Triglycerides 83 mg/DL (0-149) 03/25/18 04:45 Cholesterol 199 mg/dL (0-199) 03/25/18 04:45 LDL Cholesterol Direct 136 mg/dL (0-129) H 03/25/18 04:45 HDL Cholesterol 44 MG/DL (30-70) 03/25/18 04:45 Vitamin B12 902 pg/mL (239-931) 06/14/18 06:50 25-OH Vitamin D Total 19.5 NG/ML (30.0-100.0) L 07/07/18 05:55 Folate 10.9 ng/mL 03/24/18 12:39 Homocysteine 10.4 umol/L (4.7-12.6) 03/24/18 12:39 Thyroxine (T4) 8.16 ug/dl (5.5-11.0) 07/07/18 05:55 TSH 3rd Generation 2.87 mIU/ML (0.46-4.68) 07/07/18 05:55 Urine Color Yellow (YELLOW) 07/23/18 14:52 Urine Clarity Slighty-cloudy (Clear) 07/23/18 14:52 Urine pH 7.0 (5.0-8.0) 07/23/18 14:52 Ur Specific [place] 1.020 (1.003-1.030) 07/23/18 14:52 Urine Protein Negative mg/dL (NEGATIVE) 07/23/18 14:52 Urine Glucose (UA) Neg mg/dL (NEGATIVE) 07/23/18 14:52 Urine Ketones Negative mg/dL (NEGATIVE) 07/23/18 14:52 Urine Blood Small (NEGATIVE) 07/23/18 14:52 Urine Nitrate Negative (NEGATIVE) 07/23/18 14:52 Urine Bilirubin Negative (NEGATIVE) 07/23/18 14:52 Urine Urobilinogen 0.2-1.0 mg/dL (0.2-1.0) 07/23/18 14:52 Ur Leukocyte Esterase Trace Teena/uL (Negative) 07/23/18 14:52 Urine RBC (Auto) 17 /hpf (0-3) H 07/23/18 14:52 Urine Microscopic WBC 35 /hpf (0-5) H 05/30/18 02:00 Ur Squamous Epith Cells 4 /hpf (0-5) 07/23/18 14:52 Urine Bacteria Rare (<OCC) 05/30/18 02:00 Hyaline Casts 3-5 /hpf (0-2) H 05/30/18 02:00 Valproic Acid 14.8 ug/mL (50.0-100.0) L 03/29/18 08:20 RPR Nonreactive (NONREACTIVE) 03/23/18 06:23 Blood Type O NEGATIVE 03/22/18 19:16 Antibody Screen Negative 03/22/18 19:16 BBK History Checked No verified bt 03/22/18 19:16 - Date & Time of H&P Date of H&P: 03/23/18 Time of H&P: 13:10 Discharge Exam - Head Exam Head Exam: NORMAL INSPECTION - Eye Exam Eye Exam: PERRL - ENT Exam ENT Exam: Normal Exam - Neck Exam Neck exam: Normal Inspection - Respiratory Exam Respiratory Exam: NORMAL BREATHING PATTERN - Cardiovascular Exam Cardiovascular Exam: REGULAR RHYTHM - GI/Abdominal Exam GI & Abdominal Exam: Normal Bowel Sounds, Soft - Extremities Exam Extremities exam: normal inspection - Back Exam Back exam: NORMAL INSPECTION - Neurological Exam Neurological exam: CN II-XII Intact, Reflexes Normal Additional comments: awake, follows commands, no motor sensory deficit. - Psychiatric Exam Psychiatric exam: Normal Mood - Skin Skin Exam: Warm Discharge Plan - Follow Up Plan Condition: FAIR Disposition: TRANSF TO SNF Instructions: Preventing Falls in the Older Adult, Rhabdomyolysis (DC) Referrals: Vic Burger MD [Family Provider] -
[2018-09-09 16:04] VITALS: BP 111/73; TEMP 98.2; O2SAT 96
== END 2018-09-09 17:50 | DRG 557 ==
LOC: H.ER 17:20 → H.ERHOLD 19:46 → H.TEL 21:50 → H.MEDSURG1 04-13 14:05
PROVIDERS: ADMIT Internal Medicine Pulmonary Disease; ATTEND Internal Medicine Pulmonary Disease
DX: M62.82 Rhabdomyolysis (principal); I50.33 Acute on chronic diastolic (congestive) heart failure; F05 Delirium due to known physiological condition; F01.51 Vascular dementia, unspecified severity, with behavioral disturbance; N39.0 Urinary tract infection, site not specified; B96.20 Unspecified Escherichia coli [E. coli] as the cause of diseases classified elsewhere; L89.150 Pressure ulcer of sacral region, unstageable; L89.322 Pressure ulcer of left buttock, stage 2; I11.0 Hypertensive heart disease with heart failure; Z75.1 Person awaiting admission to adequate facility elsewhere; B95.2 Enterococcus as the cause of diseases classified elsewhere; E03.9 Hypothyroidism, unspecified; I48.91 Unspecified atrial fibrillation; I27.20 Pulmonary hypertension, unspecified; R32 Unspecified urinary incontinence; R15.9 Full incontinence of feces; E78.2 Mixed hyperlipidemia; M19.90 Unspecified osteoarthritis, unspecified site; M47.9 Spondylosis, unspecified; F41.9 Anxiety disorder, unspecified; F32.9 Major depressive disorder, single episode, unspecified; R55 Syncope and collapse; N28.9 Disorder of kidney and ureter, unspecified; R91.1 Solitary pulmonary nodule; E53.8 Deficiency of other specified B group vitamins; E55.9 Vitamin D deficiency, unspecified; R00.0 Tachycardia, unspecified; R11.2 Nausea with vomiting, unspecified; R33.8 Other retention of urine; R74.8 Abnormal levels of other serum enzymes; Z74.8 Other problems related to care provider dependency; Z91.81 History of falling; Z79.01 Long term (current) use of anticoagulants

== ENCOUNTER 2018-09-10 22:31 | Inpatient (IN) | payer MEDICARE, MEDICAID ==
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
[2018-09-11 00:15] LABS: BASO % 0.6 % (0.0-2.0); EOS % 0.3 % (0.0-4.0); HEMOGLOBIN 12.4 g/dL (12.0-16.0); LYMPH # 1.5 K/uL (1.0-4.3); LYMPH % 25.1 % (20.0-40.0); MEAN CELL VOLUME 92.5 fl (81.0-99.0); MEAN CORPUSCULAR HEMOGLOBIN 30.4 pg (27.0-31.0); MEAN CORPUSCULAR HGB CONC 32.9 g/dL (33.0-37.0); MEAN PLATELET VOLUME 10.8 fl (7.2-11.7); MONO # 0.5 K/uL (0.0-0.8); MONO % 7.8 % (0.0-10.0); NEUT % 66.2 % (50.0-75.0); RBC 4.07 Mil/uL (3.80-5.20); RED CELL DISTRIBUTION WIDTH 14.5 % (11.5-14.5)
[2018-09-11 00:21] LABS: SQUAMOUS EPITHIAL 16 /hpf (0-5); URINE BACTERIA FEW (<OCC); URINE BILIRUBIN NEGATIVE (NEGATIVE); URINE BLOOD MODERATE (NEGATIVE); URINE CALCIUM OXALATE CRYSTALS OCC /hpf (<OCC); URINE CLARITY TURBID (Clear); URINE COLOR YELLOW (YELLOW); URINE GLUCOSE (UA) NEG (NEGATIVE); URINE LEUKOCYTE ESTERASE LARGE Leu/uL (Negative); URINE PROTEIN 100 mg/dL (NEGATIVE); URINE UROBILINOGEN 0.2-1.0 mg/dL (0.2-1.0)
[2018-09-11 00:29] LABS: ALB/GLOB RATIO 1.3 (1.0-2.1); ALBUMIN 3.9 g/dL (3.5-5.0); ALT/SGPT 36 U/L (9-52); AST/SGOT 32 U/L (14-36); BLOOD UREA NITROGEN 39 mg/dl (7-17); CALCIUM 8.5 mg/dL (8.4-10.2); GFR NON-AFRICAN AMERICAN 60
[2018-09-11 00:35] LABS: BARBITURATES, UR NEGATIVE (NEGATIVE); BENZODIAZEPINES, UR NEGATIVE (NEGATIVE); OPIATES, UR NEGATIVE (NEGATIVE); PHENCYCLIDINE, UR NEGATIVE (NEGATIVE)
--- NOTE | 2018-09-11 07:30 | ED PDOC ---
- Laboratory Results Result Diagrams: 09/10/18 23:50 09/10/18 23:50 Lab Results: Total Bilirubin 0.4 mg/dl (0.2-1.3) 09/10/18 23:50 AST 32 U/L (14-36) 09/10/18 23:50 ALT 36 U/L (9-52) 09/10/18 23:50 Alkaline Phosphatase 80 U/L (38-126) 09/10/18 23:50 Total Protein 7.0 G/DL (6.3-8.2) 09/10/18 23:50 Albumin 3.9 g/dL (3.5-5.0) 09/10/18 23:50 Globulin 3.1 gm/dL (2.2-3.9) 09/10/18 23:50 Albumin/Globulin Ratio 1.3 (1.0-2.1) 09/10/18 23:50 Urine Color Yellow (YELLOW) 09/10/18 23:50 Urine Clarity Turbid (Clear) 09/10/18 23:50 Urine pH 5.0 (5.0-8.0) 09/10/18 23:50 Ur Specific [place] 1.027 (1.003-1.030) 09/10/18 23:50 Urine Protein 100 mg/dL (NEGATIVE) 09/10/18 23:50 Urine Glucose (UA) Neg mg/dL (NEGATIVE) 09/10/18 23:50 Urine Ketones Trace mg/dL (NEGATIVE) 09/10/18 23:50 Urine Blood Moderate (NEGATIVE) 09/10/18 23:50 Urine Nitrate Negative (NEGATIVE) 09/10/18 23:50 Urine Bilirubin Negative (NEGATIVE) 09/10/18 23:50 Urine Urobilinogen 0.2-1.0 mg/dL (0.2-1.0) 09/10/18 23:50 Ur Leukocyte Esterase Large [place]/uL (Negative) 09/10/18 23:50 Urine RBC (Auto) 71 /hpf (0-3) H 09/10/18 23:50 Urine Microscopic WBC 97 /hpf (0-5) H 09/10/18 23:50 Ur Squamous Epith Cells 16 /hpf (0-5) H 09/10/18 23:50 Calcium Oxalate Crystal Occ /hpf (<OCC) H 09/10/18 23:50 Urine Bacteria Few (<OCC) H 09/10/18 23:50 - ECG O2 Sat by Pulse Oximetry: 97 - Progress ED Course And Treament: 1456: Crisis cleared pt. Medically stable for dc. Case management on case as [facility] giving issues with taking pt. back. Dr. Prescott to fu accordingly. Has ut and will need rx for macrobid on dc. Medical Decision Making Medical Decision Making: Time: 0700 --Patient endorsed to provider by Dr. Pires, pending macrobid and psychiatric evaluation. -- Scribe Attestation: Documented by Carolyn Reyes, acting as a scribe for Otf Mckee MD. Provider Scribe Attestation: All medical record entries made by the Scribe were at my direction and personally dictated by me. I have reviewed the chart and agree that the record accurately reflects my personal performance of the history, physical exam, medical decision making, and the department course for this patient. I have also personally directed, reviewed, and agree with the discharge instructions and disposition. Disposition - Clinical Impression Clinical Impression: Dementia, UTI (urinary tract infection) - POA Present On Arrival: None - Disposition Disposition: Transfer of Care Disposition Time: 14:57 Condition: STABLE Patient Signed Over To: Josafat Prescott
--- NOTE | 2018-09-11 09:45 | CARD ---
APPROVED REPORT Date of service: 09/10/2018 EKG Measurement Heart [id number] MI [id number] <Conclusion> Normal sinus rhythm Normal Electrocardiogram
--- NOTE | 2018-09-11 11:04 | RAD ---
Date of service: 09/10/2018 HISTORY: Altered mental status. COMPARISON: 03/28/2018. FINDINGS: LUNGS: No active pulmonary disease. PLEURA: No significant pleural effusion identified, no pneumothorax apparent. CARDIOVASCULAR: No atherosclerotic calcification present Normal. OSSEOUS STRUCTURES: No significant abnormalities. VISUALIZED UPPER ABDOMEN: Normal. OTHER FINDINGS: None. IMPRESSION: No active disease. No significant interval change compared to the prior examination(s).
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
[2018-09-11] MEDS ORDERED: cefTRIAXone (Rocephin) 1 gm Inj ONE (18:18)
[2018-09-11] MEDS: Divalproex 125 mg Sprinkle Capsule PO SCH (23:16)
[2018-09-12 06:53] VITALS: BMI 25.2
[2018-09-12] MEDS ORDERED: Ergocalciferol 50,000 Intl Units Cap PO SCH (09:00)
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
[2018-09-12] MEDS: Divalproex 125 mg Sprinkle Capsule PO SCH ×2 (09:13→16:07)
[2018-09-12] MEDS: Levothyroxine 75 MCG TAB PO SCH (09:15)
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
[2018-09-13] MEDS: Levothyroxine 75 MCG TAB PO SCH (05:33)
[2018-09-13] MEDS: Divalproex 125 mg Sprinkle Capsule PO SCH ×3 (08:24→16:13)
--- NOTE | 2018-09-13 14:32 | CP.PCM.PN ---
Subjective - Date & Time of Evaluation Date of Evaluation: 09/13/18 Time of Evaluation: 14:00 - Subjective Subjective: Pt awake, no A/D, She was ambulating in hallways earlier with steady gait. Objective - Vital Signs/Intake and Output Vital Signs (last 24 hours): Temp Pulse Resp BP Pulse Ox 98.1 F 76 20 156/83 H 98 09/13/18 08:42 09/13/18 08:42 09/13/18 08:42 09/13/18 08:42 09/13/18 08:42 - Medications Medications: Current Medications Acetaminophen (Tylenol 325mg Tab) 650 mg PO Q6 PRN PRN Reason: Pain, Mild (1-3) Cyanocobalamin (Vitamin B12 1000 Mcg Tab) 1,000 mcg PO DAILY [facility] Last Admin: 09/13/18 08:24 Dose: 1,000 mcg Divalproex Sodium (Depakote Sprinkles) 125 mg PO TID [facility] Last Admin: 09/13/18 12:34 Dose: 125 mg Donepezil HCl (Aricept) 5 mg PO HS [facility] Last Admin: 09/12/18 21:12 Dose: 5 mg Enalapril Maleate (Vasotec) 2.5 mg PO DAILY [facility] Last Admin: 09/13/18 08:23 Dose: 2.5 mg Ergocalciferol (Drisdol 50,000 Intl Units Cap) 1 cap PO Q7D [facility] Last Admin: 09/12/18 09:13 Dose: 1 cap Ceftriaxone Sodium 1 gm/ (Sodium Chloride) 100 mls @ 100 mls/hr IVPB DAILY [facility]; Protocol Last Admin: 09/13/18 08:26 Dose: 100 mls/hr Levothyroxine Sodium (Synthroid) 75 mcg PO DAILY@0630 [facility] Last Admin: 09/13/18 05:33 Dose: 75 mcg Lorazepam (Ativan) 1 mg PO Q4 PRN PRN Reason: Agitation Lorazepam (Ativan) 1 mg IM Q4 PRN PRN Reason: Agitation Metoprolol Tartrate (Lopressor) 50 mg PO Q12 [facility] Last Admin: 09/13/18 08:26 Dose: 50 mg Rivaroxaban (Xarelto) 15 mg PO DAILY@1700 [facility]; Protocol Last Admin: 09/12/18 16:08 Dose: 15 mg - Labs Labs: 09/10/18 23:50 09/10/18 23:50 - Constitutional Appears: No Acute Distress - Head Exam Head Exam: NORMAL INSPECTION - Eye Exam Eye Exam: PERRL - ENT Exam ENT Exam: Normal Exam - Neck Exam Neck Exam: Normal Inspection - Respiratory Exam Respiratory Exam: Clear to Ausculation Bilateral - Cardiovascular Exam Cardiovascular Exam: REGULAR RHYTHM - GI/Abdominal Exam GI & Abdominal Exam: Soft, Normal Bowel Sounds - Extremities Exam Extremities Exam: Normal Inspection - Back Exam Back Exam: NORMAL INSPECTION - Neurological Exam Neurological Exam: Awake, CN II-XII Intact, Reflexes Normal. absent: Motor Sensory Deficit Additional comments: Forgetful, confused, follows commands. - Psychiatric Exam Psychiatric exam: Normal Mood - Skin Skin Exam: Normal Color, Warm Assessment and Plan (1) Altered mental status Status: Acute (2) Dementia Status: Chronic (3) Major neurocognitive disorder Status: Acute (4) Behavior disturbance Status: Acute (5) Cystitis Status: Acute (6) HTN (hypertension) Status: Chronic (7) Hypothyroidism Status: Chronic - Assessment and Plan (Free Text) Plan: continue Aricept, Depakote, Ativan, Xarelto and rest of Tx
[2018-09-14] MEDS: Levothyroxine 75 MCG TAB PO SCH (06:13)
[2018-09-14] MEDS: Divalproex 125 mg Sprinkle Capsule PO SCH ×3 (08:13→16:23)
--- NOTE | 2018-09-14 14:31 | CP.PCM.PN ---
Subjective - Date & Time of Evaluation Date of Evaluation: 09/14/18 Time of Evaluation: 11:00 - Subjective Subjective: F/U AMS Pt awake, no A/D, no c/o, cooperative. Objective - Vital Signs/Intake and Output Vital Signs (last 24 hours): Temp Pulse Resp BP Pulse Ox 98.2 F 68 20 167/81 H 95 09/14/18 08:15 09/14/18 08:15 09/14/18 08:15 09/14/18 08:15 09/14/18 08:15 - Medications Medications: Current Medications Acetaminophen (Tylenol 325mg Tab) 650 mg PO Q6 PRN PRN Reason: Pain, Mild (1-3) Cyanocobalamin (Vitamin B12 1000 Mcg Tab) 1,000 mcg PO DAILY [facility] Last Admin: 09/14/18 08:13 Dose: 1,000 mcg Divalproex Sodium (Depakote Sprinkles) 125 mg PO TID [facility] Last Admin: 09/14/18 12:33 Dose: 125 mg Donepezil HCl (Aricept) 5 mg PO HS [facility] Last Admin: 09/13/18 21:09 Dose: 5 mg Enalapril Maleate (Vasotec) 2.5 mg PO DAILY [facility] Last Admin: 09/14/18 08:13 Dose: 2.5 mg Ergocalciferol (Drisdol 50,000 Intl Units Cap) 1 cap PO Q7D [facility] Last Admin: 09/12/18 09:13 Dose: 1 cap Ceftriaxone Sodium 1 gm/ (Sodium Chloride) 100 mls @ 100 mls/hr IVPB DAILY [facility]; Protocol Last Admin: 09/14/18 08:16 Dose: 100 mls/hr Levothyroxine Sodium (Synthroid) 75 mcg PO DAILY@0630 [facility] Last Admin: 09/14/18 06:13 Dose: 75 mcg Lorazepam (Ativan) 1 mg PO Q4 PRN PRN Reason: Agitation Lorazepam (Ativan) 1 mg IM Q4 PRN PRN Reason: Agitation Metoprolol Tartrate (Lopressor) 50 mg PO Q12 [facility] Last Admin: 09/14/18 08:15 Dose: 50 mg Rivaroxaban (Xarelto) 15 mg PO DAILY@1700 [facility]; Protocol Last Admin: 09/13/18 16:13 Dose: 15 mg - Labs Labs: 09/10/18 23:50 09/10/18 23:50 - Constitutional Appears: No Acute Distress - Head Exam Head Exam: NORMAL INSPECTION - Eye Exam Eye Exam: PERRL - ENT Exam ENT Exam: Normal Exam - Neck Exam Neck Exam: Normal Inspection - Respiratory Exam Respiratory Exam: Clear to Ausculation Bilateral - Cardiovascular Exam Cardiovascular Exam: REGULAR RHYTHM - GI/Abdominal Exam GI & Abdominal Exam: Soft, Normal Bowel Sounds - Extremities Exam Extremities Exam: Normal Inspection - Back Exam Back Exam: NORMAL INSPECTION - Neurological Exam Neurological Exam: Awake, CN II-XII Intact, Reflexes Normal. absent: Motor Sensory Deficit Additional comments: Forgetful, follows commands - Psychiatric Exam Psychiatric exam: Normal Affect, Normal Mood - Skin Skin Exam: Warm Assessment and Plan (1) Altered mental status Status: Acute (2) Dementia Status: Chronic (3) Major neurocognitive disorder Status: Acute (4) Behavior disturbance Status: Acute (5) Cystitis Status: Acute (6) HTN (hypertension) Status: Chronic (7) Hypothyroidism Status: Chronic - Assessment and Plan (Free Text) Plan: Continue Ceftriaxone, Aricept, Depakote, Xarelto and rest of Tx.
[2018-09-15] MEDS: Levothyroxine 75 MCG TAB PO SCH (05:53)
[2018-09-15 08:03] VITALS: RESP 18
[2018-09-15] MEDS: Divalproex 125 mg Sprinkle Capsule PO SCH ×3 (09:18→16:46)
--- NOTE | 2018-09-15 15:08 | CP.PCM.PN ---
Subjective - Date & Time of Evaluation Date of Evaluation: 09/15/18 Time of Evaluation: 10:20 - Subjective Subjective: F/U AMS. Pt awake, no A/D, no c/o, calm. Objective - Vital Signs/Intake and Output Vital Signs (last 24 hours): Temp Pulse Resp BP Pulse Ox 97.8 F 75 18 137/78 96 09/15/18 08:02 09/15/18 09:23 09/15/18 08:02 09/15/18 09:23 09/15/18 08:02 - Medications Medications: Current Medications Acetaminophen (Tylenol 325mg Tab) 650 mg PO Q6 PRN PRN Reason: Pain, Mild (1-3) Cyanocobalamin (Vitamin B12 1000 Mcg Tab) 1,000 mcg PO DAILY [facility] Last Admin: 09/15/18 09:19 Dose: 1,000 mcg Divalproex Sodium (Depakote Sprinkles) 125 mg PO TID [facility] Last Admin: 09/15/18 12:14 Dose: 125 mg Donepezil HCl (Aricept) 5 mg PO HS [facility] Last Admin: 09/14/18 21:22 Dose: 5 mg Enalapril Maleate (Vasotec) 2.5 mg PO DAILY [facility] Last Admin: 09/15/18 09:19 Dose: 2.5 mg Ergocalciferol (Drisdol 50,000 Intl Units Cap) 1 cap PO Q7D [facility] Last Admin: 09/12/18 09:13 Dose: 1 cap Levothyroxine Sodium (Synthroid) 75 mcg PO DAILY@0630 [facility] Last Admin: 09/15/18 05:53 Dose: 75 mcg Lorazepam (Ativan) 1 mg PO Q4 PRN PRN Reason: Agitation Lorazepam (Ativan) 1 mg IM Q4 PRN PRN Reason: Agitation Metoprolol Tartrate (Lopressor) 50 mg PO Q12 [facility] Last Admin: 09/15/18 09:23 Dose: 50 mg Rivaroxaban (Xarelto) 15 mg PO DAILY@1700 [facility]; Protocol Last Admin: 09/14/18 16:23 Dose: 15 mg - Labs Labs: 09/10/18 23:50 09/10/18 23:50 - Constitutional Appears: No Acute Distress - Head Exam Head Exam: NORMAL INSPECTION - Eye Exam Eye Exam: PERRL - ENT Exam ENT Exam: Normal Exam - Neck Exam Neck Exam: Normal Inspection - Respiratory Exam Respiratory Exam: NORMAL BREATHING PATTERN - Cardiovascular Exam Cardiovascular Exam: REGULAR RHYTHM - GI/Abdominal Exam GI & Abdominal Exam: Soft, Normal Bowel Sounds - Extremities Exam Extremities Exam: Normal Inspection - Back Exam Back Exam: NORMAL INSPECTION - Neurological Exam Neurological Exam: Awake, CN II-XII Intact, Reflexes Normal. absent: Motor Sensory Deficit Additional comments: Follows commands, confused, forgetful - Psychiatric Exam Additional comments: Calm - Skin Skin Exam: Warm Assessment and Plan (1) Altered mental status Status: Acute (2) Dementia Status: Chronic (3) Major neurocognitive disorder Status: Acute (4) Behavior disturbance Status: Acute (5) Cystitis Status: Acute (6) HTN (hypertension) Status: Chronic (7) Hypothyroidism Status: Chronic - Assessment and Plan (Free Text) Plan: Continue Depakote, Aricept, Vit B 12 and rest of Tx.
[2018-09-15 15:52] VITALS: BP 111/71; PULSE 74; TEMP 99.4; O2SAT 97
--- NOTE | 2018-09-15 23:12 | CP.PCM.DIS ---
Provider - Provider Date of Admission: 09/11/18 16:56 Attending physician: Vic Burger MD Consults: 09/11/18 16:59 Psychiatry Consult Stat Comment: Consulting Provider: Wai Marroquin Consulting Physician: Wai Marroquin Reason for Consult: agitation/uti- dementia vs delirium Diagnosis - Discharge Diagnosis (1) Altered mental status Status: Acute Priority: High (2) Dementia Status: Chronic Priority: High (3) Major neurocognitive disorder Status: Acute Priority: High (4) Behavior disturbance Status: Acute Priority: High (5) Cystitis Status: Acute Priority: High (6) HTN (hypertension) Status: Chronic Priority: Medium (7) Hypothyroidism Status: Chronic Priority: Medium Hospital Course - Lab Results Lab Results: Micro Results 09/11/18 19:00 Blood-Venous Blood Culture - Preliminary NO GROWTH AFTER 4 DAYS 09/11/18 18:45 Blood-Venous Blood Culture - Preliminary NO GROWTH AFTER 4 DAYS 09/11/18 03:35 Urine Random Urine Culture - Final No Growth (<1,000 CFU/ML) Most Recent Lab Values WBC 6.0 K/uL (4.8-10.8) 09/10/18 23:50 RBC 4.07 Mil/uL (3.80-5.20) 09/10/18 23:50 Hgb 12.4 g/dL (12.0-16.0) 09/10/18 23:50 Hct 37.6 % (34.0-47.0) 09/10/18 23:50 MCV 92.5 fl (81.0-99.0) 09/10/18 23:50 MCH 30.4 pg (27.0-31.0) 09/10/18 23:50 MCHC 32.9 g/dL (33.0-37.0) L 09/10/18 23:50 RDW 14.5 % (11.5-14.5) 09/10/18 23:50 Plt Count 120 K/uL (130-400) L 09/10/18 23:50 MPV 10.8 fl (7.2-11.7) 09/10/18 23:50 Neut % (Auto) 66.2 % (50.0-75.0) 09/10/18 23:50 Lymph % (Auto) 25.1 % (20.0-40.0) 09/10/18 23:50 Page % (Auto) 7.8 % (0.0-10.0) 09/10/18 23:50 Eos % (Auto) 0.3 % (0.0-4.0) 09/10/18 23:50 Baso % (Auto) 0.6 % (0.0-2.0) 09/10/18 23:50 Neut # (Auto) 4.0 K/uL (1.8-7.0) 09/10/18 23:50 Lymph # (Auto) 1.5 K/uL (1.0-4.3) 09/10/18 23:50 Page # (Auto) 0.5 K/uL (0.0-0.8) 09/10/18 23:50 Eos # (Auto) 0.0 K/uL (0.0-0.7) 09/10/18 23:50 Baso # (Auto) 0.0 K/uL (0.0-0.2) 09/10/18 23:50 Sodium 139 mmol/l (132-148) 09/10/18 23:50 Potassium 4.0 MMOL/L (3.6-5.0) 09/10/18 23:50 Chloride 101 mmol/L (98-107) 09/10/18 23:50 Carbon Dioxide 28 mmol/L (22-30) 09/10/18 23:50 Anion Gap 14 (10-20) 09/10/18 23:50 BUN 39 mg/dl (7-17) H 09/10/18 23:50 Creatinine 0.9 mg/dl (0.7-1.2) 09/10/18 23:50 Est GFR ( Amer) > 60 09/10/18 23:50 Est GFR (Non-Af Amer) 60 09/10/18 23:50 Random Glucose 107 mg/dL (65-105) H 09/10/18 23:50 Calcium 8.5 mg/dL (8.4-10.2) 09/10/18 23:50 Total Bilirubin 0.4 mg/dl (0.2-1.3) 09/10/18 23:50 AST 32 U/L (14-36) 09/10/18 23:50 ALT 36 U/L (9-52) 09/10/18 23:50 Alkaline Phosphatase 80 U/L (38-126) 09/10/18 23:50 Total Protein 7.0 G/DL (6.3-8.2) 09/10/18 23:50 Albumin 3.9 g/dL (3.5-5.0) 09/10/18 23:50 Globulin 3.1 gm/dL (2.2-3.9) 09/10/18 23:50 Albumin/Globulin Ratio 1.3 (1.0-2.1) 09/10/18 23:50 Urine Color Yellow (YELLOW) 09/10/18 23:50 Urine Clarity Turbid (Clear) 09/10/18 23:50 Urine pH 5.0 (5.0-8.0) 09/10/18 23:50 Ur Specific [place] 1.027 (1.003-1.030) 09/10/18 23:50 Urine Protein 100 mg/dL (NEGATIVE) 09/10/18 23:50 Urine Glucose (UA) Neg mg/dL (NEGATIVE) 09/10/18 23:50 Urine Ketones Trace mg/dL (NEGATIVE) 09/10/18 23:50 Urine Blood Moderate (NEGATIVE) 09/10/18 23:50 Urine Nitrate Negative (NEGATIVE) 09/10/18 23:50 Urine Bilirubin Negative (NEGATIVE) 09/10/18 23:50 Urine Urobilinogen 0.2-1.0 mg/dL (0.2-1.0) 09/10/18 23:50 Ur Leukocyte Esterase Large [place]/uL (Negative) 09/10/18 23:50 Urine RBC (Auto) 71 /hpf (0-3) H 09/10/18 23:50 Urine Microscopic WBC 97 /hpf (0-5) H 09/10/18 23:50 Ur Squamous Epith Cells 16 /hpf (0-5) H 09/10/18 23:50 Calcium Oxalate Crystal Occ /hpf (<OCC) H 09/10/18 23:50 Urine Bacteria Few (<OCC) H 09/10/18 23:50 Urine Opiates Screen Negative (NEGATIVE) 09/10/18 23:50 Urine Methadone Screen Negative (NEGATIVE) 09/10/18 23:50 Ur Barbiturates Screen Negative (NEGATIVE) 09/10/18 23:50 Ur Phencyclidine Scrn Negative (NEGATIVE) 09/10/18 23:50 Ur Amphetamines Screen Negative (NEGATIVE) 09/10/18 23:50 U Benzodiazepines Scrn Negative (NEGATIVE) 09/10/18 23:50 U Oth Cocaine Metabols Negative (NEGATIVE) 09/10/18 23:50 U Cannabinoids Screen Negative (NEGATIVE) 09/10/18 23:50 Alcohol, Quantitative < 10 mg/dl (0-10) 09/10/18 23:50 Discharge Exam - Head Exam Head Exam: NORMAL INSPECTION Discharge Plan - Discharge Medications Prescriptions: Nitrofurantoin Macrocrystals [Macrobid] 100 mg PO BID #14 cap - Follow Up Plan Condition: STABLE Disposition: REHAB FACILITY/REHAB UNIT Instructions: Dementia (Including Alzheimer Disease), Urinary Tract Infection, Adult (DC) Additional Instructions: follow up with your doctor within one week take antibiotics as prescribed for uti Referrals: Vic Burger MD [Staff Provider] -
== END 2018-09-15 18:25 | DRG 884 ==
LOC: H.ER 22:31 → H.ERHOLD 09-11 16:56 → H.MEDSURG1 09-11 21:24
PROVIDERS: ADMIT Internal Medicine Pulmonary Disease; ATTEND Internal Medicine Pulmonary Disease
DX: F01.51 Vascular dementia, unspecified severity, with behavioral disturbance (principal); N30.00 Acute cystitis without hematuria; E03.9 Hypothyroidism, unspecified; I10 Essential (primary) hypertension; E78.5 Hyperlipidemia, unspecified; E78.00 Pure hypercholesterolemia, unspecified; Z79.890 Hormone replacement therapy; F41.9 Anxiety disorder, unspecified; F32.9 Major depressive disorder, single episode, unspecified; I48.91 Unspecified atrial fibrillation; Z79.01 Long term (current) use of anticoagulants